=== PATIENT | male | born 1960 ===

== ENCOUNTER 2018-02-07 07:20 | Inpatient (IN) | payer MEDICARE ==
--- NOTE | 2018-02-07 08:16 | ED PDOC ---
Lower Extremity Pain/Injury Time Seen by Provider: 02/07/18 07:29 Chief Complaint (Nursing): Lower Extremity Problem/Injury History Per: Patient History/Exam Limitations: no limitations Onset/Duration Of Symptoms: Days, Persistent Current Symptoms Are (Timing): Still Present Severity: Moderate Pain Scale Rating Of: 7 Additional Complaint(s): 57 YO male with PMHx of IDDM, HTN, HLD, CAD (CABG), on HD (T/W/Sa), L BKA, presents to [facility] ED with RLE and LLE pain. Pt states that he fell in the stairs on November 24, 2017 after which he was taken to [facility], and told R leg fracture and was put in a cast. A month ago, pts cast was removed, and he noticed that the leg looked different then usual, and he also had a small non- healing ulcer in the lateral side of the leg. Pt states that he continues to have pain in the RLE, has not improved since cast removal, moderate pain. Pain improved with Tylenol, last time use was last night. Denies fever, chills, night sweats, n/v/d/c. PMD: Erika Trejo PMHx: IDDM, HTN, HLD, CAD (CABG), CKD on HD (T/W/Sa), L BKA SurgHx: L BKA, CABG FH: DM SH: denies ETOH, smoking and illicit drug use Meds: on multiple meds, does not remember names Allergies: NKDA - Ankle/Foot Description Of Injury: Fell Currently Unable To: Straighten Alleviating Factor(s): OTC Pain Medication Past Medical History Vital Signs: Last Vital Signs Temp 98.5 F 02/07/18 07:26 Pulse 77 02/07/18 07:26 Resp 20 02/07/18 07:26 BP 133/77 02/07/18 07:26 Pulse Ox 99 02/07/18 07:26 - Medical History PMH: CAD, Diabetes, HTN, Hyperlipidemia, Chronic Kidney Disease - Surgical History Surgical History: CABG Other surgeries: L BKA - Family History Family History: States: Diabetes - Social History Current smoker - smoking cessation education provided: No Ex-Smoker (has not smoked in the last 12 months): No Alcohol: None Drugs: Denies - Home Medications Home Medications: Ambulatory Orders Medication Instructions Recorded Atorvastatin [Lipitor] 40 mg PO HS 02/07/18 Carvedilol [Coreg] 3.125 mg PO Q12 02/07/18 Folic Acid/Vit B Complex and C 1 tab PO DAILY 02/07/18 [Marianela-Rod Tablet] Insulin Aspart, Recombinant unit SC AC 02/07/18 [Novolog] Insulin Glargine, Recombina 5 unit SC QAM 02/07/18 [Lantus] Insulin Glargine, Recombina 8 unit SC QPM 02/07/18 [Lantus] Levothyroxine [Synthroid] 100 mg PO DAILY 02/07/18 Losartan [Cozaar] 25 mg PO DAILY 02/07/18 Multivitamin [Multi-Vitamin Daily] 1 tab PO DAILY 02/07/18 Sevelamer Carbonate [Renvela] 1,600 mg PO ACTID 02/07/18 - Allergies Allergies/Adverse Reactions: Allergies Allergy/AdvReac Type Severity Reaction Status Date / Time No Known Allergies Allergy Verified 02/07/18 07:42 Review of Systems Constitutional: Negative for: Fever, Chills Cardiovascular: Negative for: Chest Pain, Palpitations Respiratory: Negative for: Cough, Shortness of Breath Gastrointestinal: Negative for: Nausea, Vomiting, Diarrhea, Constipation Genitourinary Male: Negative for: Dysuria, Frequency Musculoskeletal: Positive for: Foot Pain (R) Neurological: Negative for: Weakness, Numbness Physical Exam - Physical Exam Appears: Positive for: No Acute Distress Head Exam: Positive for: NORMAL INSPECTION Skin: Positive for: Normal Color Eye Exam: Positive for: Normal appearance, EOMI Neck: Positive for: Normal, Painless ROM Cardiovascular/Chest: Positive for: Regular Rate, Rhythm Respiratory: Positive for: Normal Breath Sounds. Negative for: Crackles, Rales , Wheezing Gastrointestinal/Abdominal: Positive for: Normal Exam, Bowel Sounds, Soft. Negative for: Tenderness Back: Positive for: Normal Inspection. Negative for: L CVA Tenderness, R CVA Tenderness Extremity: Positive for: Deformity (in the RLE, quarter sized ulcer noted in the lateral mallelous; not currently draining. Mild edema, no erythema or temp changes ), Other (L BKA, no gross deformity of the knee) Neurologic/Psych: Positive for: Alert, Oriented - Laboratory Results Result Diagrams: 02/07/18 08:51 02/07/18 08:51 - ECG O2 Sat by Pulse Oximetry: 99 - Progress ED Course And Treament: 57 Male with RLE pain, ulcer and deformity, chronic renal failure on HD, IDDM, CAD. -cbc, cmp -wound cx, blood cx -tib/fib and josette XR of RLE -knee XR of LLE -podiatry recs Blood work reviewed; labs sig for Creakiness 8.5 and Hyperkalemia K 5.1. -stat EKG for hyperkalemia 10:25: XR sig for multiple lower extremity fxs--complete disruption of the R ankle with lateral displacement, with old trimalleolar fx. Pt seen and examined by Podiatry in ED EKG with no acute ST or T wave changes. rate of 75. All workup, plan discussed with patient. Pt agrees with plan. Pt admitted to the hospital Dr. Novak consulted for Chronic renal failure on HD Podiatry consulted Pt endorsed to Dr. Wilde. Admitting MD. Disposition - Clinical Impression Clinical Impression: Chronic kidney disease (CKD), Tibia/fibula fracture - Patient ED Disposition Is Patient to be Admitted: Yes - Disposition Disposition Time: 11:30 Condition: STABLE
[2018-02-07 09:06] LABS: BASO % 0.9 % (0.0-2.0); EOS # 0.2 K/uL (0.0-0.7); EOS % 4.6 % (0.0-4.0); HEMOGLOBIN 11.7 g/dL (12.0-18.0); LYMPH # 0.8 K/uL (1.0-4.3); LYMPH % 16.5 % (20.0-40.0); MEAN CELL VOLUME 96.7 fl (80.0-94.0); MEAN CORPUSCULAR HEMOGLOBIN 32.5 pg (27.0-31.0); MEAN CORPUSCULAR HGB CONC 33.6 g/dL (33.0-37.0); MEAN PLATELET VOLUME 7.1 fl (7.2-11.7); MONO # 0.4 K/uL (0.0-0.8); MONO % 8.9 % (0.0-10.0); NEUT # 3.2 K/uL (1.8-7.0); NEUT % 69.1 % (50.0-75.0); RBC 3.59 Mil/uL (4.40-5.90); RED CELL DISTRIBUTION WIDTH 15.3 % (11.5-14.5); WHITE BLOOD COUNT 4.7 K/uL (4.8-10.8)
[2018-02-07 09:14] LABS: CALCIUM 8.3 mg/dL (8.4-10.2)
--- NOTE | 2018-02-07 09:25 | RAD ---
PROCEDURE: Right Wrist Radiographs. HISTORY: RLE pain COMPARISON: 04/16/2008 FINDINGS: BONES: There is complete disruption of the right ankle joint. Old fractures involving the lateral and medial malleolus with lateral dislocation of the distal tibia. JOINTS: As above. SOFT TISSUES: Generalized soft tissue swelling. OTHER FINDINGS: Extensive vascular calcifications. Extensive osteopenia. IMPRESSION: Complete disruption of the right ankle joint with dislocation of the distal tibia to the lateral aspect. Old trimalleolar fractures. Please note that in this setting, evaluation of subtle acute fractures is extremely suboptimal. Other findings as above.
--- NOTE | 2018-02-07 09:39 | RAD ---
Right tibia and fibula History: Pain. Technique: Multiple views of the right tibia and fibula. Findings: No evidence of acute fracture. Extensive degenerative changes common destruction and dislocation involving the right ankle joint. Generalized osteopenia. Vascular calcifications. Generalized soft tissue swelling. Impression: No acute fracture. Chronic changes involving the right ankle.
--- NOTE | 2018-02-07 09:50 | RAD ---
PROCEDURE: Left Knee Radiographs. HISTORY: Pain. COMPARISON: 04/16/2018 FINDINGS: BONES: No acute fracture. Patient is status post below-knee amputation. JOINTS: Minimal arthritic changes in the left knee. JOINT EFFUSION: Moderate suprapatellar joint effusion. OTHER FINDINGS: Extensive osteopenia. Vascular calcifications. IMPRESSION: Status post below-knee amputation. No definite fracture. Other findings as above.
--- NOTE | 2018-02-07 11:54 | CARD ---
APPROVED REPORT EKG Measurement Heart [id number] <Conclusion> Normal sinus rhythm Inferior infarct, age undetermined Abnormal ECG
--- NOTE | 2018-02-07 12:39 | CP.PCM.HP ---
History of Present Illness - History of Present Illness History of Present Illness: CC: Pain R ankle and foot. 57 y/o M, with Hx of CABG, ESRD on HD, IDDM, HTN, came to [facility] on , to be evaluated for pain in R ankle, R foot, associated to Fx from a fall and trauma 2 month ago that he fell down the stairs. Pt was Tx in [facility], he had a cast placed and after been removed a month ago, he noticed that his R leg does not look the same. He still with increased pain, continue, described as achy, moderate-severe intensity 8:10, Pt took Tylenol last night with some relief. Worsening symptoms: Difficulty walking, non healed ulcer in R foot, old trimalleolar Fx from fall. Aggravated factor: Walking, movements, exercise. Pt denied: Fever, chill, n/v/d, abdominal pain, CP, palpitations, SOB, sick contact, recent travel out of [facility]. R ankle X Ray shows: Complete disruption on the R ankle joint with dislocation of the distal tibia to the lateral aspect. R Tibia or fistula X Ray: No acute Fx. EKG: Normal sinus rhythm, inferior infarct age undetermined. Present on Admission - Present on Admission Any Indicators Present on Admission: No Review of Systems - Constitutional Constitutional: Other (negative) - EENT Eyes: Other (negative) Ears: Other (negative) Nose/Mouth/Throat: Other (negative) - Cardiovascular Cardiovascular: Other (negative) - Respiratory Respiratory: Other (negative) - Gastrointestinal Gastrointestinal: Other (negative) - Genitourinary Genitourinary: Other (negative) - Musculoskeletal Musculoskeletal: Other (R ankle/lower extremity pain) - Integumentary Integumentary: Other (Ulcer lateral malleolar) - Neurological Neurological: Other (negative) - Psychiatric Psychiatric: Other (negative) - Hematologic/Lymphatic Hematologic: Other (negative) Past Patient History - Past Medical History & Family History Pertinent Family History: Unknown - Past Social History Smoking Status: Never Smoked Alcohol: None Drugs: Denies Home Situation {Lives}: Other - CARDIAC Hx Cardiac Disorders: Yes Hx Hypercholesterolemia: Yes Hx Hypertension: Yes - PULMONARY Hx Respiratory Disorders: No - NEUROLOGICAL Hx Neurological Disorder: No - HEENT Hx HEENT Problems: No - RENAL Hx Chronic Kidney Disease: Yes Hx Dialysis: Yes - ENDOCRINE/METABOLIC Hx Endocrine Disorders: Yes Hx Diabetes Mellitus Type 2: Yes - HEMATOLOGICAL/ONCOLOGICAL Hx Blood Disorders: No - INTEGUMENTARY Hx Dermatological Problems: No - MUSCULOSKELETAL/RHEUMATOLOGICAL Hx Musculoskeletal Disorders: Yes Hx Fractures: Yes - GASTROINTESTINAL Hx Gastrointestinal Disorders: No - GENITOURINARY/GYNECOLOGICAL Hx Genitourinary Disorders: No - PSYCHIATRIC Hx Psychophysiologic Disorder: No - SURGICAL HISTORY Hx Surgeries: Yes (L BKA) Hx Coronary Artery Bypass Graft: Yes - ANESTHESIA Hx Anesthesia: Yes Hx Anesthesia Reactions: No Hx Malignant Hyperthermia: No Meds Allergies/Adverse Reactions: Allergies Allergy/AdvReac Type Severity Reaction Status Date / Time No Known Allergies Allergy Verified 02/07/18 07:42 Physical Exam - Head Exam Head Exam: NORMAL INSPECTION - Eye Exam Eye Exam: PERRL - ENT Exam ENT Exam: Normal Exam - Neck Exam Neck exam: Positive for: Normal Inspection - Respiratory Exam Respiratory Exam: Clear to Auscultation Bilateral - Cardiovascular Exam Cardiovascular Exam: REGULAR RHYTHM - GI/Abdominal Exam GI & Abdominal Exam: Normal Bowel Sounds, Soft - Extremities Exam Additional comments: Left BKA, Lateral malleolal ulceration R foot with granular base, displacement R ankle joint with severe pain on palpation of medial and lateral ankle joint. L upper arm with dialysis fistula, positive for bruit and thrill. - Back Exam Back exam: NORMAL INSPECTION - Neurological Exam Neurological exam: Alert, Oriented x3 - Psychiatric Exam Psychiatric exam: Normal Mood - Skin Skin Exam: Warm Additional comments: See extremity information. Results - Vital Signs Recent Vital Signs: Last Vital Signs Temp 98.0 F 02/07/18 11:50 Pulse 77 02/07/18 11:50 Resp 14 02/07/18 11:50 BP 125/79 02/07/18 11:50 Pulse Ox 99 02/07/18 12:05 reviewed [email or web address] - Labs Result Diagrams: 02/07/18 08:51 02/07/18 08:51 Labs: Laboratory Results - last 24 hr 02/07/18 02/07/18 02/07/18 08:51 08:51 11:29 WBC 4.7 L RBC 3.59 L Hgb 11.7 L Hct 34.7 L MCV 96.7 H MCH 32.5 H MCHC 33.6 RDW 15.3 H Plt Count 253 MPV 7.1 L Neut % (Auto) 69.1 Lymph % (Auto) 16.5 L [place] % (Auto) 8.9 Eos % (Auto) 4.6 H Baso % (Auto) 0.9 Neut # (Auto) 3.2 Lymph # (Auto) 0.8 L [place] # (Auto) 0.4 Eos # (Auto) 0.2 Baso # (Auto) 0.0 Sodium 138 Potassium 5.1 H Chloride 94 L Carbon Dioxide 31 H Anion Gap 18 BUN 54 H Creatinine 8.5 H* Est GFR ( Amer) 8 Est GFR (Non-Af Amer) 7 POC Glucose (mg/dL) 107 Random Glucose 105 Calcium 8.3 L reviewed J.P. - Impressions Impression: reviewed J.P. - Imaging and Cardiology Chest x-ray Status: Report reviewed by me ([email or web address].) Additional comment: Knee X-Ray: Reviewed J.P. Ankle X Ray: Reviewed J.P. Tibia/Fistula X Ray: Reviewed J.P. Assessment & Plan (1) Pain in right ankle and joints of right foot Status: Acute Priority: High (2) Pressure ulcer of right foot Status: Acute Priority: High (3) Closed dislocation of distal tibia Status: Acute Priority: High (4) Trimalleolar fracture of right ankle Status: Acute Comment: Old (5) ESRD on hemodialysis Status: Chronic Priority: High (6) IDDM (insulin dependent diabetes mellitus) Status: Chronic Priority: Medium (7) Hyperlipidemia Status: Chronic Priority: Medium (8) HTN (hypertension) Status: Chronic Priority: Medium (9) Abnormal EKG Status: Acute (10) Hypothyroidism Status: Chronic Priority: Medium - Assessment and Plan (Free Text) Plan: F/U Echo, Blood C-S, Urine C-S, Vanco, Zosyn, Tylenol, and rest of Tx. Renal diet. Podiatry, Renal and Cardiology consult. - Date & Time Date: 02/07/18 Time: 13:00
[2018-02-07] MEDS: Insulin Lispro (humaLOG) 100 Units/ml Inj SC SCH ×2 (17:08→21:27)
--- NOTE | 2018-02-07 17:21 | CP.PCM.CON ---
History of Present Illness - History of Present Illness History of Present Illness: 57 y/o male with PMHx of IDDM, HTN, HLD, CAD (CABG), on HD (T//), L CLIFTON was seen in the ED due to complaints of pain to his right ankle. Patient states he fell down the stairs in October of 2017. Patient reports he was taken to the [facility] and placed in a cast. As per patient, he was discharged with the cast. Patient states he cast was removed 1 month later. Patient states his foot has "not looked the same" since then. Patient denies a fever/nausea/ vomiting/posterior calf pain. Patient states he takes Tylenol for the pain, which mildly alleviates his pain PMD: Erika Trejo PMHx: IDDM, HTN, HLD, CAD (CABG), CKD on HD (T//), L CLIFTON SurgHx: L BKA, CABG FH: DM SH: denies ETOH, smoking and illicit drug use Meds: on multiple meds, does not remember names Allergies: NKDA Review of Systems - Review of Systems All systems: reviewed and no additional remarkable complaints except Review of Systems: As per HPI Past Patient History - Past Social History Alcohol: None Drugs: Denies - CARDIAC Hx Hypertension: Yes - PULMONARY Hx Respiratory Disorders: No - NEUROLOGICAL Hx Neurological Disorder: No - HEENT Hx HEENT Problems: No - RENAL Hx Chronic Kidney Disease: Yes - ENDOCRINE/METABOLIC Hx Endocrine Disorders: Yes - HEMATOLOGICAL/ONCOLOGICAL Hx Blood Disorders: No - INTEGUMENTARY Hx Dermatological Problems: No - MUSCULOSKELETAL/RHEUMATOLOGICAL Hx Musculoskeletal Disorders: Yes - GASTROINTESTINAL Hx Gastrointestinal Disorders: No - GENITOURINARY/GYNECOLOGICAL Hx Genitourinary Disorders: No - PSYCHIATRIC Hx Psychophysiologic Disorder: No - SURGICAL HISTORY Hx Coronary Artery Bypass Graft: Yes - ANESTHESIA Hx Anesthesia: Yes Hx Anesthesia Reactions: No Hx Malignant Hyperthermia: No Meds Allergies/Adverse Reactions: Allergies Allergy/AdvReac Type Severity Reaction Status Date / Time No Known Allergies Allergy Verified 02/07/18 07:42 - Medications Medications: Current Medications Acetaminophen (Tylenol 325mg Tab) 650 mg PO Q6 PRN PRN Reason: Pain, Mild (1-3) Atorvastatin Calcium (Lipitor) 40 mg PO HS [facility] Carvedilol (Coreg) 3.125 mg PO Q12 [facility] Heparin Sodium (Porcine) (Heparin) 5,000 units SC Q12 [facility] PRN Reason: Protocol Vancomycin HCl 1 gm/ Sodium (Chloride) 250 mls @ 166.667 mls/hr IVPB ONCE ONE PRN Reason: Protocol Stop: 02/08/18 16:29 Vancomycin HCl 750 mg/ Sodium (Chloride) 250 mls @ 166.667 mls/hr IVPB QOTHERDAY [facility]AS[facility] PRN Reason: Protocol Piperacillin Sod/Tazobactam (Sod 2.25 gm/ Sodium Chloride) 100 mls @ 100 mls/ hr IVPB Q12 [facility]AS[facility] PRN Reason: Protocol Insulin Detemir (Levemir) 5 units SC QAM [facility] Insulin Detemir (Levemir) 8 units SC QPM [facility] Insulin Human Lispro (Humalog) 0 units SC ACHS [facility] PRN Reason: Protocol Levothyroxine Sodium (Synthroid) 100 mcg PO DAILY [facility] Losartan Potassium (Cozaar) 25 mg PO DAILY [facility] Multivitamins/Minerals (Therapeutic-M Tab) 1 tab PO DAILY [facility] Sevelamer HCl (Renagel) 1,600 mg PO ACTID [facility] Vitamin B Complex/Vit C/Folic Acid (Nephro-Rod) 1 tab PO DAILY [facility] Physical Exam - Constitutional Appears: Well, Non-toxic, No Acute Distress - Head Exam Head Exam: ATRAUMATIC, NORMOCEPHALIC - Extremities Exam Additional comments: Bilateral Lower Extremity Exam Left BKA Right- VASC: DP and PT 2/4; CFT less than 3 seconds x 5; TG warm to cool proximal to distal; no edema NEURO: epicritic and protective sensation intact DERM: lateral malleolar ulceration measuring 1.0 X 0.5 cm X 0.2 cm; 100% granular base, with hyperkeratotic rim, no probe to bone, minimal serous drainage, no tunneling, no malodor, no undermining MSK: displacement noted of the right ankle joint with severe pain on palpation of medial and lateral ankle joint, patient guarding due to pain, limited ankle joint range of motion - Neurological Exam Neurological exam: Alert, Oriented x3 - Psychiatric Exam Psychiatric exam: Normal Affect, Normal Mood Results - Vital Signs Recent Vital Signs: Last Vital Signs Temp 97.9 F 02/07/18 16:41 Pulse 73 02/07/18 16:41 Resp 16 02/07/18 16:41 BP 150/73 02/07/18 16:41 Pulse Ox 100 02/07/18 16:41 - Labs Result Diagrams: 02/07/18 08:51 02/07/18 08:51 Labs: Laboratory Results - last 24 hr 02/07/18 02/07/18 02/07/18 08:51 08:51 11:29 WBC 4.7 L RBC 3.59 L Hgb 11.7 L Hct 34.7 L MCV 96.7 H MCH 32.5 H MCHC 33.6 RDW 15.3 H Plt Count 253 MPV 7.1 L Neut % (Auto) 69.1 Lymph % (Auto) 16.[address] [place] % (Auto) 8.9 Eos % (Auto) 4.6 H Baso % (Auto) 0.9 Neut # (Auto) 3.2 Lymph # (Auto) 0.[address] [place] # (Auto) 0.4 Eos # (Auto) 0.2 Baso # (Auto) 0.0 Sodium 138 Potassium 5.1 H Chloride 94 L Carbon Dioxide 31 H Anion Gap 18 BUN 54 H Creatinine 8.5 H* Est GFR ( Amer) 8 Est GFR (Non-Af Amer) 7 POC Glucose (mg/dL) 107 Random Glucose 105 Calcium 8.3 L 02/07/18 02/07/18 12:54 16:12 WBC RBC Hgb Hct MCV MCH MCHC RDW Plt Count MPV Neut % (Auto) Lymph % (Auto) [place] % (Auto) Eos % (Auto) Baso % (Auto) Neut # (Auto) Lymph # (Auto) [place] # (Auto) Eos # (Auto) Baso # (Auto) Sodium Potassium Chloride Carbon Dioxide Anion Gap BUN Creatinine Est GFR ( Amer) Est GFR (Non-Af Amer) POC Glucose (mg/dL) 118 H 196 H Random Glucose Calcium Assessment & Plan - Assessment and Plan (Free Text) Assessment: 57 y/o male with PMHx of IDDM, HTN, HLD, CAD (CABG), on HD (T/W/), L BKA was seen in the ED due to complaints of pain to his right ankle Plan: Patient seen and evaluated Patient plan discussed with attending Dr. Turner Chart, labs and vitals reviewed- Afebrile, absent leukocytosis Ankle X-ray: complete disruption of the right ankle joint, old fractures involving the lateral and medial malleolus with lateral dislocation of the distal tibia Knee X-ray: extensive osteopenia, no fracture Tibia-Fib X-ray: generalized soft tissue swelling, extensive degenerative changes, dislocation of the ankle joint MRI-order placed of the right foot Wound Culture- Pending Vascular Consult Placed- appreciate recs Patient's wound dressed with DSD Thank you for the podiatry consult Podiatry will continue to follow patient in-house - Date & Time Date: 02/07/18 Time: 17:42
[2018-02-07] MEDS: Insulin Detemir 100 Units/ml Inj SC SCH (21:25)
--- NOTE | 2018-02-07 23:54 | CP.PCM.CON ---
History of Present Illness - History of Present Illness History of Present Illness: REASONS FOR CONSULT : ESRD ON HD TTS ANEMIA OF CKD .. H/H STABLE ALL EMR REVIEWED .. PT WAS SEEN AND EXAMINED .. CASE AD MANAGEMENT D/W RN IN CHARGE PT IS WELL KNOWN TO ME .. ON HD TTS AT [facility]: Pain R ankle and foot. 57 y/o M, with Hx of CABG, ESRD on HD, IDDM, HTN, came to ER [facility] on , to be evaluated for pain in R ankle, R foot, associated to Fx from a fall and trauma 2 month ago that he fell down the stairs. Pt was Tx in [facility], he had a cast placed and after been removed a month ago, he noticed that his R leg does not look the same. He still with increased pain, continue, described as achy, moderate-severe intensity 8:10, Pt took Tylenol last night with some relief. Worsening symptoms: Difficulty walking, non healed ulcer in R foot, old trimalleolar Fx from fall. Aggravated factor: Walking, movements, exercise. Pt denied: Fever, chill, n/v/d, abdominal pain, CP, palpitations, SOB, sick contact, recent travel out of [facility]. R ankle X Ray shows: Complete disruption on the R ankle joint with dislocation of the distal tibia to the lateral aspect. R Tibia or fistula X Ray: No acute Fx. EKG: Normal sinus rhythm, inferior infarct age undetermined. Present on Admission - Present on Admission Any Indicators Present on Admission: No Review of Systems - Constitutional Constitutional: Other (negative) - EENT Eyes: Other (negative) Ears: Other (negative) Nose/Mouth/Throat: Other (negative) - Cardiovascular Cardiovascular: Other (negative) - Respiratory Respiratory: Other (negative) - Gastrointestinal Gastrointestinal: Other (negative) - Genitourinary Genitourinary: Other (negative) - Musculoskeletal Musculoskeletal: Other (R ankle/lower extremity pain) - Integumentary Integumentary: Other (Ulcer lateral malleolar) - Neurological Neurological: Other (negative) - Psychiatric Psychiatric: Other (negative) - Hematologic/Lymphatic Hematologic: Other (negative) Past Patient History - Past Medical History & Family History Pertinent Family History: Unknown - Past Social History Smoking Status: Never Smoked Alcohol: None Drugs: Denies Home Situation {Lives}: Other - CARDIAC Hx Cardiac Disorders: Yes Hx Hypercholesterolemia: Yes Hx Hypertension: Yes - PULMONARY Hx Respiratory Disorders: No - NEUROLOGICAL Hx Neurological Disorder: No - HEENT Hx HEENT Problems: No - RENAL Hx Chronic Kidney Disease: Yes Hx Dialysis: Yes - ENDOCRINE/METABOLIC Hx Endocrine Disorders: Yes Hx Diabetes Mellitus Type 2: Yes - HEMATOLOGICAL/ONCOLOGICAL Hx Blood Disorders: No - INTEGUMENTARY Hx Dermatological Problems: No - MUSCULOSKELETAL/RHEUMATOLOGICAL Hx Musculoskeletal Disorders: Yes Hx Fractures: Yes - GASTROINTESTINAL Hx Gastrointestinal Disorders: No - GENITOURINARY/GYNECOLOGICAL Hx Genitourinary Disorders: No - PSYCHIATRIC Hx Psychophysiologic Disorder: No - SURGICAL HISTORY Hx Surgeries: Yes (L BKA) Hx Coronary Artery Bypass Graft: Yes - ANESTHESIA Hx Anesthesia: Yes Hx Anesthesia Reactions: No Hx Malignant Hyperthermia: No Past Patient History - Past Medical History & Family History Past Medical History?: Yes - Past Social History Smoking Status: Never Smoked Alcohol: None Drugs: Denies Home Situation {Lives}: Other - CARDIAC Hx Cardiac Disorders: Yes Hx Hypercholesterolemia: Yes Hx Hypertension: Yes - PULMONARY Hx Respiratory Disorders: No - NEUROLOGICAL Hx Neurological Disorder: No - HEENT Hx HEENT Problems: No - RENAL Hx Chronic Kidney Disease: Yes Hx Dialysis: Yes - ENDOCRINE/METABOLIC Hx Endocrine Disorders: Yes Hx Diabetes Mellitus Type 2: Yes - HEMATOLOGICAL/ONCOLOGICAL Hx Blood Disorders: No - INTEGUMENTARY Hx Dermatological Problems: No - MUSCULOSKELETAL/RHEUMATOLOGICAL Hx Musculoskeletal Disorders: Yes Hx Fractures: Yes - GASTROINTESTINAL Hx Gastrointestinal Disorders: No - GENITOURINARY/GYNECOLOGICAL Hx Genitourinary Disorders: No - PSYCHIATRIC Hx Psychophysiologic Disorder: No - SURGICAL HISTORY Hx Surgeries: Yes (L BKA) Hx Coronary Artery Bypass Graft: Yes - ANESTHESIA Hx Anesthesia: Yes Hx Anesthesia Reactions: No Hx Malignant Hyperthermia: No Meds Allergies/Adverse Reactions: Allergies Allergy/AdvReac Type Severity Reaction Status Date / Time No Known Allergies Allergy Verified 02/07/18 07:42 - Medications Medications: Current Medications Acetaminophen (Tylenol 325mg Tab) 650 mg PO Q6 PRN PRN Reason: Pain, Mild (1-3) Atorvastatin Calcium (Lipitor) 40 mg PO HS [facility] Last Admin: 02/07/18 21:23 Dose: 40 mg Carvedilol (Coreg) 3.125 mg PO Q12 [facility] Last Admin: 02/07/18 21:22 Dose: 3.125 mg Heparin Sodium (Porcine) (Heparin) 5,000 units SC Q12 [facility] PRN Reason: Protocol Last Admin: 02/07/18 21:26 Dose: 5,000 units Vancomycin HCl 750 mg/ Sodium (Chloride) 250 mls @ 166.667 mls/hr IVPB QOTHERDAY [facility] PRN Reason: Protocol Piperacillin Sod/Tazobactam (Sod 2.25 gm/ Sodium Chloride) 100 mls @ 100 mls/ hr IVPB Q12 [facility] PRN Reason: Protocol Last Admin: 02/07/18 21:23 Dose: 100 mls/hr Insulin Detemir (Levemir) 5 units SC QAM [facility] Insulin Detemir (Levemir) 8 units SC QPM [facility] Last Admin: 02/07/18 21:25 Dose: 8 units Insulin Human Lispro (Humalog) 0 units SC ACHS [facility] PRN Reason: Protocol Last Admin: 02/07/18 21:27 Dose: Not Given Levothyroxine Sodium (Synthroid) 100 mcg PO DAILY [facility] Losartan Potassium (Cozaar) 25 mg PO DAILY [facility] Multivitamins/Minerals (Therapeutic-M Tab) 1 tab PO DAILY [facility] Sevelamer HCl (Renagel) 1,600 mg PO ACTID [facility] Last Admin: 02/07/18 17:10 Dose: 1,600 mg Vitamin B Complex/Vit C/Folic Acid (Nephro-Rod) 1 tab PO DAILY [facility] Results - Vital Signs Recent Vital Signs: Last Vital Signs Temp 97.9 F 02/07/18 20:16 Pulse 83 02/07/18 21:22 Resp 16 02/07/18 20:16 BP 127/67 02/07/18 21:22 Pulse Ox 97 02/07/18 20:16 - Labs Result Diagrams: 02/07/18 08:51 02/07/18 08:51 Labs: Laboratory Results - last 24 hr 02/07/18 02/07/18 02/07/18 08:51 08:51 11:29 WBC 4.7 L RBC 3.59 L Hgb 11.7 L Hct 34.7 L MCV 96.7 H MCH 32.5 H MCHC 33.6 RDW 15.3 H Plt Count 253 MPV 7.1 L Neut % (Auto) 69.1 Lymph % (Auto) 16.5 L Alfalfa % (Auto) 8.9 Eos % (Auto) 4.6 H Baso % (Auto) 0.9 Neut # (Auto) 3.2 Lymph # (Auto) 0.8 L Alfalfa # (Auto) 0.4 Eos # (Auto) 0.2 Baso # (Auto) 0.0 Sodium 138 Potassium 5.1 H Chloride 94 L Carbon Dioxide 31 H Anion Gap 18 BUN 54 H Creatinine 8.5 H* Est GFR ( Amer) 8 Est GFR (Non-Af Amer) 7 POC Glucose (mg/dL) 107 Random Glucose 105 Hemoglobin A1c Calcium 8.3 L 02/07/18 02/07/18 02/07/18 12:54 15:49 16:12 WBC RBC Hgb Hct MCV MCH MCHC RDW Plt Count MPV Neut % (Auto) Lymph % (Auto) Alfalfa % (Auto) Eos % (Auto) Baso % (Auto) Neut # (Auto) Lymph # (Auto) Alfalfa # (Auto) Eos # (Auto) Baso # (Auto) Sodium Potassium Chloride Carbon Dioxide Anion Gap BUN Creatinine Est GFR ( Amer) Est GFR (Non-Af Amer) POC Glucose (mg/dL) 118 H 196 H Random Glucose Hemoglobin A1c 5.8 Calcium 02/07/18 21:26 WBC RBC Hgb Hct MCV MCH MCHC RDW Plt Count MPV Neut % (Auto) Lymph % (Auto) Alfalfa % (Auto) Eos % (Auto) Baso % (Auto) Neut # (Auto) Lymph # (Auto) Alfalfa # (Auto) Eos # (Auto) Baso # (Auto) Sodium Potassium Chloride Carbon Dioxide Anion Gap BUN Creatinine Est GFR ( Amer) Est GFR (Non-Af Amer) POC Glucose (mg/dL) 105 Random Glucose Hemoglobin A1c Calcium Assessment & Plan - Assessment and Plan (Free Text) Assessment: IMP : ESRD ON HD TTS .. WILL ARRANGE FOR HD ON SCHEDULE ANEMIA OF CKD .. H/H STABLE .. NO NEED FOR EPO SEVERE MMP PVD .. S/P L AKN MMP P : HD TTS C/O CURRENT CARE C/O PRESENT MEDS - Date & Time Date: 02/07/18 Time: 16:00
[2018-02-08 06:00] LABS: CALCIUM 7.9 mg/dL (8.4-10.2)
[2018-02-08] MEDS ORDERED: Levothyroxine 100 MCG TAB PO SCH (09:00)
[2018-02-08] MEDS: Multivitamin Vitamin B Complex (Nephro-Vite) Tab PO SCH (11:22)
[2018-02-08] MEDS: Multivitamin With Minerals Tab PO SCH (11:23)
--- NOTE | 2018-02-08 11:24 | CP.PCM.PN ---
Subjective - Date & Time of Evaluation Date of Evaluation: 02/08/18 Time of Evaluation: 11:21 - Subjective Subjective: Podiatry progress note for Dr. Turner, 57 y/o male was seen at bedside and evaluated at this morning for his right ankle. Patient is no acute distress and AAOx3. Patient denies any overnight acute events. Patient denies f/n/v/sob. Objective - Vital Signs/Intake and Output Vital Signs (last 24 hours): Temp Pulse Resp BP Pulse Ox 98 F 68 18 121/62 98 02/08/18 08:19 02/08/18 08:19 02/08/18 08:19 02/08/18 08:19 02/08/18 08:19 - Medications Medications: Current Medications Acetaminophen (Tylenol 325mg Tab) 650 mg PO Q6 PRN PRN Reason: Pain, Mild (1-3) Atorvastatin Calcium (Lipitor) 40 mg PO HS [facility]PLAC[facility] BY [facility] Last Admin: 02/07/18 21:23 Dose: 40 mg Carvedilol (Coreg) 3.125 mg PO Q12 [facility] Last Admin: 02/07/18 21:22 Dose: 3.125 mg Heparin Sodium (Porcine) (Heparin) 5,000 units SC Q12 [facility] PRN Reason: Protocol Last Admin: 02/07/18 21:26 Dose: 5,000 units Vancomycin HCl 750 mg/ Sodium (Chloride) 250 mls @ 166.667 mls/hr IVPB QOTHERDAY REPLACED BY [facility] PRN Reason: Protocol Piperacillin Sod/Tazobactam (Sod 2.25 gm/ Sodium Chloride) 100 mls @ 100 mls/ hr IVPB Q12 [facility]PL[facility] BY [facility] PRN Reason: Protocol Last Admin: 02/07/18 21:23 Dose: 100 mls/hr Insulin Detemir (Levemir) 5 units SC QAM REPLACED BY [facility] Insulin Detemir (Levemir) 8 units SC QPM REPLACED [facility] Last Admin: 02/07/18 21:25 Dose: 8 units Insulin Human Lispro (Humalog) 0 units SC ACHS REPLACED BY [facility] PRN Reason: Protocol Last Admin: 02/07/18 21:27 Dose: Not Given Levothyroxine Sodium (Synthroid) 100 mcg PO DAILY [facility]PL[facility] Losartan Potassium (Cozaar) 25 mg PO DAILY [facility]PLAC[facility] BY [facility] Multivitamins/Minerals (Therapeutic-M Tab) 1 tab PO DAILY [facility]PLACED BY [facility] Sevelamer HCl (Renagel) 1,600 mg PO ACTID REPLACED BY [facility] Last Admin: 02/07/18 17:10 Dose: 1,600 mg Vitamin B Complex/Vit C/Folic Acid (Nephro-Rod) 1 tab PO DAILY [facility] - Labs Labs: 02/07/18 08:51 02/08/18 04:20 - Constitutional Appears: Well, Non-toxic, No Acute Distress - Head Exam Head Exam: ATRAUMATIC, NORMOCEPHALIC - Extremities Exam Additional comments: Left BKA Right lower extremity exam: VASC: DP and PT 2/4; CFT less than 3 seconds x 5; TG warm to cool proximal to distal; no edema NEURO: epicritic and protective sensation intact DERM: lateral malleolar ulceration measuring 1.0 X 0.5 cm X 0.2 cm; 100% granular base, with hyperkeratotic rim, no probe to bone, minimal serous drainage, no tunneling, no malodor, no undermining MSK: displacement noted of the right ankle joint with severe pain on palpation of medial and lateral ankle joint, patient guarding due to pain, limited ankle joint range of motion - Neurological Exam Neurological Exam: Alert, Awake, Oriented x3 - Psychiatric Exam Psychiatric exam: Normal Affect, Normal Mood - Skin Skin Exam: Normal Color Assessment and Plan - Assessment and Plan (Free Text) Assessment: 57 y/o male with L BKA and complete disruption of the right ankle joint with lateral dislocation of distal tibia Plan: Patient seen and evaluated Patient plan discussed with attending Dr. Turner Chart, labs and vitals reviewed- Afebrile, absent leukocytosis HgA1c: 5.8 mg/dL Ankle X-ray: complete disruption of the right ankle joint, old fractures involving the lateral and medial malleolus with lateral dislocation of the distal tibia Knee X-ray: extensive osteopenia, no fracture Tibia-Fib X-ray: generalized soft tissue swelling, extensive degenerative changes, dislocation of the ankle joint MRI- Pending Wound Culture- Preliminary- no growth after 24 hours Patient wound is stable and dressed with DSD Podiatry will continue to follow patient in-house
--- NOTE | 2018-02-08 13:43 | CP.PCM.CON ---
History of Present Illness - History of Present Illness History of Present Illness: this 57-year- old man, a diabetic for last 16 years underwent coronary bypass graft surgery 7 years back and indicated subsequently suffered a myocardial infarction. He has required below-knee amputation of his left lower extremity and has been on hemodialysis for more than 5 years. He is an ex-smoker. He denies any palpitations or recurrent bouts of chest pain but, his physical activities are severely curtailed because of the left below-knee amputation an injury to his right ankle during a fall in October. The right ankle injury has not properly healed and the patient has arrived in the emergency room with a severely dislocated disorganized right ankle. There is also a superficial ulcer on the right ankle which has been dressed. Physical examination shows a man who looks much older than his stated age undergoing hemodialysis. He breathes comfortably while propped up in bed fully alert awake and coherent. Afebrile with a pulse rate off 64 bpm regular and a blood pressure of 124/70 mmHg in his right upper arm. His jugular venous pressure was not elevated. There was a left below-knee amputation. The right ankle was severely disorganized. Pedal pulses were not palpable the aforementioned ulcer on the ankle was noted. A scar of sternotomy was evident. The apex was in the sixth space slightly heaving in character. The first heart sound was muffled the second heart sound was normal. There was no murmur or gallop. There were no rales. His abdomen was soft and liver and spleen are not palpable. There were no carotid bruits. His electrocardiogram showed sinus rhythm with evidence of an old inferior wall myocardial infarction. His echocardiogram done this morning shows a mildly enlarged left ventricle with severe wall motion abnormalities and left ventricular systolic function which is significantly depressed. His lab data shows a hemoglobin of 11.7 g with a hematocrit of 34.7%. His platelet count was 253,000 BUN/creatinine were 69 and 9.6 mg percent this morning and serum potassium was 5.5 recurrence per liter. Hemoglobin A1c was 5.8%. Impression:malunited fracture of right ankle in a patient with diffuse diabetic vascular disease with coronary artery disease and an old inferior wall myocardial infarction and status post coronary bypass graft surgery. Status post below left knee amputation. Chronic kidney disease with chronic hemodialysis. It is very likely that his right foot is also severely ischemic and should have a vascular evaluation before considering any surgical intervention for the malunited right ankle fracture. the patient is hemodynamically stable but with severely depressed left ventricular systolic function the patient will be a poor surgical risk. I will discuss this with the podiatrists and the anesthesiologist. Past Patient History - Past Medical History & Family History Past Medical History?: Yes - Past Social History Smoking Status: Never Smoked Alcohol: None Drugs: Denies Home Situation {Lives}: Other - CARDIAC Hx Cardiac Disorders: Yes Hx Hypercholesterolemia: Yes Hx Hypertension: Yes - PULMONARY Hx Respiratory Disorders: No - NEUROLOGICAL Hx Neurological Disorder: No - HEENT Hx HEENT Problems: No - RENAL Hx Chronic Kidney Disease: Yes Hx Dialysis: Yes - ENDOCRINE/METABOLIC Hx Endocrine Disorders: Yes Hx Diabetes Mellitus Type 2: Yes - HEMATOLOGICAL/ONCOLOGICAL Hx Blood Disorders: No - INTEGUMENTARY Hx Dermatological Problems: No - MUSCULOSKELETAL/RHEUMATOLOGICAL Hx Musculoskeletal Disorders: Yes Hx Fractures: Yes - GASTROINTESTINAL Hx Gastrointestinal Disorders: No - GENITOURINARY/GYNECOLOGICAL Hx Genitourinary Disorders: No - PSYCHIATRIC Hx Psychophysiologic Disorder: No - SURGICAL HISTORY Hx Surgeries: Yes (L BKA) Hx Coronary Artery Bypass Graft: Yes - ANESTHESIA Hx Anesthesia: Yes Hx Anesthesia Reactions: No Hx Malignant Hyperthermia: No Meds Allergies/Adverse Reactions: Allergies Allergy/AdvReac Type Severity Reaction Status Date / Time No Known Allergies Allergy Verified 02/07/18 07:42 - Medications Medications: Current Medications Acetaminophen (Tylenol 325mg Tab) 650 mg PO Q6 PRN PRN Reason: Pain, Mild (1-3) Atorvastatin Calcium (Lipitor) 40 mg PO HS [facility] Last Admin: 02/07/18 21:23 Dose: 40 mg Carvedilol (Coreg) 3.125 mg PO Q12 [facility] Last Admin: 02/08/18 11:20 Dose: 3.125 mg Heparin Sodium (Porcine) (Heparin) 5,000 units SC Q12 [facility] PRN Reason: Protocol Last Admin: 02/08/18 11:21 Dose: 5,000 units Vancomycin HCl 750 mg/ Sodium (Chloride) 250 mls @ 166.667 mls/hr IVPB QOTHERDAY [facility] PRN Reason: Protocol Piperacillin Sod/Tazobactam (Sod 2.25 gm/ Sodium Chloride) 100 mls @ 100 mls/ hr IVPB Q12 [facility] PRN Reason: Protocol Last Admin: 02/08/18 11:24 Dose: 100 mls/hr Insulin Detemir (Levemir) 5 units SC QAM [facility] Insulin Detemir (Levemir) 8 units SC QPM [facility] Last Admin: 02/07/18 21:25 Dose: 8 units Insulin Human Lispro (Humalog) 0 units SC ACHS [facility] PRN Reason: Protocol Last Admin: 02/07/18 21:27 Dose: Not Given Levothyroxine Sodium (Synthroid) 100 mcg PO DAILY [facility] Last Admin: 02/08/18 11:23 Dose: 100 mcg Losartan Potassium (Cozaar) 25 mg PO DAILY [facility] Multivitamins/Minerals (Therapeutic-M Tab) 1 tab PO DAILY [facility] Last Admin: 02/08/18 11:23 Dose: 1 tab Sevelamer HCl (Renagel) 1,600 mg PO ACTID [facility] Last Admin: 02/08/18 11:23 Dose: 1,600 mg Vitamin B Complex/Vit C/Folic Acid (Nephro-Rod) 1 tab PO DAILY [facility] Last Admin: 02/08/18 11:22 Dose: 1 tab Results - Vital Signs Recent Vital Signs: Last Vital Signs Temp 97.7 F 02/08/18 12:00 Pulse 69 02/08/18 12:00 Resp 18 02/08/18 12:00 BP 139/68 02/08/18 12:00 Pulse Ox 100 02/08/18 12:00 - Labs Result Diagrams: 02/07/18 08:51 02/08/18 04:20 Labs: Laboratory Results - last 24 hr 02/07/18 02/07/18 02/07/18 15:49 16:12 21:26 Sodium Potassium Chloride Carbon Dioxide Anion Gap BUN Creatinine Est GFR ( Amer) Est GFR (Non-Af Amer) POC Glucose (mg/dL) 196 H 105 Random Glucose Hemoglobin A1c 5.8 Calcium 02/08/18 02/08/18 02/08/18 04:20 04:20 05:07 Sodium 137 Potassium 5.5 H Chloride 95 L Carbon Dioxide 29 Anion Gap 19 BUN 69 H Creatinine 9.6 H* Est GFR ( Amer) 7 Est GFR (Non-Af Amer) 6 POC Glucose (mg/dL) 72 Random Glucose 72 L Hemoglobin A1c 5.8 Calcium 7.9 L 02/08/18 02/08/18 06:32 11:16 Sodium Potassium Chloride Carbon Dioxide Anion Gap BUN Creatinine Est GFR ( Amer) Est GFR (Non-Af Amer) POC Glucose (mg/dL) 129 H 72 Random Glucose Hemoglobin A1c Calcium
[2018-02-08] MEDS: Insulin Lispro (humaLOG) 100 Units/ml Inj SC SCH ×4 (13:48→21:50)
[2018-02-08] MEDS: Insulin Detemir 100 Units/ml Inj SC SCH ×2 (13:49→17:15)
--- NOTE | 2018-02-08 15:00 | RAD ---
Date of service: 02/08/2018 PROCEDURE: Right Foot Radiographs. HISTORY: old right ankle fracture COMPARISON: 04/16/2008 right foot FINDINGS: BONES: Profound osteopenia. Possible old healed 5th metatarsal. JOINTS: Right ankle dislocation incompletely visualized. SOFT TISSUES: Normal. OTHER FINDINGS: None. IMPRESSION: Posttraumatic findings right ankle. No acute findings right foot.
--- NOTE | 2018-02-08 15:27 | CP.PCM.PN ---
Subjective - Date & Time of Evaluation Date of Evaluation: 02/08/18 Time of Evaluation: 13:10 - Subjective Subjective: F/U Pressure ulcer R foot. pain R foot Objective - Vital Signs/Intake and Output Vital Signs (last 24 hours): Temp Pulse Resp BP Pulse Ox 97.7 F 69 18 139/68 100 02/08/18 12:00 02/08/18 12:00 02/08/18 12:00 02/08/18 12:00 02/08/18 12:00 - Medications Medications: Current Medications Acetaminophen (Tylenol 325mg Tab) 650 mg PO Q6 PRN PRN Reason: Pain, Mild (1-3) Atorvastatin Calcium (Lipitor) 40 mg PO HS [facility] Last Admin: 02/07/18 21:23 Dose: 40 mg Carvedilol (Coreg) 3.125 mg PO Q12 [facility] Last Admin: 02/08/18 11:20 Dose: 3.125 mg Heparin Sodium (Porcine) (Heparin) 5,000 units SC Q12 [facility] PRN Reason: Protocol Last Admin: 02/08/18 11:21 Dose: 5,000 units Vancomycin HCl 750 mg/ Sodium (Chloride) 250 mls @ 166.667 mls/hr IVPB QOTHERDAY [facility] PRN Reason: Protocol Piperacillin Sod/Tazobactam (Sod 2.25 gm/ Sodium Chloride) 100 mls @ 100 mls/ hr IVPB Q12 [facility] PRN Reason: Protocol Last Admin: 02/08/18 11:24 Dose: 100 mls/hr Insulin Detemir (Levemir) 5 units SC QAM [facility] Last Admin: 02/08/18 13:49 Dose: Not Given Insulin Detemir (Levemir) 8 units SC QPM [facility] Last Admin: 02/07/18 21:25 Dose: 8 units Insulin Human Lispro (Humalog) 0 units SC ACHS [facility] PRN Reason: Protocol Last Admin: 02/08/18 13:49 Dose: Not Given Levothyroxine Sodium (Synthroid) 100 mcg PO DAILY [facility] Last Admin: 02/08/18 11:23 Dose: 100 mcg Losartan Potassium (Cozaar) 25 mg PO DAILY [facility] Multivitamins/Minerals (Therapeutic-M Tab) 1 tab PO DAILY [facility] Last Admin: 02/08/18 11:23 Dose: 1 tab Sevelamer HCl (Renagel) 1,600 mg PO ACTID [facility] Last Admin: 02/08/18 11:23 Dose: 1,600 mg Vitamin B Complex/Vit C/Folic Acid (Nephro-Rod) 1 tab PO DAILY [facility] Last Admin: 02/08/18 11:22 Dose: 1 tab - Labs Labs: 02/07/18 08:51 02/08/18 04:20 - Constitutional Appears: No Acute Distress - Head Exam Head Exam: NORMAL INSPECTION - Eye Exam Eye Exam: PERRL - ENT Exam ENT Exam: Normal Exam - Neck Exam Neck Exam: Normal Inspection - Respiratory Exam Respiratory Exam: Clear to Ausculation Bilateral - Cardiovascular Exam Cardiovascular Exam: REGULAR RHYTHM - GI/Abdominal Exam GI & Abdominal Exam: Soft, Normal Bowel Sounds - Extremities Exam Additional comments: L BKA. Lateral malleolal ulceration R foot with granular base, displacement R ankle joint with severe pain on palpation of medial and lateral ankle joint - Back Exam Back Exam: NORMAL INSPECTION - Neurological Exam Neurological Exam: Alert, Oriented x3 - Psychiatric Exam Psychiatric exam: Normal Mood - Skin Skin Exam: Warm Additional comments: See extremities information. Assessment and Plan (1) Pain in right ankle and joints of right foot Status: Acute (2) Pressure ulcer of right foot Status: Acute (3) Closed dislocation of distal tibia Status: Acute (4) Trimalleolar fracture of right ankle Status: Acute (5) ESRD on hemodialysis Status: Chronic (6) IDDM (insulin dependent diabetes mellitus) Status: Chronic (7) Hyperlipidemia Status: Chronic (8) HTN (hypertension) Status: Chronic (9) Abnormal EKG Status: Acute (10) Hypothyroidism Status: Chronic - Assessment and Plan (Free Text) Plan: continue Zosyn, Giselao, f/u MRI R foot
--- NOTE | 2018-02-08 18:18 | CP.PCM.CON ---
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 Patient has multiple risk factors for severe PVD including diabetes mellitus and end-stage renal disease and CAD all of which are equivalent for having underlying peripheral vascular disease at baseline has very limited activity secondary to severe deconditioning and prior history of below the knee amputation patient on chronic hemodialysis. Patient's labs on initial presentation showed a hemoglobin of 11.7 potassium of 5.5 he had undergone a session of hemodialysis earlier today with removal of 2 L of fluid last hemoglobin A1c was 5.8. I agree with Dr. Johnston's evaluation that his risk for significant PVD is very high and would benefit from undergoing at least a CT angiogram with runoff which would define his vascular anatomy for further risk stratification. Review of Systems - Review of Systems Systems not reviewed;Unavailable: Acuity of Condition - Constitutional Constitutional: As Per HPI - EENT Eyes: As Per HPI Ears: As Per HPI Nose/Mouth/Throat: As Per HPI - Cardiovascular Cardiovascular: As Per HPI - Respiratory Respiratory: As Per HPI - Gastrointestinal Gastrointestinal: As Per HPI - Genitourinary Genitourinary: As Per HPI - Reproductive: Male Reproductive:Male: As Per HPI - Musculoskeletal Musculoskeletal: As Per HPI - Integumentary Integumentary: As Per HPI - Neurological Neurological: As Per HPI - Psychiatric Psychiatric: As Per HPI - Endocrine Endocrine: As Per HPI - Hematologic/Lymphatic Hematologic: As Per HPI Past Patient History - Past Medical History & Family History Past Medical History?: Yes - Past Social History Smoking Status: Never Smoked Alcohol: None Drugs: Denies Home Situation {Lives}: Other - CARDIAC Hx Cardiac Disorders: Yes Hx Hypercholesterolemia: Yes Hx Hypertension: Yes - PULMONARY Hx Respiratory Disorders: No - NEUROLOGICAL Hx Neurological Disorder: No - HEENT Hx HEENT Problems: No - RENAL Hx Chronic Kidney Disease: Yes Hx Dialysis: Yes - ENDOCRINE/METABOLIC Hx Endocrine Disorders: Yes Hx Diabetes Mellitus Type 2: Yes - HEMATOLOGICAL/ONCOLOGICAL Hx Blood Disorders: No - INTEGUMENTARY Hx Dermatological Problems: No - MUSCULOSKELETAL/RHEUMATOLOGICAL Hx Musculoskeletal Disorders: Yes Hx Fractures: Yes - GASTROINTESTINAL Hx Gastrointestinal Disorders: No - GENITOURINARY/GYNECOLOGICAL Hx Genitourinary Disorders: No - PSYCHIATRIC Hx Psychophysiologic Disorder: No - SURGICAL HISTORY Hx Surgeries: Yes (L BKA) Hx Coronary Artery Bypass Graft: Yes - ANESTHESIA Hx Anesthesia: Yes Hx Anesthesia Reactions: No Hx Malignant Hyperthermia: No Meds Allergies/Adverse Reactions: Allergies Allergy/AdvReac Type Severity Reaction Status Date / Time No Known Allergies Allergy Verified 02/07/18 07:42 - Medications Medications: Current Medications Acetaminophen (Tylenol 325mg Tab) 650 mg PO Q6 PRN PRN Reason: Pain, Mild (1-3) Atorvastatin Calcium (Lipitor) 40 mg PO HS [facility] Last Admin: 02/07/18 21:23 Dose: 40 mg Carvedilol (Coreg) 3.125 mg PO Q12 [facility] Last Admin: 02/08/18 11:20 Dose: 3.125 mg Heparin Sodium (Porcine) (Heparin) 5,000 units SC Q12 [facility] PRN Reason: Protocol Last Admin: 02/08/18 11:21 Dose: 5,000 units Vancomycin HCl 750 mg/ Sodium (Chloride) 250 mls @ 166.667 mls/hr IVPB QOTHERDAY [facility] PRN Reason: Protocol Piperacillin Sod/Tazobactam (Sod 2.25 gm/ Sodium Chloride) 100 mls @ 100 mls/ hr IVPB Q12 [facility] PRN Reason: Protocol Last Admin: 02/08/18 11:24 Dose: 100 mls/hr Insulin Detemir (Levemir) 5 units SC QAM [facility] Last Admin: 02/08/18 13:49 Dose: Not Given Insulin Detemir (Levemir) 8 units SC QPM [facility] Last Admin: 02/08/18 17:15 Dose: Not Given Insulin Human Lispro (Humalog) 0 units SC ACHS [facility] PRN Reason: Protocol Last Admin: 02/08/18 17:15 Dose: Not Given Levothyroxine Sodium (Synthroid) 100 mcg PO DAILY [facility] Last Admin: 02/08/18 11:23 Dose: 100 mcg Losartan Potassium (Cozaar) 25 mg PO DAILY [facility] Last Admin: 02/08/18 17:14 Dose: Not Given Multivitamins/Minerals (Therapeutic-M Tab) 1 tab PO DAILY [facility] Last Admin: 02/08/18 11:23 Dose: 1 tab Sevelamer HCl (Renagel) 1,600 mg PO ACTID [facility] Last Admin: 02/08/18 17:22 Dose: 1,600 mg Vitamin B Complex/Vit C/Folic Acid (Nephro-Rod) 1 tab PO DAILY [facility] Last Admin: 02/08/18 11:22 Dose: 1 tab Physical Exam - Constitutional Appears: Well, Confused - Head Exam Head Exam: ATRAUMATIC, NORMAL INSPECTION, NORMOCEPHALIC - Eye Exam Eye Exam: EOMI, Normal appearance, PERRL Pupil Exam: NORMAL ACCOMODATION, PERRL - ENT Exam ENT Exam: Mucous Membranes Moist, Normal Exam - Neck Exam Neck exam: Positive for: Normal Inspection - Respiratory Exam Respiratory Exam: Clear to Auscultation Bilateral, NORMAL BREATHING PATTERN - Cardiovascular Exam Cardiovascular Exam: REGULAR RHYTHM, RRR, Systolic Murmur - GI/Abdominal Exam GI & Abdominal Exam: Normal Bowel Sounds, Soft. absent: Tenderness - Extremities Exam Additional comments: ulcer with fx - Back Exam Back exam: NORMAL INSPECTION - Neurological Exam Neurological exam: Alert, CN II-XII Intact, Normal Gait, Oriented x3, Reflexes Normal - Psychiatric Exam Psychiatric exam: Normal Affect, Normal Mood - Skin Skin Exam: Dry, Intact, Normal Color, Warm Results - Vital Signs Recent Vital Signs: Last Vital Signs Temp 98 F 02/08/18 16:35 Pulse 76 02/08/18 16:35 Resp 16 02/08/18 16:35 BP 115/62 02/08/18 16:35 Pulse Ox 99 02/08/18 16:35 - Labs Result Diagrams: 02/07/18 08:51 02/08/18 04:20 Labs: Laboratory Results - last 24 hr 02/07/18 02/07/18 02/08/18 15:49 21:26 04:20 Sodium 137 Potassium 5.5 H Chloride 95 L Carbon Dioxide 29 Anion Gap 19 BUN 69 H Creatinine 9.6 H* Est GFR ( Amer) 7 Est GFR (Non-Af Amer) 6 POC Glucose (mg/dL) 105 Random Glucose 72 L Hemoglobin A1c 5.8 Calcium 7.9 L 02/08/18 02/08/18 02/08/18 04:20 05:07 06:32 Sodium Potassium Chloride Carbon Dioxide Anion Gap BUN Creatinine Est GFR ( Amer) Est GFR (Non-Af Amer) POC Glucose (mg/dL) 72 129 H Random Glucose Hemoglobin A1c 5.8 Calcium 02/08/18 02/08/18 11:16 16:08 Sodium Potassium Chloride Carbon Dioxide Anion Gap BUN Creatinine Est GFR ( Amer) Est GFR (Non-Af Amer) POC Glucose (mg/dL) 72 120 H Random Glucose Hemoglobin A1c Calcium Assessment & Plan (1) PVD (peripheral vascular disease) Assessment and Plan: CT angio with runoff in am to be arranged with HD woud keep pt on dapt statins acei Status: Acute (2) Pressure ulcer of right foot Status: Acute Priority: High (3) CAD (coronary artery disease) of artery bypass graft Status: Acute (4) Chronic kidney disease (CKD) Status: Acute (5) Trimalleolar fracture of right ankle Status: Acute (6) ESRD on hemodialysis Status: Chronic Priority: High (7) HTN (hypertension) Status: Chronic Priority: Medium (8) Hyperlipidemia Status: Chronic Priority: Medium
[2018-02-08 21:19] LABS: HEPATITIS B SURFACE AG Negative (NEGATIVE)
[2018-02-08 21:24] LABS: HEPATITIS B CORE AB NEGATIVE (NEGATIVE)
[2018-02-08 21:37] LABS: HEPATITIS C ANTIBODY NEGATIVE (NEGATIVE)
[2018-02-09] MEDS: Insulin Lispro (humaLOG) 100 Units/ml Inj SC SCH ×4 (06:30→21:45)
[2018-02-09] MEDS: Levothyroxine 100 MCG TAB PO SCH (06:30)
--- NOTE | 2018-02-09 07:48 | CP.PCM.PN ---
Subjective - Date & Time of Evaluation Date of Evaluation: 02/09/18 Time of Evaluation: 07:46 - Subjective Subjective: Podiatry progress note for Dr. Turner, 57 y/o male was seen and evaluated at bedside this morning for right ankle fracture/dislocation. Patient is no acute distress and AAOx3. Patient denies any overnight acute events. Patient denies f/n/v/sob. Objective - Vital Signs/Intake and Output Vital Signs (last 24 hours): Temp Pulse Resp BP Pulse Ox 98.3 F 71 18 111/65 99 02/09/18 04:51 02/09/18 04:51 02/09/18 04:51 02/09/18 04:51 02/09/18 04:51 - Medications Medications: Current Medications Acetaminophen (Tylenol 325mg Tab) 650 mg PO Q6 PRN PRN Reason: Pain, Mild (1-3) Atorvastatin Calcium (Lipitor) 40 mg PO HS [facility] Last Admin: 02/08/18 21:32 Dose: 40 mg Carvedilol (Coreg) 3.125 mg PO Q12 [facility] Last Admin: 02/08/18 21:32 Dose: 3.125 mg Heparin Sodium (Porcine) (Heparin) 5,000 units SC Q12 [facility] PRN Reason: Protocol Last Admin: 02/08/18 21:32 Dose: 5,000 units Vancomycin HCl 750 mg/ Sodium (Chloride) 250 mls @ 166.667 mls/hr IVPB QOTHERDAY [facility] PRN Reason: Protocol Piperacillin Sod/Tazobactam (Sod 2.25 gm/ Sodium Chloride) 100 mls @ 100 mls/ hr IVPB Q12 [facility] PRN Reason: Protocol Last Admin: 02/08/18 21:32 Dose: 100 mls/hr Insulin Detemir (Levemir) 5 units SC QAM [facility] Last Admin: 02/08/18 13:49 Dose: Not Given Insulin Detemir (Levemir) 8 units SC QPM [facility] Last Admin: 02/08/18 17:15 Dose: Not Given Insulin Human Lispro (Humalog) 0 units SC ACHS [facility] PRN Reason: Protocol Last Admin: 02/09/18 06:30 Dose: Not Given Levothyroxine Sodium (Synthroid) 100 mcg PO DAILY@0630 [facility] Last Admin: 02/09/18 06:30 Dose: Not Given Losartan Potassium (Cozaar) 25 mg PO DAILY [facility] Last Admin: 02/08/18 17:14 Dose: Not Given Multivitamins/Minerals (Therapeutic-M Tab) 1 tab PO DAILY [facility] Last Admin: 02/08/18 11:23 Dose: 1 tab Sevelamer HCl (Renagel) 1,600 mg PO ACTID [facility] Last Admin: 02/08/18 17:22 Dose: 1,600 mg Vitamin B Complex/Vit C/Folic Acid (Nephro-Rod) 1 tab PO DAILY [facility] Last Admin: 02/08/18 11:22 Dose: 1 tab - Labs Labs: 02/07/18 08:51 02/08/18 04:20 - Constitutional Appears: Well, Non-toxic - Head Exam Head Exam: ATRAUMATIC, NORMOCEPHALIC - Extremities Exam Additional comments: Left BKA Right lower extremity exam: VASC: DP and PT 2/4; CFT less than 3 seconds x 5; TG warm to cool proximal to distal; no edema NEURO: epicritic and protective sensation intact DERM: lateral malleolar ulceration measuring 1.0 X 0.5 cm X 0.2 cm; 100% granular base, with hyperkeratotic rim, no probe to bone, minimal sero- sanguinous drainage, no tunneling, no malodor, no undermining, no tracking noted , no clinical signs of infection MSK: displacement noted of the right ankle joint with severe pain on palpation of the lateral ankle joint, patient guarding due to pain, limited ankle joint range of motion - Neurological Exam Neurological Exam: Alert, Awake, Oriented x3 - Psychiatric Exam Psychiatric exam: Normal Affect - Skin Skin Exam: Normal Color Assessment and Plan - Assessment and Plan (Free Text) Assessment: 57 y/o male with L BKA and complete disruption of the right ankle joint with lateral dislocation of distal tibia Plan: Patient seen and evaluated Patient plan discussed with attending Dr. Turner Chart, labs and vitals reviewed- Afebrile, absent leukocytosis HgA1c 7/9: 5.8 mg/dL Ankle X-ray: complete disruption of the right ankle joint, old fractures involving the lateral and medial malleolus with lateral dislocation of the distal tibia Knee X-ray: extensive osteopenia, no fracture Tibia-Fib X-ray: generalized soft tissue swelling, extensive degenerative changes, dislocation of the ankle joint MRI- Pending Wound Culture- Preliminary- no growth after 24 hours Patient wound is stable and dressed with DSD Podiatry will continue to follow patient in-house
[2018-02-09] MEDS: Multivitamin With Minerals Tab PO SCH (09:00)
[2018-02-09] MEDS: Insulin Detemir 100 Units/ml Inj SC SCH ×2 (09:00→17:02)
[2018-02-09] MEDS ORDERED: Iodixanol 320 MG/ML 100 ML BOTTLE IV ONE (10:21)
[2018-02-09] MEDS ORDERED: Sodium Chloride 0.9% 50 ML IV ONE (10:21)
--- NOTE | 2018-02-09 10:35 | CP.PCM.PN ---
Subjective - Date & Time of Evaluation Date of Evaluation: 02/09/18 Time of Evaluation: 10:00 - Subjective Subjective: No new symptoms, comfortable at bed rest Telemetry shows steady sinus rhythm at physiologic rates BP 124/ 70 mm Hg No gallop, no rales Scheduled for CT angio of lower extremities to asses vasc integrity before any surg intervention Objective - Vital Signs/Intake and Output Vital Signs (last 24 hours): Temp Pulse Resp BP Pulse Ox 98.2 F 70 18 116/56 L 99 02/09/18 07:53 02/09/18 07:53 02/09/18 07:53 02/09/18 07:53 02/09/18 07:53 - Medications Medications: Current Medications Acetaminophen (Tylenol 325mg Tab) 650 mg PO Q6 PRN PRN Reason: Pain, Mild (1-3) Atorvastatin Calcium (Lipitor) 40 mg PO HS [facility] Last Admin: 02/08/18 21:32 Dose: 40 mg Carvedilol (Coreg) 3.125 mg PO Q12 [facility] Last Admin: 02/08/18 21:32 Dose: 3.125 mg Heparin Sodium (Porcine) (Heparin) 5,000 units SC Q12 [facility] PRN Reason: Protocol Last Admin: 02/08/18 21:32 Dose: 5,000 units Vancomycin HCl 750 mg/ Sodium (Chloride) 250 mls @ 166.667 mls/hr IVPB QOTHERDAY [facility] PRN Reason: Protocol Piperacillin Sod/Tazobactam (Sod 2.25 gm/ Sodium Chloride) 100 mls @ 100 mls/ hr IVPB Q12 [facility] PRN Reason: Protocol Last Admin: 02/08/18 21:32 Dose: 100 mls/hr Insulin Detemir (Levemir) 5 units SC QAM [facility] Last Admin: 02/08/18 13:49 Dose: Not Given Insulin Detemir (Levemir) 8 units SC QPM [facility] Last Admin: 02/08/18 17:15 Dose: Not Given Insulin Human Lispro (Humalog) 0 units SC ACHS [facility] PRN Reason: Protocol Last Admin: 02/09/18 06:30 Dose: Not Given Levothyroxine Sodium (Synthroid) 100 mcg PO DAILY@0630 [facility] Last Admin: 02/09/18 06:30 Dose: Not Given Losartan Potassium (Cozaar) 25 mg PO DAILY [facility] Last Admin: 02/08/18 17:14 Dose: Not Given Multivitamins/Minerals (Therapeutic-M Tab) 1 tab PO DAILY [facility] Last Admin: 02/08/18 11:23 Dose: 1 tab Sevelamer HCl (Renagel) 1,600 mg PO ACTID [facility] Last Admin: 02/08/18 17:22 Dose: 1,600 mg Vitamin B Complex/Vit C/Folic Acid (Nephro-Rod) 1 tab PO DAILY [facility] Last Admin: 02/08/18 11:22 Dose: 1 tab - Labs Labs: 02/07/18 08:51 02/08/18 04:20
--- NOTE | 2018-02-09 11:58 | CARD ---
APPROVED REPORT Date of service: 02/08/2018 EXAM: Two-dimensional and M-mode echocardiogram with Doppler and color Doppler. Other Information Quality : GoodRhythm : NSR INDICATION Abnormal EKG/Arrhythmia Hypertension/HCVD Surgery/Intervention CABD DIMENSIONS IVSd0.75 (0.7-1.1cm)LVDd5.13 (3.9-5.9cm) LVOT Diameter2.11 (1.8-2.4cm)PWd0.88 (0.7-1.1cm) IVSs0.77 (0.8-1.2cm)LVDs5.03 (2.5-4.0cm) FS (%) 1.9 %PWs0.83 (0.8-1.2cm) M-Mode DIMENSIONS Left Atrium (MM)5.50 (2.5-4.0cm)IVSd0.44 (0.7-1.1cm) Aortic Root2.53 (2.2-3.7cm)LVDd5.68 (4.0-5.6cm) Aortic Cusp Exc.1.76 (1.5-2.0cm)PWd0.79 (0.7-1.1cm) IVSs0.62 cmFS (%) 22 % LVDs4.41 (2.0-3.8cm)PWs1.03 cm Aortic Valve AoV Peak Uzvztmnw785.4cm/sAoV VTI27.4cmAO Peak GR.5mmHg LVOT Peak Qfbziwgk64.9cm/sLVOT VTI17.03cmAO Mean GR.3mmHg PLACIDO (VMAX)1.56wy9KRO (VTI)1.33cm2 Mitral Valve MV E Mdbfbmvs333.6cm/sMV DECEL DIAB873dnFH A Uvowbxed72.7cm/s MV CIN04fiE/A ratio1.8MVA (PHT)2.88cm2 TDI Lateral E' Peak V8.72cm/sMedial E' Peak V5.05cm/sE/Lateral E'14.9 E/Medial E'25.7 Pulmonary Valve PV Peak Qkrkkiqk91.8cm/s Tricuspid Valve TR Peak Xctcmnsw026zo/sRAP UTAUKFXV09jaIlBL Peak Gr.27mmHg ILGQ67dhOc LEFT VENTRICLE The left ventricle is normal size. There is borderline to mild concentric left ventricular hypertrophy. Left ventricle systolic function is moderately impaired. The Ejection Fraction is 25-30%. There is global hypokinesis of the left ventricle. Transmitral Doppler flow pattern is Grade II-pseudonormal filling dynamics. Left Ventricular End Diastolic Pressure is moderately elevated. RIGHT VENTRICLE The right ventricle is normal size. The right ventricle is borderline hypertrophied. The right ventricular systolic function is normal. ATRIA The left atrium is mildly dilated. The right atrium is borderline dilated. AORTIC VALVE The aortic valve is thickened but opens well. There is trace aortic regurgitation. There is no aortic valvular stenosis. MITRAL VALVE The mitral valve is calcified but opens well. There is no mitral valve stenosis. Mitral regurgitation is mild. TRICUSPID VALVE The tricuspid valve leaflets are thickened , but open well. There is mild tricuspid regurgitation. PULMONIC VALVE The pulmonic valve is not well visualized. There is trace to mild pulmonic valvular regurgitation. GREAT VESSELS The aortic root is normal in size. The IVC is normal in size and collapses >50% with inspiration. PERICARDIAL EFFUSION The pericardium appears normal. <Conclusion> Left ventricle systolic function is moderately impaired. The Ejection Fraction is 25-30%. Transmitral Doppler flow pattern is Grade II-pseudonormal filling dynamics. Left Ventricular End Diastolic Pressure is moderately elevated. Mitral regurgitation is mild. There is mild tricuspid regurgitation.
[2018-02-09] MEDS: Multivitamin Vitamin B Complex (Nephro-Vite) Tab PO SCH (15:48)
--- NOTE | 2018-02-09 18:01 | CP.PCM.PN ---
Subjective - Date & Time of Evaluation Date of Evaluation: 02/09/18 Time of Evaluation: 12:20 - Subjective Subjective: F/U Pressure Ulcer R Foot. Pain in L knee, L BKA, pain R foot. Objective - Vital Signs/Intake and Output Vital Signs (last 24 hours): Temp Pulse Resp BP Pulse Ox 97.9 F 78 16 101/58 L 100 02/09/18 16:19 02/09/18 16:19 02/09/18 16:19 02/09/18 16:19 02/09/18 16:19 - Medications Medications: Current Medications Acetaminophen (Tylenol 325mg Tab) 650 mg PO Q6 PRN PRN Reason: Pain, Mild (1-3) Atorvastatin Calcium (Lipitor) 40 mg PO HS [facility] Last Admin: 02/08/18 21:32 Dose: 40 mg Carvedilol (Coreg) 3.125 mg PO Q12 [facility] Last Admin: 02/09/18 09:00 Dose: Not Given Heparin Sodium (Porcine) (Heparin) 5,000 units SC Q12 [facility] PRN Reason: Protocol Last Admin: 02/09/18 09:00 Dose: Not Given Vancomycin HCl 750 mg/ Sodium (Chloride) 250 mls @ 166.667 mls/hr IVPB QOTHERDAY [facility] PRN Reason: Protocol Last Admin: 02/09/18 16:53 Dose: 166.667 mls/hr Piperacillin Sod/Tazobactam (Sod 2.25 gm/ Sodium Chloride) 100 mls @ 100 mls/ hr IVPB Q12 [facility] PRN Reason: Protocol Last Admin: 02/09/18 09:00 Dose: Not Given Insulin Detemir (Levemir) 5 units SC QAM [facility] Last Admin: 02/09/18 09:00 Dose: Not Given Insulin Detemir (Levemir) 8 units SC QPM [facility] Last Admin: 02/09/18 17:02 Dose: 8 units Insulin Human Lispro (Humalog) 0 units SC ACHS [facility] PRN Reason: Protocol Last Admin: 02/09/18 16:56 Dose: 2 unit Levothyroxine Sodium (Synthroid) 100 mcg PO DAILY@0630 [facility] Last Admin: 02/09/18 06:30 Dose: Not Given Losartan Potassium (Cozaar) 25 mg PO DAILY [facility] Last Admin: 02/09/18 09:00 Dose: Not Given Multivitamins/Minerals (Therapeutic-M Tab) 1 tab PO DAILY [facility] Last Admin: 02/09/18 09:00 Dose: Not Given Sevelamer HCl (Renagel) 1,600 mg PO ACTID [facility] Last Admin: 02/09/18 16:55 Dose: 1,600 mg Vitamin B Complex/Vit C/Folic Acid (Nephro-Rod) 1 tab PO DAILY [facility] Last Admin: 02/09/18 15:48 Dose: Not Given - Labs Labs: 02/07/18 08:51 02/08/18 04:20 - Constitutional Appears: No Acute Distress - Head Exam Head Exam: NORMAL INSPECTION - Eye Exam Eye Exam: PERRL - ENT Exam ENT Exam: Normal Exam - Neck Exam Neck Exam: Normal Inspection - Respiratory Exam Respiratory Exam: Clear to Ausculation Bilateral - Cardiovascular Exam Cardiovascular Exam: REGULAR RHYTHM - GI/Abdominal Exam GI & Abdominal Exam: Soft, Normal Bowel Sounds - Extremities Exam Additional comments: Left BKA, lateral malleolal ulceration R foot with granilar base, displacement joint with severe pain on palpation of medial and lateral ankle joint - Back Exam Back Exam: NORMAL INSPECTION - Neurological Exam Neurological Exam: Alert, Oriented x3 - Psychiatric Exam Psychiatric exam: Normal Mood - Skin Skin Exam: Warm Assessment and Plan (1) Pain in right ankle and joints of right foot Status: Acute (2) Pressure ulcer of right foot Status: Acute (3) Closed dislocation of distal tibia Status: Acute (4) Trimalleolar fracture of right ankle Status: Acute (5) ESRD on hemodialysis Status: Chronic (6) IDDM (insulin dependent diabetes mellitus) Status: Chronic (7) Hyperlipidemia Status: Chronic (8) HTN (hypertension) Status: Chronic (9) Abnormal EKG Status: Acute (10) Hypothyroidism Status: Chronic - Assessment and Plan (Free Text) Plan: Continue Tylenol, MRI R foot.
--- NOTE | 2018-02-09 23:51 | CP.PCM.PN ---
Subjective - Date & Time of Evaluation Date of Evaluation: 02/09/18 Time of Evaluation: 15:00 - Subjective Subjective: ssSEEN [id number] Objective - Vital Signs/Intake and Output Vital Signs (last 24 hours): Temp Pulse Resp BP Pulse Ox 98.1 F 84 16 124/81 100 02/09/18 20:09 02/09/18 21:41 02/09/18 20:09 02/09/18 21:41 02/09/18 20:09 - Medications Medications: Current Medications Acetaminophen (Tylenol 325mg Tab) 650 mg PO Q6 PRN PRN Reason: Pain, Mild (1-3) Atorvastatin Calcium (Lipitor) 40 mg PO HS [facility] Last Admin: 02/09/18 21:41 Dose: 40 mg Carvedilol (Coreg) 3.125 mg PO Q12 [facility] Last Admin: 02/09/18 21:41 Dose: 3.125 mg Heparin Sodium (Porcine) (Heparin) 5,000 units SC Q12 [facility] PRN Reason: Protocol Last Admin: 02/09/18 21:40 Dose: 5,000 units Vancomycin HCl 750 mg/ Sodium (Chloride) 250 mls @ 166.667 mls/hr IVPB QOTHERDAY [facility] PRN Reason: Protocol Last Admin: 02/09/18 16:53 Dose: 166.667 mls/hr Piperacillin Sod/Tazobactam (Sod 2.25 gm/ Sodium Chloride) 100 mls @ 100 mls/ hr IVPB Q12 [facility] PRN Reason: Protocol Last Admin: 02/09/18 21:39 Dose: 100 mls/hr Insulin Detemir (Levemir) 5 units SC QAM [facility] Last Admin: 02/09/18 09:00 Dose: Not Given Insulin Detemir (Levemir) 8 units SC QPM [facility] Last Admin: 02/09/18 17:02 Dose: 8 units Insulin Human Lispro (Humalog) 0 units SC ACHS [facility] PRN Reason: Protocol Last Admin: 02/09/18 21:45 Dose: Not Given Levothyroxine Sodium (Synthroid) 100 mcg PO DAILY@0630 [facility] Last Admin: 02/09/18 06:30 Dose: Not Given Losartan Potassium (Cozaar) 25 mg PO DAILY [facility] Last Admin: 02/09/18 09:00 Dose: Not Given Multivitamins/Minerals (Therapeutic-M Tab) 1 tab PO DAILY [facility] Last Admin: 02/09/18 09:00 Dose: Not Given Sevelamer HCl (Renagel) 1,600 mg PO ACTID [facility] Last Admin: 02/09/18 16:55 Dose: 1,600 mg Vitamin B Complex/Vit C/Folic Acid (Nephro-Rod) 1 tab PO DAILY [facility] Last Admin: 02/09/18 15:48 Dose: Not Given - Labs Labs: 02/07/18 08:51 02/08/18 04:20
[2018-02-10 05:41] LABS: HEMOGLOBIN 10.8 g/dL (12.0-18.0); MEAN CELL VOLUME 97.2 fl (80.0-94.0); MEAN CORPUSCULAR HEMOGLOBIN 32.8 pg (27.0-31.0); MEAN CORPUSCULAR HGB CONC 33.7 g/dL (33.0-37.0); RBC 3.3 Mil/uL (4.40-5.90); RED CELL DISTRIBUTION WIDTH 15.1 % (11.5-14.5); WHITE BLOOD COUNT 3.5 K/uL (4.8-10.8)
[2018-02-10 06:25] LABS: ALBUMIN 3.7 g/dL (3.5-5.0)
[2018-02-10] MEDS: Levothyroxine 100 MCG TAB PO SCH (06:27)
[2018-02-10] MEDS: Insulin Lispro (humaLOG) 100 Units/ml Inj SC SCH ×4 (06:35→21:45)
--- NOTE | 2018-02-10 08:08 | CP.PCM.PN ---
Subjective - Date & Time of Evaluation Date of Evaluation: 02/10/18 Time of Evaluation: 08:06 - Subjective Subjective: Podiatry progress note for Dr. Turner, 57 y/o male was seen and evaluated at bedside this morning for right ankle fracture/dislocation and right lateral malleolar wound. Patient is seen resting comfortably in bed, and states the pain to the right ankle has improved. Patient is no acute distress and AAOx3. Patient denies any overnight acute events. Patient states he had the CT Angio today. Patient denies any additional pedal complains. Patient denies f/n/v/sob. Objective - Vital Signs/Intake and Output Vital Signs (last 24 hours): Temp Pulse Resp BP Pulse Ox 98.3 F 63 18 114/62 99 02/10/18 05:00 02/10/18 05:00 02/10/18 05:00 02/10/18 05:00 02/10/18 05:00 - Medications Medications: Current Medications Acetaminophen (Tylenol 325mg Tab) 650 mg PO Q6 PRN PRN Reason: Pain, Mild (1-3) Atorvastatin Calcium (Lipitor) 40 mg PO HS [facility] Last Admin: 02/09/18 21:41 Dose: 40 mg Carvedilol (Coreg) 3.125 mg PO Q12 [facility] Last Admin: 02/09/18 21:41 Dose: 3.125 mg Heparin Sodium (Porcine) (Heparin) 5,000 units SC Q12 [facility] PRN Reason: Protocol Last Admin: 02/09/18 21:40 Dose: 5,000 units Vancomycin HCl 750 mg/ Sodium (Chloride) 250 mls @ 166.667 mls/hr IVPB QOTHERDAY [facility] PRN Reason: Protocol Last Admin: 02/09/18 16:53 Dose: 166.667 mls/hr Piperacillin Sod/Tazobactam (Sod 2.25 gm/ Sodium Chloride) 100 mls @ 100 mls/ hr IVPB Q12 [facility] PRN Reason: Protocol Last Admin: 02/09/18 21:39 Dose: 100 mls/hr Insulin Detemir (Levemir) 5 units SC QAM [facility] Last Admin: 02/09/18 09:00 Dose: Not Given Insulin Detemir (Levemir) 8 units SC QPM [facility] Last Admin: 02/09/18 17:02 Dose: 8 units Insulin Human Lispro (Humalog) 0 units SC [facility] PRN Reason: Protocol Last Admin: 02/10/18 06:35 Dose: Not Given Levothyroxine Sodium (Synthroid) 100 mcg PO DAILY@0630 [facility] Last Admin: 02/10/18 06:27 Dose: 100 mcg Losartan Potassium (Cozaar) 25 mg PO DAILY [facility] Last Admin: 02/09/18 09:00 Dose: Not Given Multivitamins/Minerals (Therapeutic-M Tab) 1 tab PO DAILY [facility] Last Admin: 02/09/18 09:00 Dose: Not Given Sevelamer HCl (Renagel) 1,600 mg PO ACTID [facility] Last Admin: 02/09/18 16:55 Dose: 1,600 mg Vitamin B Complex/Vit C/Folic Acid (Nephro-Rod) 1 tab PO DAILY [facility] Last Admin: 02/09/18 15:48 Dose: Not Given - Labs Labs: 02/10/18 04:50 02/10/18 04:50 - Constitutional Appears: Well, Non-toxic, No Acute Distress - Head Exam Head Exam: ATRAUMATIC, NORMOCEPHALIC - Extremities Exam Additional comments: Left BKA Right lower extremity exam: VASC: DP and PT 2/4; CFT less than 3 seconds x 5; TG warm to cool proximal to distal; no edema NEURO: Protective sensation grossly intact DERM: lateral malleolar ulceration measuring 1.0 X 0.5 cm X 0.2 cm with 100% granular base, healing skin edges noted beatriz-wound, no probe to bone, no drainage, no tunneling, no malodor, no undermining, no tracking noted, no clinical signs of infection. MSK: displacement noted of the right ankle joint with moderate pain on palpation of the lateral ankle joint, limited ankle joint range of motion - Neurological Exam Neurological Exam: Alert, Awake, Oriented x3 - Psychiatric Exam Psychiatric exam: Normal Affect, Normal Mood - Skin Skin Exam: Normal Color Assessment and Plan - Assessment and Plan (Free Text) Assessment: 57 y/o male was seen and evaluated at bedside this morning for right ankle fracture/dislocation and right lateral malleolar wound Plan: Patient seen and evaluated Patient plan discussed with attending Dr. Turner Chart, labs and vitals reviewed- Afebrile, absent leukocytosis HgA1c 02/07: 5.8 mg/dL Wound Culture 02/07/18- Preliminary- no growth after 48 hours Ankle X-ray 02/07/18: complete disruption of the right ankle joint, old fractures involving the lateral and medial malleolus with lateral dislocation of the distal tibia Knee X-ray 02/07/18: extensive osteopenia, no fracture Tibia-Fib X-ray 02/07/18: generalized soft tissue swelling, extensive degenerative changes, dislocation of the ankle joint MRI- Pending; it was confirmed with radiology that patient's MRI will be performed today Hyperkeratotic rim beatriz-wound debrided with a sterile #15 blade and cleansed using betadine. Patient tolerated without any complications. Patient wound is stable and dressed with Telfa and DSD Podiatry will continue to follow patient in-house
[2018-02-10] MEDS: Insulin Detemir 100 Units/ml Inj SC SCH ×2 (09:18→17:39)
[2018-02-10] MEDS: Multivitamin Vitamin B Complex (Nephro-Vite) Tab PO SCH (09:30)
[2018-02-10] MEDS: Multivitamin With Minerals Tab PO SCH (09:31)
--- NOTE | 2018-02-10 11:20 | CT ---
Date of service: 02/09/2018 PROCEDURE: CT Angiography Abdomen, Pelvis and Lower Extremity with Contrast HISTORY: Peripheral vascular disease, claudication COMPARISON: None TECHNIQUE: Technique: CT angiography of the abdomen, pelvis and bilateral lower extremities performed in the arterial phase of enhancement. Coronal and sagittal reformats, and well as rotating MIP images of the vessels generated at the workstation. Intravenous contrast dose: 100 cubic centimeters Visipaque 320 Radiation dose: Total exam DLP = 668.04 MGy-cm. This CT exam was performed using one or more of the following dose reduction techniques: Automated exposure control, adjustment of the mA and/or kV according to patient size, and/or use of iterative reconstruction technique. FINDINGS: CT ANGIOGRAPHY: ABDOMINAL AORTA:: The abdominal was unremarkable. MAJOR AORTIC BRANCHES: Celiac [place]: Unremarkable. Superior mesenteric artery: Unremarkable. Inferior mesenteric artery: Unremarkable. Renal arteries: Unremarkable. PELVIC ARTERIES: Right Common Iliac: Unremarkable. Right External Iliac: Unremarkable. Right Internal Iliac: Unremarkable. Left Common Iliac: Unremarkable. Left External Iliac: Unremarkable. Left Internal Iliac: Unremarkable. RIGHT LOWER EXTREMITY ARTERIES: Right Common Femoral: Unremarkable. Right Superficial Femoral: Mild SFA disease without significant stenosis. Right Profunda Femoris: Unremarkable. Right Popliteal:Unremarkable. Right Anterior Tibial: Calcified but patent without significant stenosis. Right Tibioperoneal Trunk: Moderate calcific plaque with areas of mild stenosis in the mid segment Right Posterior Tibial: Calcified with areas of moderate stenosis throughout but is patent. Right Peroneal: Occluded proximal segment and reconstitutes. Areas of moderate stenosis within the mid and distal peroneal artery. Right dorsalis pedis : Unremarkable. LEFT LOWER EXTREMITY ARTERIES: Left Common Femoral: Unremarkable. Left Superficial Femoral: Unremarkable. Left Profunda Femoris: Unremarkable. Left Popliteal: Severe stenosis Below-knee amputation NON-ANGIOGRAPHIC ASPECT OF THE EXAM: LOWER THORAX: The pen atelectatic changes right lung. LIVER: Unremarkable. No gross lesion or ductal dilatation. GALLBLADDER AND BILE DUCTS: Unremarkable. PANCREAS: Unremarkable. No gross lesion or ductal dilatation. SPLEEN: Unremarkable. ADRENALS: Unremarkable. No mass. KIDNEYS AND URETERS: Atrophic kidneys with multiple cystic lesions. Unable the characterized cystic lesions on a single phase study. STOMACH AND BOWEL: Limited evaluation of PO contrast. No obvious mass. APPENDIX: PERITONEUM: Unremarkable. No free fluid. No free air. LYMPH NODES: Unremarkable. No enlarged lymph nodes. BLADDER: Unremarkable. REPRODUCTIVE: BONES: No acute fracture. OTHER FINDINGS: None. IMPRESSION: CT ANGIOGRAM ABDOMEN/PELVIS: 1. Essentially unremarkable CT angiogram of the abdomen/pelvis. CT ANGIOGRAM RIGHT LOWER EXTREMITY: 1. The common femoral artery, profunda femoral artery, superficial femoral artery and popliteal artery normal. 2. [place] shows a patent anterior tibial artery. The peroneal artery is occluded proximal segment and reconstitutes and has areas of moderate stenosis in the mid and distal segments. The posterior tibial artery has areas of moderate stenosis but is patent. CT ANGIOGRAM LEFT LOWER EXTREMITY: 1. The common femoral artery, profunda femoral artery, and superficial femoral artery are normal. 2. Below-knee amputation
--- NOTE | 2018-02-10 16:26 | CP.PCM.PN ---
Subjective - Date & Time of Evaluation Date of Evaluation: 02/10/18 Time of Evaluation: 16:00 - Subjective Subjective: SEEN ON RENAL F/U FEELS BETTER FOR HD IN AM Objective - Vital Signs/Intake and Output Vital Signs (last 24 hours): Temp Pulse Resp BP Pulse Ox 97.4 F L 68 20 112/68 98 02/10/18 12:19 02/10/18 12:19 02/10/18 12:19 02/10/18 12:19 02/10/18 12:19 - Medications Medications: Current Medications Acetaminophen (Tylenol 325mg Tab) 650 mg PO Q6 PRN PRN Reason: Pain, Mild (1-3) Atorvastatin Calcium (Lipitor) 40 mg PO HS [facility] Last Admin: 02/09/18 21:41 Dose: 40 mg Carvedilol (Coreg) 3.125 mg PO Q12 [facility] Last Admin: 02/10/18 09:28 Dose: 3.125 mg Heparin Sodium (Porcine) (Heparin) 5,000 units SC Q12 [facility] PRN Reason: Protocol Last Admin: 02/10/18 09:29 Dose: 5,000 units Vancomycin HCl 750 mg/ Sodium (Chloride) 250 mls @ 166.667 mls/hr IVPB QOTHERDAY [facility] PRN Reason: Protocol Last Admin: 02/09/18 16:53 Dose: 166.667 mls/hr Piperacillin Sod/Tazobactam (Sod 2.25 gm/ Sodium Chloride) 100 mls @ 100 mls/ hr IVPB Q12 [facility] PRN Reason: Protocol Last Admin: 02/10/18 09:33 Dose: 100 mls/hr Insulin Detemir (Levemir) 5 units SC QAM [facility] Last Admin: 02/10/18 09:18 Dose: Not Given Insulin Detemir (Levemir) 8 units SC QPM [facility] Last Admin: 02/09/18 17:02 Dose: 8 units Insulin Human Lispro (Humalog) 0 units SC ACHS [facility] PRN Reason: Protocol Last Admin: 02/10/18 12:12 Dose: 1 unit Levothyroxine Sodium (Synthroid) 100 mcg PO DAILY@0630 [facility] Last Admin: 02/10/18 06:27 Dose: 100 mcg Losartan Potassium (Cozaar) 25 mg PO DAILY [facility] Last Admin: 02/10/18 09:18 Dose: Not Given Multivitamins/Minerals (Therapeutic-M Tab) 1 tab PO DAILY [facility] Last Admin: 02/10/18 09:31 Dose: 1 tab Sevelamer HCl (Renagel) 1,600 mg PO ACTID [facility] Last Admin: 02/10/18 12:13 Dose: 1,600 mg Vitamin B Complex/Vit C/Folic Acid (Nephro-Rod) 1 tab PO DAILY [facility] Last Admin: 02/10/18 09:30 Dose: 1 tab - Labs Labs: 02/10/18 04:50 02/10/18 04:50 Assessment and Plan - Assessment and Plan (Free Text) Assessment: ESRD ON HD TIW ANEMIA OF CKD .. ON EPO .. H/H STABLE PVD .. S/P ANGIOPLASTY MMP p : C/O CURRENT CARE C/O PRESENT MANAGEMENT
--- NOTE | 2018-02-10 16:45 | US ---
Date of service: 02/10/2018 PROCEDURE: Duplex ultrasound of the right lower extremity arteries. HISTORY: pad peripheral artery disease COMPARISON: February 09, 2018. Peripheral arteriogram. Summary of findings on the comparison examination: Occluded proximal segment and reconstitution right peroneal artery. TECHNIQUE: Grayscale and duplex Doppler evaluation of the right common femoral, superficial femoral, popliteal, posterior tibial and dorsalis pedis arteries was performed.. FINDINGS: COMMON FEMORAL ARTERY: Patent Maximal flow velocity of 115 cm/s. SUPERFICIAL FEMORAL ARTERY:Patent. Maximal flow velocity of 95.2 cm/s. POPLITEAL ARTERY:Patent. Maximal flow velocity of 99.4 cm/s. POSTERIOR TIBIAL ARTERY: Patent. Maximal flow velocity of 30.5 cm/s. DORSALIS PEDIS ARTERY: Patent. Maximal flow velocity of 23.9 cm/s. OTHER FINDINGS: Elevated peak systolic velocities in the right anterior tibial artery 185.7 centimeter/second. Flow documented in the distal and reconstituted peroneal artery with peak systolic velocity 41.8 centimeter/second. IMPRESSION: No areas of critical stenoses with flow documented to the level of the dorsalis pedis artery.
--- NOTE | 2018-02-10 18:37 | CP.PCM.PN ---
Subjective - Date & Time of Evaluation Date of Evaluation: 02/10/18 Time of Evaluation: 18:33 - Subjective Subjective: no cp or sob. Informed by pt in hospital. I have seen pt once in August 2017 and he has not returned for f/u to my office. Non-compliant with ongoing medical care. Previous care byDr. Arechiga. He is s/p CABG with EF 10% by echo in August. A Stress MPI by in 2013 revealed extensive scar and no signficant reversible ischemia. S/p PVD evaluation and intervention. Pt is at extremely high surgical risk given his severely reduced LV function. The pt also has an AICD due to his ischemic cardiomyopathy. I would treat pt conservatively due to his high surgical risk. Objective - Vital Signs/Intake and Output Vital Signs (last 24 hours): Temp Pulse Resp BP Pulse Ox 97.6 F 70 16 147/84 100 02/10/18 16:26 02/10/18 16:26 02/10/18 16:26 02/10/18 16:26 02/10/18 16:26 - Medications Medications: Current Medications Acetaminophen (Tylenol 325mg Tab) 650 mg PO Q6 PRN PRN Reason: Pain, Mild (1-3) Atorvastatin Calcium (Lipitor) 40 mg PO HS [facility] Last Admin: 02/09/18 21:41 Dose: 40 mg Carvedilol (Coreg) 3.125 mg PO Q12 [facility] Last Admin: 02/10/18 09:28 Dose: 3.125 mg Heparin Sodium (Porcine) (Heparin) 5,000 units SC Q12 [facility] PRN Reason: Protocol Last Admin: 02/10/18 09:29 Dose: 5,000 units Vancomycin HCl 750 mg/ Sodium (Chloride) 250 mls @ 166.667 mls/hr IVPB QOTHERDAY [facility] PRN Reason: Protocol Last Admin: 02/09/18 16:53 Dose: 166.667 mls/hr Piperacillin Sod/Tazobactam (Sod 2.25 gm/ Sodium Chloride) 100 mls @ 100 mls/ hr IVPB Q12 [facility] PRN Reason: Protocol Last Admin: 02/10/18 09:33 Dose: 100 mls/hr Insulin Detemir (Levemir) 5 units SC QAM [facility] Last Admin: 02/10/18 09:18 Dose: Not Given Insulin Detemir (Levemir) 8 units SC QPM [facility] Last Admin: 02/10/18 17:39 Dose: Not Given Insulin Human Lispro (Humalog) 0 units SC ACHS [facility] PRN Reason: Protocol Last Admin: 02/10/18 17:11 Dose: Not Given Levothyroxine Sodium (Synthroid) 100 mcg PO DAILY@0630 [facility] Last Admin: 02/10/18 06:27 Dose: 100 mcg Losartan Potassium (Cozaar) 25 mg PO DAILY [facility] Last Admin: 02/10/18 09:18 Dose: Not Given Multivitamins/Minerals (Therapeutic-M Tab) 1 tab PO DAILY [facility] Last Admin: 02/10/18 09:31 Dose: 1 tab Sevelamer HCl (Renagel) 1,600 mg PO ACTID [facility] Last Admin: 02/10/18 17:11 Dose: 1,600 mg Vitamin B Complex/Vit C/Folic Acid (Nephro-Rod) 1 tab PO DAILY [facility] Last Admin: 02/10/18 09:30 Dose: 1 tab - Labs Labs: 02/10/18 04:50 02/10/18 04:50 - Head Exam Head Exam: NORMAL INSPECTION - Respiratory Exam Respiratory Exam: Clear to Ausculation Bilateral - Cardiovascular Exam Cardiovascular Exam: REGULAR RHYTHM - GI/Abdominal Exam GI & Abdominal Exam: Normal Bowel Sounds - Extremities Exam Additional comments: s/p amputation left Assessment and Plan - Assessment and Plan (Free Text) Assessment: Noncompliance with cardiology f/u Extremely high surgical risk LVEF 10% by echo Aug 2017 s/p cabg , extensive scar no revascularization candidate due to lack of myocardial viability by MPI in 2013 Hemodynamically stable Comfortable at rest
[2018-02-11] MEDS: Levothyroxine 100 MCG TAB PO SCH ×2 (06:19→09:12)
[2018-02-11] MEDS: Insulin Lispro (humaLOG) 100 Units/ml Inj SC SCH ×3 (06:41→17:30)
[2018-02-11 08:01] VITALS: O2SAT 100
--- NOTE | 2018-02-11 09:04 | CP.PCM.PN ---
Subjective - Date & Time of Evaluation Date of Evaluation: 02/10/18 Time of Evaluation: 10:40 - Subjective Subjective: NOTE FOR 02/10/18. F/U Pressure ulcer L foot. C/O pain in L knee, R foot. Objective - Vital Signs/Intake and Output Vital Signs (last 24 hours): Temp Pulse Resp BP Pulse Ox 97.7 F 75 18 129/63 100 02/11/18 08:00 02/11/18 08:00 02/11/18 08:00 02/11/18 08:00 02/11/18 08:00 - Medications Medications: Current Medications Acetaminophen (Tylenol 325mg Tab) 650 mg PO Q6 PRN PRN Reason: Pain, Mild (1-3) Atorvastatin Calcium (Lipitor) 40 mg PO HS [facility] Last Admin: 02/10/18 21:39 Dose: 40 mg Carvedilol (Coreg) 3.125 mg PO Q12 [facility] Last Admin: 02/10/18 21:39 Dose: 3.125 mg Heparin Sodium (Porcine) (Heparin) 5,000 units SC Q12 [facility] PRN Reason: Protocol Last Admin: 02/10/18 21:39 Dose: 5,000 units Vancomycin HCl 750 mg/ Sodium (Chloride) 250 mls @ 166.667 mls/hr IVPB QOTHERDAY [facility] PRN Reason: Protocol Last Admin: 02/09/18 16:53 Dose: 166.667 mls/hr Insulin Detemir (Levemir) 5 units SC QAM [facility] Last Admin: 02/10/18 09:18 Dose: Not Given Insulin Detemir (Levemir) 8 units SC QPM [facility] Last Admin: 02/10/18 17:39 Dose: Not Given Insulin Human Lispro (Humalog) 0 units SC ACHS [facility] PRN Reason: Protocol Last Admin: 02/11/18 06:41 Dose: Not Given Levothyroxine Sodium (Synthroid) 100 mcg PO DAILY@0630 [facility] Last Admin: 02/10/18 06:27 Dose: 100 mcg Losartan Potassium (Cozaar) 25 mg PO DAILY [facility] Last Admin: 02/10/18 09:18 Dose: Not Given Multivitamins/Minerals (Therapeutic-M Tab) 1 tab PO DAILY [facility] Last Admin: 02/10/18 09:31 Dose: 1 tab Sevelamer HCl (Renagel) 1,600 mg PO ACTID [facility] Last Admin: 02/10/18 17:11 Dose: 1,600 mg Vitamin B Complex/Vit C/Folic Acid (Nephro-Rod) 1 tab PO DAILY [facility] Last Admin: 02/10/18 09:30 Dose: 1 tab - Labs Labs: 02/10/18 04:50 02/10/18 04:50 - Constitutional Appears: No Acute Distress - Head Exam Head Exam: NORMAL INSPECTION - Eye Exam Eye Exam: PERRL - ENT Exam ENT Exam: Normal Exam - Neck Exam Neck Exam: Normal Inspection - Respiratory Exam Respiratory Exam: Clear to Ausculation Bilateral - Cardiovascular Exam Cardiovascular Exam: REGULAR RHYTHM - GI/Abdominal Exam GI & Abdominal Exam: Soft, Normal Bowel Sounds - Extremities Exam Additional comments: L BKA, Lateral malleolal ulceration R foot with granular base, displacement R ankle joint with severe pain on palpation. - Back Exam Back Exam: NORMAL INSPECTION - Neurological Exam Neurological Exam: Alert, Oriented x3 - Psychiatric Exam Psychiatric exam: Normal Mood - Skin Skin Exam: Warm Additional comments: See extremities Assessment and Plan (1) Pain in right ankle and joints of right foot Status: Acute (2) Pressure ulcer of right foot Status: Acute (3) Closed dislocation of distal tibia Status: Acute (4) Trimalleolar fracture of right ankle Status: Acute (5) ESRD on hemodialysis Status: Chronic (6) IDDM (insulin dependent diabetes mellitus) Status: Chronic (7) Hyperlipidemia Status: Chronic (8) HTN (hypertension) Status: Chronic (9) Abnormal EKG Status: Acute (10) Hypothyroidism Status: Chronic - Assessment and Plan (Free Text) Plan: Continue Vanco, Pt had MRI R foot, awaiting for report.
[2018-02-11] MEDS: Multivitamin Vitamin B Complex (Nephro-Vite) Tab PO SCH (09:09)
[2018-02-11] MEDS: Multivitamin With Minerals Tab PO SCH (09:13)
[2018-02-11] MEDS: Insulin Detemir 100 Units/ml Inj SC SCH ×2 (09:16→18:00)
[2018-02-11 12:29] VITALS: RESP 20
--- NOTE | 2018-02-11 12:53 | MRI ---
Date of service: 02/10/2018 PROCEDURE: MRI of the right ankle without contrast HISTORY: s/p Right Ankle Injury/fracture COMPARISON: Comparison is made with the previous x-ray of the right ankle dated 04/10/2018.. TECHNIQUE: Axial coronal and sagittal MRI images of the right ankle were obtained without contrast administration. FINDINGS: Again noted is severe deformity of the right ankle joint. There is lateral subluxation of the tibial plafond in relation to the talar dome. There is also lateral displacement of the lateral malleolus. There are multiple bony fragments and fractures in the medial medial, posterior and lateral malleolus. There are patchy foci of bone marrow edema noted at the distal right tibia and fibula and in the right talus bone. There is osteochondral defect noted at the lateral aspect of the talar dome measures 1 x 0.7 centimeter. There is also large osteochondral defect at the medial aspect of the tibial plafond measures 2.4 x 3.2 centimeter. There is a large chondral loss involving the tibial and talar articular surface. There is also mild chondral thinning and subchondral edema involving the talonavicular and calcaneocuboid articulation. There is diffuse thickening of the central band of the plantar fascial. There is a thickening of the flexor hallucis longus tendon with increased intrinsic signal suggestive of subacute injury and tendinopathy. Mild thickening of the distal tibialis posterior tendon is also noted. There is also mild thickening and increased signal of the peroneus longus tendon with possible splayed tear injury. The Achillis tendon is intact. There is moderate joint effusion IMPRESSION: Marked deformity and subluxation of the right ankle. Trimalleolar fractures associated with [id number] patchy bone marrow edema suggestive of subacute injury. Multiple osteochondral defects in the talar dome and tibial plafond also consistent with subacute injury. The possibility of superimposed foci of avascular necrosis is not totally excluded Multiple ligamentous injuries involving the anterior talofibular, posterior talofibular anterior tibiofibular, and posterior tibiofibular. Possible split tear of the peroneus longus tendon. Tendinosis of the flexor hallucis longus and tibialis posterior tendons. Moderate joint effusion. Subacute or chronic plantar fasciitis. Preliminary report was submitted by [facility].
--- NOTE | 2018-02-11 14:25 | CP.PCM.PN ---
Objective - Vital Signs/Intake and Output Vital Signs (last 24 hours): Temp Pulse Resp BP Pulse Ox 98.0 F 66 20 141/70 100 02/11/18 12:29 02/11/18 12:29 02/11/18 12:29 02/11/18 12:29 02/11/18 12:29 - Medications Medications: Current Medications Acetaminophen (Tylenol 325mg Tab) 650 mg PO Q6 PRN PRN Reason: Pain, Mild (1-3) Atorvastatin Calcium (Lipitor) 40 mg PO HS [facility] Last Admin: 02/10/18 21:39 Dose: 40 mg Carvedilol (Coreg) 3.125 mg PO Q12 [facility] Last Admin: 02/11/18 09:05 Dose: 3.125 mg Heparin Sodium (Porcine) (Heparin) 5,000 units SC Q12 [facility] PRN Reason: Protocol Last Admin: 02/11/18 09:06 Dose: 5,000 units Vancomycin HCl 750 mg/ Sodium (Chloride) 250 mls @ 166.667 mls/hr IVPB QOTHERDAY [facility] PRN Reason: Protocol Last Admin: 02/11/18 09:14 Dose: 166.667 mls/hr Insulin Detemir (Levemir) 5 units SC QAM [facility] Last Admin: 02/11/18 09:16 Dose: 5 units Insulin Detemir (Levemir) 8 units SC QPM [facility] Last Admin: 02/10/18 17:39 Dose: Not Given Insulin Human Lispro (Humalog) 0 units SC ACHS [facility] PRN Reason: Protocol Last Admin: 02/11/18 12:49 Dose: Not Given Levothyroxine Sodium (Synthroid) 100 mcg PO DAILY@0630 [facility] Last Admin: 02/11/18 09:12 Dose: 100 mcg Losartan Potassium (Cozaar) 25 mg PO DAILY [facility] Last Admin: 02/11/18 09:06 Dose: 25 mg Multivitamins/Minerals (Therapeutic-M Tab) 1 tab PO DAILY [facility] Last Admin: 02/11/18 09:13 Dose: 1 tab Sevelamer HCl (Renagel) 1,600 mg PO ACTID [facility] Last Admin: 02/11/18 12:50 Dose: 1,600 mg Vitamin B Complex/Vit C/Folic Acid (Nephro-Rod) 1 tab PO DAILY [facility] Last Admin: 02/11/18 09:09 Dose: 1 tab - Labs Labs: 02/10/18 04:50 02/10/18 04:50 Assessment and Plan (1) Pain in right ankle and joints of right foot Status: Acute (2) Pressure ulcer of right foot Status: Acute (3) Closed dislocation of distal tibia Status: Acute (4) Trimalleolar fracture of right ankle Status: Acute (5) ESRD on hemodialysis Status: Chronic (6) IDDM (insulin dependent diabetes mellitus) Status: Chronic (7) Hyperlipidemia Status: Chronic (8) HTN (hypertension) Status: Chronic (9) Abnormal EKG Status: Acute (10) Hypothyroidism Status: Chronic
--- NOTE | 2018-02-11 14:37 | CP.PCM.PCO ---
Assessment/Plan - Assessment and Plan (Free Text) Assessment: Patient seen and examined. VSS. Patient denies shortness of breath, nausea vomiting or chest pain. Patient pivots to wheelchair and uses that for his adls. Plan discussed with Dr Abbott and Podiatry resident, Pt high risk for surgery at this time, pt will follow up with Dr Turner wednesday at the podiatry clinic and further workup will be discussed then. Cleared for DC once done with HD.
--- NOTE | 2018-02-11 14:44 | CP.PCM.PN ---
Subjective - Date & Time of Evaluation Date of Evaluation: 02/11/18 Time of Evaluation: 14:36 - Subjective Subjective: Podiatry progress note for Dr. Turner, 57 y/o male was seen and evaluated at bedside this morning for right ankle fracture/dislocation and right lateral malleolar wound. Patient is seen resting comfortably in bed, and states the pain to the right ankle has improved. Patient is no acute distress and AAOx3. Patient denies any overnight acute events. Patient reports he had his MRI yesterday. Patient denies any additional pedal complains. Patient denies f/n/v/sob. Objective - Vital Signs/Intake and Output Vital Signs (last 24 hours): Temp Pulse Resp BP Pulse Ox 98.0 F 66 20 141/70 100 02/11/18 12:29 02/11/18 12:29 02/11/18 12:29 02/11/18 12:29 02/11/18 12:29 - Medications Medications: Current Medications Acetaminophen (Tylenol 325mg Tab) 650 mg PO Q6 PRN PRN Reason: Pain, Mild (1-3) Atorvastatin Calcium (Lipitor) 40 mg PO HS [facility] Last Admin: 02/10/18 21:39 Dose: 40 mg Carvedilol (Coreg) 3.125 mg PO Q12 [facility] Last Admin: 02/11/18 09:05 Dose: 3.125 mg Heparin Sodium (Porcine) (Heparin) 5,000 units SC Q12 [facility] PRN Reason: Protocol Last Admin: 02/11/18 09:06 Dose: 5,000 units Vancomycin HCl 750 mg/ Sodium (Chloride) 250 mls @ 166.667 mls/hr IVPB QOTHERDAY [facility] PRN Reason: Protocol Last Admin: 02/11/18 09:14 Dose: 166.667 mls/hr Insulin Detemir (Levemir) 5 units SC QAM [facility] Last Admin: 02/11/18 09:16 Dose: 5 units Insulin Detemir (Levemir) 8 units SC QPM [facility] Last Admin: 02/10/18 17:39 Dose: Not Given Insulin Human Lispro (Humalog) 0 units SC ACHS [facility] PRN Reason: Protocol Last Admin: 02/11/18 12:49 Dose: Not Given Levothyroxine Sodium (Synthroid) 100 mcg PO DAILY@0630 [facility] Last Admin: 02/11/18 09:12 Dose: 100 mcg Losartan Potassium (Cozaar) 25 mg PO DAILY [facility] Last Admin: 02/11/18 09:06 Dose: 25 mg Multivitamins/Minerals (Therapeutic-M Tab) 1 tab PO DAILY [facility] Last Admin: 02/11/18 09:13 Dose: 1 tab Sevelamer HCl (Renagel) 1,600 mg PO ACTID [facility] Last Admin: 02/11/18 12:50 Dose: 1,600 mg Vitamin B Complex/Vit C/Folic Acid (Nephro-Rod) 1 tab PO DAILY [facility] Last Admin: 02/11/18 09:09 Dose: 1 tab - Labs Labs: 02/10/18 04:50 02/10/18 04:50 - Constitutional Appears: Well, Non-toxic, No Acute Distress - Head Exam Head Exam: ATRAUMATIC, NORMOCEPHALIC - Extremities Exam Additional comments: Left BKA Right lower extremity exam: VASC: DP and PT 2/4; CFT less than 3 seconds x 5; TG warm to cool proximal to distal; no edema NEURO: Protective sensation grossly intact DERM: lateral malleolar ulceration measuring 1.0 X 0.5 cm X 0.2 cm with 100% granular base, healing skin edges noted beatriz-wound, no probe to bone, no drainage, no tunneling, no malodor, no undermining, no tracking noted, no clinical signs of infection. MSK: displacement noted of the right ankle joint with moderate pain on palpation of the lateral ankle joint, limited ankle joint range of motion - Neurological Exam Neurological Exam: Alert, Awake, Oriented x3 - Psychiatric Exam Psychiatric exam: Normal Affect, Normal Mood Assessment and Plan - Assessment and Plan (Free Text) Assessment: 57 y/o male was seen and evaluated at bedside this morning for right ankle fracture/dislocation and right lateral malleolar wound Plan: Patient seen and evaluated Patient plan discussed with attending Dr. Turner Chart, labs and vitals reviewed- Afebrile, absent leukocytosis HgA1c 02/07: 5.8 mg/dL Wound Culture 02/07/18: Preliminary- no growth after 48 hours Ankle X-ray 02/07/18: complete disruption of the right ankle joint, old fractures involving the lateral and medial malleolus with lateral dislocation of the distal tibia Knee X-ray 02/07/18: extensive osteopenia, no fracture Tibia-Fib X-ray 02/07/18: generalized soft tissue swelling, extensive degenerative changes, dislocation of the ankle joint MRI 02/10/18: no acute fracture, trimalleolar fracture, OCD of talas, ligamentous injuries, PL tendon tear Patient wound is stable at this time, with no signs of infection Patient will be discharged by medicine at this time Patient will follow-up in Dr. Turner's Wednesday clinic to determine if patient is a surgical candidate Patient's wound was dressed with gauze, ABD and DSD Patient tolerated without any complications. Podiatry will continue to follow patient in clinic
--- NOTE | 2018-02-11 15:52 | RAD ---
Date of service: 02/11/2018 PROCEDURE: Left Femur Radiographs. HISTORY: stump pain sp fall COMPARISON: CT angiography of the abdomen, pelvis and bilateral lower extremities performed 02/09/2018. TECHNIQUE: AP view of the left femur. FINDINGS: FEMUR: Intraarticular fracture of the distal femur extending to the tibial femoral joint space. Left hip narrowing. SOFT TISSUES: Normal. OTHER FINDINGS: Arterial vascular calcifications. IMPRESSION: Intra-articular fracture of the distal femur extending to the tibial femoral joint space.
[2018-02-11 15:57] VITALS: BP 147/61; PULSE 69; TEMP 97.5
== END 2018-02-11 18:17 | disposition left against medical advice (07) | DRG 559 ==
LOC: H.ER 07:20 → H.ERHOLD 10:05 → H.TEL 12:03 → OBSVTOIN 02-08 10:31
PROVIDERS: ADMIT Internal Medicine Pulmonary Disease; ATTEND Internal Medicine Pulmonary Disease
PROC: 5A1D70Z Performance of Urinary Filtration, Intermittent, Less than 6 Hours Per Day (ICD-10-PCS; 2018-02-08)
PROC: B42HZZZ Computerized Tomography (CT Scan) of Bilateral Lower Extremity Arteries (ICD-10-PCS; principal; 2018-02-09)
PROC: 5A1D70Z Performance of Urinary Filtration, Intermittent, Less than 6 Hours Per Day (ICD-10-PCS; 2018-02-09)
DX: S82.851G Displaced trimalleolar fracture of right lower leg, subsequent encounter for closed fracture with delayed healing (principal); N18.6 End stage renal disease; I13.11 Hypertensive heart and chronic kidney disease without heart failure, with stage 5 chronic kidney disease, or end stage renal disease; I25.810 Atherosclerosis of coronary artery bypass graft(s) without angina pectoris; L97.319 Non-pressure chronic ulcer of right ankle with unspecified severity; I25.5 Ischemic cardiomyopathy; L89.619 Pressure ulcer of right heel, unspecified stage; E11.22 Type 2 diabetes mellitus with diabetic chronic kidney disease; E11.51 Type 2 diabetes mellitus with diabetic peripheral angiopathy without gangrene; D63.1 Anemia in chronic kidney disease; Z99.2 Dependence on renal dialysis; E03.9 Hypothyroidism, unspecified; E78.00 Pure hypercholesterolemia, unspecified; E78.5 Hyperlipidemia, unspecified; W10.9XXD Fall (on) (from) unspecified stairs and steps, subsequent encounter; Z91.19 Patient's noncompliance with other medical treatment and regimen; Z95.810 Presence of automatic (implantable) cardiac defibrillator; Z91.81 History of falling; Z89.512 Acquired absence of left leg below knee; I25.2 Old myocardial infarction; Z79.4 Long term (current) use of insulin; Z87.891 Personal history of nicotine dependence

== ENCOUNTER 2018-04-06 22:54 | Inpatient (IN) | payer MEDICAID, MEDICARE ==
--- NOTE | 2018-04-06 23:24 | ED PDOC ---
HPI: Wound Care - HPI Time Seen by Provider: 04/06/18 23:08 Chief Complaint (Nursing): Wound Check Chief Complaint (Provider): Fever, swelling and purulent drainage from right ankle History Per: Patient Exam Limitations: no limitations Onset/Duration Of Symptoms: Days (x1) Current Symptoms Are (Timing): Still Present Location Of Injury: Right: Ankle Additional Complaint(s): Samuel Delgado is a 57 year old male, with a past medical history of diabetes and end stage renal disease on dialysis s/p left DKA, who presents to the emergency department for evaluation of fever, swelling and purulent drainage from right ankle onset for x1 day. Patient has a chronic wound which was cared for at home. He denies any other medical complaints. PMD: Erika Trejo Past Medical History Reviewed: Historical Data, Nursing Documentation, Vital Signs Vital Signs: Last Vital Signs Temp 99.2 F 04/06/18 22:59 Pulse 94 H 04/06/18 22:59 Resp 16 04/06/18 22:59 BP 75/48 L 04/06/18 22:59 Pulse Ox 98 04/06/18 22:59 - Medical History PMH: CAD, Diabetes, Fractures, HTN, Hypercholesterolemia, Hyperlipidemia, End Stage Renal Disease (On dialysis), Chronic Kidney Disease - Surgical History Surgical History: CABG - Family History Family History: States: Diabetes - Home Medications Home Medications: Ambulatory Orders Medication Instructions Recorded Atorvastatin [Lipitor] 40 mg PO HS 02/07/18 Carvedilol [Coreg] 3.125 mg PO Q12 02/07/18 Folic Acid/Vit B Complex and C 1 tab PO DAILY 02/07/18 [Marianela-Rod Tablet] Insulin Aspart, Recombinant unit SC AC 02/07/18 [Novolog] Insulin Glargine, Recombina 5 unit SC QAM 02/07/18 [Lantus] Insulin Glargine, Recombina 8 unit SC QPM 02/07/18 [Lantus] Levothyroxine [Synthroid] 100 mg PO DAILY 02/07/18 Losartan [Cozaar] 25 mg PO DAILY 02/07/18 Multivitamin [Multi-Vitamin Daily] 1 tab PO DAILY 02/07/18 Sevelamer Carbonate [Renvela] 1,600 mg PO ACTID 02/07/18 - Allergies Allergies/Adverse Reactions: Allergies Allergy/AdvReac Type Severity Reaction Status Date / Time No Known Allergies Allergy Verified 04/06/18 22:59 Review of Systems ROS Statement: Except As Marked, All Systems Reviewed And Found Negative Constitutional: Positive for: Fever Musculoskeletal: Positive for: Leg Pain (swelling and purulent drainage from right ankle) Physical Exam - Reviewed Nursing Documentation Reviewed: Yes Vital Signs Reviewed: Yes - Physical Exam Appears: Positive for: No Acute Distress Head Exam: Positive for: ATRAUMATIC, NORMAL INSPECTION, NORMOCEPHALIC Skin: Positive for: Normal Color, Warm, Dry Eye Exam: Positive for: Normal appearance, EOMI, PERRL Neck: Positive for: Painless ROM Cardiovascular/Chest: Positive for: Regular Rate, Rhythm. Negative for: Murmur Respiratory: Positive for: Normal Breath Sounds. Negative for: Respiratory Distress Gastrointestinal/Abdominal: Positive for: Normal Exam, Soft. Negative for: Tenderness Back: Positive for: Normal Inspection Extremity: Positive for: Tenderness, Swelling (Left DKA, right lateral malleolus swollen with purulent and sanguineous drainage. Warm and tender). Negative for: Deformity Neurologic/Psych: Positive for: Alert, Oriented - ECG O2 Sat by Pulse Oximetry: 98 (RA) Pulse Ox Interpretation: Normal Medical Decision Making Medical Decision Making: Time: 23:08 Initial Plan: --VBG --CMP --Urine dipstick --CBC w/ differential --Vancomycin 1 gm Sodium Chloride 0.9% 250 ml IVPB --Zosyn 2.25 gm Sodium Chloride 0.9% 100 ml IVPB --Blood culture --Ankle right 3 views routine [RAD] --Foot right 3 views routine [RAD] --Reevaluation ----- Scribe Attestation: Documented by Joe Linares, acting as a scribe for Zbigniew Fair MD. Provider Scribe Attestation: All medical record entries made by the Scribe were at my direction and personally dictated by me. I have reviewed the chart and agree that the record accurately reflects my personal performance of the history, physical exam, medical decision making, and the department course for this patient. I have also personally directed, reviewed, and agree with the discharge instructions and disposition. Disposition - Clinical Impression Clinical Impression: Cellulitis - Patient ED Disposition Is Patient to be Admitted: Transfer of Care - Disposition Referrals: Erika Trejo [Primary Care Provider] - Disposition: Transfer of Care Disposition Time: 00:00 Condition: FAIR Forms: Probity (Namibian) Patient Signed Over To: Alexander Yost
[2018-04-07 00:15] LABS: BASO % 0.1 % (0.0-2.0); EOS % 0.1 % (0.0-4.0); HEMOGLOBIN 13.3 g/dL (12.0-18.0); LYMPH # 0.3 K/uL (1.0-4.3); LYMPH % 2.7 % (20.0-40.0); MEAN CELL VOLUME 98.1 fl (80.0-94.0); MEAN CORPUSCULAR HEMOGLOBIN 32.5 pg (27.0-31.0); MEAN CORPUSCULAR HGB CONC 33.2 g/dL (33.0-37.0); MEAN PLATELET VOLUME 9.6 fl (7.2-11.7); MONO # 0.7 K/uL (0.0-0.8); MONO % 7.9 % (0.0-10.0); NEUT # 8.3 K/uL (1.8-7.0); NEUT % 89.2 % (50.0-75.0); PLATELET COUNT 224 K/uL (130-400); RBC 4.08 Mil/uL (4.40-5.90); RED CELL DISTRIBUTION WIDTH 16.6 % (11.5-14.5); WHITE BLOOD COUNT 9.3 K/uL (4.8-10.8)
[2018-04-07] MEDS ORDERED: Piperacillin/Tazobact 3.375 gm Inj IVPB ONE (00:22)
[2018-04-07] MEDS ORDERED: Vancomycin 1 g Inj ONE (00:22)
[2018-04-07 00:27] LABS: ALBUMIN 3.9 g/dL (3.5-5.0)
[2018-04-07] MEDS ORDERED: Povidone Iodine Topical 10% Sol ONE (00:36)
--- NOTE | 2018-04-07 01:00 | CP.PCM.CON ---
History of Present Illness - History of Present Illness History of Present Illness: Podiatry Consult Note for Dr. Turner: 57 yo male, with PMHx of DM, HTN, HLD, CAD (CABG), ESRD, L BKA, seen and evaluated for worsening right ankle wound. Patient states that he has been experiencing nausea, vomiting, and fever for the past week; he has been taking Tylenol every four hours consistently over the past week for fever. Today his drained half a coffee cup of pus from his ankle wound and brought him to the ED. Patient states he is in 7/10 pain to his right ankle. Patient is accompanied by his son bedside. Patient admits to N/V/F. PMHx: DM, HTN, HLD, CAD (CABG), ESRD SHx: L BKA, CABG Social: Denies tobacco use and illicit drug use ALL: NKDA Review of Systems - Review of Systems Review of Systems: As per HPI Past Patient History - Past Medical History & Family History Past Medical History?: Yes - Past Social History Smoking Status: Never Smoked - CARDIAC Hx Hypercholesterolemia: Yes Hx Hypertension: Yes - PULMONARY Hx Respiratory Disorders: No - NEUROLOGICAL Hx Neurological Disorder: No - HEENT Hx HEENT Problems: No - RENAL Hx Chronic Kidney Disease: Yes - ENDOCRINE/METABOLIC Hx Endocrine Disorders: Yes Hx Diabetes Mellitus Type 2: Yes - HEMATOLOGICAL/ONCOLOGICAL Hx Blood Disorders: No - INTEGUMENTARY Hx Dermatological Problems: No - MUSCULOSKELETAL/RHEUMATOLOGICAL Hx Fractures: Yes - GASTROINTESTINAL Hx Gastrointestinal Disorders: No - GENITOURINARY/GYNECOLOGICAL Hx Genitourinary Disorders: No - PSYCHIATRIC Hx Psychophysiologic Disorder: No Hx Substance Use: No - SURGICAL HISTORY Hx Coronary Artery Bypass Graft: Yes - ANESTHESIA Hx Anesthesia: Yes Hx Anesthesia Reactions: No Hx Malignant Hyperthermia: No Meds Allergies/Adverse Reactions: Allergies Allergy/AdvReac Type Severity Reaction Status Date / Time No Known Allergies Allergy Verified 04/06/18 22:59 Physical Exam - Constitutional Appears: Non-toxic, No Acute Distress - Head Exam Head Exam: ATRAUMATIC, NORMOCEPHALIC - Extremities Exam Additional comments: RLE focused: Vasc: DP and PT pulses nonpalpable, cellulitis and erythema present about the ankle and extending proximally at anterior border of the lower leg; edema present about the lateral ankle Derm: open draining wound at the level of the lateral malleolus; foul odor with serosanguinous drainage appreciated when expressed, about 5cc of drainage expressed; clinical signs of infection present, no probe to bone, no undermining Ortho: left prevoius BKA; pain at the level of the right lateral ankle wound. Gross deformity to right lower extremity with medial dislocation of the foot in relation to the leg. Neuro: diminished protective and gross sensation - Neurological Exam Neurological exam: Alert, Oriented x3 - Psychiatric Exam Psychiatric exam: Normal Affect, Normal Mood Results - Vital Signs Recent Vital Signs: Last Vital Signs Temp 99.2 F 04/06/18 22:59 Pulse 94 H 04/06/18 22:59 Resp 16 04/06/18 22:59 BP 75/48 L 04/06/18 22:59 Pulse Ox 98 04/07/18 00:01 - Labs Result Diagrams: 04/06/18 23:50 04/06/18 23:50 Labs: Laboratory Results - last 24 hr 04/06/18 04/06/18 23:50 23:50 WBC 9.3 D RBC 4.08 L Hgb 13.3 D Hct 40.0 MCV 98.1 H MCH 32.5 H MCHC 33.2 RDW 16.6 H Plt Count 224 MPV 9.6 Neut % (Auto) 89.2 H Lymph % (Auto) 2.7 L Patrick % (Auto) 7.9 Eos % (Auto) 0.1 Baso % (Auto) 0.1 Neut # (Auto) 8.3 H Lymph # (Auto) 0.3 L Patrick # (Auto) 0.7 Eos # (Auto) 0.0 Baso # (Auto) 0.0 Sodium 132 Potassium 4.5 Chloride 88 L Carbon Dioxide 32 H Anion Gap 17 BUN 58 H Creatinine 8.2 H* D Est GFR ( Amer) 8 Est GFR (Non-Af Amer) 7 Random Glucose 191 H Calcium 8.0 L Total Bilirubin 1.4 H AST 43 ALT 15 L Alkaline Phosphatase 169 H D Total Protein 7.8 Albumin 3.9 Globulin 3.9 Albumin/Globulin Ratio 1.0 Assessment & Plan - Assessment and Plan (Free Text) Assessment: 57 yo male, with PMHx of DM, HTN, HLD, CAD (CABG), ESRD, L BKA, seen and evaluated for worsening right ankle wound; bedside I&D performed Plan: Patient seen and evaluated with all questions and concerns addressed Discussed in detail with attending Dr. Turner Chart, labs, and vitals reviewed; afebrile and absent leukocytosis Expressed 5cc of sanginous and purulent fluid from wound at bedside Wound culture taken Wound copiously flushed with betadine and saline solution Foot and ankle x-ray reviewed; chronic fracture of distal tibia and fibula with medial subluxation or dislocation of talus; charcot joint possibility, moderate degeneration of STJ; chronic fracture of distal 5th met with probable chronic healed fracture at base of bone; OM of distal 5th met not excluded; recommend followup MRI or CT Podiatry will continue to follow while in house Thank you for the consult and allowing us to partake in the care of this patient. - Date & Time Date: 04/06/18 Time: 23:55
[2018-04-07] MEDS ORDERED: Sodium Chloride 0.9% 1,000 ML IV SCH ×3 (02:00→04:45)
[2018-04-07 02:41] LABS: BANDS 2 % (0-2); LYMPHOCYTE 8 % (20-50); MONOCYTE 9 % (0-10); NEUTROPHIL 81 % (42-75); PLATELET ESTIMATE NORMAL (NORMAL); TOTAL CELLS COUNTED 100
[2018-04-07 02:43] LABS: ANISOCYTOSIS SLIGHT; HYPOCHROMIC SLIGHT
[2018-04-07] MEDS ORDERED: Lidocaine 1% w Epi 1:100,000 Inj ONE (03:26)
--- NOTE | 2018-04-07 04:10 | ED PDOC ---
- Laboratory Results Result Diagrams: 04/06/18 23:50 04/06/18 23:50 - ECG O2 Sat by Pulse Oximetry: 99 Medical Decision Making Medical Decision Makin Patient was signed over to me by Dr. Fair pending podiatry consult and labwork 0200 Labwork wnl except Cr which is chronically elevated. Patient's wound was drained and collected by podiatry resident Patient resting comfortably, speaking full sentences, GCS [address] Wilde who accepts admission 0300 Patient hypotensive, but fluid responsive, negative white count and lactate qSOFA score 1 Attempted central line access but unsuccessful in cannulation, 18G peripheral placed in R IJ by MD Will bolus patient with 1L IVF, given patient is ESRD, will closely monitor lungs, patient has mild crackles at bases, 100% sat on RA 430 Patient improving BP 83/42, HR 80, Sat's 99% on RA Patient resting comfortably Will give one more liter 500cc's/hr 530 Patient continues to improve, well appearing SBP 80s, discussed with hospitalist possible ICU admit, patient already is going to ICU overflow, decision made to keep Tele admission in ICU overflow for now BP improving with fluid administration Sat 99% on RA CXR shows no evidence of fluid overload Disposition - Clinical Impression Clinical Impression: Cellulitis - POA Present On Arrival: None - Disposition Disposition: Admitted as In-Patient Disposition Time: 04:00 Condition: GUARDED
--- NOTE | 2018-04-07 07:36 | CARD ---
APPROVED REPORT Date of service: 04/07/2018 EKG Measurement Heart [id number] <Conclusion> Normal sinus rhythm Low voltage QRS Possible Inferior infarct, age undetermined Abnormal ECG
[2018-04-07] MEDS: Sodium Chloride 0.9% 1,000 ML IV SCH ×2 (08:10→19:59)
--- NOTE | 2018-04-07 08:32 | RAD ---
Date of service: 04/07/2018 HISTORY: weakness COMPARISON: Frontal chest radiograph 06/17/2008. FINDINGS: LUNGS: Limited linear atelectasis is appreciate the inferior right lung zone with left hemidiaphragm elevated. PLEURA: Minimal right pleural effusion identified. None at the left. No pneumothorax bilaterally. CARDIOVASCULAR: Cardiomegaly is identified. Interval median sternotomy is noted with prosthetic cardiac valve and implanted defibrillator at the left chest wall identified in the generator placed at the lateral left inferior chest wall. OSSEOUS STRUCTURES: No significant abnormalities. VISUALIZED UPPER ABDOMEN: Normal. OTHER FINDINGS: None. IMPRESSION: Interval cardiomegaly. Node definite pulmonary vascular congestion. Linear atelectasis seen at the right base with trace right pleural effusion present. Interval new sternotomy and prosthetic cardiac valve identified as well as implanted defibrillator.
--- NOTE | 2018-04-07 09:48 | RAD ---
Date of service: 04/06/2018 PROCEDURE: Right Ankle Radiographs. HISTORY: cellulitis COMPARISON: None. FINDINGS: BONES: There is a comminuted fracture of the distal tibia and fibula at the epiphysis and metaphysis levels. Prominent circumferential soft tissue edema is appreciated and there is trace gas seen in the anterior pretibial soft tissues at the level the ankle as well. Is difficult to excluded talar fracture near the neck and there is limited subtalar degenerative joint disease. The lack of destruction of more than just the tibiotalar joints raises question against the diagnosis of Charcot joint. The distal tibial and possibly fibular fractures may be a function of late subacute or even chronic time frame. The talus appears subluxed medially based on the AP view. In addition, there are regular changes identified related to the distal 5th metatarsal bone with limited periosteal reaction identified medially at the distal diaphysis and cortical destruction at the lateral edge at the same level, suspicious for potential subacute fracture or even osteomyelitis here. Local soft tissue edema is mild. Further clinical correlation is recommended. Diffuse osteopenia suggests osteoporosis. Extensive arterial calcifications are seen throughout the distal leg and ankle as well as the hindfoot and midfoot. JOINTS: As above. In addition, degenerative joint space narrowing and cortical sclerosis appreciate throughout the joints of the right foot diffusely compatible degenerative joint disease. SOFT TISSUES: As above. OTHER FINDINGS: None. IMPRESSION: Subacute or even chronic fracture of the distal tibia and fibula are identified with medial subluxation or even dislocation of the talus medially noted. Charcot joint is a borderline possibility however the subtalar joint is not destroyed but is simply moderately degenerated. Subacute or chronic fracture distal 5th metatarsal bone with probable chronic healed fracture at the base of the 5th metatarsal bone. Osteomyelitis the distal 5th metatarsal bone is not excluded. Follow-up MRI and/or CT is recommended for added characterization.
--- NOTE | 2018-04-07 09:56 | CP.PCM.CON ---
History of Present Illness - History of Present Illness History of Present Illness: this patient whole is 57 years of age male known with end stage renal disease on maintenance hemodialysis Wednesday. He has been receiving dialysis at [facility]. He has been on dialysis for 6 years. This patient stated that he has been having fever and he has been taken Tylenol intermittent vomiting also reported to have diarrhea and he was dehydrated when he reported to the emergency room. Also complaining golf [place] on the right lower leg and is being draining Pus as reported. Past medical history coronary artery disease with the status post CABG number of years ago. 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 absent: Chills - Cardiovascular Cardiovascular: Leg Ulcers. absent: Chest Pain, Edema - Respiratory Respiratory: absent: Cough, Dyspnea - Gastrointestinal Gastrointestinal: Diarrhea, Nausea. absent: Coffee Ground Emesis - Genitourinary Genitourinary: Nocturia - Musculoskeletal Musculoskeletal: Muscle Weakness. absent: Abnormal Gait - Neurological Neurological: As Per HPI. absent: Confusion, Focal Weakness - Endocrine Endocrine: Fatigue - Hematologic/Lymphatic Hematologic: absent: Easy Bleeding Past Patient History - Past Medical History & Family History Past Medical History?: Yes - Past Social History Smoking Status: Never Smoked - CARDIAC Hx Hypercholesterolemia: Yes Hx Hypertension: Yes - PULMONARY Hx Respiratory Disorders: No - NEUROLOGICAL Hx Neurological Disorder: No - HEENT Hx HEENT Problems: No - RENAL Hx Chronic Kidney Disease: Yes - ENDOCRINE/METABOLIC Hx Endocrine Disorders: Yes Hx Diabetes Mellitus Type 2: Yes - HEMATOLOGICAL/ONCOLOGICAL Hx Blood Disorders: No - INTEGUMENTARY Hx Dermatological Problems: No - MUSCULOSKELETAL/RHEUMATOLOGICAL Hx Fractures: Yes - GASTROINTESTINAL Hx Gastrointestinal Disorders: No - GENITOURINARY/GYNECOLOGICAL Hx Genitourinary Disorders: No - PSYCHIATRIC Hx Psychophysiologic Disorder: No Hx Substance Use: No - SURGICAL HISTORY Hx Coronary Artery Bypass Graft: Yes - ANESTHESIA Hx Anesthesia: Yes Hx Anesthesia Reactions: No Hx Malignant Hyperthermia: No Meds Allergies/Adverse Reactions: Allergies Allergy/AdvReac Type Severity Reaction Status Date / Time No Known Allergies Allergy Verified 04/06/18 22:59 - Medications Medications: Current Medications Sodium Chloride (Sodium Chloride 0.9%) 1,000 mls @ 500 mls/hr IV .Q2H [facility] Stop: 04/08/18 01:58 Last Admin: 04/07/18 03:21 Dose: 500 mls/hr Sodium Chloride (Sodium Chloride 0.9%) 1,000 mls @ 500 mls/hr IV .Q2H [facility] Stop: 04/08/18 04:32 Last Admin: 04/07/18 04:37 Dose: 500 mls/hr Sodium Chloride (Sodium Chloride 0.9%) 1,000 mls @ 100 mls/hr IV .Q10H [facility] Stop: 04/08/18 07:29 Last Admin: 04/07/18 08:10 Dose: 100 mls/hr Levothyroxine Sodium (Synthroid) 100 mcg PO DAILY@0630 [facility] Ondansetron HCl (Zofran Inj) 4 mg IVP Q4 PRN PRN Reason: Nausea/Vomiting Physical Exam - Constitutional Appears: No Acute Distress - Eye Exam Eye Exam: Conjunctival injection - ENT Exam ENT Exam: Mucous Membranes Dry - Neck Exam Neck exam: Negative for: Lymphadenopathy - Respiratory Exam Respiratory Exam: NORMAL BREATHING PATTERN. absent: Chest Wall Tenderness - Cardiovascular Exam Cardiovascular Exam: absent: Gallop, JVD, Rubs - GI/Abdominal Exam GI & Abdominal Exam: Normal Bowel Sounds. absent: Guarding - Extremities Exam Extremities exam: Negative for: calf tenderness, pedal edema - Back Exam Back exam: absent: CVA tenderness (L), CVA tenderness (R) - Neurological Exam Neurological exam: Alert - Psychiatric Exam Psychiatric exam: Normal Affect Results - Vital Signs Recent Vital Signs: Last Vital Signs Temp 98.4 F 04/07/18 06:23 Pulse 79 04/07/18 06:24 Resp 16 04/07/18 06:51 BP 80/44 L 04/07/18 06:24 Pulse Ox 97 04/07/18 06:23 - Labs Result Diagrams: 04/06/18 23:50 04/06/18 23:50 Labs: Laboratory Results - last 24 hr 04/06/18 04/06/18 04/07/18 23:50 23:50 02:20 WBC 9.3 D RBC 4.08 L Hgb 13.3 D Hct 40.0 MCV 98.1 H MCH 32.5 H MCHC 33.2 RDW 16.6 H Plt Count 224 MPV 9.6 Neut % (Auto) 89.2 H Lymph % (Auto) 2.7 L [place] % (Auto) 7.9 Eos % (Auto) 0.1 Baso % (Auto) 0.1 Neut # (Auto) 8.3 H Lymph # (Auto) 0.3 L [place] # (Auto) 0.7 Eos # (Auto) 0.0 Baso # (Auto) 0.0 Neutrophils % (Manual) 81 H Band Neutrophils % 2 Lymphocytes % (Manual) 8 L Monocytes % (Manual) 9 Platelet Estimate Normal Hypochromasia (manual) Slight Anisocytosis (manual) Slight Sodium 132 Potassium 4.5 Chloride 88 L Carbon Dioxide 32 H Anion Gap 17 BUN 58 H Creatinine 8.2 H* D Est GFR ( Amer) 8 Est GFR (Non-Af Amer) 7 Random Glucose 191 H Lactic Acid 1.8 Calcium 8.0 L Total Bilirubin 1.4 H AST 43 ALT 15 L Alkaline Phosphatase 169 H D Total Protein 7.8 Albumin 3.9 Globulin 3.9 Albumin/Globulin Ratio 1.0 Assessment & Plan (1) ESRD (end stage renal disease) on dialysis Assessment and Plan: patient with end stage renal disease on dialysis TTS admitted with fever cellulitis of the right lower leg. With fever cellulitis patient also having diarrhea rule out pseudomembranous colitis To do stool for Clostridium difficile And to proceed with hemodialysis as scheduled for today consent was taken and order was given and discussed with the dialysis nurse And also discussed with the nurse in the intensive care unit patient also diabetic management of diabetes mellitus as per primary team Antibiotics as per renal doses follow-up serum phosphorus and PTH Status: Acute (2) Cellulitis Status: Acute (3) CAD (coronary artery disease) of artery bypass graft Status: Acute (4) Pressure ulcer of right foot Status: Acute Priority: High
--- NOTE | 2018-04-07 10:33 | CP.PCM.PN ---
Subjective - Date & Time of Evaluation Date of Evaluation: 04/07/18 Time of Evaluation: 10:30 - Subjective Subjective: Podiatry progress note for Dr. Turner: 57 yo patient seen at bedside for right ankle infected wound. Patient states he is in less pain now than he was last night. Patient states that he is still feeling fever nausea and has been vomiting. Denies SOB or CP. Has no other pedal complaints at this time. Objective - Vital Signs/Intake and Output Vital Signs (last 24 hours): Temp Pulse Resp BP Pulse Ox 98.8 F 81 22 93/48 L 100 04/07/18 08:00 04/07/18 08:00 04/07/18 08:00 04/07/18 08:00 04/07/18 08:00 Intake and Output: 04/07/18 04/07/18 06:59 18:59 Intake Total 0 Balance 0 - Medications Medications: Current Medications Sodium Chloride (Sodium Chloride 0.9%) 1,000 mls @ 500 mls/hr IV .Q2H [facility] Stop: 04/08/18 01:58 Last Admin: 04/07/18 03:21 Dose: 500 mls/hr Sodium Chloride (Sodium Chloride 0.9%) 1,000 mls @ 500 mls/hr IV .Q2H [facility] Stop: 04/08/18 04:32 Last Admin: 04/07/18 04:37 Dose: 500 mls/hr Sodium Chloride (Sodium Chloride 0.9%) 1,000 mls @ 100 mls/hr IV .Q10H [facility] Stop: 04/08/18 07:29 Last Admin: 04/07/18 08:10 Dose: 100 mls/hr Levothyroxine Sodium (Synthroid) 100 mcg PO DAILY@0630 [facility] Ondansetron HCl (Zofran Inj) 4 mg IVP Q4 PRN PRN Reason: Nausea/Vomiting - Labs Labs: 04/06/18 23:50 04/06/18 23:50 - Constitutional Appears: Well, Non-toxic, No Acute Distress - Head Exam Head Exam: ATRAUMATIC, NORMOCEPHALIC - Extremities Exam Additional comments: RLE focused: Vasc: DP and PT pulses nonpalpable; cellulitis and erythema present about the ankle and extending proximally at anterior border of the lower leg; edema present about the lateral ankle Derm: open draining wound at the level of the lateral malleolus; foul odor with serosanguinous drainage appreciated when squeezed out at the previous I and D site, about 5cc of drainage expressed; clinical signs of infection present, no probe to bone Ortho: left prevoius BKA; pain at the level of the right lateral ankle wound Neuro: diminished protective and gross sensation - Neurological Exam Neurological Exam: Alert, Awake, Oriented x3 - Psychiatric Exam Psychiatric exam: Normal Affect, Normal Mood Assessment and Plan - Assessment and Plan (Free Text) Assessment: 57 yo seen and evaluated at bedside s/p I and D in the ED for right lateral malleolar infected wound Plan: Patient seen and evaluated Discussed in detail with attending Dr. Turner Expressed 5cc of serosanguinous fluid from wound at bedside Labs reviewed: afebrile and absent leukocytosis Foot and ankle x-ray - chronic fracture of distal tibia and fibula with medial subluxation or dislocation of talus; charcot joint possibility, moderate degeneration of STJ; chronic fracture of distal 5th met with probable chronic healed fracture at base of bone; OM of distal 5th met not excluded; recommend followup MRI or CT Wound culture collected and received from lateral right ankle ID consult and recs appreciated
--- NOTE | 2018-04-07 15:53 | CP.PCM.HP ---
History of Present Illness - History of Present Illness History of Present Illness: CC: R foot/ankle pain. 57 y/o M, Hx of CABG, HTN, ESRD on HD TTS for 6 yrs, came to ED [facility] for evaluation of R foot/ankle chronic pain, described as constant, moderate to severe intensity 8:10 , gradually increasing from the last week ,associated to pus and blood draining from wound, as per , she drained half a coffee cup of pus from his ankle wound, Pt taking Tylenol with no relief. Worsening symptoms: Low grade tactile fever while at home, in ED TMAx 99.9. Chronic non healing ulcer R foot, also with persistent low BP 75/40 c/o of nausea/vomiting, weakness. Bun: 50, Creatinine: 8.2 Aggravated factor: Walking/movements R ankle and Foot X Ray showed: Subacute or chronic Fx of the distal tibia and fibula. Subacute or chronic Fx distal 5th MT bone with chronic healed Fx of the base of the 5th MT bone. Osteomyelitis of the 5th MT bone not excluded. CXR: Cardiomegaly, atelectsis R lung with left hemidiaphragma elevated, minimal pleural effusion, pulmonary vascular congestion. EKG: Normal sinus rhythm, possible inferior infarct age undetermined. After evaluation, Pt was admitted to ICU unit. Present on Admission - Present on Admission Any Indicators Present on Admission: No Review of Systems - Constitutional Constitutional: Fever (low grade), Weakness - EENT Eyes: Other (negative) Ears: Other (negative) Nose/Mouth/Throat: Other (negative) - Cardiovascular Cardiovascular: Leg Ulcers - Respiratory Respiratory: Other (negative) - Gastrointestinal Gastrointestinal: Nausea, Vomiting - Genitourinary Genitourinary: Other (negative) - Integumentary Integumentary: Other (R foot/ankle pain) - Neurological Neurological: Other (negative) - Psychiatric Psychiatric: Other (negative) - Endocrine Endocrine: Other (negative) - Hematologic/Lymphatic Hematologic: Other (negative) Past Patient History - Past Medical History & Family History Past Medical History?: Yes Pertinent Family History: Unknown - Past Social History Smoking Status: Never Smoked Alcohol: None Drugs: Denies Home Situation {Lives}: Other - CARDIAC Hx Cardiac Disorders: Yes Hx Hypercholesterolemia: Yes Hx Hypertension: Yes - PULMONARY Hx Respiratory Disorders: No - NEUROLOGICAL Hx Neurological Disorder: No - HEENT Hx HEENT Problems: No - RENAL Hx Chronic Kidney Disease: Yes Hx Dialysis: Yes - ENDOCRINE/METABOLIC Hx Endocrine Disorders: Yes Hx Diabetes Mellitus Type 2: Yes - HEMATOLOGICAL/ONCOLOGICAL Hx Blood Disorders: No - INTEGUMENTARY Hx Dermatological Problems: No - MUSCULOSKELETAL/RHEUMATOLOGICAL Hx Musculoskeletal Disorders: Yes Hx Fractures: Yes - GASTROINTESTINAL Hx Gastrointestinal Disorders: No - GENITOURINARY/GYNECOLOGICAL Hx Genitourinary Disorders: No - PSYCHIATRIC Hx Psychophysiologic Disorder: No Hx Substance Use: No - SURGICAL HISTORY Hx Surgeries: Yes (L BKA) Hx Coronary Artery Bypass Graft: Yes - ANESTHESIA Hx Anesthesia: Yes Hx Anesthesia Reactions: No Hx Malignant Hyperthermia: No Meds Allergies/Adverse Reactions: Allergies Allergy/AdvReac Type Severity Reaction Status Date / Time No Known Allergies Allergy Verified 04/06/18 22:59 Physical Exam - Constitutional Appears: No Acute Distress, Chronically Ill - Head Exam Head Exam: NORMAL INSPECTION - Eye Exam Eye Exam: PERRL - ENT Exam ENT Exam: Normal Exam - Neck Exam Neck exam: Positive for: Normal Inspection - Respiratory Exam Respiratory Exam: Clear to Auscultation Bilateral - Cardiovascular Exam Cardiovascular Exam: REGULAR RHYTHM - GI/Abdominal Exam GI & Abdominal Exam: Normal Bowel Sounds, Soft - Extremities Exam Extremities exam: Positive for: tenderness (R ankle/foot) Additional comments: Lateral malleolus ulceration, dressing in place. L BKA. - Back Exam Back exam: NORMAL INSPECTION - Neurological Exam Neurological exam: Alert, Oriented x3 - Psychiatric Exam Psychiatric exam: Normal Mood - Skin Skin Exam: Warm Results - Vital Signs Recent Vital Signs: Last Vital Signs Temp 100.4 F H 04/07/18 15:38 Pulse 81 04/07/18 08:00 Resp 22 04/07/18 08:00 BP 93/48 L 04/07/18 08:00 Pulse Ox 100 04/07/18 08:00 reviewed Amy - Labs Result Diagrams: 04/06/18 23:50 04/06/18 23:50 Labs: Laboratory Results - last 24 hr 04/06/18 04/06/18 04/07/18 23:50 23:50 02:20 WBC 9.3 D RBC 4.08 L Hgb 13.3 D Hct 40.0 MCV 98.1 H MCH 32.5 H MCHC 33.2 RDW 16.6 H Plt Count 224 MPV 9.6 Neut % (Auto) 89.2 H Lymph % (Auto) 2.7 L [place] % (Auto) 7.9 Eos % (Auto) 0.1 Baso % (Auto) 0.1 Neut # (Auto) 8.3 H Lymph # (Auto) 0.3 L [place] # (Auto) 0.7 Eos # (Auto) 0.0 Baso # (Auto) 0.0 Neutrophils % (Manual) 81 H Band Neutrophils % 2 Lymphocytes % (Manual) 8 L Monocytes % (Manual) 9 Platelet Estimate Normal Hypochromasia (manual) Slight Anisocytosis (manual) Slight Sodium 132 Potassium 4.5 Chloride 88 L Carbon Dioxide 32 H Anion Gap 17 BUN 58 H Creatinine 8.2 H* D Est GFR ( Amer) 8 Est GFR (Non-Af Amer) 7 POC Glucose (mg/dL) Random Glucose 191 H Lactic Acid 1.8 Calcium 8.0 L Total Bilirubin 1.4 H AST 43 ALT 15 L Alkaline Phosphatase 169 H D Total Protein 7.8 Albumin 3.9 Globulin 3.9 Albumin/Globulin Ratio 1.0 04/07/18 14:21 WBC RBC Hgb Hct MCV MCH MCHC RDW Plt Count MPV Neut % (Auto) Lymph % (Auto) [place] % (Auto) Eos % (Auto) Baso % (Auto) Neut # (Auto) Lymph # (Auto) [place] # (Auto) Eos # (Auto) Baso # (Auto) Neutrophils % (Manual) Band Neutrophils % Lymphocytes % (Manual) Monocytes % (Manual) Platelet Estimate Hypochromasia (manual) Anisocytosis (manual) Sodium Potassium Chloride Carbon Dioxide Anion Gap BUN Creatinine Est GFR ( Amer) Est GFR (Non-Af Amer) POC Glucose (mg/dL) 118 H Random Glucose Lactic Acid Calcium Total Bilirubin AST ALT Alkaline Phosphatase Total Protein Albumin Globulin Albumin/Globulin Ratio reviewed J.P. - EKG Data EKG comments: reviewed J.P. - Imaging and Cardiology Chest x-ray Status: Report reviewed by me (J.P.) Additional comment: Foot X-Ray Reviewed J.P. R ankle X-Ray Reviewed J.P. Assessment & Plan (1) Pressure ulcer of right foot Status: Acute Priority: High (2) Status post incision and drainage Status: Acute Comment: R lateral malleolar infected wound. (3) Pain in right ankle and joints of right foot Status: Acute Priority: High (4) ESRD (end stage renal disease) on dialysis Status: Chronic Priority: High (5) Hypotension Status: Acute Priority: High (6) IDDM (insulin dependent diabetes mellitus) Status: Chronic Priority: Medium (7) Hypothyroidism Status: Chronic Priority: Medium - Assessment and Plan (Free Text) Plan: F/U Blood C-S, R foot wound C-S, MRSA screen, Continue Zosyn, Vanco, Tylenol, IV fluid and rest of Tx, Podiatry and Renal consult appreciated. Cardiology consult. Intensive care unit time: 50 minutes. - Date & Time Date: 04/07/18 Time: 12:00
--- NOTE | 2018-04-07 16:08 | CP.PCM.CON ---
History of Present Illness - History of Present Illness History of Present Illness: 57 yo male seen and evaluated for worsening right ankle wound. Patient states that he has been experiencing nausea, vomiting, and fever for the past week; Today his drained half a coffee cup of pus from his ankle wound and brought him to the ED. Admitted to ICU with sepsis, impending gangrene ID consulted for antibiotic management PMHx: DM, HTN, HLD, CAD (CABG), ESRD SHx: L BKA, CABG Social: Denies tobacco use and illicit drug use ALL: NKDA Review of Systems - Review of Systems All systems: reviewed and no additional remarkable complaints except - Constitutional Constitutional: As Per HPI - EENT Eyes: absent: As Per HPI, Blind Spots, Blurred Vision, Change in Vision, Decreased Night Vision, Diplopia, Discharge, Dry Eye, Exophthalmos, Floaters, Irritation, Itchy Eyes, Loss of Peripheral Vision, Pain, Photophobia, Requires Corrective Lenses, Sees Flashes, Spots in Vision, Tunnel Vision, Other Visual Disturbances, Loss of Vision, Other Ears: absent: As Per HPI, Decreased Hearing, Ear Discharge, Ear Pain, Tinnitus, Abnormal Hearing, Disequilibrium, Dizziness, Other Nose/Mouth/Throat: absent: As Per HPI, Epistaxis, Nasal Congestion, Nasal Discharge, Nasal Obstruction, Nasal Trauma, Nose Pain, Post Nasal Drip, Sinus Pain, Sinus Pressure, Bleeding Gums, Change in Voice, Dental Pain, Dry Mouth, Dysphagia, Halitosis, Hoarsness, Lip Swelling, Mouth Lesions, Mouth Pain, Odynophagia, Sore Throat, Throat Swelling, Tongue Swelling, Facial Pain, Neck Pain, Neck Mass, Other - Cardiovascular Cardiovascular: As Per HPI - Respiratory Respiratory: absent: As Per HPI, Cough, Dyspnea, Hemoptysis, Dyspnea on Exertion , Wheezing, Snoring, Stridor, Pain on Inspiration, Chest Congestion, Excessive Mucous Production, Change in Mucous Color, Pain with Coughing, Other - Gastrointestinal Gastrointestinal: As Per HPI - Genitourinary Genitourinary: absent: As Per HPI, Change in Urinary Stream, Difficulty Urinating, Dysuria, Flank Pain, Hematuria, Pyuria, Nocturia, Urinary Incontinence, Urinary Frequency, Urinary Hesitance, Urinary Urgency, Voiding Freq/Small Amts, Freq UTI, Hx Renal/Bladder Calculi, Hx /Renal Surgery, Bladder Distension, Other - Musculoskeletal Musculoskeletal: As Per HPI - Integumentary Integumentary: As Per HPI, Skin Pain, Wounds - Neurological Neurological: absent: As Per HPI, Abnormal Gait, Abnormal Hearing, Abnormal Movements, Abnormal Speech, Behavioral Changes, Burning Sensations, Confusion, Convulsions, Disequilibrium, Dizziness, Numbness, Focal Weakness, Frequent Falls , Headaches, Lack of Coordination, Loss of Vision, Memory Loss, Paresthesias, Radicular Pain, Restless Legs, Sensory Deficit, Syncope, Tingling, Tremor, Vertigo, Weakness, Other Visual Disturbances, Other - Psychiatric Psychiatric: absent: As Per HPI, Abnormal Sleep Pattern, Anhedonia, Anxiety, Auditory Hallucinations, Behavioral Changes, Change in Appetite, Change in Libido, Confusion, Depression, Difficulty Concentrating, Hallucinations, Homicidal Ideation, Hopelessness, Irritability, Memory Loss, Mood Swings, Panic Attacks, Paranoia, Suicidal Ideation, Visual Hallucinations, Tactile Hallucinations, Other - Endocrine Endocrine: absent: As Per HPI, Change in Body Appearance, Change in Libido, Cold Intolorance, Deepening of Voice, Excessive Sweating, Fatigue, Flushing, Heat Intolorance, Increase in Ring/Shoe/Hat Size, Palpitations, Polydipsia, Polyphagia, Polyuria, Other - Hematologic/Lymphatic Hematologic: absent: As Per HPI, Easy Bleeding, Easy Bruising, Lymphadenopathy, Other Past Patient History - Past Medical History & Family History Past Medical History?: Yes - Past Social History Smoking Status: Never Smoked - CARDIAC Hx Hypercholesterolemia: Yes Hx Hypertension: Yes - PULMONARY Hx Respiratory Disorders: No - NEUROLOGICAL Hx Neurological Disorder: No - HEENT Hx HEENT Problems: No - RENAL Hx Chronic Kidney Disease: Yes - ENDOCRINE/METABOLIC Hx Endocrine Disorders: Yes Hx Diabetes Mellitus Type 2: Yes - HEMATOLOGICAL/ONCOLOGICAL Hx Blood Disorders: No - INTEGUMENTARY Hx Dermatological Problems: No - MUSCULOSKELETAL/RHEUMATOLOGICAL Hx Fractures: Yes - GASTROINTESTINAL Hx Gastrointestinal Disorders: No - GENITOURINARY/GYNECOLOGICAL Hx Genitourinary Disorders: No - PSYCHIATRIC Hx Psychophysiologic Disorder: No Hx Substance Use: No - SURGICAL HISTORY Hx Coronary Artery Bypass Graft: Yes - ANESTHESIA Hx Anesthesia: Yes Hx Anesthesia Reactions: No Hx Malignant Hyperthermia: No Meds Allergies/Adverse Reactions: Allergies Allergy/AdvReac Type Severity Reaction Status Date / Time No Known Allergies Allergy Verified 04/06/18 22:59 - Medications Medications: Current Medications Acetaminophen (Tylenol 325mg Tab) 650 mg PO Q4 PRN PRN Reason: Fever >100.4 F Last Admin: 04/07/18 15:38 Dose: 650 mg Sodium Chloride (Sodium Chloride 0.9%) 1,000 mls @ 500 mls/hr IV .Q2H [facility] Stop: 04/08/18 01:58 Last Admin: 04/07/18 03:21 Dose: 500 mls/hr Sodium Chloride (Sodium Chloride 0.9%) 1,000 mls @ 500 mls/hr IV .Q2H [facility] Stop: 04/08/18 04:32 Last Admin: 04/07/18 04:37 Dose: 500 mls/hr Sodium Chloride (Sodium Chloride 0.9%) 1,000 mls @ 100 mls/hr IV .Q10H [facility] Stop: 04/08/18 07:29 Last Admin: 04/07/18 08:10 Dose: 100 mls/hr Piperacillin Sod/Tazobactam (Sod 2.25 gm/ Sodium Chloride) 100 mls @ 100 mls/ hr IVPB Q8 [facility] PRN Reason: Protocol Vancomycin HCl 1 gm/ Sodium (Chloride) 250 mls @ 166.667 mls/hr IVPB ONCE ONE PRN Reason: Protocol Stop: 04/07/18 17:29 Vancomycin HCl 1,000 mg/ (Sodium Chloride) 250 mls @ 250 mls/hr IVPB TTS [facility] PRN Reason: Protocol Levothyroxine Sodium (Synthroid) 100 mcg PO DAILY@0630 [facility] Ondansetron HCl (Zofran Inj) 4 mg IVP Q4 PRN PRN Reason: Nausea/Vomiting Physical Exam - Constitutional Appears: Toxic - Head Exam Head Exam: ATRAUMATIC, NORMAL INSPECTION, NORMOCEPHALIC - Eye Exam Eye Exam: EOMI, PERRL. absent: Scleral icterus - ENT Exam ENT Exam: Mucous Membranes Dry, Normal External Ear Exam, Normal Oropharynx - Neck Exam Neck exam: Negative for: Lymphadenopathy, Thyromegaly - Respiratory Exam Respiratory Exam: Decreased Breath Sounds, Clear to Auscultation Bilateral - Cardiovascular Exam Cardiovascular Exam: REGULAR RHYTHM, +S1, +S2 - GI/Abdominal Exam GI & Abdominal Exam: Diminished Bowel Sounds, Soft. absent: Tenderness - Rectal Exam Rectal Exam: Deferred - Exam Exam: NORMAL INSPECTION - Extremities Exam Extremities exam: Positive for: tenderness, pedal pulses present. Negative for : calf tenderness Additional comments: Left BKA site clean RLE focused: Vasc: DP and PT pulses nonpalpable, cellulitis and erythema present about the ankle and extending proximally at anterior border of the lower leg; edema present about the lateral ankle Derm: open draining wound at the level of the lateral malleolus; foul odor with serosanguinous drainage appreciated when expressed, about 5cc of drainage expressed; clinical signs of infection present, no probe to bone, no undermining Ortho: left prevoius BKA; pain at the level of the right lateral ankle wound. Gross deformity to right lower extremity with medial dislocation of the foot in relation to the leg. Neuro: diminished protective and gross sensation Left BKA site dry - Back Exam Back exam: absent: CVA tenderness (L), CVA tenderness (R), paraspinal tenderness - Neurological Exam Neurological exam: Alert, CN II-XII Intact, Oriented x3, Reflexes Normal - Psychiatric Exam Psychiatric exam: Depressed - Skin Skin Exam: Dry, Intact Results - Vital Signs Recent Vital Signs: Last Vital Signs Temp 100.4 F H 04/07/18 15:38 Pulse 81 04/07/18 08:00 Resp 22 04/07/18 08:00 BP 93/48 L 04/07/18 08:00 Pulse Ox 100 04/07/18 08:00 - Labs Result Diagrams: 04/06/18 23:50 04/06/18 23:50 Labs: Laboratory Results - last 24 hr 04/06/18 04/06/18 04/07/18 23:50 23:50 02:20 WBC 9.3 D RBC 4.08 L Hgb 13.3 D Hct 40.0 MCV 98.1 H MCH 32.5 H MCHC 33.2 RDW 16.6 H Plt Count 224 MPV 9.6 Neut % (Auto) 89.2 H Lymph % (Auto) 2.7 L [place] % (Auto) 7.9 Eos % (Auto) 0.1 Baso % (Auto) 0.1 Neut # (Auto) 8.3 H Lymph # (Auto) 0.3 L [place] # (Auto) 0.7 Eos # (Auto) 0.0 Baso # (Auto) 0.0 Neutrophils % (Manual) 81 H Band Neutrophils % 2 Lymphocytes % (Manual) 8 L Monocytes % (Manual) 9 Platelet Estimate Normal Hypochromasia (manual) Slight Anisocytosis (manual) Slight Sodium 132 Potassium 4.5 Chloride 88 L Carbon Dioxide 32 H Anion Gap 17 BUN 58 H Creatinine 8.2 H* D Est GFR ( Amer) 8 Est GFR (Non-Af Amer) 7 POC Glucose (mg/dL) Random Glucose 191 H Lactic Acid 1.8 Calcium 8.0 L Total Bilirubin 1.4 H AST 43 ALT 15 L Alkaline Phosphatase 169 H D Total Protein 7.8 Albumin 3.9 Globulin 3.9 Albumin/Globulin Ratio 1.0 04/07/18 14:21 WBC RBC Hgb Hct MCV MCH MCHC RDW Plt Count MPV Neut % (Auto) Lymph % (Auto) [place] % (Auto) Eos % (Auto) Baso % (Auto) Neut # (Auto) Lymph # (Auto) [place] # (Auto) Eos # (Auto) Baso # (Auto) Neutrophils % (Manual) Band Neutrophils % Lymphocytes % (Manual) Monocytes % (Manual) Platelet Estimate Hypochromasia (manual) Anisocytosis (manual) Sodium Potassium Chloride Carbon Dioxide Anion Gap BUN Creatinine Est GFR ( Amer) Est GFR (Non-Af Amer) POC Glucose (mg/dL) 118 H Random Glucose Lactic Acid Calcium Total Bilirubin AST ALT Alkaline Phosphatase Total Protein Albumin Globulin Albumin/Globulin Ratio Assessment & Plan (1) Cellulitis Status: Acute (2) ESRD (end stage renal disease) on dialysis Status: Acute (3) CAD (coronary artery disease) of artery bypass graft Status: Acute (4) Chronic kidney disease (CKD) Status: Acute - Assessment and Plan (Free Text) Assessment: severe sepsis secondary to SSTI RLE in a 57 yo male with ESRD on HD and Hx CAD may need OR / debridement Limb salvage guarded May need BKA IOV rx started empirically poor prognosis
[2018-04-07] MEDS ORDERED: Dextrose 50% SYRINGE Inj (50 ml) IV PRN (16:12)
[2018-04-07] MEDS ORDERED: Glucagon Recombinant 1 mg Inj IM PRN (16:12)
[2018-04-07] MEDS: Insulin Regular 100 units/ml SC SCH ×2 (16:31→22:32)
[2018-04-08] MEDS ORDERED: Levothyroxine 100 MCG TAB PO SCH (06:30)
[2018-04-08] MEDS: Insulin Regular 100 units/ml SC SCH ×4 (06:55→21:39)
--- NOTE | 2018-04-08 07:49 | CP.PCM.PN ---
Subjective - Date & Time of Evaluation Date of Evaluation: 04/08/18 Time of Evaluation: 07:46 - Subjective Subjective: Podiatry progress note for Dr. Turner: 57 yo patient seen at bedside for right ankle infected wound. Patient states he is in no pain today. Patient states that he is still feeling fever nausea and has been vomiting. Denies SOB or CP. Has no other pedal complaints at this time. Objective - Vital Signs/Intake and Output Vital Signs (last 24 hours): Temp Pulse Resp BP Pulse Ox 100.8 F H 98 H 19 102/26 L 97 04/08/18 06:20 04/08/18 05:00 04/08/18 05:00 04/08/18 00:25 04/08/18 05:00 - Medications Medications: Current Medications Acetaminophen (Tylenol 325mg Tab) 650 mg PO Q4 PRN PRN Reason: Fever >100.4 F Last Admin: 04/08/18 05:20 Dose: 650 mg Atorvastatin Calcium (Lipitor) 40 mg PO HS [facility] Last Admin: 04/07/18 22:40 Dose: 40 mg Dextrose (Dextrose 50% Inj) 0 ml IV STAT PRN; Protocol PRN Reason: Hypoglycemia Protocol Dextrose (Glutose 15) 0 gm PO ONCE PRN; Protocol PRN Reason: Hypoglycemia Protocol Glucagon (Glucagen Diagnostic Kit) 0 mg IM STAT PRN; Protocol PRN Reason: Hypoglycemia Protocol Heparin Sodium (Porcine) (Heparin) 5,000 units SC Q12 [facility] PRN Reason: Protocol Piperacillin Sod/Tazobactam (Sod 2.25 gm/ Sodium Chloride) 100 mls @ 100 mls/ hr IVPB Q8 [facility] PRN Reason: Protocol Last Admin: 04/08/18 00:23 Dose: 100 mls/hr Vancomycin HCl 1 gm/ Sodium (Chloride) 250 mls @ 166.667 mls/hr IVPB TTS [facility] PRN Reason: Protocol Insulin Human Regular (Humulin R) 0 units SC ACHS [facility] PRN Reason: Protocol Last Admin: 04/08/18 06:55 Dose: Not Given Levothyroxine Sodium (Synthroid) 100 mcg PO DAILY@0630 [facility] Ondansetron HCl (Zofran Inj) 4 mg IVP Q4 PRN PRN Reason: Nausea/Vomiting Sevelamer Carbonate (Renvela) 1,600 mg PO ACTID [facility] Last Admin: 04/07/18 20:10 Dose: 1,600 mg - Labs Labs: 04/06/18 23:50 04/06/18 23:50 - Constitutional Appears: Well, Non-toxic, No Acute Distress - Extremities Exam Additional comments: RLE focused: Vasc: DP and PT pulses nonpalpable; cellulitis and erythema present about the ankle and extending proximally at anterior border of the lower leg; edema present about the lateral ankle Derm: open draining wound at the level of the lateral malleolus; foul odor with serosanguinous drainage appreciated when squeezed out at the previous I and D site, about 5cc of drainage expressed; clinical signs of infection present, probe to bone as bone exposed through wound Ortho: left prevoius BKA; pain at the level of the right lateral ankle wound Neuro: diminished protective and gross sensation - Neurological Exam Neurological Exam: Alert, Awake, Oriented x3 - Psychiatric Exam Psychiatric exam: Normal Affect, Normal Mood Assessment and Plan - Assessment and Plan (Free Text) Assessment: 57 yo seen and evaluated at bedside s/p I and D in the ED for right lateral malleolar infected wound Plan: Patient seen and evaluated Discussed in detail with attending Dr. Turner Expressed 6cc of serosanguinous fluid from wound at bedside - bone exposed through open wound Labs reviewed: afebrile and absent leukocytosis Foot and ankle x-ray - chronic fracture of distal tibia and fibula with medial subluxation or dislocation of talus; charcot joint possibility, moderate degeneration of STJ; chronic fracture of distal 5th met with probable chronic healed fracture at base of bone; OM of distal 5th met not excluded; recommend followup MRI or CT MRI not ordered as patient has pacemaker - bone scan ordered Wound culture collected and received from lateral right ankle ID consult - severe sepsis, may need OR/debridement, may need BKA, IOV rx started empirically Has been patient in the past with Dr. Abbott on board, will discuss vascular status and plan Podiatry to continue to follow while in house
[2018-04-08] MEDS: Sodium Chloride 0.9% 1,000 ML IV SCH (08:01)
[2018-04-08] MEDS: Levothyroxine 100 MCG TAB PO SCH (08:07)
--- NOTE | 2018-04-08 11:38 | CP.PCM.PN ---
Subjective - Date & Time of Evaluation Date of Evaluation: 04/08/18 Time of Evaluation: 11:35 - Subjective Subjective: patient is awake and conscious sitting up in bed. Patient reported to have diarrhea Vomiting Objective - Vital Signs/Intake and Output Vital Signs (last 24 hours): Temp Pulse Resp BP Pulse Ox 98.6 F 82 18 106/56 L 99 04/08/18 09:00 04/08/18 09:00 04/08/18 09:00 04/08/18 09:00 04/08/18 09:00 - Medications Medications: Current Medications Acetaminophen (Tylenol 325mg Tab) 650 mg PO Q4 PRN PRN Reason: Fever >100.4 F Last Admin: 04/08/18 05:20 Dose: 650 mg Atorvastatin Calcium (Lipitor) 40 mg PO HS [facility] Last Admin: 04/07/18 22:40 Dose: 40 mg Dextrose (Dextrose 50% Inj) 0 ml IV STAT PRN; Protocol PRN Reason: Hypoglycemia Protocol Dextrose (Glutose 15) 0 gm PO ONCE PRN; Protocol PRN Reason: Hypoglycemia Protocol Glucagon (Glucagen Diagnostic Kit) 0 mg IM STAT PRN; Protocol PRN Reason: Hypoglycemia Protocol Heparin Sodium (Porcine) (Heparin) 5,000 units SC Q12 [facility] PRN Reason: Protocol Piperacillin Sod/Tazobactam (Sod 2.25 gm/ Sodium Chloride) 100 mls @ 100 mls/ hr IVPB Q8 [facility] PRN Reason: Protocol Last Admin: 04/08/18 08:13 Dose: 100 mls/hr Vancomycin HCl 1 gm/ Sodium (Chloride) 250 mls @ 166.667 mls/hr IVPB TTS [facility] PRN Reason: Protocol Insulin Human Regular (Humulin R) 0 units SC ACHS [facility] PRN Reason: Protocol Last Admin: 04/08/18 06:55 Dose: Not Given Levothyroxine Sodium (Synthroid) 100 mcg PO DAILY@0630 [facility] Last Admin: 04/08/18 08:07 Dose: 100 mcg Ondansetron HCl (Zofran Inj) 4 mg IVP Q4 PRN PRN Reason: Nausea/Vomiting Last Admin: 04/08/18 07:59 Dose: 4 mg Sevelamer Carbonate (Renvela) 1,600 mg PO ACTID [facility] Last Admin: 04/08/18 08:06 Dose: 1,600 mg - Labs Labs: 04/06/18 23:50 04/06/18 23:50 - Constitutional Appears: No Acute Distress - Eye Exam Eye Exam: Conjunctival injection - ENT Exam ENT Exam: Mucous Membranes Moist - Neck Exam Neck Exam: absent: Lymphadenopathy - Respiratory Exam Respiratory Exam: NORMAL BREATHING PATTERN. absent: Chest Wall Tenderness, Rhonchi - Cardiovascular Exam Cardiovascular Exam: REGULAR RHYTHM. absent: Gallop, JVD, Rubs - GI/Abdominal Exam GI & Abdominal Exam: Soft, Normal Bowel Sounds - Extremities Exam Extremities Exam: absent: Calf Tenderness - Back Exam Back Exam: absent: CVA tenderness (L), CVA tenderness (R) - Neurological Exam Neurological Exam: Alert - Psychiatric Exam Psychiatric exam: Normal Affect - Skin Skin Exam: absent: Cyanosis Assessment and Plan (1) ESRD (end stage renal disease) on dialysis Assessment & Plan: end stage renal disease for hemodialysis TTS. Diabetic kidney disease. Right foot ulcer with cellulitis. Status post left leg below knee amputation Patient admitted because of fever and cellulitis of the right foot The plan Continue hemodialysis TTS as scheduled Antibiotics as per renal doses infectious disease on the case Follow-up serum phosphorus and PTH still pending glycemic control as per primary team Status: Chronic (2) Cellulitis Status: Acute (3) CAD (coronary artery disease) of artery bypass graft Status: Deleted (4) Pressure ulcer of right foot Status: Acute
--- NOTE | 2018-04-08 12:29 | CP.PCM.PN ---
Subjective - Date & Time of Evaluation Date of Evaluation: 04/08/18 Time of Evaluation: 08:00 - Subjective Subjective: awake and alert denies chest pain c/o pain right leg Objective - Vital Signs/Intake and Output Vital Signs (last 24 hours): Temp Pulse Resp BP Pulse Ox 98.6 F 82 18 106/56 L 99 04/08/18 09:00 04/08/18 09:00 04/08/18 09:00 04/08/18 09:00 04/08/18 09:00 - Medications Medications: Current Medications Acetaminophen (Tylenol 325mg Tab) 650 mg PO Q4 PRN PRN Reason: Fever >100.4 F Last Admin: 04/08/18 05:20 Dose: 650 mg Atorvastatin Calcium (Lipitor) 40 mg PO HS [facility] Last Admin: 04/07/18 22:40 Dose: 40 mg Dextrose (Dextrose 50% Inj) 0 ml IV STAT PRN; Protocol PRN Reason: Hypoglycemia Protocol Dextrose (Glutose 15) 0 gm PO ONCE PRN; Protocol PRN Reason: Hypoglycemia Protocol Glucagon (Glucagen Diagnostic Kit) 0 mg IM STAT PRN; Protocol PRN Reason: Hypoglycemia Protocol Heparin Sodium (Porcine) (Heparin) 5,000 units SC Q12 [facility] PRN Reason: Protocol Piperacillin Sod/Tazobactam (Sod 2.25 gm/ Sodium Chloride) 100 mls @ 100 mls/ hr IVPB Q8 [facility] PRN Reason: Protocol Last Admin: 04/08/18 08:13 Dose: 100 mls/hr Vancomycin HCl 1 gm/ Sodium (Chloride) 250 mls @ 166.667 mls/hr IVPB TTS [facility] PRN Reason: Protocol Insulin Human Regular (Humulin R) 0 units SC ACHS [facility] PRN Reason: Protocol Last Admin: 04/08/18 06:55 Dose: Not Given Levothyroxine Sodium (Synthroid) 100 mcg PO DAILY@0630 [facility] Last Admin: 04/08/18 08:07 Dose: 100 mcg Ondansetron HCl (Zofran Inj) 4 mg IVP Q4 PRN PRN Reason: Nausea/Vomiting Last Admin: 04/08/18 07:59 Dose: 4 mg Sevelamer Carbonate (Renvela) 1,600 mg PO ACTID [facility] Last Admin: 04/08/18 08:06 Dose: 1,600 mg - Labs Labs: 04/06/18 23:50 04/06/18 23:50 - Constitutional Appears: Chronically Ill - Head Exam Head Exam: NORMOCEPHALIC - Eye Exam Eye Exam: absent: Scleral icterus - ENT Exam ENT Exam: Mucous Membranes Dry - Neck Exam Neck Exam: absent: Lymphadenopathy - Respiratory Exam Respiratory Exam: Decreased Breath Sounds - Cardiovascular Exam Cardiovascular Exam: REGULAR RHYTHM - GI/Abdominal Exam GI & Abdominal Exam: Distended, Soft - Rectal Exam Rectal Exam: Deferred - Exam Exam: NORMAL INSPECTION - Extremities Exam Extremities Exam: Tenderness. absent: Calf Tenderness Additional comments: RLE focused: Vasc: DP and PT pulses nonpalpable; cellulitis and erythema present about the ankle and extending proximally at anterior border of the lower leg; edema present about the lateral ankle Derm: open draining wound at the level of the lateral malleolus; foul odor with serosanguinous drainage appreciated when squeezed out at the previous I and D site, about 5cc of drainage expressed; clinical signs of infection present, probe to bone as bone exposed through wound Ortho: left prevoius BKA; pain at the level of the right lateral ankle wound Neuro: diminished protective and gross sensation - Back Exam Back Exam: absent: CVA tenderness (L), CVA tenderness (R) - Neurological Exam Neurological Exam: Alert, Awake, Oriented x3 - Psychiatric Exam Psychiatric exam: Depressed - Skin Skin Exam: Dry Assessment and Plan (1) Cellulitis Status: Acute (2) ESRD (end stage renal disease) on dialysis Status: Chronic (3) CAD (coronary artery disease) of artery bypass graft Status: Deleted (4) Chronic kidney disease (CKD) Status: Acute - Assessment and Plan (Free Text) Assessment: will need debridement recc Vascular eval as well as imaging to r/o OM cont IV antibiotics and wound care
[2018-04-08] MEDS ORDERED: Insulin Regular 100 units/ml SC STA (21:53)
[2018-04-09 06:15] LABS: BASO # 0.1 K/uL (0.0-0.2); BASO % 0.9 % (0.0-2.0); EOS # 0.1 K/uL (0.0-0.7); EOS % 1.5 % (0.0-4.0); HEMOGLOBIN 11.5 g/dL (12.0-18.0); LYMPH # 0.9 K/uL (1.0-4.3); LYMPH % 11.7 % (20.0-40.0); MEAN CELL VOLUME 98.2 fl (80.0-94.0); MEAN CORPUSCULAR HEMOGLOBIN 32.8 pg (27.0-31.0); MEAN CORPUSCULAR HGB CONC 33.4 g/dL (33.0-37.0); MEAN PLATELET VOLUME 8.1 fl (7.2-11.7); MONO # 0.9 K/uL (0.0-0.8); MONO % 11.2 % (0.0-10.0); NEUT # 5.7 K/uL (1.8-7.0); NEUT % 74.7 % (50.0-75.0); RBC 3.52 Mil/uL (4.40-5.90); RED CELL DISTRIBUTION WIDTH 16.9 % (11.5-14.5); WHITE BLOOD COUNT 7.6 K/uL (4.8-10.8)
[2018-04-09] MEDS: Levothyroxine 100 MCG TAB PO SCH (06:15)
[2018-04-09 06:54] LABS: ALB/GLOB RATIO 0.9 (1.0-2.1); ALBUMIN 2.9 g/dL (3.5-5.0); CALCIUM 8.7 mg/dL (8.4-10.2)
[2018-04-09] MEDS: Insulin Regular 100 units/ml SC SCH ×4 (08:33→21:53)
--- NOTE | 2018-04-09 16:40 | CP.PCM.PN ---
Subjective - Date & Time of Evaluation Date of Evaluation: 04/09/18 Time of Evaluation: 16:00 - Subjective Subjective: F/U Ulcer R foot, s/p I&D Headache , shaking, feels cold, Pain R leg Objective - Vital Signs/Intake and Output Vital Signs (last 24 hours): Temp Pulse Resp BP Pulse Ox 98.7 F 99 H 22 141/67 98 04/09/18 16:02 04/09/18 16:02 04/09/18 16:02 04/09/18 16:02 04/09/18 16:02 Intake and Output: 04/09/18 04/09/18 06:59 18:59 Intake Total 1100 450 Output Total 750 Balance 1100 -300 - Medications Medications: Current Medications Acetaminophen (Tylenol 325mg Tab) 650 mg PO Q4 PRN PRN Reason: Fever >100.4 F Last Admin: 04/08/18 05:20 Dose: 650 mg Acetaminophen (Tylenol 325mg Tab) 650 mg PO Q4 PRN PRN Reason: Pain, Mild (1-3) Atorvastatin Calcium (Lipitor) 40 mg PO HS [facility] Last Admin: 04/08/18 21:25 Dose: 40 mg Dextrose (Dextrose 50% Inj) 0 ml IV STAT PRN; Protocol PRN Reason: Hypoglycemia Protocol Dextrose (Glutose 15) 0 gm PO ONCE PRN; Protocol PRN Reason: Hypoglycemia Protocol Glucagon (Glucagen Diagnostic Kit) 0 mg IM STAT PRN; Protocol PRN Reason: Hypoglycemia Protocol Heparin Sodium (Porcine) (Heparin) 5,000 units SC Q12 [facility] PRN Reason: Protocol Last Admin: 04/09/18 08:34 Dose: 5,000 units Piperacillin Sod/Tazobactam (Sod 2.25 gm/ Sodium Chloride) 100 mls @ 100 mls/ hr IVPB Q8 [facility] PRN Reason: Protocol Last Admin: 04/09/18 08:28 Dose: 100 mls/hr Vancomycin HCl 1 gm/ Sodium (Chloride) 250 mls @ 166.667 mls/hr IVPB TTS [facility] PRN Reason: Protocol Last Admin: 04/09/18 13:31 Dose: 166.667 mls/hr Insulin Human Regular (Humulin R) 0 units SC ACHS [facility] PRN Reason: Protocol Last Admin: 04/09/18 16:38 Dose: Not Given Levothyroxine Sodium (Synthroid) 100 mcg PO DAILY@0630 [facility] Last Admin: 04/09/18 06:15 Dose: 100 mcg Ondansetron HCl (Zofran Inj) 4 mg IVP Q4 PRN PRN Reason: Nausea/Vomiting Last Admin: 04/08/18 21:27 Dose: 4 mg Sevelamer Carbonate (Renvela) 1,600 mg PO ACTID [facility] Last Admin: 04/09/18 13:32 Dose: 1,600 mg - Labs Labs: 04/09/18 05:30 04/09/18 05:30 - Constitutional Appears: No Acute Distress, Chronically Ill - Head Exam Head Exam: NORMAL INSPECTION - Eye Exam Eye Exam: PERRL - ENT Exam ENT Exam: Normal Exam - Neck Exam Neck Exam: Normal Inspection - Respiratory Exam Respiratory Exam: Clear to Ausculation Bilateral - Cardiovascular Exam Cardiovascular Exam: REGULAR RHYTHM - GI/Abdominal Exam GI & Abdominal Exam: Soft, Normal Bowel Sounds - Extremities Exam Extremities Exam: Tenderness (R ankle and foot) Additional comments: Lateral malleolus ulceration. L BKA - Back Exam Back Exam: NORMAL INSPECTION - Neurological Exam Neurological Exam: Alert, Oriented x3 - Psychiatric Exam Psychiatric exam: Normal Mood - Skin Skin Exam: Warm Assessment and Plan (1) Sepsis Assessment & Plan: Staph Status: Acute (2) Pressure ulcer of right foot Assessment & Plan: Staph Status: Acute (3) Status post incision and drainage Status: Acute (4) Pain in right ankle and joints of right foot Status: Acute (5) ESRD (end stage renal disease) on dialysis Status: Chronic (6) Hypotension Status: Acute (7) IDDM (insulin dependent diabetes mellitus) Status: Chronic (8) Hypothyroidism Status: Chronic - Assessment and Plan (Free Text) Plan: [place], ID , Cardiology, Podiatric f/u, continue HD and rest of treatment, f/ u MRI R foot
--- NOTE | 2018-04-09 18:38 | CP.PCM.PN ---
Subjective - Date & Time of Evaluation Date of Evaluation: 04/09/18 Time of Evaluation: 18:36 - Subjective Subjective: Nephrology Consultation Note Assessment: Stable Rt ankle cellulitis with sepsis Diabetic chronic Kidney Disease (E11.22) Hypertensive Chronic Kidney Disease (I12.0) End stage renal disease (N18.6) dependence on hemodialysis (Z99.2) (TTS) via AVF Anemia (D64.9), Hyperphosphatemia (E83.39), Secondary Hyperparathyroidism (E21.1 ), HTN (I12.0), CAD Plan: Will plan for HD today as ordered. continue with Nephrovite 1 tab/day. PRBC as needed for anemia. not on [place] with dialysis as last Hb 11.5 Continue with phos binders, last phos level: check BP control with meds as ordered. Patient not on RAAS shanice as BP controlled, can add if needed Glycemic control, Dialysis consistent diet Further work up/management as per primary team Dose meds/antibiotics (if needed) for ESRD status. Avoid fleets enema/magnesium based laxatives. ID following Thanks for allowing me to participate in care of your patient. Will follow patient with you. Please call if any Qs Dr Lonnie Murillo Office: [phone] Subjective: Noted events overnight. Patients feels sick. Denies chest pain, palpitation, shortness of breath, leg swelling. All other negative. had loose stool Physical Examination: General Appearance: Comfortable, in no acute respiratory distress, co-operative . Vitals reviewed and noted as below Head; Atraumatic, normocephalic ENT: no ulcers no thrush. Tongue is midline. Oropharynx: no rash or ulcers. EYES: Pupils are equal, round and reactive to light accommodation. Eye muscles and extraocular movement intact. Sclera is anicteric. Neck; supple no lymphadenopathy, no thyromegaly or bruit Lungs: Normal respiratory rate/effort. Breath sounds bilateral equal and clear Heart: Normal rate. s1s2 normal. No rub or gallop. CABg scar + Extremities: no edema. No varicose veins. Rt ankle dressed. s/p left BKA Neurological: Patient is alert, awake and oriented to person, place and time. No focal deficit. Strength bilateral appropriate and equal Skin: Warm and dry. Normal turgor. No rash. Palpitation: Normal elasticity for age Abdomen: Abdomen is soft. Bowel sounds +. There is no abdominal tenderness, no guarding/rigidity or organomegaly Psych: normal insight and normal affect/mood MSK: no joint tenderness or swelling. Digits and nails normal, no deformity : kidney or bladder not palpable Access: AVF Labs/imaging reviewed. Past medical history, past surgical history, family history, social history, allergy reviewed and noted as below Family Hx: no hx of CKD. Non contributory Objective - Vital Signs/Intake and Output Vital Signs (last 24 hours): Temp Pulse Resp BP Pulse Ox 99.9 F H 106 H 20 148/75 100 04/09/18 16:41 04/09/18 16:41 04/09/18 16:41 04/09/18 16:41 04/09/18 16:41 Intake and Output: 04/09/18 04/09/18 06:59 18:59 Intake Total 1100 450 Output Total 750 Balance 1100 -300 - Medications Medications: Current Medications Acetaminophen (Tylenol 325mg Tab) 650 mg PO Q4 PRN PRN Reason: Fever >100.4 F Last Admin: 04/08/18 05:20 Dose: 650 mg Acetaminophen (Tylenol 325mg Tab) 650 mg PO Q4 PRN PRN Reason: Pain, Mild (1-3) Last Admin: 04/09/18 17:17 Dose: 650 mg Atorvastatin Calcium (Lipitor) 40 mg PO HS [facility] Last Admin: 04/08/18 21:25 Dose: 40 mg Dextrose (Dextrose 50% Inj) 0 ml IV STAT PRN; Protocol PRN Reason: Hypoglycemia Protocol Dextrose (Glutose 15) 0 gm PO ONCE PRN; Protocol PRN Reason: Hypoglycemia Protocol Glucagon (Glucagen Diagnostic Kit) 0 mg IM STAT PRN; Protocol PRN Reason: Hypoglycemia Protocol Heparin Sodium (Porcine) (Heparin) 5,000 units SC Q12 [facility] PRN Reason: Protocol Last Admin: 04/09/18 08:34 Dose: 5,000 units Piperacillin Sod/Tazobactam (Sod 2.25 gm/ Sodium Chloride) 100 mls @ 100 mls/ hr IVPB Q8 [facility] PRN Reason: Protocol Last Admin: 04/09/18 17:15 Dose: 100 mls/hr Vancomycin HCl 1 gm/ Sodium (Chloride) 250 mls @ 166.667 mls/hr IVPB TTS [facility] PRN Reason: Protocol Last Admin: 04/09/18 13:31 Dose: 166.667 mls/hr Insulin Human Regular (Humulin R) 0 units SC ACHS [facility] PRN Reason: Protocol Last Admin: 04/09/18 16:38 Dose: Not Given Levothyroxine Sodium (Synthroid) 100 mcg PO DAILY@0630 [facility] Last Admin: 04/09/18 06:15 Dose: 100 mcg Ondansetron HCl (Zofran Inj) 4 mg IVP Q4 PRN PRN Reason: Nausea/Vomiting Last Admin: 04/08/18 21:27 Dose: 4 mg Sevelamer Carbonate (Renvela) 1,600 mg PO ACTID [facility] Last Admin: 04/09/18 17:14 Dose: 1,600 mg Vitamin B Complex/Vit C/Folic Acid (Nephro-Rod) 1 tab PO DAILY [facility] - Labs Labs: 04/09/18 05:30 04/09/18 05:30
[2018-04-10] MEDS: Levothyroxine 100 MCG TAB PO SCH (06:06)
[2018-04-10] MEDS: Insulin Regular 100 units/ml SC SCH ×4 (08:20→21:48)
[2018-04-10] MEDS: Multivitamin Vitamin B Complex (Nephro-Vite) Tab PO SCH (08:43)
--- NOTE | 2018-04-10 12:28 | CP.PCM.PN ---
Subjective - Date & Time of Evaluation Date of Evaluation: 04/10/18 Time of Evaluation: 12:27 - Subjective Subjective: Nephrology Consultation Note Assessment: Stable Rt ankle cellulitis with sepsis (staph) Diabetic chronic Kidney Disease (E11.22) Hypertensive Chronic Kidney Disease (I12.0) End stage renal disease (N18.6) dependence on hemodialysis (Z99.2) (TTS) via AVF Anemia (D64.9), Hyperphosphatemia (E83.39), Secondary Hyperparathyroidism (E21.1 ), HTN (I12.0), CAD Plan: Will plan for HD TTS schedule as ordered. continue with Nephrovite 1 tab/day. PRBC as needed for anemia. not on [place] with dialysis as last Hb 11.5 Continue with phos binders, last phos level: check with next lab BP control with meds as ordered. Patient not on RAAS shanice as BP controlled, can add if needed Glycemic control, Dialysis consistent diet Further work up/management as per primary team Dose meds/antibiotics (if needed) for ESRD status. Avoid fleets enema/magnesium based laxatives. ID following Thanks for allowing me to participate in care of your patient. Will follow patient with you. Please call if any Qs Dr Lonnie Murillo Office: [phone] Subjective: Noted events overnight. Patients feels sick. Denies chest pain, palpitation, shortness of breath, leg swelling. All other negative. had loose stool Physical Examination: General Appearance: Comfortable, in no acute respiratory distress, co-operative . Vitals reviewed and noted as below Head; Atraumatic, normocephalic ENT: no ulcers no thrush. Tongue is midline. Oropharynx: no rash or ulcers. EYES: Pupils are equal, round and reactive to light accommodation. Eye muscles and extraocular movement intact. Sclera is anicteric. Neck; supple no lymphadenopathy, no thyromegaly or bruit Lungs: Normal respiratory rate/effort. Breath sounds bilateral equal and clear Heart: Normal rate. s1s2 normal. No rub or gallop. CABg scar + Extremities: no edema. No varicose veins. Rt ankle dressed. s/p left BKA Neurological: Patient is alert, awake and oriented to person, place and time. No focal deficit. Strength bilateral appropriate and equal Skin: Warm and dry. Normal turgor. No rash. Palpitation: Normal elasticity for age Abdomen: Abdomen is soft. Bowel sounds +. There is no abdominal tenderness, no guarding/rigidity or organomegaly Psych: normal insight and normal affect/mood MSK: no joint tenderness or swelling. Digits and nails normal, no deformity : kidney or bladder not palpable Access: AVF Labs/imaging reviewed. Past medical history, past surgical history, family history, social history, allergy reviewed and noted as below Family Hx: no hx of CKD. Non contributory Objective - Vital Signs/Intake and Output Vital Signs (last 24 hours): Temp Pulse Resp BP Pulse Ox 98 F 73 18 121/69 97 04/10/18 12:14 04/10/18 12:14 04/10/18 12:14 04/10/18 12:14 04/10/18 12:14 - Medications Medications: Current Medications Acetaminophen (Tylenol 325mg Tab) 650 mg PO Q4 PRN PRN Reason: Fever >100.4 F Last Admin: 04/08/18 05:20 Dose: 650 mg Acetaminophen (Tylenol 325mg Tab) 650 mg PO Q4 PRN PRN Reason: Pain, Mild (1-3) Last Admin: 04/09/18 17:17 Dose: 650 mg Atorvastatin Calcium (Lipitor) 40 mg PO HS [facility] Last Admin: 04/09/18 21:19 Dose: 40 mg Dextrose (Dextrose 50% Inj) 0 ml IV STAT PRN; Protocol PRN Reason: Hypoglycemia Protocol Dextrose (Glutose 15) 0 gm PO ONCE PRN; Protocol PRN Reason: Hypoglycemia Protocol Glucagon (Glucagen Diagnostic Kit) 0 mg IM STAT PRN; Protocol PRN Reason: Hypoglycemia Protocol Heparin Sodium (Porcine) (Heparin) 5,000 units SC Q12 [facility] PRN Reason: Protocol Last Admin: 04/10/18 08:43 Dose: 5,000 units Piperacillin Sod/Tazobactam (Sod 2.25 gm/ Sodium Chloride) 100 mls @ 100 mls/ hr IVPB Q8 [facility] PRN Reason: Protocol Last Admin: 04/10/18 08:42 Dose: 100 mls/hr Vancomycin HCl 1 gm/ Sodium (Chloride) 250 mls @ 166.667 mls/hr IVPB TTS [facility] PRN Reason: Protocol Last Admin: 04/09/18 13:31 Dose: 166.667 mls/hr Insulin Human Regular (Humulin R) 0 units SC ACHS [facility] PRN Reason: Protocol Last Admin: 04/10/18 08:20 Dose: Not Given Levothyroxine Sodium (Synthroid) 100 mcg PO DAILY@0630 [facility] Last Admin: 04/10/18 06:06 Dose: 100 mcg Ondansetron HCl (Zofran Inj) 4 mg IVP Q4 PRN PRN Reason: Nausea/Vomiting Last Admin: 04/08/18 21:27 Dose: 4 mg Sevelamer Carbonate (Renvela) 1,600 mg PO ACTID [facility] Last Admin: 04/10/18 08:44 Dose: 1,600 mg Vitamin B Complex/Vit C/Folic Acid (Nephro-Rod) 1 tab PO DAILY [facility] Last Admin: 04/10/18 08:43 Dose: 1 tab - Labs Labs: 04/09/18 05:30 04/09/18 05:30
--- NOTE | 2018-04-10 13:07 | CP.PCM.PN ---
Subjective - Date & Time of Evaluation Date of Evaluation: 04/10/18 Time of Evaluation: 08:00 - Subjective Subjective: sepsis resolving growing staph MSSA from wound and blood Dr Abbott on board Bone scan pending Objective - Vital Signs/Intake and Output Vital Signs (last 24 hours): Temp Pulse Resp BP Pulse Ox 98 F 73 18 121/69 97 04/10/18 12:14 04/10/18 12:14 04/10/18 12:14 04/10/18 12:14 04/10/18 12:14 - Medications Medications: Current Medications Acetaminophen (Tylenol 325mg Tab) 650 mg PO Q4 PRN PRN Reason: Fever >100.4 F Last Admin: 04/08/18 05:20 Dose: 650 mg Acetaminophen (Tylenol 325mg Tab) 650 mg PO Q4 PRN PRN Reason: Pain, Mild (1-3) Last Admin: 04/09/18 17:17 Dose: 650 mg Atorvastatin Calcium (Lipitor) 40 mg PO HS [facility] Last Admin: 04/09/18 21:19 Dose: 40 mg Dextrose (Dextrose 50% Inj) 0 ml IV STAT PRN; Protocol PRN Reason: Hypoglycemia Protocol Dextrose (Glutose 15) 0 gm PO ONCE PRN; Protocol PRN Reason: Hypoglycemia Protocol Glucagon (Glucagen Diagnostic Kit) 0 mg IM STAT PRN; Protocol PRN Reason: Hypoglycemia Protocol Heparin Sodium (Porcine) (Heparin) 5,000 units SC Q12 [facility] PRN Reason: Protocol Last Admin: 04/10/18 08:43 Dose: 5,000 units Piperacillin Sod/Tazobactam (Sod 2.25 gm/ Sodium Chloride) 100 mls @ 100 mls/ hr IVPB Q8 [facility] PRN Reason: Protocol Last Admin: 04/10/18 08:42 Dose: 100 mls/hr Vancomycin HCl 1 gm/ Sodium (Chloride) 250 mls @ 166.667 mls/hr IVPB TTS [facility] PRN Reason: Protocol Last Admin: 04/09/18 13:31 Dose: 166.667 mls/hr Insulin Human Regular (Humulin R) 0 units SC ACHS [facility] PRN Reason: Protocol Last Admin: 04/10/18 08:20 Dose: Not Given Levothyroxine Sodium (Synthroid) 100 mcg PO DAILY@0630 [facility] Last Admin: 04/10/18 06:06 Dose: 100 mcg Ondansetron HCl (Zofran Inj) 4 mg IVP Q4 PRN PRN Reason: Nausea/Vomiting Last Admin: 04/08/18 21:27 Dose: 4 mg Sevelamer Carbonate (Renvela) 1,600 mg PO ACTID [facility] Last Admin: 04/10/18 08:44 Dose: 1,600 mg Vitamin B Complex/Vit C/Folic Acid (Nephro-Rod) 1 tab PO DAILY [facility] Last Admin: 04/10/18 08:43 Dose: 1 tab - Labs Labs: 04/09/18 05:30 04/09/18 05:30 - Constitutional Appears: Non-toxic, Chronically Ill - Head Exam Head Exam: NORMOCEPHALIC - Eye Exam Eye Exam: PERRL - ENT Exam ENT Exam: Mucous Membranes Dry - Neck Exam Neck Exam: absent: Lymphadenopathy - Respiratory Exam Respiratory Exam: Decreased Breath Sounds - Cardiovascular Exam Cardiovascular Exam: REGULAR RHYTHM - GI/Abdominal Exam GI & Abdominal Exam: Distended - Rectal Exam Rectal Exam: Deferred - Exam Exam: NORMAL INSPECTION - Extremities Exam Extremities Exam: absent: Calf Tenderness, Pedal Edema Additional comments: left BKA right leg wound with less drainage - Back Exam Back Exam: absent: CVA tenderness (L), CVA tenderness (R) - Neurological Exam Neurological Exam: Alert, Awake, Oriented x3 - Psychiatric Exam Psychiatric exam: Depressed - Skin Skin Exam: Dry Assessment and Plan (1) Cellulitis Status: Acute (2) ESRD (end stage renal disease) on dialysis Status: Chronic (3) CAD (coronary artery disease) of artery bypass graft Status: Deleted (4) Chronic kidney disease (CKD) Status: Acute - Assessment and Plan (Free Text) Assessment: sepsis resolving may have OM right ankle growing staph MSSA from wound and blood Dr Abbott on board may need debridement Bone scan pending Plan: OK to d/c [facility]
--- NOTE | 2018-04-10 13:17 | CP.PCM.PN ---
Subjective - Date & Time of Evaluation Date of Evaluation: 04/10/18 Time of Evaluation: 13:11 - Subjective Subjective: Podiatry progress note for Dr. Turner: 57 yo patient seen at bedside for right ankle infected wound. Patient states that he is still having fever and nausea. Patient states he is in no pain today. Denies SOB or CP. Has no other pedal complaints at this time. Objective - Vital Signs/Intake and Output Vital Signs (last 24 hours): Temp Pulse Resp BP Pulse Ox 98 F 73 18 121/69 97 04/10/18 12:14 04/10/18 12:14 04/10/18 12:14 04/10/18 12:14 04/10/18 12:14 - Medications Medications: Current Medications Acetaminophen (Tylenol 325mg Tab) 650 mg PO Q4 PRN PRN Reason: Fever >100.4 F Last Admin: 04/08/18 05:20 Dose: 650 mg Acetaminophen (Tylenol 325mg Tab) 650 mg PO Q4 PRN PRN Reason: Pain, Mild (1-3) Last Admin: 04/09/18 17:17 Dose: 650 mg Atorvastatin Calcium (Lipitor) 40 mg PO HS [facility] Last Admin: 04/09/18 21:19 Dose: 40 mg Dextrose (Dextrose 50% Inj) 0 ml IV STAT PRN; Protocol PRN Reason: Hypoglycemia Protocol Dextrose (Glutose 15) 0 gm PO ONCE PRN; Protocol PRN Reason: Hypoglycemia Protocol Glucagon (Glucagen Diagnostic Kit) 0 mg IM STAT PRN; Protocol PRN Reason: Hypoglycemia Protocol Heparin Sodium (Porcine) (Heparin) 5,000 units SC Q12 [facility] PRN Reason: Protocol Last Admin: 04/10/18 08:43 Dose: 5,000 units Piperacillin Sod/Tazobactam (Sod 2.25 gm/ Sodium Chloride) 100 mls @ 100 mls/ hr IVPB Q8 [facility] PRN Reason: Protocol Last Admin: 04/10/18 08:42 Dose: 100 mls/hr Insulin Human Regular (Humulin R) 0 units SC ACHS [facility] PRN Reason: Protocol Last Admin: 04/10/18 13:07 Dose: Not Given Levothyroxine Sodium (Synthroid) 100 mcg PO DAILY@0630 [facility] Last Admin: 04/10/18 06:06 Dose: 100 mcg Ondansetron HCl (Zofran Inj) 4 mg IVP Q4 PRN PRN Reason: Nausea/Vomiting Last Admin: 04/08/18 21:27 Dose: 4 mg Sevelamer Carbonate (Renvela) 1,600 mg PO ACTID [facility] Last Admin: 04/10/18 13:07 Dose: Not Given Vitamin B Complex/Vit C/Folic Acid (Nephro-Rod) 1 tab PO DAILY [facility] Last Admin: 04/10/18 08:43 Dose: 1 tab - Labs Labs: 04/09/18 05:30 04/09/18 05:30 - Constitutional Appears: Well, Non-toxic, No Acute Distress - Extremities Exam Additional comments: RLE focused: Vasc: DP and PT pulses nonpalpable; cellulitis and erythema present about the ankle and extending proximally at anterior border of the lower leg; edema present about the lateral ankle Derm: open draining wound at the level of the lateral malleolus; foul odor with serosanguinous drainage appreciated when squeezed out at the previous I and D site, about 5cc of drainage expressed; clinical signs of infection present, probe to bone as bone exposed through wound Ortho: left prevoius BKA; pain at the level of the right lateral ankle wound Neuro: diminished protective and gross sensation - Neurological Exam Neurological Exam: Alert, Awake, Oriented x3 - Psychiatric Exam Psychiatric exam: Normal Affect, Normal Mood Assessment and Plan - Assessment and Plan (Free Text) Assessment: 57 yo seen and evaluated at bedside s/p I and D in the ED for right lateral malleolar infected wound Plan: Patient seen and evaluated Discussed in detail with attending Dr. Turner Expressed 2cc of serous fluid from wound at bedside - bone exposed through open wound Labs reviewed: afebrile and absent leukocytosis Foot and ankle x-ray - chronic fracture of distal tibia and fibula with medial subluxation or dislocation of talus; charcot joint possibility, moderate degeneration of STJ; chronic fracture of distal 5th met with probable chronic healed fracture at base of bone; OM of distal 5th met not excluded; recommend followup MRI or CT MRI not ordered as patient has pacemaker - bone scan ordered - pending Wound culture collected and received from lateral right ankle - Staph. aureus Blood culture: Staph. aureus ID consult - severe sepsis, may need OR/debridement, may need BKA, IV rx started empirically - continue IV abx as per ID Has been patient in the past with Dr. Abbott on board, will discuss vascular status and plan Podiatry plans OR debridement at this time Podiatry to continue to follow while in house
--- NOTE | 2018-04-10 18:53 | CP.PCM.PN ---
Subjective - Date & Time of Evaluation Date of Evaluation: 04/10/18 Time of Evaluation: 17:40 - Subjective Subjective: F/U Ulcer R ankle. S/P I&D pain R foot, sensation of shaking at times Objective - Vital Signs/Intake and Output Vital Signs (last 24 hours): Temp Pulse Resp BP Pulse Ox 98.3 F 89 18 130/66 98 04/10/18 15:41 04/10/18 15:41 04/10/18 15:41 04/10/18 15:41 04/10/18 15:41 - Medications Medications: Current Medications Acetaminophen (Tylenol 325mg Tab) 650 mg PO Q4 PRN PRN Reason: Fever >100.4 F Last Admin: 04/08/18 05:20 Dose: 650 mg Acetaminophen (Tylenol 325mg Tab) 650 mg PO Q4 PRN PRN Reason: Pain, Mild (1-3) Last Admin: 04/10/18 18:08 Dose: 650 mg Atorvastatin Calcium (Lipitor) 40 mg PO HS [facility] Last Admin: 04/09/18 21:19 Dose: 40 mg Dextrose (Dextrose 50% Inj) 0 ml IV STAT PRN; Protocol PRN Reason: Hypoglycemia Protocol Dextrose (Glutose 15) 0 gm PO ONCE PRN; Protocol PRN Reason: Hypoglycemia Protocol Glucagon (Glucagen Diagnostic Kit) 0 mg IM STAT PRN; Protocol PRN Reason: Hypoglycemia Protocol Heparin Sodium (Porcine) (Heparin) 5,000 units SC Q12 [facility] PRN Reason: Protocol Last Admin: 04/10/18 08:43 Dose: 5,000 units Piperacillin Sod/Tazobactam (Sod 2.25 gm/ Sodium Chloride) 100 mls @ 100 mls/ hr IVPB Q8 [facility] PRN Reason: Protocol Last Admin: 04/10/18 17:55 Dose: 100 mls/hr Insulin Human Regular (Humulin R) 0 units SC ACHS [facility] PRN Reason: Protocol Last Admin: 04/10/18 17:59 Dose: 1 units Levothyroxine Sodium (Synthroid) 100 mcg PO DAILY@0630 [facility] Last Admin: 04/10/18 06:06 Dose: 100 mcg Ondansetron HCl (Zofran Inj) 4 mg IVP Q4 PRN PRN Reason: Nausea/Vomiting Last Admin: 04/08/18 21:27 Dose: 4 mg Sevelamer Carbonate (Renvela) 1,600 mg PO ACTID [facility] Last Admin: 04/10/18 17:56 Dose: 1,600 mg Vitamin B Complex/Vit C/Folic Acid (Nephro-Rod) 1 tab PO DAILY [facility] Last Admin: 04/10/18 08:43 Dose: 1 tab - Labs Labs: 04/09/18 05:30 04/09/18 05:30 - Constitutional Appears: No Acute Distress - Head Exam Head Exam: NORMAL INSPECTION - Eye Exam Eye Exam: PERRL - ENT Exam ENT Exam: Normal Exam - Neck Exam Neck Exam: Normal Inspection - Respiratory Exam Respiratory Exam: Clear to Ausculation Bilateral - Cardiovascular Exam Cardiovascular Exam: REGULAR RHYTHM - GI/Abdominal Exam GI & Abdominal Exam: Soft, Normal Bowel Sounds - Extremities Exam Extremities Exam: Tenderness (tenderness R ankle, dressing in place) Additional comments: LBKA - Back Exam Back Exam: NORMAL INSPECTION - Neurological Exam Neurological Exam: Alert, CN II-XII Intact, Oriented x3 Additional comments: no focal motor deficit - Psychiatric Exam Psychiatric exam: Anxious - Skin Skin Exam: Warm Assessment and Plan (1) Sepsis Status: Acute (2) Pressure ulcer of right foot Assessment & Plan: Staph Aureus Status: Acute (3) Status post incision and drainage Status: Acute (4) Pain in right ankle and joints of right foot Status: Acute (5) ESRD (end stage renal disease) on dialysis Status: Chronic (6) Hypotension Status: Acute (7) IDDM (insulin dependent diabetes mellitus) Status: Chronic (8) Hypothyroidism Status: Chronic - Assessment and Plan (Free Text) Plan: Staph Aureus ankle, blood, continue [facility] HD TTS, and rest of treatment , f/ u bone Scan, Podiatric, ID f/u, Cardiology
[2018-04-11] MEDS: Levothyroxine 100 MCG TAB PO SCH (06:39)
[2018-04-11] MEDS: Insulin Regular 100 units/ml SC SCH ×4 (06:42→23:00)
--- NOTE | 2018-04-11 06:54 | CP.PCM.PN ---
Subjective - Date & Time of Evaluation Date of Evaluation: 04/11/18 Time of Evaluation: 06:52 - Subjective Subjective: Podiatry progress note for Dr. Turner: 57 yo patient seen at bedside for right ankle infected wound. Patient states that he is still having fever and nausea. Patient states he is in no pain today. Denies SOB or CP. Has no other pedal complaints at this time. Objective - Vital Signs/Intake and Output Vital Signs (last 24 hours): Temp Pulse Resp BP Pulse Ox 99.1 F 81 18 144/70 97 04/11/18 05:48 04/11/18 05:48 04/11/18 05:48 04/11/18 05:48 04/11/18 05:48 - Medications Medications: Current Medications Acetaminophen (Tylenol 325mg Tab) 650 mg PO Q4 PRN PRN Reason: Fever >100.4 F Last Admin: 04/08/18 05:20 Dose: 650 mg Acetaminophen (Tylenol 325mg Tab) 650 mg PO Q4 PRN PRN Reason: Pain, Mild (1-3) Last Admin: 04/10/18 18:08 Dose: 650 mg Atorvastatin Calcium (Lipitor) 40 mg PO HS JASON Last Admin: 04/10/18 21:16 Dose: 40 mg Dextrose (Dextrose 50% Inj) 0 ml IV STAT PRN; Protocol PRN Reason: Hypoglycemia Protocol Dextrose (Glutose 15) 0 gm PO ONCE PRN; Protocol PRN Reason: Hypoglycemia Protocol Glucagon (Glucagen Diagnostic Kit) 0 mg IM STAT PRN; Protocol PRN Reason: Hypoglycemia Protocol Heparin Sodium (Porcine) (Heparin) 5,000 units SC Q12 JASON PRN Reason: Protocol Last Admin: 04/10/18 21:16 Dose: 5,000 units Piperacillin Sod/Tazobactam (Sod 2.25 gm/ Sodium Chloride) 100 mls @ 100 mls/ hr IVPB Q8 JASON PRN Reason: Protocol Last Admin: 04/11/18 01:15 Dose: Not Given Insulin Human Regular (Humulin R) 0 units SC ACHS JASON PRN Reason: Protocol Last Admin: 04/11/18 06:42 Dose: 1 units Levothyroxine Sodium (Synthroid) 100 mcg PO DAILY@0630 JASON Last Admin: 04/11/18 06:39 Dose: 100 mcg Ondansetron HCl (Zofran Inj) 4 mg IVP Q4 PRN PRN Reason: Nausea/Vomiting Last Admin: 04/08/18 21:27 Dose: 4 mg Sevelamer Carbonate (Renvela) 1,600 mg PO ACTID [facility] Last Admin: 04/10/18 17:56 Dose: 1,600 mg Vitamin B Complex/Vit C/Folic Acid (Nephro-Rod) 1 tab PO DAILY [facility] Last Admin: 04/10/18 08:43 Dose: 1 tab - Labs Labs: 04/09/18 05:30 04/09/18 05:30 - Constitutional Appears: Well, Non-toxic, No Acute Distress - Extremities Exam Additional comments: RLE focused: Vasc: DP and PT pulses nonpalpable; cellulitis and erythema present about the ankle and extending proximally at anterior border of the lower leg; edema present about the lateral ankle Derm: open draining wound at the level of the lateral malleolus; foul odor with serosanguinous drainage appreciated when squeezed out at the previous I and D site, about 5cc of drainage expressed; clinical signs of infection present, probe to bone as bone exposed through wound Ortho: left prevoius BKA; pain at the level of the right lateral ankle wound Neuro: diminished protective and gross sensation - Neurological Exam Neurological Exam: Alert, Awake, Oriented x3 - Psychiatric Exam Psychiatric exam: Normal Affect, Normal Mood Assessment and Plan - Assessment and Plan (Free Text) Assessment: 57 yo seen and evaluated at bedside s/p I and D in the ED for right lateral malleolar infected wound Plan: Patient seen and evaluated Discussed in detail with attending Dr. Turner Expressed 2cc of serous fluid from wound at bedside - bone exposed through open wound Labs reviewed: afebrile and absent leukocytosis Foot and ankle x-ray - chronic fracture of distal tibia and fibula with medial subluxation or dislocation of talus; charcot joint possibility, moderate degeneration of STJ; chronic fracture of distal 5th met with probable chronic healed fracture at base of bone; OM of distal 5th met not excluded; recommend followup MRI or CT MRI not ordered as patient has pacemaker - bone scan ordered - pending Wound culture collected and received from lateral right ankle - Staph. aureus Blood culture: Staph. aureus ID consult - severe sepsis, may need OR/debridement, may need BKA, IV rx started empirically - continue IV abx as per ID Has been patient in the past with Dr. Abbott on board, will discuss vascular status and plan Podiatry plans OR debridement at this time - need medical clearance Podiatry to continue to follow while in house
[2018-04-11] MEDS: Multivitamin Vitamin B Complex (Nephro-Vite) Tab PO SCH (09:18)
--- NOTE | 2018-04-11 09:18 | CARD ---
APPROVED REPORT Date of service: 04/08/2018 EKG Measurement Heart [id number] <Conclusion> Normal sinus rhythm Low voltage QRS IVCD Abnormal ECG
--- NOTE | 2018-04-11 10:02 | CP.PCM.PN ---
Subjective - Date & Time of Evaluation Date of Evaluation: 04/11/18 Time of Evaluation: 10:02 - Subjective Subjective: patient is awake and conscious not in acute distress appears to be comfortable no fever or chills Objective - Vital Signs/Intake and Output Vital Signs (last 24 hours): Temp Pulse Resp BP Pulse Ox 98.5 F 82 18 133/76 98 04/11/18 07:51 04/11/18 07:51 04/11/18 07:51 04/11/18 07:51 04/11/18 07:51 - Medications Medications: Current Medications Acetaminophen (Tylenol 325mg Tab) 650 mg PO Q4 PRN PRN Reason: Fever >100.4 F Last Admin: 04/08/18 05:20 Dose: 650 mg Acetaminophen (Tylenol 325mg Tab) 650 mg PO Q4 PRN PRN Reason: Pain, Mild (1-3) Last Admin: 04/10/18 18:08 Dose: 650 mg Atorvastatin Calcium (Lipitor) 40 mg PO HS JASON Last Admin: 04/10/18 21:16 Dose: 40 mg Dextrose (Dextrose 50% Inj) 0 ml IV STAT PRN; Protocol PRN Reason: Hypoglycemia Protocol Dextrose (Glutose 15) 0 gm PO ONCE PRN; Protocol PRN Reason: Hypoglycemia Protocol Glucagon (Glucagen Diagnostic Kit) 0 mg IM STAT PRN; Protocol PRN Reason: Hypoglycemia Protocol Heparin Sodium (Porcine) (Heparin) 5,000 units SC Q12 JASON PRN Reason: Protocol Last Admin: 04/11/18 09:17 Dose: 5,000 units Vancomycin HCl 1 gm/ Sodium (Chloride) 250 mls @ 125 mls/hr IVPB TTS JASON PRN Reason: Protocol Insulin Human Regular (Humulin R) 0 units SC ACHS JASON PRN Reason: Protocol Last Admin: 04/11/18 06:42 Dose: 1 units Levothyroxine Sodium (Synthroid) 100 mcg PO DAILY@0630 JASON Last Admin: 04/11/18 06:39 Dose: 100 mcg Ondansetron HCl (Zofran Inj) 4 mg IVP Q4 PRN PRN Reason: Nausea/Vomiting Last Admin: 04/08/18 21:27 Dose: 4 mg Sevelamer Carbonate (Renvela) 1,600 mg PO ACTID JASON Last Admin: 04/11/18 09:18 Dose: 1,600 mg Vitamin B Complex/Vit C/Folic Acid (Nephro-Rod) 1 tab PO DAILY JASON Last Admin: 04/11/18 09:18 Dose: 1 tab - Labs Labs: 04/09/18 05:30 04/09/18 05:30 - Constitutional Appears: No Acute Distress - ENT Exam ENT Exam: absent: Mucous Membranes Moist - Neck Exam Neck Exam: absent: Lymphadenopathy - Respiratory Exam Respiratory Exam: NORMAL BREATHING PATTERN. absent: Chest Wall Tenderness - Cardiovascular Exam Cardiovascular Exam: absent: Gallop, JVD, Rubs - GI/Abdominal Exam GI & Abdominal Exam: Soft. absent: Normal Bowel Sounds - Extremities Exam Extremities Exam: absent: Calf Tenderness, Pedal Edema - Back Exam Back Exam: absent: CVA tenderness (L), CVA tenderness (R) - Neurological Exam Neurological Exam: Alert - Psychiatric Exam Psychiatric exam: Normal Affect - Skin Skin Exam: absent: Cyanosis Assessment and Plan (1) ESRD (end stage renal disease) on dialysis Assessment & Plan: end stage renal disease for hemodialysis TTS. Diabetic kidney disease. Right foot ulcer with cellulitis. Status post left leg below knee amputation Patient admitted because of fever and cellulitis of the right foot The plan Continue hemodialysis TTS as scheduled Antibiotics as per renal doses infectious disease on the case Follow-up serum phosphorus and PTH still pending glycemic control as per primary team Status: Chronic (2) Cellulitis Status: Acute (3) CAD (coronary artery disease) of artery bypass graft Status: Deleted (4) Pressure ulcer of right foot Status: Acute
--- NOTE | 2018-04-11 10:57 | CP.PCM.PN ---
Subjective - Date & Time of Evaluation Date of Evaluation: 04/11/18 Time of Evaluation: 09:00 - Subjective Subjective: weaak afeb NAD fever less Objective - Vital Signs/Intake and Output Vital Signs (last 24 hours): Temp Pulse Resp BP Pulse Ox 98.5 F 82 18 133/76 98 04/11/18 07:51 04/11/18 07:51 04/11/18 07:51 04/11/18 07:51 04/11/18 07:51 - Medications Medications: Current Medications Acetaminophen (Tylenol 325mg Tab) 650 mg PO Q4 PRN PRN Reason: Fever >100.4 F Last Admin: 04/08/18 05:20 Dose: 650 mg Acetaminophen (Tylenol 325mg Tab) 650 mg PO Q4 PRN PRN Reason: Pain, Mild (1-3) Last Admin: 04/10/18 18:08 Dose: 650 mg Atorvastatin Calcium (Lipitor) 40 mg PO HS JASON Last Admin: 04/10/18 21:16 Dose: 40 mg Dextrose (Dextrose 50% Inj) 0 ml IV STAT PRN; Protocol PRN Reason: Hypoglycemia Protocol Dextrose (Glutose 15) 0 gm PO ONCE PRN; Protocol PRN Reason: Hypoglycemia Protocol Glucagon (Glucagen Diagnostic Kit) 0 mg IM STAT PRN; Protocol PRN Reason: Hypoglycemia Protocol Heparin Sodium (Porcine) (Heparin) 5,000 units SC Q12 JASON PRN Reason: Protocol Last Admin: 04/11/18 09:17 Dose: 5,000 units Vancomycin HCl 1 gm/ Sodium (Chloride) 250 mls @ 125 mls/hr IVPB TTS JASON PRN Reason: Protocol Insulin Human Regular (Humulin R) 0 units SC ACHS JASON PRN Reason: Protocol Last Admin: 04/11/18 06:42 Dose: 1 units Levothyroxine Sodium (Synthroid) 100 mcg PO DAILY@0630 JASON Last Admin: 04/11/18 06:39 Dose: 100 mcg Ondansetron HCl (Zofran Inj) 4 mg IVP Q4 PRN PRN Reason: Nausea/Vomiting Last Admin: 04/08/18 21:27 Dose: 4 mg Sevelamer Carbonate (Renvela) 1,600 mg PO ACTID JASON Last Admin: 04/11/18 09:18 Dose: 1,600 mg Vitamin B Complex/Vit C/Folic Acid (Nephro-Rod) 1 tab PO DAILY JASON Last Admin: 04/11/18 09:18 Dose: 1 tab - Labs Labs: 04/09/18 05:30 04/09/18 05:30 - Constitutional Appears: Non-toxic, Cachectic, Chronically Ill - Head Exam Head Exam: ATRAUMATIC, NORMAL INSPECTION, NORMOCEPHALIC - Eye Exam Eye Exam: PERRL. absent: Scleral icterus - ENT Exam ENT Exam: Mucous Membranes Dry - Neck Exam Neck Exam: absent: Lymphadenopathy - Respiratory Exam Respiratory Exam: Decreased Breath Sounds, Clear to Ausculation Bilateral - Cardiovascular Exam Cardiovascular Exam: REGULAR RHYTHM, +S1, +S2 - GI/Abdominal Exam GI & Abdominal Exam: Distended, Soft. absent: Tenderness - Rectal Exam Rectal Exam: Deferred - Exam Exam: NORMAL INSPECTION - Extremities Exam Extremities Exam: Pedal Edema. absent: Calf Tenderness Additional comments: RLE focused: Vasc: DP and PT pulses nonpalpable; cellulitis and erythema present about the ankle and extending proximally at anterior border of the lower leg; edema present about the lateral ankle Derm: open draining wound at the level of the lateral malleolus; foul odor with serosanguinous drainage appreciated when squeezed out at the previous I and D site, about 5cc of drainage expressed; clinical signs of infection present, probe to bone as bone exposed through wound - Back Exam Back Exam: absent: CVA tenderness (L), CVA tenderness (R) - Neurological Exam Neurological Exam: Alert, Awake, Oriented x3 Neuro motor strength exam: Left Upper Extremity: 4, Right Upper Extremity: 4, Left Lower Extremity: 4, Right Lower Extremity: 4 - Psychiatric Exam Psychiatric exam: Depressed - Skin Skin Exam: Dry Assessment and Plan (1) Cellulitis Status: Acute (2) ESRD (end stage renal disease) on dialysis Status: Chronic (3) CAD (coronary artery disease) of artery bypass graft Status: Deleted (4) Chronic kidney disease (CKD) Status: Acute - Assessment and Plan (Free Text) Assessment: blood and wound + MSSA wound probes to bone CARMELO graham await further imaging / vascular eval / podiatry eval for debridement cont IV antibiotics 6-8 weeks
--- NOTE | 2018-04-11 14:09 | NM ---
Date of service: 04/08/2018 PROCEDURE: Three-Phase NUCLEAR BONE SCAN RIGHT ANKLE HISTORY: r/o osteomyelitis right ankle abscess COMPARISON: Right ankle radiographs 04/06/2018. 25.0 TECHNIQUE: Following administration of miCu of Tc MDP model plantar dynamic phase images in a acquired of the right ankle followed by immediate and delayed static images in multiple planes at the right ankle as well. FINDINGS: Extensive uptake is identified at the right ankle in dynamic phase images. Immediate and delayed static images centra on the ankle with a limited local soft tissue edema related. The presence of chronic ununited trimalleolar fractures as seen in current and prior radiographs of the right ankle as well as right ankle MRI 02/19/2018 limits evaluation. Increasing callus formation is seen at the fracture sites which does not bridge the fracture planes. Accordingly, osteomyelitis is not proven or excluded given persistent uptake in all 3 phases at the fracture sites. Other findings: None. IMPRESSION: Indeterminate abnormal uptake in all 3 phases of three-phase nuclear bone scan right ankle due to the presence of trimalleolar fracture and exuberant callus deposition. It is not possible to exclude osteomyelitis due to ongoing increased bone metabolism due to the fractures. Presence of emphysematous changes in the lateral right ankle soft tissue is in prior radiograph 04/06/2018 raises question of potential infectious cellulitis and therefore osteomyelitis as well.
--- NOTE | 2018-04-11 16:01 | CP.PCM.PN ---
Subjective - Date & Time of Evaluation Date of Evaluation: 04/11/18 Time of Evaluation: 12:50 - Subjective Subjective: F/U Ulcer R ankle, s/p I&D No A/D, afebrile, mild pain in R foot now. Objective - Vital Signs/Intake and Output Vital Signs (last 24 hours): Temp Pulse Resp BP Pulse Ox 98.4 F 75 18 115/65 100 04/11/18 15:40 04/11/18 15:40 04/11/18 15:40 04/11/18 15:40 04/11/18 15:40 - Medications Medications: Current Medications Acetaminophen (Tylenol 325mg Tab) 650 mg PO Q4 PRN PRN Reason: Fever >100.4 F Last Admin: 04/08/18 05:20 Dose: 650 mg Acetaminophen (Tylenol 325mg Tab) 650 mg PO Q4 PRN PRN Reason: Pain, Mild (1-3) Last Admin: 04/11/18 13:47 Dose: 650 mg Atorvastatin Calcium (Lipitor) 40 mg PO HS JASON Last Admin: 04/10/18 21:16 Dose: 40 mg Dextrose (Dextrose 50% Inj) 0 ml IV STAT PRN; Protocol PRN Reason: Hypoglycemia Protocol Dextrose (Glutose 15) 0 gm PO ONCE PRN; Protocol PRN Reason: Hypoglycemia Protocol Glucagon (Glucagen Diagnostic Kit) 0 mg IM STAT PRN; Protocol PRN Reason: Hypoglycemia Protocol Heparin Sodium (Porcine) (Heparin) 5,000 units SC Q12 JASON PRN Reason: Protocol Last Admin: 04/11/18 09:17 Dose: 5,000 units Vancomycin HCl 1 gm/ Sodium (Chloride) 250 mls @ 125 mls/hr IVPB TTS JASON PRN Reason: Protocol Insulin Human Regular (Humulin R) 0 units SC ACHS JASON PRN Reason: Protocol Last Admin: 04/11/18 12:50 Dose: Not Given Levothyroxine Sodium (Synthroid) 100 mcg PO DAILY@0630 JASON Last Admin: 04/11/18 06:39 Dose: 100 mcg Ondansetron HCl (Zofran Inj) 4 mg IVP Q4 PRN PRN Reason: Nausea/Vomiting Last Admin: 04/08/18 21:27 Dose: 4 mg Sevelamer Carbonate (Renvela) 1,600 mg PO ACTID [facility] Last Admin: 04/11/18 12:00 Dose: Not Given Vitamin B Complex/Vit C/Folic Acid (Nephro-Rod) 1 tab PO DAILY JASON Last Admin: 04/11/18 09:18 Dose: 1 tab - Labs Labs: 04/09/18 05:30 04/09/18 05:30 - Constitutional Appears: No Acute Distress - Head Exam Head Exam: NORMAL INSPECTION - Eye Exam Eye Exam: PERRL - ENT Exam ENT Exam: Normal Exam - Neck Exam Neck Exam: Normal Inspection - Respiratory Exam Respiratory Exam: Clear to Ausculation Bilateral - Cardiovascular Exam Cardiovascular Exam: REGULAR RHYTHM - GI/Abdominal Exam GI & Abdominal Exam: Soft, Normal Bowel Sounds - Extremities Exam Extremities Exam: Tenderness (R ankle with dressing in place. L BKA) - Back Exam Back Exam: NORMAL INSPECTION - Neurological Exam Neurological Exam: Alert, CN II-XII Intact, Oriented x3 Additional comments: No focal motor deficit. - Psychiatric Exam Psychiatric exam: Anxious - Skin Skin Exam: Warm Assessment and Plan (1) Pressure ulcer of right foot Status: Acute (2) Status post incision and drainage Status: Acute (3) Pain in right ankle and joints of right foot Status: Acute (4) ESRD (end stage renal disease) on dialysis Status: Chronic (5) Hypotension Status: Acute (6) IDDM (insulin dependent diabetes mellitus) Status: Chronic (7) Hypothyroidism Status: Chronic - Assessment and Plan (Free Text) Plan: Seen by ID and Clinical Laboratory Technologist, planning for I&D, continue current abx as per ID, continue rest of Tx.
[2018-04-12] MEDS: Levothyroxine 100 MCG TAB PO SCH (05:59)
--- NOTE | 2018-04-12 07:21 | CP.PCM.PN ---
Subjective - Date & Time of Evaluation Date of Evaluation: 04/12/18 Time of Evaluation: 07:17 - Subjective Subjective: Podiatry progress note for Dr. Turner: 57 yo patient seen at bedside for right ankle infected wound. Patient states that he is feeling physically better with no nausea or fever symptoms. Patient states he is in no pain today. Denies SOB or CP. Has no other pedal complaints at this time. Objective - Vital Signs/Intake and Output Vital Signs (last 24 hours): Temp Pulse Resp BP Pulse Ox 97.6 F 72 18 153/67 H 94 L 04/12/18 05:00 04/12/18 05:00 04/12/18 05:00 04/12/18 05:00 04/12/18 05:00 - Medications Medications: Current Medications Acetaminophen (Tylenol 325mg Tab) 650 mg PO Q4 PRN PRN Reason: Fever >100.4 F Last Admin: 04/08/18 05:20 Dose: 650 mg Acetaminophen (Tylenol 325mg Tab) 650 mg PO Q4 PRN PRN Reason: Pain, Mild (1-3) Last Admin: 04/11/18 13:47 Dose: 650 mg Atorvastatin Calcium (Lipitor) 40 mg PO HS JASON Last Admin: 04/11/18 22:01 Dose: 40 mg Dextrose (Dextrose 50% Inj) 0 ml IV STAT PRN; Protocol PRN Reason: Hypoglycemia Protocol Dextrose (Glutose 15) 0 gm PO ONCE PRN; Protocol PRN Reason: Hypoglycemia Protocol Glucagon (Glucagen Diagnostic Kit) 0 mg IM STAT PRN; Protocol PRN Reason: Hypoglycemia Protocol Heparin Sodium (Porcine) (Heparin) 5,000 units SC Q12 JASON PRN Reason: Protocol Last Admin: 04/11/18 22:00 Dose: 5,000 units Vancomycin HCl 1 gm/ Sodium (Chloride) 250 mls @ 125 mls/hr IVPB TTS JASON PRN Reason: Protocol Insulin Human Regular (Humulin R) 0 units SC ACHS JASON PRN Reason: Protocol Last Admin: 04/11/18 23:00 Dose: Not Given Levothyroxine Sodium (Synthroid) 100 mcg PO DAILY@0630 JASON Last Admin: 04/12/18 05:59 Dose: 100 mcg Ondansetron HCl (Zofran Inj) 4 mg IVP Q4 PRN PRN Reason: Nausea/Vomiting Last Admin: 04/08/18 21:27 Dose: 4 mg Sevelamer Carbonate (Renvela) 1,600 mg PO ACTID [facility] Last Admin: 04/11/18 17:14 Dose: 1,600 mg Vitamin B Complex/Vit C/Folic Acid (Nephro-Rod) 1 tab PO DAILY [facility] Last Admin: 04/11/18 09:18 Dose: 1 tab - Labs Labs: 04/09/18 05:30 04/09/18 05:30 - Constitutional Appears: Well, Non-toxic, No Acute Distress - Head Exam Head Exam: ATRAUMATIC, NORMOCEPHALIC - Extremities Exam Additional comments: RLE focused: Vasc: DP and PT pulses nonpalpable; cellulitis and erythema present about the ankle and extending proximally at anterior border of the lower leg; edema present about the lateral ankle Derm: open draining wound at the level of the lateral malleolus; foul odor with serosanguinous drainage appreciated when squeezed out at the previous I and D site, about 0.5cc of drainage expressed; clinical signs of infection present, probe to bone as bone exposed through wound Ortho: left prevoius BKA; pain at the level of the right lateral ankle wound Neuro: diminished protective and gross sensation - Neurological Exam Neurological Exam: Alert, Awake, Oriented x3 - Psychiatric Exam Psychiatric exam: Normal Affect, Normal Mood Assessment and Plan - Assessment and Plan (Free Text) Assessment: 57 yo seen and evaluated at bedside s/p I and D in the ED for right lateral malleolar infected wound Plan: Patient seen and evaluated Discussed in detail with attending Dr. Turner Expressed 0.5cc of serous fluid from wound at bedside - bone exposed through open wound Labs reviewed: afebrile Foot and ankle x-ray - chronic fracture of distal tibia and fibula with medial subluxation or dislocation of talus; charcot joint possibility, moderate degeneration of STJ; chronic fracture of distal 5th met with probable chronic healed fracture at base of bone; OM of distal 5th met not excluded; recommend followup MRI or CT MRI not ordered as patient has pacemaker - bone scan ordered - abnormal uptake in all 3 phases due to presence of trimall fracture and callus deposition; not possible to exclude osteomyelitis; potential infectious cellulitis and osteomyelitis as well Wound culture collected and received from lateral right ankle - Staph. aureus Blood culture: Staph. aureus ID consult - severe sepsis, may need OR/debridement, may need BKA, IV rx started empirically - continue IV abx as per ID Has been patient in the past with Dr. Abbott on board, will discuss vascular status and plan Podiatry plans OR debridement with Dr. Turner - scheduled for Wednesday 04/18 at 7 :45 AM - please provide medical clearance, greatly appreciated Podiatry to continue to follow while in house
[2018-04-12] MEDS: Insulin Regular 100 units/ml SC SCH ×4 (08:45→21:25)
[2018-04-12] MEDS: Multivitamin Vitamin B Complex (Nephro-Vite) Tab PO SCH (08:46)
--- NOTE | 2018-04-12 11:11 | CP.PCM.PN ---
Subjective - Date & Time of Evaluation Date of Evaluation: 04/12/18 Time of Evaluation: 11:10 - Subjective Subjective: dialysis note patient awake and conscious feeling good no nausea no vomiting Receiving hemodialysis now Objective - Vital Signs/Intake and Output Vital Signs (last 24 hours): Temp Pulse Resp BP Pulse Ox 98.0 F 72 20 129/73 98 04/12/18 08:08 04/12/18 09:00 04/12/18 08:08 04/12/18 08:08 04/12/18 08:08 - Medications Medications: Current Medications Acetaminophen (Tylenol 325mg Tab) 650 mg PO Q4 PRN PRN Reason: Fever >100.4 F Last Admin: 04/08/18 05:20 Dose: 650 mg Acetaminophen (Tylenol 325mg Tab) 650 mg PO Q4 PRN PRN Reason: Pain, Mild (1-3) Last Admin: 04/11/18 13:47 Dose: 650 mg Atorvastatin Calcium (Lipitor) 40 mg PO HS JASON Last Admin: 04/11/18 22:01 Dose: 40 mg Dextrose (Dextrose 50% Inj) 0 ml IV STAT PRN; Protocol PRN Reason: Hypoglycemia Protocol Dextrose (Glutose 15) 0 gm PO ONCE PRN; Protocol PRN Reason: Hypoglycemia Protocol Glucagon (Glucagen Diagnostic Kit) 0 mg IM STAT PRN; Protocol PRN Reason: Hypoglycemia Protocol Heparin Sodium (Porcine) (Heparin) 5,000 units SC Q12 JASON PRN Reason: Protocol Last Admin: 04/12/18 08:47 Dose: 5,000 units Vancomycin HCl 1 gm/ Sodium (Chloride) 250 mls @ 125 mls/hr IVPB TTS JASON PRN Reason: Protocol Insulin Human Regular (Humulin R) 0 units SC ACHS JASON PRN Reason: Protocol Last Admin: 04/12/18 08:45 Dose: 1 units Levothyroxine Sodium (Synthroid) 100 mcg PO DAILY@0630 JASON Last Admin: 04/12/18 05:59 Dose: 100 mcg Ondansetron HCl (Zofran Inj) 4 mg IVP Q4 PRN PRN Reason: Nausea/Vomiting Last Admin: 04/08/18 21:27 Dose: 4 mg Sevelamer Carbonate (Renvela) 1,600 mg PO ACTID JASON Last Admin: 04/12/18 08:46 Dose: 1,600 mg Vitamin B Complex/Vit C/Folic Acid (Nephro-Rod) 1 tab PO DAILY JASON Last Admin: 04/12/18 08:46 Dose: 1 tab - Labs Labs: 04/09/18 05:30 04/09/18 05:30 - Constitutional Appears: No Acute Distress - Eye Exam Eye Exam: Conjunctival injection - ENT Exam ENT Exam: Mucous Membranes Moist - Neck Exam Neck Exam: absent: Lymphadenopathy - Respiratory Exam Respiratory Exam: NORMAL BREATHING PATTERN. absent: Chest Wall Tenderness, Rales, Rhonchi - Cardiovascular Exam Cardiovascular Exam: absent: Gallop, JVD, Rubs - Extremities Exam Extremities Exam: absent: Calf Tenderness - Back Exam Back Exam: absent: CVA tenderness (L), CVA tenderness (R) - Neurological Exam Neurological Exam: Alert - Psychiatric Exam Psychiatric exam: Normal Affect - Skin Skin Exam: absent: Cyanosis Assessment and Plan (1) ESRD (end stage renal disease) on dialysis Assessment & Plan: Assessment & Plan: end stage renal disease for hemodialysis TTS. Diabetic kidney disease. Right foot ulcer with cellulitis. Status post left leg below knee amputation Patient admitted because of fever and cellulitis of the right foot Staphylococcus aureus septicemia The plan Patient receiving hemodialysis now Vital signs stable Discussed the order with the dialysis nurse at the bedside Ultrafiltration about 2000 mL Potassium bath 2 mEq Antibiotics as per ID Status: Chronic (2) Cellulitis Status: Acute (3) CAD (coronary artery disease) of artery bypass graft Status: Deleted (4) Pressure ulcer of right foot Status: Acute
[2018-04-12 11:32] LABS: HEMOGLOBIN 10.8 g/dL (12.0-18.0); MEAN CELL VOLUME 95.7 fl (80.0-94.0); MEAN CORPUSCULAR HEMOGLOBIN 32.6 pg (27.0-31.0); MEAN CORPUSCULAR HGB CONC 34.1 g/dL (33.0-37.0); RBC 3.31 Mil/uL (4.40-5.90); RED CELL DISTRIBUTION WIDTH 17.1 % (11.5-14.5); WHITE BLOOD COUNT 4.6 K/uL (4.8-10.8)
[2018-04-12 11:40] LABS: ALB/GLOB RATIO 0.8 (1.0-2.1); ALBUMIN 2.9 g/dL (3.5-5.0); CALCIUM 8.4 mg/dL (8.4-10.2)
--- NOTE | 2018-04-12 15:02 | CP.PCM.PN ---
Subjective - Date & Time of Evaluation Date of Evaluation: 04/12/18 Time of Evaluation: 13:20 - Subjective Subjective: F/U Ulcer R Ankle, S/P I&D headache, no pain R foot Objective - Vital Signs/Intake and Output Vital Signs (last 24 hours): Temp Pulse Resp BP Pulse Ox 98.2 F 80 20 137/74 100 04/12/18 12:26 04/12/18 12:26 04/12/18 12:26 04/12/18 12:26 04/12/18 12:26 - Medications Medications: Current Medications Acetaminophen (Tylenol 325mg Tab) 650 mg PO Q4 PRN PRN Reason: Fever >100.4 F Last Admin: 04/08/18 05:20 Dose: 650 mg Acetaminophen (Tylenol 325mg Tab) 650 mg PO Q4 PRN PRN Reason: Pain, Mild (1-3) Last Admin: 04/12/18 12:26 Dose: 650 mg Atorvastatin Calcium (Lipitor) 40 mg PO HS [facility] Last Admin: 04/11/18 22:01 Dose: 40 mg Dextrose (Dextrose 50% Inj) 0 ml IV STAT PRN; Protocol PRN Reason: Hypoglycemia Protocol Dextrose (Glutose 15) 0 gm PO ONCE PRN; Protocol PRN Reason: Hypoglycemia Protocol Glucagon (Glucagen Diagnostic Kit) 0 mg IM STAT PRN; Protocol PRN Reason: Hypoglycemia Protocol Heparin Sodium (Porcine) (Heparin) 5,000 units SC Q12 [facility] PRN Reason: Protocol Last Admin: 04/12/18 08:47 Dose: 5,000 units Vancomycin HCl 1 gm/ Sodium (Chloride) 250 mls @ 125 mls/hr IVPB TTS [facility] PRN Reason: Protocol Last Admin: 04/12/18 13:03 Dose: 125 mls/hr Insulin Human Regular (Humulin R) 0 units SC ACHS [facility] PRN Reason: Protocol Last Admin: 04/12/18 11:57 Dose: Not Given Levothyroxine Sodium (Synthroid) 100 mcg PO DAILY@0630 [facility] Last Admin: 04/12/18 05:59 Dose: 100 mcg Ondansetron HCl (Zofran Inj) 4 mg IVP Q4 PRN PRN Reason: Nausea/Vomiting Last Admin: 04/08/18 21:27 Dose: 4 mg Sevelamer Carbonate (Renvela) 1,600 mg PO ACTID [facility] Last Admin: 04/12/18 11:58 Dose: Not Given Vitamin B Complex/Vit C/Folic Acid (Nephro-Rod) 1 tab PO DAILY [facility] Last Admin: 04/12/18 08:46 Dose: 1 tab - Labs Labs: 04/12/18 11:14 04/12/18 11:14 - Constitutional Appears: No Acute Distress - Head Exam Head Exam: NORMAL INSPECTION - Eye Exam Eye Exam: PERRL - ENT Exam ENT Exam: Normal Exam - Neck Exam Neck Exam: Normal Inspection - Respiratory Exam Respiratory Exam: Clear to Ausculation Bilateral - Cardiovascular Exam Cardiovascular Exam: REGULAR RHYTHM - GI/Abdominal Exam GI & Abdominal Exam: Soft, Normal Bowel Sounds - Extremities Exam Extremities Exam: Tenderness (R ankle, dressing in place) Additional comments: open wound R lateral malleolus, foul odor, serosanguineous drainage, L AVF, LBKA - Back Exam Back Exam: NORMAL INSPECTION - Neurological Exam Neurological Exam: Alert, CN II-XII Intact, Oriented x3 Additional comments: o focal motor deficit. - Psychiatric Exam Psychiatric exam: Anxious - Skin Skin Exam: Warm Assessment and Plan (1) Pressure ulcer of right foot Status: Acute (2) Status post incision and drainage Assessment & Plan: Staph Status: Acute (3) Sepsis Assessment & Plan: Staph blood C-S Status: Acute (4) Pain in right ankle and joints of right foot Status: Acute (5) ESRD (end stage renal disease) on dialysis Status: Chronic (6) Hypotension Status: Acute (7) IDDM (insulin dependent diabetes mellitus) Status: Chronic (8) Hypothyroidism Status: Chronic - Assessment and Plan (Free Text) Plan: continue Vanco, HD , and rest of Tx, OR debridement on Wednesday
[2018-04-12] MEDS ORDERED: Oxycodone/Acetaminophen 5/325 mg Tab PO PRN (17:56)
[2018-04-13] MEDS: Levothyroxine 100 MCG TAB PO SCH (05:43)
--- NOTE | 2018-04-13 07:57 | CP.PCM.PN ---
Subjective - Date & Time of Evaluation Date of Evaluation: 04/13/18 Time of Evaluation: 07:51 - Subjective Subjective: Podiatry progress note for Dr. Turner: 57 yo patient seen at bedside for right ankle infected wound. Patient states that he is feeling physically better with no nausea or fever symptoms. Patient states he is in no pain today. Denies SOB or CP. Has no other pedal complaints at this time. Aware of surgery date for Wednesday. Objective - Vital Signs/Intake and Output Vital Signs (last 24 hours): Temp Pulse Resp BP Pulse Ox 99.9 F H 92 H 16 130/62 96 04/13/18 04:48 04/13/18 04:48 04/13/18 04:48 04/13/18 04:48 04/13/18 04:48 - Medications Medications: Current Medications Acetaminophen (Tylenol 325mg Tab) 650 mg PO Q4 PRN PRN Reason: Fever >100.4 F Last Admin: 04/08/18 05:20 Dose: 650 mg Acetaminophen (Tylenol 325mg Tab) 650 mg PO Q4 PRN PRN Reason: Pain, Mild (1-3) Last Admin: 04/12/18 17:30 Dose: 650 mg Atorvastatin Calcium (Lipitor) 40 mg PO HS [facility] Last Admin: 04/12/18 21:21 Dose: 40 mg Dextrose (Dextrose 50% Inj) 0 ml IV STAT PRN; Protocol PRN Reason: Hypoglycemia Protocol Dextrose (Glutose 15) 0 gm PO ONCE PRN; Protocol PRN Reason: Hypoglycemia Protocol Glucagon (Glucagen Diagnostic Kit) 0 mg IM STAT PRN; Protocol PRN Reason: Hypoglycemia Protocol Heparin Sodium (Porcine) (Heparin) 5,000 units SC Q12 [facility] PRN Reason: Protocol Last Admin: 04/12/18 08:47 Dose: 5,000 units Vancomycin HCl 1 gm/ Sodium (Chloride) 250 mls @ 125 mls/hr IVPB TTS [facility] PRN Reason: Protocol Last Admin: 04/12/18 13:03 Dose: 125 mls/hr Insulin Human Regular (Humulin R) 0 units SC ACHS [facility] PRN Reason: Protocol Last Admin: 04/12/18 21:25 Dose: 2 units Levothyroxine Sodium (Synthroid) 100 mcg PO DAILY@0630 [facility] Last Admin: 04/13/18 05:43 Dose: 100 mcg Ondansetron HCl (Zofran Inj) 4 mg IVP Q4 PRN PRN Reason: Nausea/Vomiting Last Admin: 04/08/18 21:27 Dose: 4 mg Oxycodone/Acetaminophen (Percocet 5/325 Mg Tab) 1 tab PO Q6 PRN PRN Reason: Pain, moderate (4-7) Stop: 04/15/18 17:57 Last Admin: 04/12/18 18:00 Dose: 1 tab Sevelamer Carbonate (Renvela) 1,600 mg PO ACTID [facility] Last Admin: 04/12/18 17:30 Dose: 1,600 mg Vitamin B Complex/Vit C/Folic Acid (Nephro-Rod) 1 tab PO DAILY [facility] Last Admin: 04/12/18 08:46 Dose: 1 tab - Labs Labs: 04/12/18 11:14 04/12/18 11:14 - Constitutional Appears: Well, Non-toxic, No Acute Distress - Head Exam Head Exam: ATRAUMATIC, NORMOCEPHALIC - Extremities Exam Additional comments: RLE focused: Vasc: DP and PT pulses nonpalpable; cellulitis and erythema present about the ankle and extending proximally at anterior border of the lower leg; edema present about the lateral ankle Derm: open draining wound at the level of the lateral malleolus; foul odor with serosanguinous drainage appreciated when squeezed out at the previous I and D site, about 0.5cc of drainage expressed; clinical signs of infection present, probe to bone as bone exposed through wound Ortho: left prevoius BKA; pain at the level of the right lateral ankle wound Neuro: diminished protective and gross sensation - Neurological Exam Neurological Exam: Alert, Awake, Oriented x3 - Psychiatric Exam Psychiatric exam: Normal Affect, Normal Mood Assessment and Plan - Assessment and Plan (Free Text) Assessment: 57 yo seen and evaluated at bedside s/p I and D in the ED for right lateral malleolar infected wound Plan: Patient seen and evaluated Discussed in detail with attending Dr. Turner Minimal serous fluid expressed from wound at bedside - bone exposed through open wound Labs reviewed: 99.9 F temperature Foot and ankle x-ray - chronic fracture of distal tibia and fibula with medial subluxation or dislocation of talus; charcot joint possibility, moderate degeneration of STJ; chronic fracture of distal 5th met with probable chronic healed fracture at base of bone; OM of distal 5th met not excluded; recommend followup MRI or CT MRI not ordered as patient has pacemaker - bone scan ordered - abnormal uptake in all 3 phases due to presence of trimall fracture and callus deposition; not possible to exclude osteomyelitis; potential infectious cellulitis and osteomyelitis as well Wound culture collected and received from lateral right ankle - Staph. aureus Blood culture: Staph. aureus ID consult - severe sepsis, may need OR/debridement, may need BKA, IV rx started empirically - continue IV abx as per ID Has been patient in the past with Dr. Abbott on board, will discuss vascular status and plan Podiatry plans OR debridement with Dr. Turner - scheduled for Wednesday 04/18 at 7 :45 AM - medical clearance obtained Dr. Wilde per nursing, state they placed in nursing notes Podiatry to continue to follow while in house
[2018-04-13] MEDS: Insulin Regular 100 units/ml SC SCH ×4 (09:33→22:24)
[2018-04-13] MEDS: Multivitamin Vitamin B Complex (Nephro-Vite) Tab PO SCH (09:34)
--- NOTE | 2018-04-13 13:00 | CP.PCM.PN ---
Subjective - Date & Time of Evaluation Date of Evaluation: 04/13/18 Time of Evaluation: 09:00 - Subjective Subjective: afeb in NAD bacteremic infection right leg - likely OM Podiatry following Objective - Vital Signs/Intake and Output Vital Signs (last 24 hours): Temp Pulse Resp BP Pulse Ox 98.9 F 85 20 105/52 L 96 04/13/18 08:24 04/13/18 08:24 04/13/18 08:24 04/13/18 08:24 04/13/18 08:24 Intake and Output: 04/13/18 04/13/18 06:59 18:59 Intake Total 250 Balance 250 - Medications Medications: Current Medications Acetaminophen (Tylenol 325mg Tab) 650 mg PO Q4 PRN PRN Reason: Fever >100.4 F Last Admin: 04/08/18 05:20 Dose: 650 mg Acetaminophen (Tylenol 325mg Tab) 650 mg PO Q4 PRN PRN Reason: Pain, Mild (1-3) Last Admin: 04/12/18 17:30 Dose: 650 mg Atorvastatin Calcium (Lipitor) 40 mg PO HS [facility] Last Admin: 04/12/18 21:21 Dose: 40 mg Dextrose (Dextrose 50% Inj) 0 ml IV STAT PRN; Protocol PRN Reason: Hypoglycemia Protocol Dextrose (Glutose 15) 0 gm PO ONCE PRN; Protocol PRN Reason: Hypoglycemia Protocol Glucagon (Glucagen Diagnostic Kit) 0 mg IM STAT PRN; Protocol PRN Reason: Hypoglycemia Protocol Heparin Sodium (Porcine) (Heparin) 5,000 units SC Q12 [facility] PRN Reason: Protocol Last Admin: 04/12/18 08:47 Dose: 5,000 units Vancomycin HCl 1 gm/ Sodium (Chloride) 250 mls @ 125 mls/hr IVPB TTS [facility] PRN Reason: Protocol Last Admin: 04/12/18 13:03 Dose: 125 mls/hr Insulin Human Regular (Humulin R) 0 units SC ACHS [facility] PRN Reason: Protocol Last Admin: 04/13/18 12:06 Dose: 2 units Levothyroxine Sodium (Synthroid) 100 mcg PO DAILY@0630 [facility] Last Admin: 04/13/18 05:43 Dose: 100 mcg Ondansetron HCl (Zofran Inj) 4 mg IVP Q4 PRN PRN Reason: Nausea/Vomiting Last Admin: 09/07/18 21:27 Dose: 4 mg Oxycodone/Acetaminophen (Percocet 5/325 Mg Tab) 1 tab PO Q6 PRN PRN Reason: Pain, moderate (4-7) Stop: 04/15/18 17:57 Last Admin: 04/12/18 18:00 Dose: 1 tab Sevelamer Carbonate (Renvela) 1,600 mg PO ACTID [facility] Last Admin: 04/13/18 12:07 Dose: 1,600 mg Vitamin B Complex/Vit C/Folic Acid (Nephro-Rod) 1 tab PO DAILY [facility] Last Admin: 04/13/18 09:34 Dose: 1 tab - Labs Labs: 04/12/18 11:14 04/12/18 11:14 - Constitutional Appears: Non-toxic, Chronically Ill - Head Exam Head Exam: NORMOCEPHALIC - Eye Exam Eye Exam: PERRL - ENT Exam ENT Exam: Mucous Membranes Dry - Neck Exam Neck Exam: absent: Lymphadenopathy - Respiratory Exam Respiratory Exam: Decreased Breath Sounds - Cardiovascular Exam Cardiovascular Exam: REGULAR RHYTHM - GI/Abdominal Exam GI & Abdominal Exam: Distended - Rectal Exam Rectal Exam: Deferred - Exam Exam: NORMAL INSPECTION - Extremities Exam Extremities Exam: Tenderness. absent: Calf Tenderness, Pedal Edema Additional comments: Vasc: DP and PT pulses nonpalpable; cellulitis and erythema present about the ankle and extending proximally at anterior border of the lower leg; edema present about the lateral ankle Derm: open draining wound at the level of the lateral malleolus; foul odor with serosanguinous drainage appreciated when squeezed out at the previous I and D site, about 0.5cc of drainage expressed; clinical signs of infection present, probe to bone as bone exposed through wound Ortho: left prevoius BKA; pain at the level of the right lateral ankle wound Neuro: diminished protective and gross sensation - Back Exam Back Exam: absent: CVA tenderness (L), CVA tenderness (R) - Neurological Exam Neurological Exam: Alert, Awake, Oriented x3 Assessment and Plan (1) Cellulitis Status: Acute (2) ESRD (end stage renal disease) on dialysis Status: Chronic (3) CAD (coronary artery disease) of artery bypass graft Status: Deleted (4) Chronic kidney disease (CKD) Status: Acute - Assessment and Plan (Free Text) Assessment: bone scan + all 3 phases MRI cant be done IV rx in progressmay need OR debridement cont IV rx 6-8 weeks
--- NOTE | 2018-04-13 13:15 | CP.PCM.PN ---
Subjective - Date & Time of Evaluation Date of Evaluation: 04/13/18 Time of Evaluation: 13:14 - Subjective Subjective: patient awake and conscious no nausea and no vomiting. Appetite improving No chest pain Objective - Vital Signs/Intake and Output Vital Signs (last 24 hours): Temp Pulse Resp BP Pulse Ox 98.9 F 85 20 105/52 L 96 04/13/18 08:24 04/13/18 08:24 04/13/18 08:24 04/13/18 08:24 04/13/18 08:24 Intake and Output: 04/13/18 04/13/18 06:59 18:59 Intake Total 250 Balance 250 - Medications Medications: Current Medications Acetaminophen (Tylenol 325mg Tab) 650 mg PO Q4 PRN PRN Reason: Fever >100.4 F Last Admin: 04/08/18 05:20 Dose: 650 mg Acetaminophen (Tylenol 325mg Tab) 650 mg PO Q4 PRN PRN Reason: Pain, Mild (1-3) Last Admin: 04/12/18 17:30 Dose: 650 mg Atorvastatin Calcium (Lipitor) 40 mg PO HS [facility] Last Admin: 04/12/18 21:21 Dose: 40 mg Dextrose (Dextrose 50% Inj) 0 ml IV STAT PRN; Protocol PRN Reason: Hypoglycemia Protocol Dextrose (Glutose 15) 0 gm PO ONCE PRN; Protocol PRN Reason: Hypoglycemia Protocol Glucagon (Glucagen Diagnostic Kit) 0 mg IM STAT PRN; Protocol PRN Reason: Hypoglycemia Protocol Heparin Sodium (Porcine) (Heparin) 5,000 units SC Q12 [facility] PRN Reason: Protocol Last Admin: 04/12/18 08:47 Dose: 5,000 units Vancomycin HCl 1 gm/ Sodium (Chloride) 250 mls @ 125 mls/hr IVPB TTS [facility] PRN Reason: Protocol Last Admin: 04/12/18 13:03 Dose: 125 mls/hr Cefazolin Sodium 2 gm/ Sodium (Chloride) 100 mls @ 100 mls/hr IVPB TTS [facility] PRN Reason: Protocol Insulin Human Regular (Humulin R) 0 units SC ACHS [facility] PRN Reason: Protocol Last Admin: 04/13/18 12:06 Dose: 2 units Levothyroxine Sodium (Synthroid) 100 mcg PO DAILY@0630 [facility] Last Admin: 04/13/18 05:43 Dose: 100 mcg Ondansetron HCl (Zofran Inj) 4 mg IVP Q4 PRN PRN Reason: Nausea/Vomiting Last Admin: 04/08/18 21:27 Dose: 4 mg Oxycodone/Acetaminophen (Percocet 5/325 Mg Tab) 1 tab PO Q6 PRN PRN Reason: Pain, moderate (4-7) Stop: 04/15/18 17:57 Last Admin: 04/12/18 18:00 Dose: 1 tab Sevelamer Carbonate (Renvela) 1,600 mg PO ACTID [facility] Last Admin: 04/13/18 12:07 Dose: 1,600 mg Vitamin B Complex/Vit C/Folic Acid (Nephro-Rod) 1 tab PO DAILY [facility] Last Admin: 04/13/18 09:34 Dose: 1 tab - Labs Labs: 04/12/18 11:14 04/12/18 11:14 - Constitutional Appears: No Acute Distress - Eye Exam Eye Exam: Conjunctival injection - ENT Exam ENT Exam: Mucous Membranes Moist - Neck Exam Neck Exam: absent: Lymphadenopathy - Respiratory Exam Respiratory Exam: NORMAL BREATHING PATTERN. absent: Chest Wall Tenderness - Cardiovascular Exam Cardiovascular Exam: absent: Gallop, JVD, Rubs - GI/Abdominal Exam GI & Abdominal Exam: Soft, Normal Bowel Sounds - Extremities Exam Extremities Exam: absent: Calf Tenderness - Back Exam Back Exam: absent: CVA tenderness (L), CVA tenderness (R) - Neurological Exam Neurological Exam: Alert - Psychiatric Exam Psychiatric exam: Normal Affect - Skin Skin Exam: absent: Cyanosis Assessment and Plan (1) ESRD (end stage renal disease) on dialysis Assessment & Plan: end stage renal disease for hemodialysis TTS. Diabetic kidney disease. Right foot ulcer with cellulitis. Status post left leg below knee amputation Patient admitted because of fever and cellulitis of the right foot Staphylococcus aureus bacteremia likely related to osteomyelitis? The plan hemodialysis as scheduled TTS Patient continued to do better Antibiotics as per renal doses EPO for anemia on hemodialysis Status: Chronic (2) Cellulitis Status: Acute (3) CAD (coronary artery disease) of artery bypass graft Status: Deleted (4) Pressure ulcer of right foot Status: Acute
--- NOTE | 2018-04-13 16:04 | CP.PCM.PN ---
Subjective - Date & Time of Evaluation Date of Evaluation: 04/13/18 Time of Evaluation: 13:00 - Subjective Subjective: S/P R ankle ulcer, S/P I&D. Minimal pain R foot, minimal headache. Objective - Vital Signs/Intake and Output Vital Signs (last 24 hours): Temp Pulse Resp BP Pulse Ox 98.9 F 85 20 105/52 L 96 04/13/18 08:24 04/13/18 08:24 04/13/18 08:24 04/13/18 08:24 04/13/18 08:24 Intake and Output: 04/13/18 04/13/18 06:59 18:59 Intake Total 250 Balance 250 - Medications Medications: Current Medications Acetaminophen (Tylenol 325mg Tab) 650 mg PO Q4 PRN PRN Reason: Fever >100.4 F Last Admin: 04/08/18 05:20 Dose: 650 mg Acetaminophen (Tylenol 325mg Tab) 650 mg PO Q4 PRN PRN Reason: Pain, Mild (1-3) Last Admin: 04/12/18 17:30 Dose: 650 mg Atorvastatin Calcium (Lipitor) 40 mg PO HS [facility] Last Admin: 04/12/18 21:21 Dose: 40 mg Dextrose (Dextrose 50% Inj) 0 ml IV STAT PRN; Protocol PRN Reason: Hypoglycemia Protocol Dextrose (Glutose 15) 0 gm PO ONCE PRN; Protocol PRN Reason: Hypoglycemia Protocol Glucagon (Glucagen Diagnostic Kit) 0 mg IM STAT PRN; Protocol PRN Reason: Hypoglycemia Protocol Heparin Sodium (Porcine) (Heparin) 5,000 units SC Q12 [facility] PRN Reason: Protocol Last Admin: 04/12/18 08:47 Dose: 5,000 units Vancomycin HCl 1 gm/ Sodium (Chloride) 250 mls @ 125 mls/hr IVPB TTS [facility] PRN Reason: Protocol Last Admin: 04/12/18 13:03 Dose: 125 mls/hr Cefazolin Sodium 2 gm/ Sodium (Chloride) 100 mls @ 100 mls/hr IVPB TTS [facility] PRN Reason: Protocol Insulin Human Regular (Humulin R) 0 units SC ACHS [facility] PRN Reason: Protocol Last Admin: 04/13/18 12:06 Dose: 2 units Levothyroxine Sodium (Synthroid) 100 mcg PO DAILY@0630 [facility] Last Admin: 04/13/18 05:43 Dose: 100 mcg Ondansetron HCl (Zofran Inj) 4 mg IVP Q4 PRN PRN Reason: Nausea/Vomiting Last Admin: 04/08/18 21:27 Dose: 4 mg Oxycodone/Acetaminophen (Percocet 5/325 Mg Tab) 1 tab PO Q6 PRN PRN Reason: Pain, moderate (4-7) Stop: 04/15/18 17:57 Last Admin: 04/12/18 18:00 Dose: 1 tab Sevelamer Carbonate (Renvela) 1,600 mg PO ACTID [facility] Last Admin: 04/13/18 12:07 Dose: 1,600 mg Vitamin B Complex/Vit C/Folic Acid (Nephro-Rod) 1 tab PO DAILY [facility] Last Admin: 04/13/18 09:34 Dose: 1 tab - Labs Labs: 04/12/18 11:14 04/12/18 11:14 - Constitutional Appears: No Acute Distress - Head Exam Head Exam: NORMAL INSPECTION - Eye Exam Eye Exam: PERRL - ENT Exam ENT Exam: Normal Exam - Neck Exam Neck Exam: Normal Inspection - Respiratory Exam Respiratory Exam: Clear to Ausculation Bilateral - Cardiovascular Exam Cardiovascular Exam: REGULAR RHYTHM - GI/Abdominal Exam GI & Abdominal Exam: Soft, Normal Bowel Sounds - Extremities Exam Extremities Exam: Tenderness (R ankle, dressing in place) Additional comments: L BKA - Back Exam Back Exam: NORMAL INSPECTION - Neurological Exam Neurological Exam: Alert, CN II-XII Intact, Oriented x3 Additional comments: No focal motor deficit. - Psychiatric Exam Psychiatric exam: Anxious - Skin Skin Exam: Warm Assessment and Plan (1) Pressure ulcer of right foot Status: Acute (2) Status post incision and drainage Status: Acute (3) Sepsis Status: Acute (4) Pain in right ankle and joints of right foot Status: Acute (5) ESRD (end stage renal disease) on dialysis Status: Chronic (6) Hypotension Status: Acute (7) IDDM (insulin dependent diabetes mellitus) Status: Chronic (8) Hypothyroidism Status: Chronic - Assessment and Plan (Free Text) Plan: For OR I&D of R ankle ulcer on Wednesday.
[2018-04-14] MEDS: Levothyroxine 100 MCG TAB PO SCH (06:21)
[2018-04-14 06:34] LABS: HEMOGLOBIN 10.5 g/dL (12.0-18.0); MEAN CELL VOLUME 96.6 fl (80.0-94.0); MEAN CORPUSCULAR HEMOGLOBIN 32.3 pg (27.0-31.0); MEAN CORPUSCULAR HGB CONC 33.5 g/dL (33.0-37.0); RBC 3.24 Mil/uL (4.40-5.90); WHITE BLOOD COUNT 8.7 K/uL (4.8-10.8)
[2018-04-14] MEDS: Insulin Regular 100 units/ml SC SCH ×5 (06:35→21:41)
[2018-04-14 07:00] LABS: ALB/GLOB RATIO 0.9 (1.0-2.1); CALCIUM 8.7 mg/dL (8.4-10.2)
--- NOTE | 2018-04-14 08:59 | CP.PCM.PN ---
Subjective - Date & Time of Evaluation Date of Evaluation: 04/14/18 Time of Evaluation: 08:57 - Subjective Subjective: Podiatry progress note for Dr. Turner: 57 yo patient seen at bedside for right ankle infected wound. Patient states that he is feeling physically better with no nausea or fever symptoms. Patient states he is in no pain today. Denies SOB or CP. Has no other pedal complaints at this time. Aware of surgery date for Wednesday. Objective - Vital Signs/Intake and Output Vital Signs (last 24 hours): Temp Pulse Resp BP Pulse Ox 99 F 77 20 125/65 97 04/14/18 08:49 04/14/18 08:49 04/14/18 08:49 04/14/18 08:49 04/14/18 08:49 - Medications Medications: Current Medications Acetaminophen (Tylenol 325mg Tab) 650 mg PO Q4 PRN PRN Reason: Fever >100.4 F Last Admin: 04/13/18 16:29 Dose: 650 mg Acetaminophen (Tylenol 325mg Tab) 650 mg PO Q4 PRN PRN Reason: Pain, Mild (1-3) Last Admin: 04/12/18 17:30 Dose: 650 mg Atorvastatin Calcium (Lipitor) 40 mg PO HS [facility] Last Admin: 04/13/18 22:24 Dose: 40 mg Dextrose (Dextrose 50% Inj) 0 ml IV STAT PRN; Protocol PRN Reason: Hypoglycemia Protocol Dextrose (Glutose 15) 0 gm PO ONCE PRN; Protocol PRN Reason: Hypoglycemia Protocol Glucagon (Glucagen Diagnostic Kit) 0 mg IM STAT PRN; Protocol PRN Reason: Hypoglycemia Protocol Heparin Sodium (Porcine) (Heparin) 5,000 units SC Q12 [facility] PRN Reason: Protocol Last Admin: 04/12/18 08:47 Dose: 5,000 units Vancomycin HCl 1 gm/ Sodium (Chloride) 250 mls @ 125 mls/hr IVPB TTS [facility] PRN Reason: Protocol Last Admin: 04/12/18 13:03 Dose: 125 mls/hr Cefazolin Sodium 2 gm/ Sodium (Chloride) 100 mls @ 100 mls/hr IVPB TTS [facility] PRN Reason: Protocol Insulin Human Regular (Humulin R) 0 units SC ACHS [facility] PRN Reason: Protocol Last Admin: 04/14/18 06:35 Dose: Not Given Levothyroxine Sodium (Synthroid) 100 mcg PO DAILY@0630 [facility] Last Admin: 04/14/18 06:21 Dose: 100 mcg Ondansetron HCl (Zofran Inj) 4 mg IVP Q4 PRN PRN Reason: Nausea/Vomiting Last Admin: 04/08/18 21:27 Dose: 4 mg Oxycodone/Acetaminophen (Percocet 5/325 Mg Tab) 1 tab PO Q6 PRN PRN Reason: Pain, moderate (4-7) Stop: 04/15/18 17:57 Last Admin: 04/12/18 18:00 Dose: 1 tab Sevelamer Carbonate (Renvela) 1,600 mg PO ACTID [facility] Last Admin: 04/13/18 16:30 Dose: 1,600 mg Vitamin B Complex/Vit C/Folic Acid (Nephro-Rod) 1 tab PO DAILY [facility] Last Admin: 04/13/18 09:34 Dose: 1 tab - Labs Labs: 04/14/18 06:00 04/14/18 06:00 - Constitutional Appears: Well, Non-toxic, No Acute Distress - Head Exam Head Exam: ATRAUMATIC, NORMOCEPHALIC - Extremities Exam Additional comments: RLE focused: Vasc: DP and PT pulses nonpalpable; cellulitis and erythema present about the ankle and extending proximally at anterior border of the lower leg; edema present about the lateral ankle Derm: open draining wound at the level of the lateral malleolus, increasing in size, macerated wound borders; foul odor with serosanguinous drainage appreciated when squeezed out at the previous I and D site, no drainage expressed; clinical signs of infection present, probe to bone as bone exposed through wound Ortho: left prevoius BKA; pain at the level of the right lateral ankle wound Neuro: diminished protective and gross sensation - Neurological Exam Neurological Exam: Alert, Awake, Oriented x3 - Psychiatric Exam Psychiatric exam: Normal Affect, Normal Mood Assessment and Plan - Assessment and Plan (Free Text) Assessment: 57 yo seen and evaluated at bedside for right lateral malleolar infected wound Plan: Patient seen and evaluated Discussed in detail with attending Dr. Turner Minimal serous fluid expressed from wound at bedside - bone exposed through open wound Labs reviewed: 99.9 F temperature Foot and ankle x-ray - chronic fracture of distal tibia and fibula with medial subluxation or dislocation of talus; charcot joint possibility, moderate degeneration of STJ; chronic fracture of distal 5th met with probable chronic healed fracture at base of bone; OM of distal 5th met not excluded; recommend followup MRI or CT MRI not ordered as patient has pacemaker - bone scan ordered - abnormal uptake in all 3 phases due to presence of trimall fracture and callus deposition; not possible to exclude osteomyelitis; potential infectious cellulitis and osteomyelitis as well Wound culture collected and received from lateral right ankle - Staph. aureus Blood culture: Staph. aureus ID consult - severe sepsis, may need OR/debridement, may need BKA, IV rx started empirically - continue IV abx as per ID Has been patient in the past with Dr. Abbott on board, will discuss vascular status and plan Podiatry plans OR debridement with Dr. Turner - scheduled for Wednesday 04/18 at 7 :45 AM - medical clearance obtained Dr. Wilde per nursing, aware of surgery for I and D Wednesday, state they placed in nursing notes Podiatry to continue to follow while in house
[2018-04-14] MEDS: Multivitamin Vitamin B Complex (Nephro-Vite) Tab PO SCH (09:06)
--- NOTE | 2018-04-14 10:46 | CP.PCM.PN ---
Subjective - Date & Time of Evaluation Date of Evaluation: 04/14/18 Time of Evaluation: 10:45 - Subjective Subjective: Dialysis note he was seen on hemodialysis. Patient receiving dialysis from the left upper arm fistula. Patient feeling good no ausea no vomiting. Vital signs reviewed stable Lab reviewed , stable Objective - Vital Signs/Intake and Output Vital Signs (last 24 hours): Temp Pulse Resp BP Pulse Ox 99 F 77 20 125/65 97 04/14/18 08:49 04/14/18 08:49 04/14/18 08:49 04/14/18 08:49 04/14/18 08:49 - Medications Medications: Current Medications Acetaminophen (Tylenol 325mg Tab) 650 mg PO Q4 PRN PRN Reason: Fever >100.4 F Last Admin: 04/13/18 16:29 Dose: 650 mg Acetaminophen (Tylenol 325mg Tab) 650 mg PO Q4 PRN PRN Reason: Pain, Mild (1-3) Last Admin: 04/12/18 17:30 Dose: 650 mg Atorvastatin Calcium (Lipitor) 40 mg PO HS JASON Last Admin: 04/13/18 22:24 Dose: 40 mg Dextrose (Dextrose 50% Inj) 0 ml IV STAT PRN; Protocol PRN Reason: Hypoglycemia Protocol Dextrose (Glutose 15) 0 gm PO ONCE PRN; Protocol PRN Reason: Hypoglycemia Protocol Glucagon (Glucagen Diagnostic Kit) 0 mg IM STAT PRN; Protocol PRN Reason: Hypoglycemia Protocol Heparin Sodium (Porcine) (Heparin) 5,000 units SC Q12 JASON PRN Reason: Protocol Last Admin: 04/12/18 08:47 Dose: 5,000 units Vancomycin HCl 1 gm/ Sodium (Chloride) 250 mls @ 125 mls/hr IVPB TTS JASON PRN Reason: Protocol Last Admin: 04/12/18 13:03 Dose: 125 mls/hr Cefazolin Sodium 2 gm/ Sodium (Chloride) 100 mls @ 100 mls/hr IVPB TTS JASON PRN Reason: Protocol Insulin Human Regular (Humulin R) 0 units SC ACHS JASON PRN Reason: Protocol Last Admin: 04/14/18 06:35 Dose: Not Given Levothyroxine Sodium (Synthroid) 100 mcg PO DAILY@0630 [facility] Last Admin: 04/14/18 06:21 Dose: 100 mcg Ondansetron HCl (Zofran Inj) 4 mg IVP Q4 PRN PRN Reason: Nausea/Vomiting Last Admin: 04/08/18 21:27 Dose: 4 mg Oxycodone/Acetaminophen (Percocet 5/325 Mg Tab) 1 tab PO Q6 PRN PRN Reason: Pain, moderate (4-7) Stop: 04/15/18 17:57 Last Admin: 04/12/18 18:00 Dose: 1 tab Sevelamer Carbonate (Renvela) 1,600 mg PO ACTID [facility] Last Admin: 04/14/18 09:06 Dose: 1,600 mg Vitamin B Complex/Vit C/Folic Acid (Nephro-Rod) 1 tab PO DAILY JASON Last Admin: 04/14/18 09:06 Dose: 1 tab - Labs Labs: 04/14/18 06:00 04/14/18 06:00 - Constitutional Appears: No Acute Distress - Eye Exam Eye Exam: Conjunctival injection - ENT Exam ENT Exam: Mucous Membranes Moist - Neck Exam Neck Exam: absent: Lymphadenopathy - Respiratory Exam Respiratory Exam: NORMAL BREATHING PATTERN. absent: Chest Wall Tenderness - Cardiovascular Exam Cardiovascular Exam: REGULAR RHYTHM. absent: Gallop, Rubs - GI/Abdominal Exam GI & Abdominal Exam: Soft, Normal Bowel Sounds - Extremities Exam Extremities Exam: absent: Calf Tenderness - Back Exam Back Exam: absent: CVA tenderness (L), CVA tenderness (R) - Neurological Exam Neurological Exam: Alert - Psychiatric Exam Psychiatric exam: Normal Affect - Skin Skin Exam: absent: Cyanosis Assessment and Plan (1) ESRD (end stage renal disease) on dialysis Assessment & Plan: end stage renal disease for hemodialysis TTS. Diabetic kidney disease. Right foot ulcer with cellulitis. Status post left leg below knee amputation Patient admitted because of fever and cellulitis of the right foot Staphylococcus aureus bacteremia likely related to osteomyelitis? the plan Patient seen on hemodialysis now and he is tolerating very well. I discussed the dialysis ordelysis nurse at bedside continue phosphos binders Status: Chronic (2) Cellulitis Status: Acute (3) CAD (coronary artery disease) of artery bypass graft Status: Deleted (4) Pressure ulcer of right foot Status: Acute
[2018-04-14] MEDS: ceFAZolin 2 GM in Sodium Chloride 0.9% 100 ML IVPB SCH (14:07)
--- NOTE | 2018-04-14 15:39 | CP.PCM.PN ---
Subjective - Date & Time of Evaluation Date of Evaluation: 04/14/18 Time of Evaluation: 10:00 - Subjective Subjective: F/U Ulcer R ankle, S/P I&D Minimal pain R foot, no headache. Objective - Vital Signs/Intake and Output Vital Signs (last 24 hours): Temp Pulse Resp BP Pulse Ox 98.5 F 98 H 20 155/70 H 97 04/14/18 13:00 04/14/18 13:00 04/14/18 13:00 04/14/18 13:00 04/14/18 13:00 - Medications Medications: Current Medications Acetaminophen (Tylenol 325mg Tab) 650 mg PO Q4 PRN PRN Reason: Fever >100.4 F Last Admin: 04/13/18 16:29 Dose: 650 mg Acetaminophen (Tylenol 325mg Tab) 650 mg PO Q4 PRN PRN Reason: Pain, Mild (1-3) Last Admin: 04/12/18 17:30 Dose: 650 mg Atorvastatin Calcium (Lipitor) 40 mg PO HS JASON Last Admin: 04/13/18 22:24 Dose: 40 mg Dextrose (Dextrose 50% Inj) 0 ml IV STAT PRN; Protocol PRN Reason: Hypoglycemia Protocol Dextrose (Glutose 15) 0 gm PO ONCE PRN; Protocol PRN Reason: Hypoglycemia Protocol Glucagon (Glucagen Diagnostic Kit) 0 mg IM STAT PRN; Protocol PRN Reason: Hypoglycemia Protocol Heparin Sodium (Porcine) (Heparin) 5,000 units SC Q12 JASON PRN Reason: Protocol Last Admin: 04/12/18 08:47 Dose: 5,000 units Vancomycin HCl 1 gm/ Sodium (Chloride) 250 mls @ 125 mls/hr IVPB TTS JASON PRN Reason: Protocol Last Admin: 04/14/18 11:20 Dose: 125 mls/hr Cefazolin Sodium 2 gm/ Sodium (Chloride) 100 mls @ 100 mls/hr IVPB TTS JASON PRN Reason: Protocol Last Admin: 04/14/18 14:07 Dose: 100 mls/hr Insulin Human Regular (Humulin R) 0 units SC ACHS JASON PRN Reason: Protocol Last Admin: 04/14/18 14:06 Dose: 1 units Levothyroxine Sodium (Synthroid) 100 mcg PO DAILY@0630 [facility] Last Admin: 04/14/18 06:21 Dose: 100 mcg Ondansetron HCl (Zofran Inj) 4 mg IVP Q4 PRN PRN Reason: Nausea/Vomiting Last Admin: 04/08/18 21:27 Dose: 4 mg Oxycodone/Acetaminophen (Percocet 5/325 Mg Tab) 1 tab PO Q6 PRN PRN Reason: Pain, moderate (4-7) Stop: 04/15/18 17:57 Last Admin: 04/12/18 18:00 Dose: 1 tab Sevelamer Carbonate (Renvela) 1,600 mg PO ACTID [facility] Last Admin: 04/14/18 14:06 Dose: 1,600 mg Vitamin B Complex/Vit C/Folic Acid (Nephro-Rod) 1 tab PO DAILY [facility] Last Admin: 04/14/18 09:06 Dose: 1 tab - Labs Labs: 04/14/18 06:00 04/14/18 06:00 - Constitutional Appears: No Acute Distress - Head Exam Head Exam: NORMAL INSPECTION - Eye Exam Eye Exam: PERRL - ENT Exam ENT Exam: Normal Exam - Neck Exam Neck Exam: Normal Inspection - Respiratory Exam Respiratory Exam: Clear to Ausculation Bilateral - Cardiovascular Exam Cardiovascular Exam: REGULAR RHYTHM - GI/Abdominal Exam GI & Abdominal Exam: Soft, Normal Bowel Sounds - Extremities Exam Extremities Exam: Tenderness (R ankle, dressing in place, L arm AV shunt + bruit and thrill, L BKA) - Back Exam Back Exam: NORMAL INSPECTION - Neurological Exam Neurological Exam: Alert, CN II-XII Intact, Oriented x3 Additional comments: No focal motor deficit. - Psychiatric Exam Psychiatric exam: Anxious - Skin Skin Exam: Warm Assessment and Plan (1) Pressure ulcer of right foot Status: Acute (2) Status post incision and drainage Status: Acute (3) Sepsis Status: Acute (4) Pain in right ankle and joints of right foot Status: Acute (5) ESRD (end stage renal disease) on dialysis Status: Chronic (6) Hypotension Status: Acute (7) IDDM (insulin dependent diabetes mellitus) Status: Chronic (8) Hypothyroidism Status: Chronic - Assessment and Plan (Free Text) Plan: I&D R ankle for Wednesday, continue Cefazolin, Vanco and rest of Tx.
[2018-04-15] MEDS: Insulin Regular 100 units/ml SC SCH ×4 (06:44→21:13)
[2018-04-15] MEDS: Levothyroxine 100 MCG TAB PO SCH (06:47)
--- NOTE | 2018-04-15 08:19 | CP.PCM.PN ---
Subjective - Date & Time of Evaluation Date of Evaluation: 04/15/18 Time of Evaluation: 08:16 - Subjective Subjective: Podiatry progress note for Dr. Turner: 57 yo patient seen at bedside for right ankle infected wound. Patient states that he is feeling physically better with no nausea or fever symptoms. Patient states his right leg is very painful. Denies SOB or CP. Has no other pedal complaints at this time. Aware of surgery date for Wednesday. Objective - Vital Signs/Intake and Output Vital Signs (last 24 hours): Temp Pulse Resp BP Pulse Ox 98.1 F 101 H 19 150/61 96 04/15/18 00:00 04/15/18 00:00 04/15/18 00:00 04/15/18 00:00 04/15/18 00:00 - Medications Medications: Current Medications Acetaminophen (Tylenol 325mg Tab) 650 mg PO Q4 PRN PRN Reason: Fever >100.4 F Last Admin: 04/14/18 16:05 Dose: 650 mg Acetaminophen (Tylenol 325mg Tab) 650 mg PO Q4 PRN PRN Reason: Pain, Mild (1-3) Last Admin: 04/12/18 17:30 Dose: 650 mg Atorvastatin Calcium (Lipitor) 40 mg PO HS JASON Last Admin: 04/14/18 21:43 Dose: 40 mg Dextrose (Dextrose 50% Inj) 0 ml IV STAT PRN; Protocol PRN Reason: Hypoglycemia Protocol Dextrose (Glutose 15) 0 gm PO ONCE PRN; Protocol PRN Reason: Hypoglycemia Protocol Glucagon (Glucagen Diagnostic Kit) 0 mg IM STAT PRN; Protocol PRN Reason: Hypoglycemia Protocol Heparin Sodium (Porcine) (Heparin) 5,000 units SC Q12 JASON PRN Reason: Protocol Last Admin: 04/12/18 08:47 Dose: 5,000 units Vancomycin HCl 1 gm/ Sodium (Chloride) 250 mls @ 125 mls/hr IVPB TTS JASON PRN Reason: Protocol Last Admin: 04/14/18 11:20 Dose: 125 mls/hr Cefazolin Sodium 2 gm/ Sodium (Chloride) 100 mls @ 100 mls/hr IVPB TTS JASON PRN Reason: Protocol Last Admin: 04/14/18 14:07 Dose: 100 mls/hr Insulin Human Regular (Humulin R) 0 units SC ACHS JASON PRN Reason: Protocol Last Admin: 04/15/18 06:44 Dose: 1 units Levothyroxine Sodium (Synthroid) 100 mcg PO DAILY@0630 [facility] Last Admin: 04/15/18 06:47 Dose: Not Given Ondansetron HCl (Zofran Inj) 4 mg IVP Q4 PRN PRN Reason: Nausea/Vomiting Last Admin: 04/08/18 21:27 Dose: 4 mg Oxycodone/Acetaminophen (Percocet 5/325 Mg Tab) 1 tab PO Q6 PRN PRN Reason: Pain, moderate (4-7) Stop: 04/15/18 17:57 Last Admin: 04/12/18 18:00 Dose: 1 tab Sevelamer Carbonate (Renvela) 1,600 mg PO ACTID [facility] Last Admin: 04/14/18 17:08 Dose: 1,600 mg Vitamin B Complex/Vit C/Folic Acid (Nephro-Rod) 1 tab PO DAILY [facility] Last Admin: 04/14/18 09:06 Dose: 1 tab - Labs Labs: 04/14/18 06:00 04/14/18 06:00 - Constitutional Appears: Well, Non-toxic, No Acute Distress - Head Exam Head Exam: ATRAUMATIC, NORMOCEPHALIC - Extremities Exam Additional comments: RLE focused: Vasc: DP and PT pulses nonpalpable; resolving cellulitis and erythema present about the ankle and extending proximally at anterior border of the lower leg; edema present about the lateral ankle Derm: open draining wound at the level of the lateral malleolus, increasing in size, macerated wound borders; foul odor with serosanguinous drainage appreciated when squeezed out at the previous I and D site, no drainage expressed; clinical signs of infection present, probe to bone as fibula exposed through wound, fluctuance noted on the dorsal aspect of the wound. Ortho: left prevoius BKA; pain at the level of the right lateral ankle wound Neuro: diminished protective and gross sensation - Neurological Exam Neurological Exam: Alert, Awake, Oriented x3 - Psychiatric Exam Psychiatric exam: Normal Affect, Normal Mood - Skin Skin Exam: Normal Color Assessment and Plan - Assessment and Plan (Free Text) Assessment: 57 yo seen and evaluated at bedside for right lateral malleolar infected wound Plan: Patient seen and evaluated Discussed in detail with attending Dr. Turner Chart, labs and vitals reviewed; afebrile and absent leukocytosis Foot and ankle x-ray - chronic fracture of distal tibia and fibula with medial subluxation or dislocation of talus; charcot joint possibility, moderate degeneration of STJ; chronic fracture of distal 5th met with probable chronic healed fracture at base of bone; OM of distal 5th met not excluded; recommend followup MRI or CT MRI not ordered as patient has pacemaker - bone scan ordered - abnormal uptake in all 3 phases due to presence of trimall fracture and callus deposition; not possible to exclude osteomyelitis; potential infectious cellulitis and osteomyelitis as well Wound culture collected and received from lateral right ankle - Staph. aureus Blood culture: Staph. aureus ID consult - severe sepsis, may need OR/debridement, may need BKA, IV rx started empirically - continue IV abx as per ID Has been patient in the past with Dr. Abbott on board, will discuss vascular status and plan Podiatry plans OR debridement with Dr. Turner - scheduled for Wednesday 04/18 at 7 :45 AM - medical clearance obtained Dr. Wilde per nursing, aware of surgery for I&D Wednesday, state they placed in nursing notes Podiatry to continue to follow while in house
--- NOTE | 2018-04-15 09:41 | CP.PCM.PN ---
Subjective - Date & Time of Evaluation Date of Evaluation: 04/15/18 Time of Evaluation: 09:40 - Subjective Subjective: patient awake and conscious not in acute distress. No nausea or vomiting appetite is good no chest pain Objective - Vital Signs/Intake and Output Vital Signs (last 24 hours): Temp Pulse Resp BP Pulse Ox 99.9 F H 84 20 106/61 99 04/15/18 08:33 04/15/18 08:33 04/15/18 08:33 04/15/18 08:33 04/15/18 08:33 - Medications Medications: Current Medications Acetaminophen (Tylenol 325mg Tab) 650 mg PO Q4 PRN PRN Reason: Fever >100.4 F Last Admin: 04/14/18 16:05 Dose: 650 mg Acetaminophen (Tylenol 325mg Tab) 650 mg PO Q4 PRN PRN Reason: Pain, Mild (1-3) Last Admin: 04/12/18 17:30 Dose: 650 mg Atorvastatin Calcium (Lipitor) 40 mg PO HS JASON Last Admin: 04/14/18 21:43 Dose: 40 mg Dextrose (Dextrose 50% Inj) 0 ml IV STAT PRN; Protocol PRN Reason: Hypoglycemia Protocol Dextrose (Glutose 15) 0 gm PO ONCE PRN; Protocol PRN Reason: Hypoglycemia Protocol Glucagon (Glucagen Diagnostic Kit) 0 mg IM STAT PRN; Protocol PRN Reason: Hypoglycemia Protocol Heparin Sodium (Porcine) (Heparin) 5,000 units SC Q12 JASON PRN Reason: Protocol Last Admin: 04/12/18 08:47 Dose: 5,000 units Vancomycin HCl 1 gm/ Sodium (Chloride) 250 mls @ 125 mls/hr IVPB TTS JASON PRN Reason: Protocol Last Admin: 04/14/18 11:20 Dose: 125 mls/hr Cefazolin Sodium 2 gm/ Sodium (Chloride) 100 mls @ 100 mls/hr IVPB TTS JASON PRN Reason: Protocol Last Admin: 04/14/18 14:07 Dose: 100 mls/hr Insulin Human Regular (Humulin R) 0 units SC ACHS JASON PRN Reason: Protocol Last Admin: 04/15/18 06:44 Dose: 1 units Levothyroxine Sodium (Synthroid) 100 mcg PO DAILY@0630 [facility] Last Admin: 04/15/18 06:47 Dose: Not Given Ondansetron HCl (Zofran Inj) 4 mg IVP Q4 PRN PRN Reason: Nausea/Vomiting Last Admin: 04/08/18 21:27 Dose: 4 mg Oxycodone/Acetaminophen (Percocet 5/325 Mg Tab) 1 tab PO Q6 PRN PRN Reason: Pain, moderate (4-7) Stop: 04/15/18 17:57 Last Admin: 04/12/18 18:00 Dose: 1 tab Sevelamer Carbonate (Renvela) 1,600 mg PO ACTID JASON Last Admin: 04/14/18 17:08 Dose: 1,600 mg Vitamin B Complex/Vit C/Folic Acid (Nephro-Rod) 1 tab PO DAILY JASON Last Admin: 04/14/18 09:06 Dose: 1 tab - Labs Labs: 04/14/18 06:00 04/14/18 06:00 - Constitutional Appears: No Acute Distress - Eye Exam Eye Exam: Conjunctival injection - ENT Exam ENT Exam: Mucous Membranes Moist - Neck Exam Neck Exam: absent: Lymphadenopathy - Respiratory Exam Respiratory Exam: Wheezes. absent: Chest Wall Tenderness - Cardiovascular Exam Cardiovascular Exam: absent: Gallop, JVD, Rubs - GI/Abdominal Exam GI & Abdominal Exam: Soft, Normal Bowel Sounds - Extremities Exam Extremities Exam: absent: Calf Tenderness - Back Exam Back Exam: absent: CVA tenderness (L), CVA tenderness (R) - Neurological Exam Neurological Exam: Alert - Psychiatric Exam Psychiatric exam: Normal Affect - Skin Skin Exam: absent: Cyanosis Assessment and Plan (1) ESRD (end stage renal disease) on dialysis Assessment & Plan: end stage renal disease for hemodialysis TTS. Diabetic kidney disease. Right foot ulcer with cellulitis. Status post left leg below knee amputation Patient admitted because of fever and cellulitis of the right foot Staphylococcus aureus bacteremia likely related to osteomyelitis? patient is going for surgery for debridement on Wednesday the plan continue hemodialysis as scheduled TTS Freeman is tolerating well hemodialysis. Antibiotics as per renal dose Podiatry follow-up Status: Chronic (2) Cellulitis Status: Acute (3) CAD (coronary artery disease) of artery bypass graft Status: Deleted (4) Pressure ulcer of right foot Status: Acute
[2018-04-15] MEDS: Multivitamin Vitamin B Complex (Nephro-Vite) Tab PO SCH (09:42)
--- NOTE | 2018-04-15 13:16 | CP.PCM.PN ---
Subjective - Date & Time of Evaluation Date of Evaluation: 04/15/18 Time of Evaluation: 10:00 - Subjective Subjective: Patient states that he is feeling physically better with no nausea or fever symptoms. Patient states his right leg is very painful. Objective - Vital Signs/Intake and Output Vital Signs (last 24 hours): Temp Pulse Resp BP Pulse Ox 99.9 F H 84 20 106/61 99 04/15/18 08:33 04/15/18 08:33 04/15/18 08:33 04/15/18 08:33 04/15/18 08:33 - Medications Medications: Current Medications Acetaminophen (Tylenol 325mg Tab) 650 mg PO Q4 PRN PRN Reason: Fever >100.4 F Last Admin: 04/14/18 16:05 Dose: 650 mg Acetaminophen (Tylenol 325mg Tab) 650 mg PO Q4 PRN PRN Reason: Pain, Mild (1-3) Last Admin: 04/12/18 17:30 Dose: 650 mg Atorvastatin Calcium (Lipitor) 40 mg PO HS JASON Last Admin: 04/14/18 21:43 Dose: 40 mg Dextrose (Dextrose 50% Inj) 0 ml IV STAT PRN; Protocol PRN Reason: Hypoglycemia Protocol Dextrose (Glutose 15) 0 gm PO ONCE PRN; Protocol PRN Reason: Hypoglycemia Protocol Glucagon (Glucagen Diagnostic Kit) 0 mg IM STAT PRN; Protocol PRN Reason: Hypoglycemia Protocol Heparin Sodium (Porcine) (Heparin) 5,000 units SC Q12 JASON PRN Reason: Protocol Last Admin: 04/12/18 08:47 Dose: 5,000 units Vancomycin HCl 1 gm/ Sodium (Chloride) 250 mls @ 125 mls/hr IVPB TTS JASON PRN Reason: Protocol Last Admin: 04/14/18 11:20 Dose: 125 mls/hr Cefazolin Sodium 2 gm/ Sodium (Chloride) 100 mls @ 100 mls/hr IVPB TTS JASON PRN Reason: Protocol Last Admin: 04/14/18 14:07 Dose: 100 mls/hr Insulin Human Regular (Humulin R) 0 units SC ACHS JASON PRN Reason: Protocol Last Admin: 04/15/18 06:44 Dose: 1 units Levothyroxine Sodium (Synthroid) 100 mcg PO DAILY@0630 [facility] Last Admin: 04/15/18 06:47 Dose: Not Given Ondansetron HCl (Zofran Inj) 4 mg IVP Q4 PRN PRN Reason: Nausea/Vomiting Last Admin: 04/08/18 21:27 Dose: 4 mg Oxycodone/Acetaminophen (Percocet 5/325 Mg Tab) 1 tab PO Q6 PRN PRN Reason: Pain, moderate (4-7) Stop: 04/15/18 17:57 Last Admin: 04/12/18 18:00 Dose: 1 tab Sevelamer Carbonate (Renvela) 1,600 mg PO ACTID [facility]ASON Last Admin: 04/15/18 09:42 Dose: 1,600 mg Vitamin B Complex/Vit C/Folic Acid (Nephro-Rod) 1 tab PO DAILY JASON Last Admin: 04/15/18 09:42 Dose: 1 tab - Labs Labs: 04/14/18 06:00 04/14/18 06:00 - Constitutional Appears: Non-toxic, Chronically Ill - Head Exam Head Exam: NORMOCEPHALIC - Eye Exam Eye Exam: PERRL - ENT Exam ENT Exam: Mucous Membranes Dry - Neck Exam Neck Exam: absent: Lymphadenopathy - Respiratory Exam Respiratory Exam: Decreased Breath Sounds - Cardiovascular Exam Cardiovascular Exam: REGULAR RHYTHM - GI/Abdominal Exam GI & Abdominal Exam: Distended, Soft - Rectal Exam Rectal Exam: Deferred - Extremities Exam Extremities Exam: absent: Pedal Edema Additional comments: left bka RIGHT ANKLE WOUND PROBE TO BONE - Back Exam Back Exam: absent: CVA tenderness (L), CVA tenderness (R) - Neurological Exam Neurological Exam: Alert, Awake Assessment and Plan (1) Cellulitis Status: Acute (2) ESRD (end stage renal disease) on dialysis Status: Chronic (3) CAD (coronary artery disease) of artery bypass graft Status: Deleted (4) Chronic kidney disease (CKD) Status: Acute (5) Osteomyelitis Status: Acute - Assessment and Plan (Free Text) Assessment: CONT IV RX FOR om CONSIDER DEBRIDEMENT VASCULAR EVAL ONGOING WILL NEED 8 WEEKS IV RX PROGNOSIS FOR LIMB SALVAGE GUARDED
--- NOTE | 2018-04-15 16:34 | CP.PCM.PN ---
Subjective - Date & Time of Evaluation Date of Evaluation: 04/15/18 Time of Evaluation: 11:20 - Subjective Subjective: F/U Ulcer R ankle. S/P I&D Awake, c/o pain R foot, no fever. Objective - Vital Signs/Intake and Output Vital Signs (last 24 hours): Temp Pulse Resp BP Pulse Ox 99.4 F 86 20 111/57 L 98 04/15/18 16:03 04/15/18 16:03 04/15/18 16:03 04/15/18 16:03 04/15/18 16:03 - Medications Medications: Current Medications Acetaminophen (Tylenol 325mg Tab) 650 mg PO Q4 PRN PRN Reason: Fever >100.4 F Last Admin: 04/14/18 16:05 Dose: 650 mg Acetaminophen (Tylenol 325mg Tab) 650 mg PO Q4 PRN PRN Reason: Pain, Mild (1-3) Last Admin: 04/12/18 17:30 Dose: 650 mg Atorvastatin Calcium (Lipitor) 40 mg PO HS JASON Last Admin: 04/14/18 21:43 Dose: 40 mg Dextrose (Dextrose 50% Inj) 0 ml IV STAT PRN; Protocol PRN Reason: Hypoglycemia Protocol Dextrose (Glutose 15) 0 gm PO ONCE PRN; Protocol PRN Reason: Hypoglycemia Protocol Glucagon (Glucagen Diagnostic Kit) 0 mg IM STAT PRN; Protocol PRN Reason: Hypoglycemia Protocol Heparin Sodium (Porcine) (Heparin) 5,000 units SC Q12 JASON PRN Reason: Protocol Last Admin: 04/12/18 08:47 Dose: 5,000 units Vancomycin HCl 1 gm/ Sodium (Chloride) 250 mls @ 125 mls/hr IVPB TTS JASON PRN Reason: Protocol Last Admin: 04/14/18 11:20 Dose: 125 mls/hr Cefazolin Sodium 2 gm/ Sodium (Chloride) 100 mls @ 100 mls/hr IVPB TTS JASON PRN Reason: Protocol Last Admin: 04/14/18 14:07 Dose: 100 mls/hr Insulin Human Regular (Humulin R) 0 units SC ACHS JASON PRN Reason: Protocol Last Admin: 04/15/18 15:18 Dose: Not Given Levothyroxine Sodium (Synthroid) 100 mcg PO DAILY@0630 [facility] Last Admin: 04/15/18 06:47 Dose: Not Given Ondansetron HCl (Zofran Inj) 4 mg IVP Q4 PRN PRN Reason: Nausea/Vomiting Last Admin: 04/08/18 21:27 Dose: 4 mg Oxycodone/Acetaminophen (Percocet 5/325 Mg Tab) 1 tab PO Q6 PRN PRN Reason: Pain, moderate (4-7) Stop: 04/15/18 17:57 Last Admin: 04/12/18 18:00 Dose: 1 tab Sevelamer Carbonate (Renvela) 1,600 mg PO ACTID [facility] Last Admin: 04/15/18 11:35 Dose: Not Given Vitamin B Complex/Vit C/Folic Acid (Nephro-Rod) 1 tab PO DAILY [facility] Last Admin: 04/15/18 09:42 Dose: 1 tab - Labs Labs: 04/14/18 06:00 04/14/18 06:00 - Constitutional Appears: No Acute Distress - Head Exam Head Exam: NORMAL INSPECTION - Eye Exam Eye Exam: PERRL - ENT Exam ENT Exam: Normal Exam - Neck Exam Neck Exam: Normal Inspection - Respiratory Exam Respiratory Exam: Clear to Ausculation Bilateral - Cardiovascular Exam Cardiovascular Exam: REGULAR RHYTHM - GI/Abdominal Exam GI & Abdominal Exam: Soft, Normal Bowel Sounds - Extremities Exam Additional comments: Tenderness R ankle, dressing in place, L arm AV shunt + Bruit and thrill.. L BKA - Back Exam Back Exam: NORMAL INSPECTION - Neurological Exam Neurological Exam: Alert, CN II-XII Intact, Oriented x3 Additional comments: No focal motor deficit. - Psychiatric Exam Psychiatric exam: Anxious - Skin Skin Exam: Warm Assessment and Plan (1) Pressure ulcer of right foot Status: Acute (2) Status post incision and drainage Status: Acute (3) Sepsis Status: Acute (4) Pain in right ankle and joints of right foot Status: Acute (5) ESRD (end stage renal disease) on dialysis Status: Chronic (6) Hypotension Status: Acute (7) IDDM (insulin dependent diabetes mellitus) Status: Chronic (8) Hypothyroidism Status: Chronic - Assessment and Plan (Free Text) Plan: Continue Cefazolin, Vanco and rest of tx, for I&D on Wednesday.
[2018-04-16] MEDS: Levothyroxine 100 MCG TAB PO SCH (07:31)
[2018-04-16] MEDS: Insulin Regular 100 units/ml SC SCH ×4 (07:31→21:37)
[2018-04-16] MEDS: Multivitamin Vitamin B Complex (Nephro-Vite) Tab PO SCH (08:49)
[2018-04-16] MEDS: ceFAZolin 2 GM in Sodium Chloride 0.9% 100 ML IVPB SCH (08:51)
--- NOTE | 2018-04-16 13:47 | CP.PCM.PN ---
Subjective - Date & Time of Evaluation Date of Evaluation: 04/16/18 Time of Evaluation: 13:46 - Subjective Subjective: S: seen and examined no complaints o: vs as below gen: nad sclera; anicteric op: clear neck: supple cv: +S1 +s2 lungs cta anterioly abdo: soft neuro: follows commands no complaints psych: flat imp: ESRD/htn/ diabetic foot infection/ anemia/ plan: hd today dose meds for ESRD cont phos bidner Objective - Vital Signs/Intake and Output Vital Signs (last 24 hours): Temp Pulse Resp BP Pulse Ox 98.5 F 84 18 136/64 97 04/16/18 08:09 04/16/18 08:09 04/16/18 08:09 04/16/18 08:09 04/16/18 08:09 - Medications Medications: Current Medications Acetaminophen (Tylenol 325mg Tab) 650 mg PO Q4 PRN PRN Reason: Fever >100.4 F Last Admin: 04/14/18 16:05 Dose: 650 mg Acetaminophen (Tylenol 325mg Tab) 650 mg PO Q4 PRN PRN Reason: Pain, Mild (1-3) Last Admin: 04/16/18 13:33 Dose: 650 mg Atorvastatin Calcium (Lipitor) 40 mg PO HS JASON Last Admin: 04/15/18 21:11 Dose: 40 mg Dextrose (Dextrose 50% Inj) 0 ml IV STAT PRN; Protocol PRN Reason: Hypoglycemia Protocol Dextrose (Glutose 15) 0 gm PO ONCE PRN; Protocol PRN Reason: Hypoglycemia Protocol Glucagon (Glucagen Diagnostic Kit) 0 mg IM STAT PRN; Protocol PRN Reason: Hypoglycemia Protocol Heparin Sodium (Porcine) (Heparin) 5,000 units SC Q12 JASON PRN Reason: Protocol Last Admin: 04/12/18 08:47 Dose: 5,000 units Vancomycin HCl 1 gm/ Sodium (Chloride) 250 mls @ 125 mls/hr IVPB TTS JASON PRN Reason: Protocol Last Admin: 04/16/18 12:40 Dose: 125 mls/hr Cefazolin Sodium 2 gm/ Sodium (Chloride) 100 mls @ 100 mls/hr IVPB TTS JASON PRN Reason: Protocol Last Admin: 04/16/18 08:51 Dose: 100 mls/hr Insulin Human Regular (Humulin R) 0 units SC ACHS JASON PRN Reason: Protocol Last Admin: 04/16/18 11:39 Dose: 3 units Levothyroxine Sodium (Synthroid) 100 mcg PO DAILY@0630 [facility] Last Admin: 04/16/18 07:31 Dose: 100 mcg Ondansetron HCl (Zofran Inj) 4 mg IVP Q4 PRN PRN Reason: Nausea/Vomiting Last Admin: 04/08/18 21:27 Dose: 4 mg Sevelamer Carbonate (Renvela) 1,600 mg PO ACTID [facility] Last Admin: 04/16/18 11:39 Dose: 1,600 mg Vitamin B Complex/Vit C/Folic Acid (Nephro-Rod) 1 tab PO DAILY [facility] Last Admin: 04/16/18 08:49 Dose: 1 tab - Labs Labs: 04/14/18 06:00 04/14/18 06:00
--- NOTE | 2018-04-16 14:12 | CP.PCM.PN ---
Subjective - Date & Time of Evaluation Date of Evaluation: 04/16/18 Time of Evaluation: 14:08 - Subjective Subjective: Podiatry progress note for Dr. Turner: 57 yo patient seen at bedside for right ankle infected wound. Patient states that he is feeling physically better with no nausea or fever symptoms. Patient states his right leg is very painful. Denies SOB or CP. Has no other pedal complaints at this time. Aware of surgery date for Wednesday. Objective - Vital Signs/Intake and Output Vital Signs (last 24 hours): Temp Pulse Resp BP Pulse Ox 98.5 F 84 18 136/64 97 04/16/18 08:09 04/16/18 08:09 04/16/18 08:09 04/16/18 08:09 04/16/18 08:09 - Medications Medications: Current Medications Acetaminophen (Tylenol 325mg Tab) 650 mg PO Q4 PRN PRN Reason: Fever >100.4 F Last Admin: 04/14/18 16:05 Dose: 650 mg Acetaminophen (Tylenol 325mg Tab) 650 mg PO Q4 PRN PRN Reason: Pain, Mild (1-3) Last Admin: 04/16/18 13:33 Dose: 650 mg Atorvastatin Calcium (Lipitor) 40 mg PO HS JASON Last Admin: 04/15/18 21:11 Dose: 40 mg Dextrose (Dextrose 50% Inj) 0 ml IV STAT PRN; Protocol PRN Reason: Hypoglycemia Protocol Dextrose (Glutose 15) 0 gm PO ONCE PRN; Protocol PRN Reason: Hypoglycemia Protocol Glucagon (Glucagen Diagnostic Kit) 0 mg IM STAT PRN; Protocol PRN Reason: Hypoglycemia Protocol Heparin Sodium (Porcine) (Heparin) 5,000 units SC Q12 JASON PRN Reason: Protocol Last Admin: 04/12/18 08:47 Dose: 5,000 units Vancomycin HCl 1 gm/ Sodium (Chloride) 250 mls @ 125 mls/hr IVPB TTS JASON PRN Reason: Protocol Last Admin: 04/16/18 12:40 Dose: 125 mls/hr Cefazolin Sodium 2 gm/ Sodium (Chloride) 100 mls @ 100 mls/hr IVPB TTS JASON PRN Reason: Protocol Last Admin: 04/16/18 08:51 Dose: 100 mls/hr Insulin Human Regular (Humulin R) 0 units SC ACHS [facility]ASON PRN Reason: Protocol Last Admin: 04/16/18 11:39 Dose: 3 units Levothyroxine Sodium (Synthroid) 100 mcg PO DAILY@0630 [facility] Last Admin: 04/16/18 07:31 Dose: 100 mcg Ondansetron HCl (Zofran Inj) 4 mg IVP Q4 PRN PRN Reason: Nausea/Vomiting Last Admin: 04/08/18 21:27 Dose: 4 mg Sevelamer Carbonate (Renvela) 1,600 mg PO ACTID [facility] Last Admin: 04/16/18 11:39 Dose: 1,600 mg Vitamin B Complex/Vit C/Folic Acid (Nephro-Rod) 1 tab PO DAILY [facility] Last Admin: 04/16/18 08:49 Dose: 1 tab - Labs Labs: 04/14/18 06:00 04/14/18 06:00 - Constitutional Appears: Well, Non-toxic, No Acute Distress - Head Exam Head Exam: ATRAUMATIC, NORMOCEPHALIC - Extremities Exam Additional comments: RLE focused exam: Vasc: DP/PT pulses are non- palpable; Mild erythema present about the ankle and extending proximally at anterior border of the lower leg; edema present about the lateral ankle Neuro: diminished protective and gross sensation Derm: open draining wound at the level of the lateral malleolus, increasing in size, macerated wound borders; Serosanguinous drainage expressed when squeezed out at the previous I and D site (about 6 ccs); clinical signs of infection present, Positive probe to bone as fibula exposed through wound, fluctuance noted on the dorsal aspect of the wound. MSK: left prevoius BKA; pain at the level of the right lateral ankle wound - Neurological Exam Neurological Exam: Alert, Awake - Psychiatric Exam Psychiatric exam: Normal Affect, Normal Mood Assessment and Plan - Assessment and Plan (Free Text) Assessment: 57 yo seen and evaluated at bedside for right lateral malleolar infected wound Plan: Patient seen and evaluated at the bedside Discussed plan in detail with attending Dr. Turner Chart, labs and vitals reviewed; afebrile and absent leukocytosis Foot and ankle x-ray - chronic fracture of distal tibia and fibula with medial subluxation or dislocation of talus; charcot joint possibility, moderate degeneration of STJ; chronic fracture of distal 5th met with probable chronic healed fracture at base of bone; OM of distal 5th met not excluded; recommend followup MRI or CT MRI not ordered as patient has pacemaker - bone scan ordered - abnormal uptake in all 3 phases due to presence of trimall fracture and callus deposition; not possible to exclude osteomyelitis; potential infectious cellulitis and osteomyelitis as well Wound culture result; Staph. aureus Blood culture result; Staph. aureus. Continue IV abx as per ID Has been patient in the past with Dr. Abbott on board, will discuss vascular status and plan Podiatry plans OR debridement with Dr. Turner - scheduled for Wednesday 04/18 at 7 :45 AM - medical clearance obtained Dr. Wilde per nursing, aware of surgery for I&D Wednesday, state they placed in nursing notes Podiatry to continue to follow up the patient while in house
--- NOTE | 2018-04-16 15:24 | CP.PCM.PN ---
Subjective - Date & Time of Evaluation Date of Evaluation: 04/16/18 Time of Evaluation: 12:50 - Subjective Subjective: F/U Ulcer R Ankle. S/P I&D. Pt afebril, TMAx 98.1 F, shaking, chills, having HD now, c/o of pain in R foot. Objective - Vital Signs/Intake and Output Vital Signs (last 24 hours): Temp Pulse Resp BP Pulse Ox 98.1 F 99 H 21 125/99 H 98 04/16/18 14:14 04/16/18 14:14 04/16/18 14:14 04/16/18 14:14 04/16/18 14:14 - Medications Medications: Current Medications Acetaminophen (Tylenol 325mg Tab) 650 mg PO Q4 PRN PRN Reason: Fever >100.4 F Last Admin: 04/14/18 16:05 Dose: 650 mg Acetaminophen (Tylenol 325mg Tab) 650 mg PO Q4 PRN PRN Reason: Pain, Mild (1-3) Last Admin: 04/16/18 13:33 Dose: 650 mg Atorvastatin Calcium (Lipitor) 40 mg PO HS JASON Last Admin: 04/15/18 21:11 Dose: 40 mg Dextrose (Dextrose 50% Inj) 0 ml IV STAT PRN; Protocol PRN Reason: Hypoglycemia Protocol Dextrose (Glutose 15) 0 gm PO ONCE PRN; Protocol PRN Reason: Hypoglycemia Protocol Glucagon (Glucagen Diagnostic Kit) 0 mg IM STAT PRN; Protocol PRN Reason: Hypoglycemia Protocol Heparin Sodium (Porcine) (Heparin) 5,000 units SC Q12 JASON PRN Reason: Protocol Last Admin: 04/12/18 08:47 Dose: 5,000 units Vancomycin HCl 1 gm/ Sodium (Chloride) 250 mls @ 125 mls/hr IVPB TTS JASON PRN Reason: Protocol Last Admin: 04/16/18 12:40 Dose: 125 mls/hr Cefazolin Sodium 2 gm/ Sodium (Chloride) 100 mls @ 100 mls/hr IVPB TTS JASON PRN Reason: Protocol Last Admin: 04/16/18 08:51 Dose: 100 mls/hr Insulin Human Regular (Humulin R) 0 units SC ACHS JASON PRN Reason: Protocol Last Admin: 04/16/18 11:39 Dose: 3 units Levothyroxine Sodium (Synthroid) 100 mcg PO DAILY@0630 [facility] Last Admin: 04/16/18 07:31 Dose: 100 mcg Ondansetron HCl (Zofran Inj) 4 mg IVP Q4 PRN PRN Reason: Nausea/Vomiting Last Admin: 04/08/18 21:27 Dose: 4 mg Sevelamer Carbonate (Renvela) 1,600 mg PO ACTID [facility] Last Admin: 04/16/18 11:39 Dose: 1,600 mg Vitamin B Complex/Vit C/Folic Acid (Nephro-Rod) 1 tab PO DAILY [facility] Last Admin: 04/16/18 08:49 Dose: 1 tab - Labs Labs: 04/14/18 06:00 04/14/18 06:00 - Constitutional Appears: No Acute Distress - Head Exam Head Exam: NORMAL INSPECTION - Eye Exam Eye Exam: PERRL - ENT Exam ENT Exam: Normal Exam - Neck Exam Neck Exam: Normal Inspection - Respiratory Exam Respiratory Exam: Clear to Ausculation Bilateral - Cardiovascular Exam Cardiovascular Exam: REGULAR RHYTHM - GI/Abdominal Exam GI & Abdominal Exam: Soft, Normal Bowel Sounds - Extremities Exam Extremities Exam: Tenderness (R ankle, dressing in place.) Additional comments: L arm AV shunt + bruit and Thrill. L BKA - Back Exam Back Exam: NORMAL INSPECTION - Neurological Exam Neurological Exam: Alert, CN II-XII Intact, Oriented x3. absent: Motor Sensory Deficit - Psychiatric Exam Psychiatric exam: Anxious - Skin Skin Exam: Warm Assessment and Plan (1) Pressure ulcer of right foot Status: Acute (2) Status post incision and drainage Status: Acute (3) Sepsis Status: Acute (4) Pain in right ankle and joints of right foot Status: Acute (5) ESRD (end stage renal disease) on dialysis Status: Chronic (6) Hypotension Status: Acute (7) IDDM (insulin dependent diabetes mellitus) Status: Chronic (8) Hypothyroidism Status: Chronic - Assessment and Plan (Free Text) Plan: Continue Vanco on HD and rest of Tx.
[2018-04-16 17:55] LABS: BASO # 0.1 K/uL (0.0-0.2); BASO % 0.4 % (0.0-2.0); EOS # 0.1 K/uL (0.0-0.7); EOS % 0.4 % (0.0-4.0); HEMOGLOBIN 9.7 g/dL (12.0-18.0); LYMPH # 0.6 K/uL (1.0-4.3); LYMPH % 4.1 % (20.0-40.0); MEAN CELL VOLUME 94.8 fl (80.0-94.0); MEAN CORPUSCULAR HEMOGLOBIN 31.8 pg (27.0-31.0); MEAN CORPUSCULAR HGB CONC 33.5 g/dL (33.0-37.0); MEAN PLATELET VOLUME 7.2 fl (7.2-11.7); MONO # 0.9 K/uL (0.0-0.8); MONO % 6.2 % (0.0-10.0); NEUT # 13.3 K/uL (1.8-7.0); NEUT % 88.9 % (50.0-75.0); PLATELET COUNT 375 K/uL (130-400); RBC 3.04 Mil/uL (4.40-5.90); RED CELL DISTRIBUTION WIDTH 16.8 % (11.5-14.5); WHITE BLOOD COUNT 14.9 K/uL (4.8-10.8)
[2018-04-16 18:12] LABS: ALB/GLOB RATIO 0.7 (1.0-2.1); ALBUMIN 3.3 g/dL (3.5-5.0); CALCIUM 8.5 mg/dL (8.4-10.2)
[2018-04-16 18:41] LABS: ANISOCYTOSIS SLIGHT; BANDS 2 % (0-2); LARGE PLATELETS PRESENT; LYMPHOCYTE 7 % (20-50); MONOCYTE 3 % (0-10); NEUTROPHIL 88 % (42-75); PLATELET ESTIMATE NORMAL (NORMAL); TOTAL CELLS COUNTED 100
[2018-04-16 18:42] LABS: HYPOCHROMIC SLIGHT
[2018-04-17 06:20] LABS: HEMOGLOBIN 9.6 g/dL (12.0-18.0); MEAN CELL VOLUME 95.8 fl (80.0-94.0); MEAN CORPUSCULAR HEMOGLOBIN 32.4 pg (27.0-31.0); MEAN CORPUSCULAR HGB CONC 33.8 g/dL (33.0-37.0); RBC 2.98 Mil/uL (4.40-5.90); RED CELL DISTRIBUTION WIDTH 17.2 % (11.5-14.5)
[2018-04-17 06:28] LABS: CALCIUM 8.3 mg/dL (8.4-10.2)
[2018-04-17] MEDS: Levothyroxine 100 MCG TAB PO SCH (06:48)
[2018-04-17] MEDS: Insulin Regular 100 units/ml SC SCH ×5 (08:16→22:55)
[2018-04-17] MEDS: Multivitamin Vitamin B Complex (Nephro-Vite) Tab PO SCH (08:16)
[2018-04-17 08:38] LABS: INR 1.3
[2018-04-17 08:39] LABS: PARTIAL THROMBOPLASTIN TIME 32.6 Seconds (25.6-37.1)
--- NOTE | 2018-04-17 12:39 | CP.PCM.PN ---
Subjective - Date & Time of Evaluation Date of Evaluation: 04/17/18 Time of Evaluation: 09:00 - Subjective Subjective: Patient states that he is feeling physically better with no nausea or fever symptoms. Patient states his right leg is very painful. - Constitutional Appears: Non-toxic, Chronically Ill - Head Exam Head Exam: NORMOCEPHALIC - Eye Exam Eye Exam: PERRL - ENT Exam ENT Exam: Mucous Membranes Dry - Neck Exam Neck Exam: absent: Lymphadenopathy - Respiratory Exam Respiratory Exam: Decreased Breath Sounds - Cardiovascular Exam Cardiovascular Exam: REGULAR RHYTHM - GI/Abdominal Exam GI & Abdominal Exam: Distended, Soft - Rectal Exam Rectal Exam: Deferred - Extremities Exam Extremities Exam: absent: Pedal Edema Additional comments: left bka RIGHT ANKLE WOUND PROBE TO BONE - Back Exam Back Exam: absent: CVA tenderness (L), CVA tenderness (R) - Neurological Exam Neurological Exam: Alert, Awake Objective - Vital Signs/Intake and Output Vital Signs (last 24 hours): Temp Pulse Resp BP Pulse Ox 99.6 F 68 17 116/64 97 04/17/18 07:48 04/17/18 08:11 04/17/18 08:11 04/17/18 07:48 04/17/18 08:11 - Medications Medications: Current Medications Acetaminophen (Tylenol 325mg Tab) 650 mg PO Q4 PRN PRN Reason: Fever >100.4 F Last Admin: 04/14/18 16:05 Dose: 650 mg Acetaminophen (Tylenol 325mg Tab) 650 mg PO Q4 PRN PRN Reason: Pain, Mild (1-3) Last Admin: 04/16/18 13:33 Dose: 650 mg Atorvastatin Calcium (Lipitor) 40 mg PO HS JASON Last Admin: 04/16/18 21:48 Dose: Not Given Dextrose (Dextrose 50% Inj) 0 ml IV STAT PRN; Protocol PRN Reason: Hypoglycemia Protocol Dextrose (Glutose 15) 0 gm PO ONCE PRN; Protocol PRN Reason: Hypoglycemia Protocol Glucagon (Glucagen Diagnostic Kit) 0 mg IM STAT PRN; Protocol PRN Reason: Hypoglycemia Protocol Heparin Sodium (Porcine) (Heparin) 5,000 units SC Q12 JASON PRN Reason: Protocol Last Admin: 04/12/18 08:47 Dose: 5,000 units Vancomycin HCl 1 gm/ Sodium (Chloride) 250 mls @ 125 mls/hr IVPB TTS JASON PRN Reason: Protocol Last Admin: 04/16/18 12:40 Dose: 125 mls/hr Cefazolin Sodium 2 gm/ Sodium (Chloride) 100 mls @ 100 mls/hr IVPB TTS JASON PRN Reason: Protocol Last Admin: 04/16/18 08:51 Dose: 100 mls/hr Insulin Human Regular (Humulin R) 0 units SC ACHS JASON PRN Reason: Protocol Last Admin: 04/17/18 11:54 Dose: 2 units Levothyroxine Sodium (Synthroid) 100 mcg PO DAILY@0630 [facility] Last Admin: 04/17/18 06:48 Dose: Not Given Ondansetron HCl (Zofran Inj) 4 mg IVP Q4 PRN PRN Reason: Nausea/Vomiting Last Admin: 04/08/18 21:27 Dose: 4 mg Sevelamer Carbonate (Renvela) 1,600 mg PO ACTID [facility] Last Admin: 04/17/18 11:55 Dose: 1,600 mg Vitamin B Complex/Vit C/Folic Acid (Nephro-Rod) 1 tab PO DAILY [facility] Last Admin: 04/17/18 08:16 Dose: 1 tab - Labs Labs: 04/17/18 05:14 04/17/18 05:14 PT 14.0 Seconds (9.8-13.1) H 04/17/18 07:24 INR 1.3 04/17/18 07:24 APTT 32.6 Seconds (25.6-37.1) 04/17/18 07:24 Assessment and Plan (1) Cellulitis Status: Acute (2) ESRD (end stage renal disease) on dialysis Status: Chronic (3) CAD (coronary artery disease) of artery bypass graft Status: Deleted (4) Chronic kidney disease (CKD) Status: Acute (5) Osteomyelitis Status: Acute - Assessment and Plan (Free Text) Assessment: for OR debridement in am cont iv antibiotics and wound care
--- NOTE | 2018-04-17 14:06 | CP.PCM.PN ---
Subjective - Date & Time of Evaluation Date of Evaluation: 04/17/18 Time of Evaluation: 14:00 - Subjective Subjective: Podiatry progress note for Dr. Turner: 57 yo patient seen at bedside for right ankle infected wound. Patient states that he is feeling better today. Patient states his right leg still painful but the pain decreased since the last visit. Patient denies overnight F/N/V/C or SOB. Patient has no other pedal complaints at this time. Aware of surgery date for tomorrow. RLE focused exam: Vasc: DP/PT pulses are non- palpable; Mild erythema present at the beatriz- ulcerative area; edema present about the lateral ankle. Temp gradient warm to warm from proximal to distal. Neuro: diminished protective and gross sensation Derm: open draining wound at the level of the lateral malleolus, increasing in size, macerated wound borders; Dressing had striking through. minimal serosanguinous drainage expressed when squeezed out the ulcer; clinical signs of infection present, Positive probe to bone as fibula exposed through wound, Mild fluctuance noted on the dorsal aspect of the wound. MSK: left prevoius BKA; pain at the level of the right lateral ankle wound 57 yo seen and evaluated at bedside for right lateral malleolar infected wound Patient seen and evaluated at the bedside Discussed plan in detail with attending Dr. Turner Chart, labs and vitals reviewed; afebrile and absent leukocytosis Foot and ankle x-ray - chronic fracture of distal tibia and fibula with medial subluxation or dislocation of talus; charcot joint possibility, moderate degeneration of STJ; chronic fracture of distal 5th met with probable chronic healed fracture at base of bone; OM of distal 5th met not excluded; recommend followup MRI or CT MRI not ordered as patient has pacemaker - bone scan ordered - abnormal uptake in all 3 phases due to presence of trimall fracture and callus deposition; not possible to exclude osteomyelitis; potential infectious cellulitis and osteomyelitis as well Wound culture result; Staph. aureus Blood culture result; Staph. aureus. Continue IV abx as per ID Podiatry plans OR debridement with Dr. Turner - scheduled for tomorrow Wednesday 04/18 at 7:45 AM - medical clearance obtained Dr. Wilde per nursing, aware of surgery for I&D Wednesday, state they placed in nursing notes Podiatry to continue to follow up the patient while in house Objective - Vital Signs/Intake and Output Vital Signs (last 24 hours): Temp Pulse Resp BP Pulse Ox 99.6 F 68 17 116/64 97 04/17/18 07:48 04/17/18 08:11 04/17/18 08:11 04/17/18 07:48 04/17/18 08:11 - Medications Medications: Current Medications Acetaminophen (Tylenol 325mg Tab) 650 mg PO Q4 PRN PRN Reason: Fever >100.4 F Last Admin: 04/14/18 16:05 Dose: 650 mg Acetaminophen (Tylenol 325mg Tab) 650 mg PO Q4 PRN PRN Reason: Pain, Mild (1-3) Last Admin: 04/16/18 13:33 Dose: 650 mg Atorvastatin Calcium (Lipitor) 40 mg PO HS [facility] Last Admin: 04/16/18 21:48 Dose: Not Given Dextrose (Dextrose 50% Inj) 0 ml IV STAT PRN; Protocol PRN Reason: Hypoglycemia Protocol Dextrose (Glutose 15) 0 gm PO ONCE PRN; Protocol PRN Reason: Hypoglycemia Protocol Glucagon (Glucagen Diagnostic Kit) 0 mg IM STAT PRN; Protocol PRN Reason: Hypoglycemia Protocol Heparin Sodium (Porcine) (Heparin) 5,000 units SC Q12 JASON PRN Reason: Protocol Last Admin: 04/12/18 08:47 Dose: 5,000 units Vancomycin HCl 1 gm/ Sodium (Chloride) 250 mls @ 125 mls/hr IVPB TTS JASON PRN Reason: Protocol Last Admin: 04/16/18 12:40 Dose: 125 mls/hr Cefazolin Sodium 2 gm/ Sodium (Chloride) 100 mls @ 100 mls/hr IVPB TTS JASON PRN Reason: Protocol Last Admin: 04/16/18 08:51 Dose: 100 mls/hr Insulin Human Regular (Humulin R) 0 units SC ACHS JASON PRN Reason: Protocol Last Admin: 04/17/18 11:54 Dose: 2 units Levothyroxine Sodium (Synthroid) 100 mcg PO DAILY@0630 [facility] Last Admin: 04/17/18 06:48 Dose: Not Given Ondansetron HCl (Zofran Inj) 4 mg IVP Q4 PRN PRN Reason: Nausea/Vomiting Last Admin: 04/08/18 21:27 Dose: 4 mg Sevelamer Carbonate (Renvela) 1,600 mg PO ACTID [facility] Last Admin: 04/17/18 11:55 Dose: 1,600 mg Vitamin B Complex/Vit C/Folic Acid (Nephro-Rod) 1 tab PO DAILY [facility] Last Admin: 04/17/18 08:16 Dose: 1 tab - Labs Labs: 04/17/18 05:14 04/17/18 05:14 PT 14.0 Seconds (9.8-13.1) H 04/17/18 07:24 INR 1.3 04/17/18 07:24 APTT 32.6 Seconds (25.6-37.1) 04/17/18 07:24
--- NOTE | 2018-04-17 15:50 | CP.PCM.PN ---
Subjective - Date & Time of Evaluation Date of Evaluation: 04/17/18 Time of Evaluation: 10:10 - Subjective Subjective: F/U Ulcer R ankle. Minimal pain in R foot, c/o of pain in the penis with urine sensation but unable to void. Objective - Vital Signs/Intake and Output Vital Signs (last 24 hours): Temp Pulse Resp BP Pulse Ox 99.6 F 68 17 116/64 97 04/17/18 07:48 04/17/18 08:11 04/17/18 08:11 04/17/18 07:48 04/17/18 08:11 - Medications Medications: Current Medications Acetaminophen (Tylenol 325mg Tab) 650 mg PO Q4 PRN PRN Reason: Fever >100.4 F Last Admin: 04/14/18 16:05 Dose: 650 mg Acetaminophen (Tylenol 325mg Tab) 650 mg PO Q4 PRN PRN Reason: Pain, Mild (1-3) Last Admin: 04/16/18 13:33 Dose: 650 mg Atorvastatin Calcium (Lipitor) 40 mg PO HS [facility]ASON Last Admin: 04/16/18 21:48 Dose: Not Given Dextrose (Dextrose 50% Inj) 0 ml IV STAT PRN; Protocol PRN Reason: Hypoglycemia Protocol Dextrose (Glutose 15) 0 gm PO ONCE PRN; Protocol PRN Reason: Hypoglycemia Protocol Glucagon (Glucagen Diagnostic Kit) 0 mg IM STAT PRN; Protocol PRN Reason: Hypoglycemia Protocol Heparin Sodium (Porcine) (Heparin) 5,000 units SC Q12 JASON PRN Reason: Protocol Last Admin: 04/12/18 08:47 Dose: 5,000 units Cefazolin Sodium 2 gm/ Sodium (Chloride) 100 mls @ 100 mls/hr IVPB TTS JASON PRN Reason: Protocol Last Admin: 04/16/18 08:51 Dose: 100 mls/hr Insulin Human Regular (Humulin R) 0 units SC ACHS JASON PRN Reason: Protocol Last Admin: 04/17/18 11:54 Dose: 2 units Levothyroxine Sodium (Synthroid) 100 mcg PO DAILY@0630 [facility] Last Admin: 04/17/18 06:48 Dose: Not Given Ondansetron HCl (Zofran Inj) 4 mg IVP Q4 PRN PRN Reason: Nausea/Vomiting Last Admin: 04/08/18 21:27 Dose: 4 mg Sevelamer Carbonate (Renvela) 1,600 mg PO ACTID [facility] Last Admin: 04/17/18 11:55 Dose: 1,600 mg Vitamin B Complex/Vit C/Folic Acid (Nephro-Rod) 1 tab PO DAILY [facility] Last Admin: 04/17/18 08:16 Dose: 1 tab - Labs Labs: 04/17/18 05:14 04/17/18 05:14 PT 14.0 Seconds (9.8-13.1) H 04/17/18 07:24 INR 1.3 04/17/18 07:24 APTT 32.6 Seconds (25.6-37.1) 04/17/18 07:24 - Constitutional Appears: No Acute Distress - Head Exam Head Exam: NORMAL INSPECTION - Eye Exam Eye Exam: PERRL - ENT Exam ENT Exam: Normal Exam - Neck Exam Neck Exam: Normal Inspection - Respiratory Exam Respiratory Exam: Clear to Ausculation Bilateral - Cardiovascular Exam Cardiovascular Exam: REGULAR RHYTHM - GI/Abdominal Exam GI & Abdominal Exam: Soft, Normal Bowel Sounds - Exam Additional comments: Mild tenderness penis area - Extremities Exam Extremities Exam: Tenderness (R ankle with dressing in place.) Additional comments: L arm AV shunt, + Bruit and thrill. L BKA - Back Exam Back Exam: NORMAL INSPECTION - Neurological Exam Neurological Exam: Alert, CN II-XII Intact, Oriented x3 Additional comments: No focal motor/sensory deficit. - Psychiatric Exam Psychiatric exam: Anxious - Skin Skin Exam: Warm Assessment and Plan (1) Pressure ulcer of right foot Status: Acute (2) Status post incision and drainage Status: Acute (3) Sepsis Status: Acute (4) Pain in right ankle and joints of right foot Status: Acute (5) ESRD (end stage renal disease) on dialysis Status: Chronic (6) Hypotension Status: Acute (7) IDDM (insulin dependent diabetes mellitus) Status: Chronic (8) Hypothyroidism Status: Chronic - Assessment and Plan (Free Text) Plan: OR tomorrow for I&D, Pelvis U-S, Urology consult.
--- NOTE | 2018-04-17 17:11 | US ---
Date of service: 04/17/2018 PROCEDURE: Ultrasound male pelvis limited HISTORY: r/o obstruction, BPH COMPARISON: No recent studies available for direct comparison. TECHNIQUE: Real-time transabdominal ultrasound examination of the pelvis was performed. FINDINGS: Hypoechoic partially filled bladder is identified. Prevoid volume is 4.3 x 2.2 x 4 centimeters with a volume of 21 milliliters. Patient was unable to void. Enlarged structure posterior to the bladder and inferior to the bladder more than likely representing the prostate gland is identified measuring 5.2 x 4.6 x 4.7 centimeters. No bladder calculus or bladder wall thickening was noted although limited by the small volume. IMPRESSION: Small bladder volume. Patient unable to fill bladder or void for postvoid. Probable enlarged prostate gland.
[2018-04-18] MEDS ORDERED: Lidocaine 1% Inj (20ml) IJ ONE (06:01)
[2018-04-18] MEDS ORDERED: Bupivacaine HCl 0.5% PF (10 ml) Inj IJ ONE (06:01)
[2018-04-18] MEDS ORDERED: Sodium Chloride 0.9% 1,000 ML IV SCH (06:15)
[2018-04-18] MEDS: Levothyroxine 100 MCG TAB PO SCH ×2 (06:30→13:02)
[2018-04-18] MEDS: Insulin Regular 100 units/ml SC SCH ×4 (06:31→23:16)
--- NOTE | 2018-04-18 06:31 | CP.PCM.PN ---
Subjective - Date & Time of Evaluation Date of Evaluation: 04/18/18 Time of Evaluation: 06:29 - Subjective Subjective: Podiatry progress note for Dr. Turner 58 y/o male seen and evaluated this morning for right lateral malleolar wound/ chronic R ankle fracture with cellulitis. Patient will be going to the OR today 04/18/18 at 7:45 AM. Patient was resting comfortably, in no acute distress and denies any acute overnight events. Patient agitated when asked questions. Patient's nurse confirmed NPO status. Patient denies any F/N/V/SOB/CP. Objective - Vital Signs/Intake and Output Vital Signs (last 24 hours): Temp Pulse Resp BP Pulse Ox 98.3 F 72 20 103/66 95 04/18/18 01:08 04/18/18 01:08 04/18/18 01:08 04/18/18 01:08 04/18/18 01:08 - Medications Medications: Current Medications Acetaminophen (Tylenol 325mg Tab) 650 mg PO Q4 PRN PRN Reason: Fever >100.4 F Last Admin: 04/14/18 16:05 Dose: 650 mg Acetaminophen (Tylenol 325mg Tab) 650 mg PO Q4 PRN PRN Reason: Pain, Mild (1-3) Last Admin: 04/17/18 17:43 Dose: 650 mg Atorvastatin Calcium (Lipitor) 40 mg PO HS JASON Last Admin: 04/17/18 22:56 Dose: Not Given Dextrose (Dextrose 50% Inj) 0 ml IV STAT PRN; Protocol PRN Reason: Hypoglycemia Protocol Dextrose (Glutose 15) 0 gm PO ONCE PRN; Protocol PRN Reason: Hypoglycemia Protocol Glucagon (Glucagen Diagnostic Kit) 0 mg IM STAT PRN; Protocol PRN Reason: Hypoglycemia Protocol Heparin Sodium (Porcine) (Heparin) 5,000 units SC Q12 JASON PRN Reason: Protocol Last Admin: 04/12/18 08:47 Dose: 5,000 units Cefazolin Sodium 2 gm/ Sodium (Chloride) 100 mls @ 100 mls/hr IVPB TTS JASON PRN Reason: Protocol Last Admin: 04/16/18 08:51 Dose: 100 mls/hr Sodium Chloride (Sodium Chloride 0.9%) 1,000 mls @ 0 mls/hr IV .Q0M JASON PRN Reason: As Directed Stop: 04/19/18 06:02 Insulin Human Regular (Humulin R) 0 units SC ACHS [facility] PRN Reason: Protocol Last Admin: 04/17/18 22:55 Dose: Not Given Levothyroxine Sodium (Synthroid) 100 mcg PO DAILY@0630 [facility] Last Admin: 04/17/18 06:48 Dose: Not Given Ondansetron HCl (Zofran Inj) 4 mg IVP Q4 PRN PRN Reason: Nausea/Vomiting Last Admin: 04/08/18 21:27 Dose: 4 mg Sevelamer Carbonate (Renvela) 1,600 mg PO ACTID [facility] Last Admin: 04/17/18 17:01 Dose: 1,600 mg Vitamin B Complex/Vit C/Folic Acid (Nephro-Rod) 1 tab PO DAILY [facility] Last Admin: 04/17/18 08:16 Dose: 1 tab - Labs Labs: 04/17/18 05:14 04/17/18 05:14 PT 14.0 Seconds (9.8-13.1) H 04/17/18 07:24 INR 1.3 04/17/18 07:24 APTT 32.6 Seconds (25.6-37.1) 04/17/18 07:24 - Constitutional Appears: Well, Non-toxic, No Acute Distress - Head Exam Head Exam: ATRAUMATIC, NORMOCEPHALIC - Extremities Exam Additional comments: Dressing kept intact- patient going to the OR at 7: 45 AM - Neurological Exam Neurological Exam: Alert, Awake, Oriented x3 - Psychiatric Exam Psychiatric exam: Normal Affect, Normal Mood Assessment and Plan - Assessment and Plan (Free Text) Assessment: 58 yo seen and evaluated at bedside for right lateral malleolar infected wound Plan: Pt was seen and examined bedside Pt NPO status was confirmed Patient medical clearance obtained As per Dr. Abbott, patient is cleared for an incision and drainage Pt has exhausted all conservative treatment at this time and is opting for surgical intervention Pt was explained procedure and post-operative course All pt's questions were answered to satisfaction No guarantees were made Pt understands all risks, benefits and complications of procedure
[2018-04-18 06:33] LABS: BASO % 0.4 % (0.0-2.0); EOS # 0.2 K/uL (0.0-0.7); EOS % 1.8 % (0.0-4.0); HEMOGLOBIN 9.4 g/dL (12.0-18.0); LYMPH # 0.8 K/uL (1.0-4.3); LYMPH % 7.7 % (20.0-40.0); MEAN CELL VOLUME 95.2 fl (80.0-94.0); MEAN CORPUSCULAR HEMOGLOBIN 32.2 pg (27.0-31.0); MEAN CORPUSCULAR HGB CONC 33.8 g/dL (33.0-37.0); MEAN PLATELET VOLUME 7.2 fl (7.2-11.7); MONO # 0.7 K/uL (0.0-0.8); MONO % 6.9 % (0.0-10.0); NEUT # 8.4 K/uL (1.8-7.0); NEUT % 83.2 % (50.0-75.0); RBC 2.92 Mil/uL (4.40-5.90); RED CELL DISTRIBUTION WIDTH 16.9 % (11.5-14.5); WHITE BLOOD COUNT 10.1 K/uL (4.8-10.8)
[2018-04-18 06:43] LABS: ALB/GLOB RATIO 0.7 (1.0-2.1); ALBUMIN 3.1 g/dL (3.5-5.0); CALCIUM 7.8 mg/dL (8.4-10.2)
--- NOTE | 2018-04-18 07:07 | CP.PCM.CON ---
History of Present Illness - History of Present Illness History of Present Illness: Consultation for preoperative cardiovascular risk stratification prior to I&D of ankle abscess HPI: 57 yo male, with PMHx of DM, HTN, HLD, CAD (CABG), ESRD, L BKA being evaluated for preoperative cardiac risk stratification. At baseline has limited activity 2' to L BKA. Pt was admitted on 04/07 for worsening right ankle wound. Patient states that he has been experiencing nausea, vomiting, and fever for the past week; he has been taking Tylenol every four hours consistently over the past week for fever. Today his drained half a coffee cup of pus from his ankle wound and brought him to the ED. Patient states he is in 7/10 pain to his right ankle. Patient is accompanied by his son bedside. Patient admits to N/V/F. PMHx: DM, HTN, HLD, CAD (CABG), ESRD SHx: L BKA, CABG Social: Denies tobacco use and illicit drug use ALL: NKDA Review of Systems - Review of Systems Systems not reviewed;Unavailable: Acuity of Condition - Constitutional Constitutional: As Per HPI - EENT Eyes: As Per HPI Ears: As Per HPI Nose/Mouth/Throat: As Per HPI - Cardiovascular Cardiovascular: As Per HPI - Respiratory Respiratory: As Per HPI - Gastrointestinal Gastrointestinal: As Per HPI - Genitourinary Genitourinary: As Per HPI - Reproductive: Male Reproductive:Male: As Per HPI - Musculoskeletal Musculoskeletal: As Per HPI - Integumentary Integumentary: As Per HPI - Neurological Neurological: As Per HPI - Psychiatric Psychiatric: As Per HPI - Endocrine Endocrine: As Per HPI - Hematologic/Lymphatic Hematologic: As Per HPI Past Patient History - Past Medical History & Family History Past Medical History?: Yes - Past Social History Smoking Status: Never Smoked Alcohol: None Drugs: Denies Home Situation {Lives}: Other - CARDIAC Hx Cardiac Disorders: Yes Hx Hypercholesterolemia: Yes Hx Hypertension: Yes - PULMONARY Hx Respiratory Disorders: No - NEUROLOGICAL Hx Neurological Disorder: No - HEENT Hx HEENT Problems: No - RENAL Hx Chronic Kidney Disease: Yes Hx Dialysis: Yes - ENDOCRINE/METABOLIC Hx Endocrine Disorders: Yes Hx Diabetes Mellitus Type 2: Yes - HEMATOLOGICAL/ONCOLOGICAL Hx Blood Disorders: No - INTEGUMENTARY Hx Dermatological Problems: No - MUSCULOSKELETAL/RHEUMATOLOGICAL Hx Musculoskeletal Disorders: Yes Hx Fractures: Yes - GASTROINTESTINAL Hx Gastrointestinal Disorders: No - GENITOURINARY/GYNECOLOGICAL Hx Genitourinary Disorders: No - PSYCHIATRIC Hx Psychophysiologic Disorder: No Hx Substance Use: No - SURGICAL HISTORY Hx Surgeries: Yes (L BKA) Hx Coronary Artery Bypass Graft: Yes - ANESTHESIA Hx Anesthesia: Yes Hx Anesthesia Reactions: No Hx Malignant Hyperthermia: No Meds Allergies/Adverse Reactions: Allergies Allergy/AdvReac Type Severity Reaction Status Date / Time No Known Allergies Allergy Verified 04/06/18 22:59 - Medications Medications: Current Medications Acetaminophen (Tylenol 325mg Tab) 650 mg PO Q4 PRN PRN Reason: Fever >100.4 F Last Admin: 04/14/18 16:05 Dose: 650 mg Acetaminophen (Tylenol 325mg Tab) 650 mg PO Q4 PRN PRN Reason: Pain, Mild (1-3) Last Admin: 04/17/18 17:43 Dose: 650 mg Atorvastatin Calcium (Lipitor) 40 mg PO HS JASON Last Admin: 04/17/18 22:56 Dose: Not Given Dextrose (Dextrose 50% Inj) 0 ml IV STAT PRN; Protocol PRN Reason: Hypoglycemia Protocol Dextrose (Glutose 15) 0 gm PO ONCE PRN; Protocol PRN Reason: Hypoglycemia Protocol Glucagon (Glucagen Diagnostic Kit) 0 mg IM STAT PRN; Protocol PRN Reason: Hypoglycemia Protocol Heparin Sodium (Porcine) (Heparin) 5,000 units SC Q12 JASON PRN Reason: Protocol Last Admin: 04/12/18 08:47 Dose: 5,000 units Cefazolin Sodium 2 gm/ Sodium (Chloride) 100 mls @ 100 mls/hr IVPB TTS JASON PRN Reason: Protocol Last Admin: 04/16/18 08:51 Dose: 100 mls/hr Sodium Chloride (Sodium Chloride 0.9%) 1,000 mls @ 0 mls/hr IV .Q0M JASON PRN Reason: As Directed Stop: 04/19/18 06:02 Insulin Human Regular (Humulin R) 0 units SC ACHS [facility] PRN Reason: Protocol Last Admin: 04/18/18 06:31 Dose: Not Given Levothyroxine Sodium (Synthroid) 100 mcg PO DAILY@0630 [facility] Last Admin: 04/17/18 06:48 Dose: Not Given Ondansetron HCl (Zofran Inj) 4 mg IVP Q4 PRN PRN Reason: Nausea/Vomiting Last Admin: 04/08/18 21:27 Dose: 4 mg Sevelamer Carbonate (Renvela) 1,600 mg PO ACTID [facility] Last Admin: 04/17/18 17:01 Dose: 1,600 mg Vitamin B Complex/Vit C/Folic Acid (Nephro-Rod) 1 tab PO DAILY [facility] Last Admin: 04/17/18 08:16 Dose: 1 tab Physical Exam - Constitutional Appears: Well - Head Exam Head Exam: ATRAUMATIC, NORMAL INSPECTION, NORMOCEPHALIC - Eye Exam Eye Exam: EOMI, Normal appearance, PERRL Pupil Exam: NORMAL ACCOMODATION, PERRL - ENT Exam ENT Exam: Mucous Membranes Moist, Normal Exam - Neck Exam Neck exam: Positive for: Normal Inspection - Respiratory Exam Respiratory Exam: Clear to Auscultation Bilateral, NORMAL BREATHING PATTERN - Cardiovascular Exam Cardiovascular Exam: REGULAR RHYTHM, +S1, +S2, Systolic Murmur - GI/Abdominal Exam GI & Abdominal Exam: Normal Bowel Sounds, Soft. absent: Tenderness - Extremities Exam Extremities exam: Positive for: normal inspection - Back Exam Back exam: NORMAL INSPECTION - Neurological Exam Neurological exam: Alert, CN II-XII Intact, Normal Gait, Oriented x3, Reflexes Normal - Psychiatric Exam Psychiatric exam: Normal Affect, Normal Mood - Skin Skin Exam: Dry, Intact, Normal Color, Warm Results - Vital Signs Recent Vital Signs: Last Vital Signs Temp 98.3 F 04/18/18 01:08 Pulse 72 04/18/18 01:08 Resp 20 04/18/18 01:08 BP 103/66 04/18/18 01:08 Pulse Ox 95 04/18/18 01:08 - Labs Result Diagrams: 04/18/18 06:00 04/18/18 06:00 Labs: Laboratory Results - last 24 hr 04/17/18 04/17/18 04/17/18 07:24 10:59 17:25 WBC RBC Hgb Hct MCV MCH MCHC RDW Plt Count MPV Neut % (Auto) Lymph % (Auto) Vance % (Auto) Eos % (Auto) Baso % (Auto) Neut # (Auto) Lymph # (Auto) Vance # (Auto) Eos # (Auto) Baso # (Auto) PT 14.0 H INR 1.3 APTT 32.6 Sodium Potassium Chloride Carbon Dioxide Anion Gap BUN Creatinine Est GFR ( Amer) Est GFR (Non-Af Amer) POC Glucose (mg/dL) 209 H 136 H Random Glucose Calcium Total Bilirubin AST ALT Alkaline Phosphatase Total Protein Albumin Globulin Albumin/Globulin Ratio 04/17/18 04/18/18 04/18/18 21:29 05:25 06:00 WBC 10.1 RBC 2.92 L Hgb 9.4 L Hct 27.8 L MCV 95.2 H MCH 32.2 H MCHC 33.8 RDW 16.9 H Plt Count 446 H MPV 7.2 Neut % (Auto) 83.2 H Lymph % (Auto) 7.7 L Vance % (Auto) 6.9 Eos % (Auto) 1.8 Baso % (Auto) 0.4 Neut # (Auto) 8.4 H Lymph # (Auto) 0.8 L Vance # (Auto) 0.7 Eos # (Auto) 0.2 Baso # (Auto) 0.0 PT INR APTT Sodium Potassium Chloride Carbon Dioxide Anion Gap BUN Creatinine Est GFR ( Amer) Est GFR (Non-Af Amer) POC Glucose (mg/dL) 195 H 135 H Random Glucose Calcium Total Bilirubin AST ALT Alkaline Phosphatase Total Protein Albumin Globulin Albumin/Globulin Ratio 04/18/18 06:00 WBC RBC Hgb Hct MCV MCH MCHC RDW Plt Count MPV Neut % (Auto) Lymph % (Auto) Vance % (Auto) Eos % (Auto) Baso % (Auto) Neut # (Auto) Lymph # (Auto) Vance # (Auto) Eos # (Auto) Baso # (Auto) PT INR APTT Sodium 137 Potassium 4.7 Chloride 98 Carbon Dioxide 26 Anion Gap 18 BUN 39 H Creatinine 7.3 H Est GFR ( Amer) 9 Est GFR (Non-Af Amer) 8 POC Glucose (mg/dL) Random Glucose 144 H Calcium 7.8 L Total Bilirubin 0.6 AST 38 ALT 20 L Alkaline Phosphatase 273 H D Total Protein 7.6 Albumin 3.1 L Globulin 4.5 H Albumin/Globulin Ratio 0.7 L Assessment & Plan (1) Preop cardiovascular exam Assessment and Plan: As per ACC/AHA guidelines patient can proceed with planned surgery with moderate risk for perioperative cardiac event Status: Acute (2) Status post incision and drainage Status: Acute (3) ESRD (end stage renal disease) on dialysis Status: Chronic Priority: High (4) Chronic kidney disease (CKD) Status: Acute (5) PVD (peripheral vascular disease) Assessment and Plan: initiate pt on DAPT post I&D Status: Acute (6) Pressure ulcer of right foot Status: Acute Priority: High (7) HTN (hypertension) Status: Chronic Priority: Medium
[2018-04-18] MEDS ORDERED: Phenylephrine 10 mg/ml Inj ONE (07:30)
[2018-04-18] MEDS ORDERED: Midazolam 2 MG/2 ML VIAL ONE (07:30)
[2018-04-18] MEDS ORDERED: ePHEDrine 50 mg/ml Inj ONE (07:30)
[2018-04-18] MEDS ORDERED: Etomidate 20 mg/10ml Inj IV ONE (07:34)
[2018-04-18] MEDS ORDERED: Ropivacaine 0.5% 30ML IV ONE (07:39)
[2018-04-18] MEDS ORDERED: Lidocaine 2% MPF (5 ml) Inj ONE (07:51)
[2018-04-18] MEDS ORDERED: Bupivacaine HCl 0.5% PF (30 ml) Inj ONE (07:51)
[2018-04-18] MEDS ORDERED: Sodium Chloride 0.9% 1,000 ML IV ONE (08:20)
[2018-04-18] MEDS: Multivitamin Vitamin B Complex (Nephro-Vite) Tab PO SCH ×2 (08:22→13:02)
[2018-04-18] MEDS ORDERED: Bupivacaine 0.5% Inj(30mL) IJ ONE (08:30)
[2018-04-18] MEDS ORDERED: Lidocaine 2% Inj (20ml) IJ ONE (08:45)
[2018-04-18] MEDS ORDERED: Oxycodone/Acetaminophen 5/325 mg Tab PO PRN (09:21)
[2018-04-18] MEDS ORDERED: HYDROmorphone 0.5 mg/0.5 ml ISec IVP PRN (09:24)
--- NOTE | 2018-04-18 09:28 | PCM.SURG1 ---
Surgeon's Initial Post Op Note - Surgeon's Notes Surgeon: Dr. Turner DPM [employer] Supervisor: Dr. Bryan PGY1, Dr. Hall PGY2 Type of Anesthesia: IV Sedation, Local Anesthesia Administered By: Kami Pre-Operative Diagnosis: Right ankle infected wound with possible osteomyelitis Operative Findings: see dictation. I:10 cc 1% lidocaine plain intraop, 10 cc 0.5% marcaine plain preop. M: 08/05" iodoform packing Post-Operative Diagnosis: same Operation Performed: Right ankle wound debridement and bone biopsy of right tibia and fibula Specimen/Specimens Removed: right fibula, right tibia x 2 Estimated Blood Loss: EBL {In ML}: 100 Blood Products Given: N/A Drains Used: No Drains Post-Op Condition: Good Date of Surgery/Procedure: 04/18/18 Time of Surgery/Procedure: :
[2018-04-18 10:03] LABS: BASO # 0.1 K/uL (0.0-0.2); BASO % 0.6 % (0.0-2.0); EOS # 0.2 K/uL (0.0-0.7); EOS % 1.8 % (0.0-4.0); LYMPH # 0.7 K/uL (1.0-4.3); LYMPH % 7.8 % (20.0-40.0); MEAN CELL VOLUME 96.3 fl (80.0-94.0); MEAN CORPUSCULAR HEMOGLOBIN 31.7 pg (27.0-31.0); MEAN CORPUSCULAR HGB CONC 32.9 g/dL (33.0-37.0); MEAN PLATELET VOLUME 7.1 fl (7.2-11.7); MONO # 0.6 K/uL (0.0-0.8); MONO % 6.9 % (0.0-10.0); NEUT # 7.7 K/uL (1.8-7.0); NEUT % 82.9 % (50.0-75.0); RBC 2.54 Mil/uL (4.40-5.90); RED CELL DISTRIBUTION WIDTH 16.6 % (11.5-14.5); WHITE BLOOD COUNT 9.3 K/uL (4.8-10.8)
--- NOTE | 2018-04-18 10:44 | CP.PCM.PN ---
Subjective - Date & Time of Evaluation Date of Evaluation: 04/18/18 Time of Evaluation: 10:44 - Subjective Subjective: patient is stable conscious and alert Objective - Vital Signs/Intake and Output Vital Signs (last 24 hours): Temp Pulse Resp BP Pulse Ox 97.8 F 79 19 127/66 98 04/18/18 10:35 04/18/18 10:35 04/18/18 10:35 04/18/18 10:35 04/18/18 10:35 Intake and Output: 04/18/18 04/18/18 06:59 18:59 Intake Total 25 Balance 25 - Medications Medications: Current Medications Acetaminophen (Tylenol 325mg Tab) 650 mg PO Q4 PRN PRN Reason: Fever >100.4 F Last Admin: 04/14/18 16:05 Dose: 650 mg Acetaminophen (Tylenol 325mg Tab) 650 mg PO Q4 PRN PRN Reason: Pain, Mild (1-3) Last Admin: 04/17/18 17:43 Dose: 650 mg Acetaminophen (Tylenol 325mg Tab) 650 mg PO Q4 PRN PRN Reason: Pain, Mild (1-3) Atorvastatin Calcium (Lipitor) 40 mg PO HS JASON Last Admin: 04/17/18 22:56 Dose: Not Given Dextrose (Dextrose 50% Inj) 0 ml IV STAT PRN; Protocol PRN Reason: Hypoglycemia Protocol Dextrose (Glutose 15) 0 gm PO ONCE PRN; Protocol PRN Reason: Hypoglycemia Protocol Glucagon (Glucagen Diagnostic Kit) 0 mg IM STAT PRN; Protocol PRN Reason: Hypoglycemia Protocol Heparin Sodium (Porcine) (Heparin) 5,000 units SC Q12 JASON PRN Reason: Protocol Last Admin: 04/12/18 08:47 Dose: 5,000 units Hydromorphone HCl (Dilaudid) 0.5 mg IVP Q15M PRN PRN Reason: Pain, severe (8-10) Stop: 04/18/18 11:24 Cefazolin Sodium 2 gm/ Sodium (Chloride) 100 mls @ 100 mls/hr IVPB TTS JASON PRN Reason: Protocol Last Admin: 04/16/18 08:51 Dose: 100 mls/hr Sodium Chloride (Sodium Chloride 0.9%) 1,000 mls @ 0 mls/hr IV .Q0M JASON PRN Reason: As Directed Stop: 04/19/18 06:02 Insulin Human Regular (Humulin R) 0 units SC ACHS [facility] PRN Reason: Protocol Last Admin: 04/18/18 06:31 Dose: Not Given Levothyroxine Sodium (Synthroid) 100 mcg PO DAILY@0630 [facility] Last Admin: 04/18/18 06:30 Dose: Not Given Ondansetron HCl (Zofran Inj) 4 mg IVP Q4 PRN PRN Reason: Nausea/Vomiting Last Admin: 04/08/18 21:27 Dose: 4 mg Oxycodone/Acetaminophen (Percocet 5/325 Mg Tab) 1 tab PO Q4 PRN PRN Reason: Pain, moderate (4-7) Stop: 04/21/18 09:22 Oxycodone/Acetaminophen (Percocet 5/325 Mg Tab) 2 tab PO Q4 PRN PRN Reason: Pain, severe (8-10) Stop: 04/21/18 09:22 Sevelamer Carbonate (Renvela) 1,600 mg PO ACTID [facility] Last Admin: 04/18/18 08:22 Dose: Not Given Vitamin B Complex/Vit C/Folic Acid (Nephro-Rod) 1 tab PO DAILY [facility] Last Admin: 04/18/18 08:22 Dose: Not Given - Labs Labs: 04/18/18 09:54 04/18/18 06:00 PT 14.0 Seconds (9.8-13.1) H 04/17/18 07:24 INR 1.3 04/17/18 07:24 APTT 32.6 Seconds (25.6-37.1) 04/17/18 07:24 - Constitutional Appears: No Acute Distress - ENT Exam ENT Exam: Mucous Membranes Moist - Neck Exam Neck Exam: absent: Lymphadenopathy - Respiratory Exam Respiratory Exam: NORMAL BREATHING PATTERN. absent: Chest Wall Tenderness - Cardiovascular Exam Cardiovascular Exam: absent: Gallop, Rubs - Extremities Exam Extremities Exam: absent: Calf Tenderness - Back Exam Back Exam: absent: CVA tenderness (L), CVA tenderness (R) - Neurological Exam Neurological Exam: Alert - Psychiatric Exam Psychiatric exam: Normal Affect - Skin Skin Exam: absent: Cyanosis Assessment and Plan (1) ESRD (end stage renal disease) on dialysis Assessment & Plan: end stage renal disease for hemodialysis TTS. Diabetic kidney disease. Right foot ulcer with cellulitis. Status post left leg below knee amputation Patient admitted because of fever and cellulitis of the right foot Staphylococcus aureus bacteremia likely related to osteomyelitis? the plan continue hemodialysis as scheduled TTS he is tolerating well hemodialysis. Antibiotics as per renal dose status post debridement Status: Chronic (2) Cellulitis Status: Acute (3) CAD (coronary artery disease) of artery bypass graft Status: Deleted (4) Pressure ulcer of right foot Status: Acute
--- NOTE | 2018-04-18 12:55 | CP.PCM.PN ---
Subjective - Date & Time of Evaluation Date of Evaluation: 04/18/18 Time of Evaluation: 12:51 - Subjective Subjective: 58 year old hisp dialysis pt who is complaining of penile pain penile exam is normal Us shows possible enlarged prostate. wbc is normal Suggest get ct psa and urine c&s. further recomendations with results. Penny Objective - Vital Signs/Intake and Output Vital Signs (last 24 hours): Temp Pulse Resp BP Pulse Ox 98.4 F 91 H 18 133/71 98 04/18/18 11:45 04/18/18 11:45 04/18/18 11:45 04/18/18 11:45 04/18/18 11:45 Intake and Output: 04/18/18 04/18/18 06:59 18:59 Intake Total 25 Balance 25 - Medications Medications: Current Medications Acetaminophen (Tylenol 325mg Tab) 650 mg PO Q4 PRN PRN Reason: Fever >100.4 F Last Admin: 04/14/18 16:05 Dose: 650 mg Acetaminophen (Tylenol 325mg Tab) 650 mg PO Q4 PRN PRN Reason: Pain, Mild (1-3) Last Admin: 04/17/18 17:43 Dose: 650 mg Acetaminophen (Tylenol 325mg Tab) 650 mg PO Q4 PRN PRN Reason: Pain, Mild (1-3) Atorvastatin Calcium (Lipitor) 40 mg PO HS [facility] Last Admin: 04/17/18 22:56 Dose: Not Given Dextrose (Dextrose 50% Inj) 0 ml IV STAT PRN; Protocol PRN Reason: Hypoglycemia Protocol Dextrose (Glutose 15) 0 gm PO ONCE PRN; Protocol PRN Reason: Hypoglycemia Protocol Glucagon (Glucagen Diagnostic Kit) 0 mg IM STAT PRN; Protocol PRN Reason: Hypoglycemia Protocol Heparin Sodium (Porcine) (Heparin) 5,000 units SC Q12 JASON PRN Reason: Protocol Last Admin: 04/12/18 08:47 Dose: 5,000 units Cefazolin Sodium 2 gm/ Sodium (Chloride) 100 mls @ 100 mls/hr IVPB TTS J[facility]ON PRN Reason: Protocol Last Admin: 04/16/18 08:51 Dose: 100 mls/hr Sodium Chloride (Sodium Chloride 0.9%) 1,000 mls @ 0 mls/hr IV .Q0M [facility]ASON PRN Reason: As Directed Stop: 04/19/18 06:02 Insulin Human Regular (Humulin R) 0 units SC ACHS [facility] PRN Reason: Protocol Last Admin: 04/18/18 06:31 Dose: Not Given Levothyroxine Sodium (Synthroid) 100 mcg PO DAILY@0630 [facility] Last Admin: 04/18/18 06:30 Dose: Not Given Ondansetron HCl (Zofran Inj) 4 mg IVP Q4 PRN PRN Reason: Nausea/Vomiting Last Admin: 04/08/18 21:27 Dose: 4 mg Oxycodone/Acetaminophen (Percocet 5/325 Mg Tab) 1 tab PO Q4 PRN PRN Reason: Pain, moderate (4-7) Stop: 04/21/18 09:22 Oxycodone/Acetaminophen (Percocet 5/325 Mg Tab) 2 tab PO Q4 PRN PRN Reason: Pain, severe (8-10) Stop: 04/21/18 09:22 Sevelamer Carbonate (Renvela) 1,600 mg PO ACTID [facility] Last Admin: 04/18/18 08:22 Dose: Not Given Vitamin B Complex/Vit C/Folic Acid (Nephro-Rod) 1 tab PO DAILY [facility] Last Admin: 04/18/18 08:22 Dose: Not Given - Labs Labs: 04/18/18 09:54 04/18/18 06:00 PT 14.0 Seconds (9.8-13.1) H 04/17/18 07:24 INR 1.3 04/17/18 07:24 APTT 32.6 Seconds (25.6-37.1) 04/17/18 07:24
--- NOTE | 2018-04-18 15:34 | CT ---
Date of service: 04/18/2018 PROCEDURE: CT Abdomen and Pelvis without intravenous contrast HISTORY: BPH, penile pain COMPARISON: Noncontrast abdomen and pelvis CT 06/12/2008. TECHNIQUE: Helical CT of the abdomen and pelvis was performed without oral or intravenous contrast as per referring physician request. Coronal and sagittal reformats were generated. Contrast dose: None Radiation dose: Total exam DLP = 376.19 mGy-cm. This CT exam was performed using one or more of the following dose reduction techniques: Automated exposure control, adjustment of the mA and/or kV according to patient size, and/or use of iterative reconstruction technique. FINDINGS: LOWER THORAX: Internal and external AICD/pacemaker now identify with increased cardiomegaly. Mild pulmonary vascular congestion not excluded. Bilateral dependent atelectasis identified with trace right pleural effusion. Mildly elevated left hemidiaphragm identified. No pericardial effusion. LIVER: Unremarkable. No gross lesion or ductal dilatation. GALLBLADDER AND BILE DUCTS: Minimal radiodense cholelithiasis identified within the gallbladder lumen which is otherwise unremarkable appearing. CBD poorly identified suggesting normal caliber. No radiodense choledocholithiasis. PANCREAS: Unremarkable. No gross lesion or ductal dilatation. SPLEEN: Unremarkable. ADRENALS: Unremarkable. No mass. KIDNEYS AND URETERS: No obstructive uropathy bilaterally. Multiple lucencies scattered throughout the right greater than left renal parenchyma suggesting small cysts. Lack venous contrast limits full evaluation. VASCULATURE: Extensive pelvic and inguinal arterial calcifications are identified including in the penis suggestive of advanced arteriosclerosis. Abdominal aorta normal in caliber and minimally atherosclerotic. BOWEL: Unremarkable. No obstruction. No gross mural thickening. APPENDIX: Unremarkable. Normal appendix. PERITONEUM: Pericystic reactive changes seen with at least [id number] thickening urinary bladder wall suggested. Urinary bladder is not fully distended however this is suspicious for cystitis nevertheless. LYMPH NODES: Mild right inguinal lymphadenopathy is appreciable solitary enlarged lymph node measuring 1.3 x 3.1 cm with the left inguinal region unremarkable. BLADDER: Suspicious for cystitis as described in perineum section above. REPRODUCTIVE: Enlarged prostate gland up to 5.8 cm. BONES: No acute fracture. OTHER FINDINGS: None. IMPRESSION: 1. Findings suspicious for cystitis. No obstructive uropathy bilaterally. Please see discussion above. 2. Bilateral renal cysts greater the right than left sides with underlying lesions not excluded given this noncontrast CT examination. No obstructive uropathy bilaterally. 3. Mild right inguinal lymphadenopathy. 4. Trace cholelithiasis with gallbladder otherwise unremarkable. 5. Enlarged prostate gland.
[2018-04-18] MEDS: Oxycodone/Acetaminophen 5/325 mg Tab PO PRN (16:51)
--- NOTE | 2018-04-18 20:42 | CP.PCM.PN ---
Subjective - Date & Time of Evaluation Date of Evaluation: 04/18/18 Time of Evaluation: 14:20 - Subjective Subjective: F/U R ankle ulcer, s/p I&D C/O of penis pain, minimal pain R foot, Pt s/p new I&D in OR today. Objective - Vital Signs/Intake and Output Vital Signs (last 24 hours): Temp Pulse Resp BP Pulse Ox 99.5 F 84 18 136/72 99 04/18/18 16:25 04/18/18 16:25 04/18/18 16:25 04/18/18 16:25 04/18/18 16:25 Intake and Output: 04/18/18 04/19/18 18:59 06:59 Intake Total 25 Balance 25 - Medications Medications: Current Medications Acetaminophen (Tylenol 325mg Tab) 650 mg PO Q4 PRN PRN Reason: Fever >100.4 F Last Admin: 04/14/18 16:05 Dose: 650 mg Acetaminophen (Tylenol 325mg Tab) 650 mg PO Q4 PRN PRN Reason: Pain, Mild (1-3) Last Admin: 04/17/18 17:43 Dose: 650 mg Acetaminophen (Tylenol 325mg Tab) 650 mg PO Q4 PRN PRN Reason: Pain, Mild (1-3) Atorvastatin Calcium (Lipitor) 40 mg PO HS [facility] Last Admin: 04/17/18 22:56 Dose: Not Given Dextrose (Dextrose 50% Inj) 0 ml IV STAT PRN; Protocol PRN Reason: Hypoglycemia Protocol Dextrose (Glutose 15) 0 gm PO ONCE PRN; Protocol PRN Reason: Hypoglycemia Protocol Glucagon (Glucagen Diagnostic Kit) 0 mg IM STAT PRN; Protocol PRN Reason: Hypoglycemia Protocol Heparin Sodium (Porcine) (Heparin) 5,000 units SC Q12 [facility]ON PRN Reason: Protocol Last Admin: 04/12/18 08:47 Dose: 5,000 units Cefazolin Sodium 2 gm/ Sodium (Chloride) 100 mls @ 100 mls/hr IVPB TTS JASON PRN Reason: Protocol Last Admin: 04/16/18 08:51 Dose: 100 mls/hr Sodium Chloride (Sodium Chloride 0.9%) 1,000 mls @ 0 mls/hr IV .Q0M JASON PRN Reason: As Directed Stop: 04/19/18 06:02 Insulin Human Regular (Humulin R) 0 units SC ACHS JASON PRN Reason: Protocol Last Admin: 04/18/18 16:51 Dose: 2 units Levothyroxine Sodium (Synthroid) 100 mcg PO DAILY@0630 [facility] Last Admin: 04/18/18 13:02 Dose: 100 mcg Ondansetron HCl (Zofran Inj) 4 mg IVP Q4 PRN PRN Reason: Nausea/Vomiting Last Admin: 04/08/18 21:27 Dose: 4 mg Oxycodone/Acetaminophen (Percocet 5/325 Mg Tab) 1 tab PO Q4 PRN PRN Reason: Pain, moderate (4-7) Stop: 04/21/18 09:22 Oxycodone/Acetaminophen (Percocet 5/325 Mg Tab) 2 tab PO Q4 PRN PRN Reason: Pain, severe (8-10) Stop: 04/21/18 09:22 Last Admin: 04/18/18 16:51 Dose: 2 tab Sevelamer Carbonate (Renvela) 1,600 mg PO ACTID [facility] Last Admin: 04/18/18 16:51 Dose: 1,600 mg Vitamin B Complex/Vit C/Folic Acid (Nephro-Rod) 1 tab PO DAILY [facility] Last Admin: 04/18/18 13:02 Dose: 1 tab - Labs Labs: 04/18/18 09:54 04/18/18 06:00 PT 14.0 Seconds (9.8-13.1) H 04/17/18 07:24 INR 1.3 04/17/18 07:24 APTT 32.6 Seconds (25.6-37.1) 04/17/18 07:24 - Constitutional Appears: No Acute Distress - Head Exam Head Exam: NORMAL INSPECTION - Eye Exam Eye Exam: PERRL - ENT Exam ENT Exam: Normal Exam - Neck Exam Neck Exam: Normal Inspection - Respiratory Exam Respiratory Exam: Clear to Ausculation Bilateral - Cardiovascular Exam Cardiovascular Exam: REGULAR RHYTHM - GI/Abdominal Exam GI & Abdominal Exam: Soft, Normal Bowel Sounds - Extremities Exam Extremities Exam: Tenderness (R ankle, dressing in place.) Additional comments: Left BKA, L arm AV shunt + for bruit and thrill. - Back Exam Back Exam: NORMAL INSPECTION - Neurological Exam Neurological Exam: Alert, CN II-XII Intact, Oriented x3. absent: Motor Sensory Deficit - Psychiatric Exam Psychiatric exam: Anxious - Skin Skin Exam: Warm Assessment and Plan (1) Pressure ulcer of right foot Status: Acute (2) Status post incision and drainage Status: Acute (3) Sepsis Status: Acute (4) Pain in right ankle and joints of right foot Status: Acute (5) ESRD (end stage renal disease) on dialysis Status: Chronic (6) Hypotension Status: Acute (7) IDDM (insulin dependent diabetes mellitus) Status: Chronic (8) Hypothyroidism Status: Chronic - Assessment and Plan (Free Text) Plan: F/U Abd/Pelv CT, continue Cefalozin, Renvela, Percocet and rest of Tx. Urology consult appreciated
[2018-04-19 06:57] LABS: MEAN CORPUSCULAR HEMOGLOBIN 31.8 pg (27.0-31.0); MEAN CORPUSCULAR HGB CONC 33.1 g/dL (33.0-37.0); RBC 2.52 Mil/uL (4.40-5.90); RED CELL DISTRIBUTION WIDTH 17.2 % (11.5-14.5); WHITE BLOOD COUNT 7.8 K/uL (4.8-10.8)
[2018-04-19] MEDS: Levothyroxine 100 MCG TAB PO SCH (06:57)
[2018-04-19] MEDS: Insulin Regular 100 units/ml SC SCH ×4 (07:52→22:25)
[2018-04-19 07:53] LABS: ALB/GLOB RATIO 0.7 (1.0-2.1); CALCIUM 7.5 mg/dL (8.4-10.2)
--- NOTE | 2018-04-19 08:28 | CP.PCM.PN ---
Subjective - Date & Time of Evaluation Date of Evaluation: 04/19/18 Time of Evaluation: 08:22 - Subjective Subjective: Podiatry progress note for attending Dr. Turner 58 y/o male s/p 1 day right lateral malleolar incision and drainage. Patient was resting when seen at bedside. Patient denies any acute overnight events. Patient complains of pain to the incision site. Patient denies any F/N/V/SOB/ CP. No other pedal complaints at this time. Objective - Vital Signs/Intake and Output Vital Signs (last 24 hours): Temp Pulse Resp BP Pulse Ox 97.3 F L 73 20 101/65 100 04/19/18 00:03 04/19/18 00:03 04/19/18 00:03 04/19/18 00:03 04/19/18 00:03 - Medications Medications: Current Medications Acetaminophen (Tylenol 325mg Tab) 650 mg PO Q4 PRN PRN Reason: Fever >100.4 F Last Admin: 04/14/18 16:05 Dose: 650 mg Acetaminophen (Tylenol 325mg Tab) 650 mg PO Q4 PRN PRN Reason: Pain, Mild (1-3) Last Admin: 04/17/18 17:43 Dose: 650 mg Acetaminophen (Tylenol 325mg Tab) 650 mg PO Q4 PRN PRN Reason: Pain, Mild (1-3) Atorvastatin Calcium (Lipitor) 40 mg PO HS [facility] Last Admin: 04/18/18 21:39 Dose: Not Given Dextrose (Dextrose 50% Inj) 0 ml IV STAT PRN; Protocol PRN Reason: Hypoglycemia Protocol Dextrose (Glutose 15) 0 gm PO ONCE PRN; Protocol PRN Reason: Hypoglycemia Protocol Glucagon (Glucagen Diagnostic Kit) 0 mg IM STAT PRN; Protocol PRN Reason: Hypoglycemia Protocol Heparin Sodium (Porcine) (Heparin) 5,000 units SC Q12 JASON PRN Reason: Protocol Last Admin: 04/12/18 08:47 Dose: 5,000 units Cefazolin Sodium 2 gm/ Sodium (Chloride) 100 mls @ 100 mls/hr IVPB TTS JASON PRN Reason: Protocol Last Admin: 04/16/18 08:51 Dose: 100 mls/hr Insulin Human Regular (Humulin R) 0 units SC ACHS JASON PRN Reason: Protocol Last Admin: 04/19/18 07:52 Dose: Not Given Levothyroxine Sodium (Synthroid) 100 mcg PO DAILY@0630 [facility] Last Admin: 04/19/18 06:57 Dose: 100 mcg Ondansetron HCl (Zofran Inj) 4 mg IVP Q4 PRN PRN Reason: Nausea/Vomiting Last Admin: 04/08/18 21:27 Dose: 4 mg Oxycodone/Acetaminophen (Percocet 5/325 Mg Tab) 1 tab PO Q4 PRN PRN Reason: Pain, moderate (4-7) Stop: 04/21/18 09:22 Oxycodone/Acetaminophen (Percocet 5/325 Mg Tab) 2 tab PO Q4 PRN PRN Reason: Pain, severe (8-10) Stop: 04/21/18 09:22 Last Admin: 04/18/18 16:51 Dose: 2 tab Sevelamer Carbonate (Renvela) 1,600 mg PO ACTID [facility] Last Admin: 04/18/18 16:51 Dose: 1,600 mg Vitamin B Complex/Vit C/Folic Acid (Nephro-Rod) 1 tab PO DAILY [facility] Last Admin: 04/18/18 13:02 Dose: 1 tab - Labs Labs: 04/19/18 06:20 04/19/18 06:20 PT 14.0 Seconds (9.8-13.1) H 04/17/18 07:24 INR 1.3 04/17/18 07:24 APTT 32.6 Seconds (25.6-37.1) 04/17/18 07:24 - Constitutional Appears: Well, Non-toxic, No Acute Distress - Head Exam Head Exam: ATRAUMATIC, NORMOCEPHALIC - Extremities Exam Additional comments: Right Lower Extremity Exam Dressing soaked in sanguinous drainage. Vasc: DP/PT pulses are non-palpable; edema present at the lateral ankle, Temp gradient warm to warm from proximal to distal. Neuro: diminished protective and gross sensation Derm: open draining wound measuring 4 cm X 4 cm at the level of the lateral malleolus, macerated wound borders with moderate serosanguinous drainage expressed when squeezed, Positive probe to bone as fibula exposed through wound MSK: left previous BKA; pain at the level of the right lateral ankle wound - Neurological Exam Neurological Exam: Alert, Awake, Oriented x3 - Psychiatric Exam Psychiatric exam: Normal Affect, Normal Mood Assessment and Plan - Assessment and Plan (Free Text) Assessment: 58 y/o male s/p 1 day right lateral malleolar incision and drainage Plan: Patient seen and evaluated at bedside Chart, labs and vitals reviewed- absent leukocytosis, afebrile Patient H&H low at 8.0/24.2- medicine will consider transfusing patient if unstable Foot and ankle x-ray (04/07)- chronic fracture of distal tibia and fibula with medial subluxation or dislocation of talus; charcot joint possibility, moderate degeneration of STJ; chronic fracture of distal 5th met with probable chronic healed fracture at base of bone; OM of distal 5th met not excluded; recommend followup MRI or CT MRI not ordered as patient has pacemaker - bone scan ordered - abnormal uptake in all 3 phases due to presence of trimall fracture and callus deposition; not possible to exclude osteomyelitis; potential infectious cellulitis and osteomyelitis as well Wound culture result (04/07): Staph. aureus Blood culture result (04/07): Staph. aureus. Continue IV abx as per ID OR Wound Cx 04/18/18- Pending OR Pathology 04/18/18- Pending Patient dressing and packing removed Patient wound cleansed with saline flush, 1/4 inch plain packing, betadine soaked adaptic, ABD and DSD/WILLAM In length conversation with medicine team regarding patient's length of stay. Patient to stay in house until patient able to perform dressing changes Podiatry will continue to follow patient while in house
[2018-04-19] MEDS: Multivitamin Vitamin B Complex (Nephro-Vite) Tab PO SCH (09:22)
[2018-04-19] MEDS: ceFAZolin 2 GM in Sodium Chloride 0.9% 100 ML IVPB SCH (09:22)
--- NOTE | 2018-04-19 09:25 | CP.PCM.PN ---
Subjective - Date & Time of Evaluation Date of Evaluation: 04/19/18 Time of Evaluation: 09:25 - Subjective Subjective: dialysis note he was seen on hemodialysis now. Patient awake and conscious feeling good Vital signs stable Chest pain no shortness of breath Objective - Vital Signs/Intake and Output Vital Signs (last 24 hours): Temp Pulse Resp BP Pulse Ox 97.3 F L 73 20 101/65 100 04/19/18 00:03 04/19/18 00:03 04/19/18 00:03 04/19/18 00:03 04/19/18 00:03 - Medications Medications: Current Medications Acetaminophen (Tylenol 325mg Tab) 650 mg PO Q4 PRN PRN Reason: Fever >100.4 F Last Admin: 04/14/18 16:05 Dose: 650 mg Acetaminophen (Tylenol 325mg Tab) 650 mg PO Q4 PRN PRN Reason: Pain, Mild (1-3) Last Admin: 04/17/18 17:43 Dose: 650 mg Acetaminophen (Tylenol 325mg Tab) 650 mg PO Q4 PRN PRN Reason: Pain, Mild (1-3) Atorvastatin Calcium (Lipitor) 40 mg PO HS [facility] Last Admin: 04/18/18 21:39 Dose: Not Given Dextrose (Dextrose 50% Inj) 0 ml IV STAT PRN; Protocol PRN Reason: Hypoglycemia Protocol Dextrose (Glutose 15) 0 gm PO ONCE PRN; Protocol PRN Reason: Hypoglycemia Protocol Glucagon (Glucagen Diagnostic Kit) 0 mg IM STAT PRN; Protocol PRN Reason: Hypoglycemia Protocol Heparin Sodium (Porcine) (Heparin) 5,000 units SC Q12 JASON PRN Reason: Protocol Last Admin: 04/12/18 08:47 Dose: 5,000 units Cefazolin Sodium 2 gm/ Sodium (Chloride) 100 mls @ 100 mls/hr IVPB TTS JASON PRN Reason: Protocol Last Admin: 04/19/18 09:22 Dose: 100 mls/hr Insulin Human Regular (Humulin R) 0 units SC ACHS JASON PRN Reason: Protocol Last Admin: 04/19/18 07:52 Dose: Not Given Levothyroxine Sodium (Synthroid) 100 mcg PO DAILY@0630 [facility] Last Admin: 04/19/18 06:57 Dose: 100 mcg Ondansetron HCl (Zofran Inj) 4 mg IVP Q4 PRN PRN Reason: Nausea/Vomiting Last Admin: 04/08/18 21:27 Dose: 4 mg Oxycodone/Acetaminophen (Percocet 5/325 Mg Tab) 1 tab PO Q4 PRN PRN Reason: Pain, moderate (4-7) Stop: 04/21/18 09:22 Oxycodone/Acetaminophen (Percocet 5/325 Mg Tab) 2 tab PO Q4 PRN PRN Reason: Pain, severe (8-10) Stop: 04/21/18 09:22 Last Admin: 04/18/18 16:51 Dose: 2 tab Sevelamer Carbonate (Renvela) 1,600 mg PO ACTID [facility] Last Admin: 04/19/18 09:22 Dose: 1,600 mg Vitamin B Complex/Vit C/Folic Acid (Nephro-Rod) 1 tab PO DAILY [facility] Last Admin: 04/19/18 09:22 Dose: 1 tab - Labs Labs: 04/19/18 06:20 04/19/18 06:20 PT 14.0 Seconds (9.8-13.1) H 04/17/18 07:24 INR 1.3 04/17/18 07:24 APTT 32.6 Seconds (25.6-37.1) 04/17/18 07:24 - Constitutional Appears: No Acute Distress - Eye Exam Eye Exam: Conjunctival injection - ENT Exam ENT Exam: Mucous Membranes Moist - Neck Exam Neck Exam: absent: Lymphadenopathy - Respiratory Exam Respiratory Exam: NORMAL BREATHING PATTERN. absent: Chest Wall Tenderness - Cardiovascular Exam Cardiovascular Exam: absent: Gallop, JVD, Rubs - GI/Abdominal Exam GI & Abdominal Exam: Soft, Normal Bowel Sounds - Extremities Exam Extremities Exam: absent: Calf Tenderness - Back Exam Back Exam: absent: CVA tenderness (L), CVA tenderness (R) - Neurological Exam Neurological Exam: Alert - Psychiatric Exam Psychiatric exam: Normal Affect - Skin Skin Exam: absent: Cyanosis Assessment and Plan (1) ESRD (end stage renal disease) on dialysis Assessment & Plan: end stage renal disease for hemodialysis TTS. hemodialysis up and running now Diabetic kidney disease. Right foot ulcer with cellulitis. Status post left leg below knee amputation Patient admitted because of fever and cellulitis of the right foot the plan He was seen on hemodialysis now Discussed with the dialysis nurse at the bedside Potassium bath 2 mEq because serum potassium 5.2 Bicarbonate bath 34 Sodium bath 138 ultrafiltration about 2500 mL as tolerated Status post debridement Antibiotics as per renal dose Status: Chronic (2) Cellulitis Status: Acute (3) Pressure ulcer of right foot Status: Acute
[2018-04-19] MEDS: Oxycodone/Acetaminophen 5/325 mg Tab PO PRN (15:39)
--- NOTE | 2018-04-19 18:45 | CP.PCM.PN ---
Subjective - Date & Time of Evaluation Date of Evaluation: 04/19/18 Time of Evaluation: 13:10 - Subjective Subjective: F/U R ankle Ulcer, S/P I&D Minimal pain in R foot,c/o of intermittent penile pain. Objective - Vital Signs/Intake and Output Vital Signs (last 24 hours): Temp Pulse Resp BP Pulse Ox 98 F 87 18 128/65 99 04/19/18 16:25 04/19/18 16:25 04/19/18 16:25 04/19/18 16:25 04/19/18 16:25 - Medications Medications: Current Medications Acetaminophen (Tylenol 325mg Tab) 650 mg PO Q4 PRN PRN Reason: Fever >100.4 F Last Admin: 04/14/18 16:05 Dose: 650 mg Acetaminophen (Tylenol 325mg Tab) 650 mg PO Q4 PRN PRN Reason: Pain, Mild (1-3) Last Admin: 04/17/18 17:43 Dose: 650 mg Acetaminophen (Tylenol 325mg Tab) 650 mg PO Q4 PRN PRN Reason: Pain, Mild (1-3) Atorvastatin Calcium (Lipitor) 40 mg PO HS [facility] Last Admin: 04/18/18 21:39 Dose: Not Given Dextrose (Dextrose 50% Inj) 0 ml IV STAT PRN; Protocol PRN Reason: Hypoglycemia Protocol Dextrose (Glutose 15) 0 gm PO ONCE PRN; Protocol PRN Reason: Hypoglycemia Protocol Glucagon (Glucagen Diagnostic Kit) 0 mg IM STAT PRN; Protocol PRN Reason: Hypoglycemia Protocol Heparin Sodium (Porcine) (Heparin) 5,000 units SC Q12 JASON PRN Reason: Protocol Last Admin: 04/12/18 08:47 Dose: 5,000 units Cefazolin Sodium 2 gm/ Sodium (Chloride) 100 mls @ 100 mls/hr IVPB TTS JASON PRN Reason: Protocol Last Admin: 04/19/18 09:22 Dose: 100 mls/hr Insulin Human Regular (Humulin R) 0 units SC ACHS JASON PRN Reason: Protocol Last Admin: 04/19/18 16:47 Dose: 1 units Levothyroxine Sodium (Synthroid) 100 mcg PO DAILY@0630 [facility] Last Admin: 04/19/18 06:57 Dose: 100 mcg Ondansetron HCl (Zofran Inj) 4 mg IVP Q4 PRN PRN Reason: Nausea/Vomiting Last Admin: 04/08/18 21:27 Dose: 4 mg Oxycodone/Acetaminophen (Percocet 5/325 Mg Tab) 1 tab PO Q4 PRN PRN Reason: Pain, moderate (4-7) Stop: 04/21/18 09:22 Oxycodone/Acetaminophen (Percocet 5/325 Mg Tab) 2 tab PO Q4 PRN PRN Reason: Pain, severe (8-10) Stop: 04/21/18 09:22 Last Admin: 04/19/18 15:39 Dose: 2 tab Sevelamer Carbonate (Renvela) 1,600 mg PO ACTID [facility] Last Admin: 04/19/18 15:45 Dose: Not Given Vitamin B Complex/Vit C/Folic Acid (Nephro-Rod) 1 tab PO DAILY [facility] Last Admin: 04/19/18 09:22 Dose: 1 tab - Labs Labs: 04/19/18 06:20 04/19/18 06:20 PT 14.0 Seconds (9.8-13.1) H 04/17/18 07:24 INR 1.3 04/17/18 07:24 APTT 32.6 Seconds (25.6-37.1) 04/17/18 07:24 - Constitutional Appears: No Acute Distress - Head Exam Head Exam: NORMAL INSPECTION - Eye Exam Eye Exam: PERRL - ENT Exam ENT Exam: Normal Exam - Neck Exam Neck Exam: Normal Inspection - Respiratory Exam Respiratory Exam: Clear to Ausculation Bilateral - Cardiovascular Exam Cardiovascular Exam: REGULAR RHYTHM - GI/Abdominal Exam GI & Abdominal Exam: Soft, Normal Bowel Sounds - Extremities Exam Extremities Exam: Tenderness (R ankle, dressing in place) Additional comments: L arm AV shunt, + bruit and thrill. L BKA - Back Exam Back Exam: NORMAL INSPECTION - Neurological Exam Neurological Exam: Alert, CN II-XII Intact, Oriented x3 Additional comments: No focal motor deficit. - Psychiatric Exam Psychiatric exam: Anxious - Skin Skin Exam: Warm Assessment and Plan (1) Pressure ulcer of right foot Status: Acute (2) Status post incision and drainage Status: Acute (3) Sepsis Status: Acute (4) Pain in right ankle and joints of right foot Status: Acute (5) ESRD (end stage renal disease) on dialysis Status: Chronic (6) Hypotension Status: Acute (7) IDDM (insulin dependent diabetes mellitus) Status: Chronic (8) Hypothyroidism Status: Chronic (9) Penile pain Status: Acute - Assessment and Plan (Free Text) Plan: s/p debridement ankle ulceration with bone Bx yesterday, Abd/Pelv CT showed: Suspicious for Cystitis, no obstructive uropathy, b/l renal cyst with underlining lesions not excluded, enlarge prostate gland. F/U U C-S,etiology of penile pain not clear as per Dr Francis Urologist. Continue Cefazolin, Percocet and rest of Tx,
[2018-04-20] MEDS: Levothyroxine 100 MCG TAB PO SCH (06:19)
--- NOTE | 2018-04-20 07:59 | CP.PCM.PN ---
Subjective - Date & Time of Evaluation Date of Evaluation: 04/20/18 Time of Evaluation: 07:56 - Subjective Subjective: Podiatry progress note for attending Dr. Turner 58 y/o male s/p 2 days right lateral malleolar incision and drainage. Patient was resting when seen at bedside. Patient denies any acute overnight events. Patient complains of minimal pain to the incision site. Patient denies any F/N/V /SOB/CP. No other pedal complaints at this time. Objective - Vital Signs/Intake and Output Vital Signs (last 24 hours): Temp Pulse Resp BP Pulse Ox 98.1 F 80 20 109/65 97 04/20/18 00:40 04/20/18 00:40 04/20/18 00:40 04/20/18 00:40 04/20/18 00:40 - Medications Medications: Current Medications Acetaminophen (Tylenol 325mg Tab) 650 mg PO Q4 PRN PRN Reason: Fever >100.4 F Last Admin: 04/14/18 16:05 Dose: 650 mg Acetaminophen (Tylenol 325mg Tab) 650 mg PO Q4 PRN PRN Reason: Pain, Mild (1-3) Last Admin: 04/17/18 17:43 Dose: 650 mg Acetaminophen (Tylenol 325mg Tab) 650 mg PO Q4 PRN PRN Reason: Pain, Mild (1-3) Atorvastatin Calcium (Lipitor) 40 mg PO HS [facility] Last Admin: 04/19/18 22:25 Dose: Not Given Dextrose (Dextrose 50% Inj) 0 ml IV STAT PRN; Protocol PRN Reason: Hypoglycemia Protocol Dextrose (Glutose 15) 0 gm PO ONCE PRN; Protocol PRN Reason: Hypoglycemia Protocol Glucagon (Glucagen Diagnostic Kit) 0 mg IM STAT PRN; Protocol PRN Reason: Hypoglycemia Protocol Heparin Sodium (Porcine) (Heparin) 5,000 units SC Q12 JASON PRN Reason: Protocol Last Admin: 04/12/18 08:47 Dose: 5,000 units Cefazolin Sodium 2 gm/ Sodium (Chloride) 100 mls @ 100 mls/hr IVPB TTS JASON PRN Reason: Protocol Last Admin: 04/19/18 09:22 Dose: 100 mls/hr Insulin Human Regular (Humulin R) 0 units SC ACHS JASON PRN Reason: Protocol Last Admin: 04/19/18 22:25 Dose: Not Given Levothyroxine Sodium (Synthroid) 100 mcg PO DAILY@0630 [facility] Last Admin: 04/20/18 06:19 Dose: Not Given Ondansetron HCl (Zofran Inj) 4 mg IVP Q4 PRN PRN Reason: Nausea/Vomiting Last Admin: 04/08/18 21:27 Dose: 4 mg Oxycodone/Acetaminophen (Percocet 5/325 Mg Tab) 1 tab PO Q4 PRN PRN Reason: Pain, moderate (4-7) Stop: 04/21/18 09:22 Oxycodone/Acetaminophen (Percocet 5/325 Mg Tab) 2 tab PO Q4 PRN PRN Reason: Pain, severe (8-10) Stop: 04/21/18 09:22 Last Admin: 04/19/18 15:39 Dose: 2 tab Sevelamer Carbonate (Renvela) 1,600 mg PO ACTID [facility] Last Admin: 04/19/18 15:45 Dose: Not Given Vitamin B Complex/Vit C/Folic Acid (Nephro-Rod) 1 tab PO DAILY [facility] Last Admin: 04/19/18 09:22 Dose: 1 tab - Labs Labs: 04/19/18 06:20 04/19/18 06:20 PT 14.0 Seconds (9.8-13.1) H 04/17/18 07:24 INR 1.3 04/17/18 07:24 APTT 32.6 Seconds (25.6-37.1) 04/17/18 07:24 - Constitutional Appears: Well, Non-toxic, No Acute Distress - Head Exam Head Exam: ATRAUMATIC, NORMOCEPHALIC - Extremities Exam Additional comments: Right Lower Extremity Exam Dressing minimal strikethrough noted Vasc: DP/PT pulses are non-palpable; edema present at the lateral ankle, Temp gradient warm to warm from proximal to distal. Neuro: diminished protective and gross sensation Derm: open draining wound measuring 4 cm X 4 cm at the level of the lateral malleolus, granulation noted to the base with minimal area of maceration posterior to wound borders, minimal sanguinous drainage expressed when squeezed , Positive probe to bone as fibula exposed through wound MSK: left previous BKA; pain at the level of the right lateral ankle wound when palpated - Neurological Exam Neurological Exam: Alert, Awake, Oriented x3 - Psychiatric Exam Psychiatric exam: Normal Affect, Normal Mood Assessment and Plan - Assessment and Plan (Free Text) Assessment: 58 y/o male s/p 2 days right lateral malleolar incision and drainage Plan: Patient seen and evaluated at bedside Chart, labs and vitals reviewed- absent leukocytosis, afebrile Patient H&H low at 8.0/24.2- medicine will consider transfusing patient if unstable Foot and ankle x-ray (04/07)- chronic fracture of distal tibia and fibula with medial subluxation or dislocation of talus; charcot joint possibility, moderate degeneration of STJ; chronic fracture of distal 5th met with probable chronic healed fracture at base of bone; OM of distal 5th met not excluded; recommend followup MRI or CT MRI not ordered as patient has pacemaker - bone scan ordered - abnormal uptake in all 3 phases due to presence of trimall fracture and callus deposition; not possible to exclude osteomyelitis; potential infectious cellulitis and osteomyelitis as well Wound culture result (04/07): Staph. aureus Blood culture result (04/07): Staph. aureus. Continue IV abx as per ID OR Wound Cx 04/18/18- Pelim, no growth after 24 hours OR Pathology 04/18/18- Pending Patient dressing and packing removed Patient wound cleansed with saline flush, betadine soaked adaptic, ABD and DSD/ WILLAM, patient R foot in Multipodus boot Physical Therapy order placed for R lower Extremity Podiatry will continue to follow patient while in house
[2018-04-20] MEDS: Multivitamin Vitamin B Complex (Nephro-Vite) Tab PO SCH (10:44)
[2018-04-20] MEDS: Insulin Regular 100 units/ml SC SCH ×4 (10:46→22:29)
--- NOTE | 2018-04-20 11:30 | CP.PCM.PN ---
Subjective - Date & Time of Evaluation Date of Evaluation: 04/20/18 Time of Evaluation: 08:00 Objective - Vital Signs/Intake and Output Vital Signs (last 24 hours): Temp Pulse Resp BP Pulse Ox 98 F 65 18 105/62 97 04/20/18 08:47 04/20/18 08:47 04/20/18 08:47 04/20/18 08:47 04/20/18 08:47 - Medications Medications: Current Medications Acetaminophen (Tylenol 325mg Tab) 650 mg PO Q4 PRN PRN Reason: Fever >100.4 F Last Admin: 04/14/18 16:05 Dose: 650 mg Acetaminophen (Tylenol 325mg Tab) 650 mg PO Q4 PRN PRN Reason: Pain, Mild (1-3) Last Admin: 04/17/18 17:43 Dose: 650 mg Acetaminophen (Tylenol 325mg Tab) 650 mg PO Q4 PRN PRN Reason: Pain, Mild (1-3) Aspirin (Ecotrin) 81 mg PO DAILY [facility] Atorvastatin Calcium (Lipitor) 40 mg PO HS [facility] Last Admin: 04/19/18 22:25 Dose: Not Given Clopidogrel Bisulfate (Plavix) 75 mg PO DAILY [facility] Dextrose (Dextrose 50% Inj) 0 ml IV STAT PRN; Protocol PRN Reason: Hypoglycemia Protocol Dextrose (Glutose 15) 0 gm PO ONCE PRN; Protocol PRN Reason: Hypoglycemia Protocol Epoetin Ryan (Procrit) 10,000 unit SC TTS [facility] Glucagon (Glucagen Diagnostic Kit) 0 mg IM STAT PRN; Protocol PRN Reason: Hypoglycemia Protocol Heparin Sodium (Porcine) (Heparin) 5,000 units SC Q12 [facility] PRN Reason: Protocol Last Admin: 04/12/18 08:47 Dose: 5,000 units Cefazolin Sodium 2 gm/ Sodium (Chloride) 100 mls @ 100 mls/hr IVPB TTS [facility] PRN Reason: Protocol Last Admin: 04/19/18 09:22 Dose: 100 mls/hr Insulin Human Regular (Humulin R) 0 units SC ACHS [facility] PRN Reason: Protocol Last Admin: 04/20/18 10:46 Dose: Not Given Levothyroxine Sodium (Synthroid) 100 mcg PO DAILY@0630 [facility] Last Admin: 04/20/18 06:19 Dose: Not Given Ondansetron HCl (Zofran Inj) 4 mg IVP Q4 PRN PRN Reason: Nausea/Vomiting Last Admin: 04/08/18 21:27 Dose: 4 mg Oxycodone/Acetaminophen (Percocet 5/325 Mg Tab) 1 tab PO Q4 PRN PRN Reason: Pain, moderate (4-7) Stop: 04/21/18 09:22 Oxycodone/Acetaminophen (Percocet 5/325 Mg Tab) 2 tab PO Q4 PRN PRN Reason: Pain, severe (8-10) Stop: 04/21/18 09:22 Last Admin: 04/19/18 15:39 Dose: 2 tab Sevelamer Carbonate (Renvela) 1,600 mg PO ACTID [facility] Last Admin: 04/20/18 10:43 Dose: 1,600 mg Vitamin B Complex/Vit C/Folic Acid (Nephro-Rod) 1 tab PO DAILY [facility] Last Admin: 04/20/18 10:44 Dose: 1 tab - Labs Labs: 04/19/18 06:20 04/19/18 06:20 PT 14.0 Seconds (9.8-13.1) H 04/17/18 07:24 INR 1.3 04/17/18 07:24 APTT 32.6 Seconds (25.6-37.1) 04/17/18 07:24 Assessment and Plan (1) Cellulitis Status: Acute (2) ESRD (end stage renal disease) on dialysis Status: Chronic (3) CAD (coronary artery disease) of artery bypass graft Status: Deleted (4) Chronic kidney disease (CKD) Status: Acute (5) Osteomyelitis Status: Acute
--- NOTE | 2018-04-20 12:19 | CP.PCM.PN ---
Subjective - Date & Time of Evaluation Date of Evaluation: 04/20/18 Time of Evaluation: 13:30 - Subjective Subjective: F/U R ankle ulcer, S/P I&D Penile pain, minimal pain R foot, Objective - Vital Signs/Intake and Output Vital Signs (last 24 hours): Temp Pulse Resp BP Pulse Ox 98 F 65 18 105/62 97 04/20/18 08:47 04/20/18 08:47 04/20/18 08:47 04/20/18 08:47 04/20/18 08:47 - Medications Medications: Current Medications Acetaminophen (Tylenol 325mg Tab) 650 mg PO Q4 PRN PRN Reason: Fever >100.4 F Last Admin: 04/14/18 16:05 Dose: 650 mg Acetaminophen (Tylenol 325mg Tab) 650 mg PO Q4 PRN PRN Reason: Pain, Mild (1-3) Last Admin: 04/17/18 17:43 Dose: 650 mg Acetaminophen (Tylenol 325mg Tab) 650 mg PO Q4 PRN PRN Reason: Pain, Mild (1-3) Aspirin (Ecotrin) 81 mg PO DAILY [facility] Atorvastatin Calcium (Lipitor) 40 mg PO HS [facility] Last Admin: 04/19/18 22:25 Dose: Not Given Clopidogrel Bisulfate (Plavix) 75 mg PO DAILY [facility] Dextrose (Dextrose 50% Inj) 0 ml IV STAT PRN; Protocol PRN Reason: Hypoglycemia Protocol Dextrose (Glutose 15) 0 gm PO ONCE PRN; Protocol PRN Reason: Hypoglycemia Protocol Epoetin Ryan (Procrit) 10,000 unit SC TTS [facility] Glucagon (Glucagen Diagnostic Kit) 0 mg IM STAT PRN; Protocol PRN Reason: Hypoglycemia Protocol Heparin Sodium (Porcine) (Heparin) 5,000 units SC Q12 [facility] PRN Reason: Protocol Last Admin: 04/12/18 08:47 Dose: 5,000 units Cefazolin Sodium 2 gm/ Sodium (Chloride) 100 mls @ 100 mls/hr IVPB TTS [facility] PRN Reason: Protocol Last Admin: 04/19/18 09:22 Dose: 100 mls/hr Insulin Human Regular (Humulin R) 0 units SC ACHS [facility] PRN Reason: Protocol Last Admin: 04/20/18 10:46 Dose: Not Given Levothyroxine Sodium (Synthroid) 100 mcg PO DAILY@0630 [facility] Last Admin: 04/20/18 06:19 Dose: Not Given Ondansetron HCl (Zofran Inj) 4 mg IVP Q4 PRN PRN Reason: Nausea/Vomiting Last Admin: 04/08/18 21:27 Dose: 4 mg Oxycodone/Acetaminophen (Percocet 5/325 Mg Tab) 1 tab PO Q4 PRN PRN Reason: Pain, moderate (4-7) Stop: 04/21/18 09:22 Oxycodone/Acetaminophen (Percocet 5/325 Mg Tab) 2 tab PO Q4 PRN PRN Reason: Pain, severe (8-10) Stop: 04/21/18 09:22 Last Admin: 04/19/18 15:39 Dose: 2 tab Sevelamer Carbonate (Renvela) 1,600 mg PO ACTID [facility] Last Admin: 04/20/18 10:43 Dose: 1,600 mg Vitamin B Complex/Vit C/Folic Acid (Nephro-Rod) 1 tab PO DAILY [facility] Last Admin: 04/20/18 10:44 Dose: 1 tab - Labs Labs: 04/19/18 06:20 04/19/18 06:20 PT 14.0 Seconds (9.8-13.1) H 04/17/18 07:24 INR 1.3 04/17/18 07:24 APTT 32.6 Seconds (25.6-37.1) 04/17/18 07:24 - Constitutional Appears: No Acute Distress - Head Exam Head Exam: NORMAL INSPECTION - Eye Exam Eye Exam: PERRL - ENT Exam ENT Exam: Normal Exam - Neck Exam Neck Exam: Normal Inspection - Respiratory Exam Respiratory Exam: Clear to Ausculation Bilateral - Cardiovascular Exam Cardiovascular Exam: REGULAR RHYTHM - GI/Abdominal Exam GI & Abdominal Exam: Soft, Normal Bowel Sounds - Exam Additional comments: Penile tenderness, minimal testicular tenderness - Extremities Exam Extremities Exam: Tenderness (R ankle with dressing in place) Additional comments: L Arm AV shunt + bruit and thrill.. L BKA - Back Exam Back Exam: NORMAL INSPECTION - Neurological Exam Neurological Exam: Alert, CN II-XII Intact, Oriented x3 Additional comments: No focal motor deficit. - Psychiatric Exam Psychiatric exam: Anxious - Skin Skin Exam: Warm Assessment and Plan (1) Pressure ulcer of right foot Status: Acute (2) Status post incision and drainage Status: Acute (3) Sepsis Status: Acute (4) Pain in right ankle and joints of right foot Status: Acute (5) ESRD (end stage renal disease) on dialysis Status: Chronic (6) Hypotension Status: Acute (7) IDDM (insulin dependent diabetes mellitus) Status: Chronic (8) Hypothyroidism Status: Chronic (9) Osteomyelitis Status: Acute (10) Prostatic enlargement Status: Chronic (11) Penile pain Status: Acute - Assessment and Plan (Free Text) Plan: f/u ID, f/u Bone Bx , C-S report, Vanco HD,Cefazolin IV, HD, Percocet , Plavix , Payroll Benefits Administrator planning Angiogram L/E in [facility]
[2018-04-20] MEDS ORDERED: EPOETIN ALFA 10,000 UNIT/ML ML SC ONE (12:32)
--- NOTE | 2018-04-20 12:34 | CP.PCM.PN ---
Subjective - Date & Time of Evaluation Date of Evaluation: 04/20/18 Time of Evaluation: 12:33 - Subjective Subjective: patient is stable no significant changes no chest pain He completed hemodialysis yesterday Objective - Vital Signs/Intake and Output Vital Signs (last 24 hours): Temp Pulse Resp BP Pulse Ox 98 F 65 18 105/62 97 04/20/18 08:47 04/20/18 08:47 04/20/18 08:47 04/20/18 08:47 04/20/18 08:47 - Medications Medications: Current Medications Acetaminophen (Tylenol 325mg Tab) 650 mg PO Q4 PRN PRN Reason: Fever >100.4 F Last Admin: 04/14/18 16:05 Dose: 650 mg Acetaminophen (Tylenol 325mg Tab) 650 mg PO Q4 PRN PRN Reason: Pain, Mild (1-3) Last Admin: 04/17/18 17:43 Dose: 650 mg Acetaminophen (Tylenol 325mg Tab) 650 mg PO Q4 PRN PRN Reason: Pain, Mild (1-3) Aspirin (Ecotrin) 81 mg PO DAILY [facility] Atorvastatin Calcium (Lipitor) 40 mg PO HS [facility] Last Admin: 04/19/18 22:25 Dose: Not Given Clopidogrel Bisulfate (Plavix) 75 mg PO DAILY [facility] Dextrose (Dextrose 50% Inj) 0 ml IV STAT PRN; Protocol PRN Reason: Hypoglycemia Protocol Dextrose (Glutose 15) 0 gm PO ONCE PRN; Protocol PRN Reason: Hypoglycemia Protocol Epoetin Ryan (Procrit) 10,000 unit SC TTS [facility] Epoetin Ryan (Procrit) 10,000 unit SC ONCE ONE Stop: 04/20/18 12:33 Glucagon (Glucagen Diagnostic Kit) 0 mg IM STAT PRN; Protocol PRN Reason: Hypoglycemia Protocol Heparin Sodium (Porcine) (Heparin) 5,000 units SC Q12 [facility] PRN Reason: Protocol Last Admin: 04/12/18 08:47 Dose: 5,000 units Cefazolin Sodium 2 gm/ Sodium (Chloride) 100 mls @ 100 mls/hr IVPB TTS [facility] PRN Reason: Protocol Last Admin: 04/19/18 09:22 Dose: 100 mls/hr Insulin Human Regular (Humulin R) 0 units SC ACHS [facility] PRN Reason: Protocol Last Admin: 04/20/18 10:46 Dose: Not Given Levothyroxine Sodium (Synthroid) 100 mcg PO DAILY@0630 [facility] Last Admin: 04/20/18 06:19 Dose: Not Given Ondansetron HCl (Zofran Inj) 4 mg IVP Q4 PRN PRN Reason: Nausea/Vomiting Last Admin: 04/08/18 21:27 Dose: 4 mg Oxycodone/Acetaminophen (Percocet 5/325 Mg Tab) 1 tab PO Q4 PRN PRN Reason: Pain, moderate (4-7) Stop: 04/21/18 09:22 Oxycodone/Acetaminophen (Percocet 5/325 Mg Tab) 2 tab PO Q4 PRN PRN Reason: Pain, severe (8-10) Stop: 04/21/18 09:22 Last Admin: 04/19/18 15:39 Dose: 2 tab Sevelamer Carbonate (Renvela) 1,600 mg PO ACTID [facility] Last Admin: 04/20/18 10:43 Dose: 1,600 mg Vitamin B Complex/Vit C/Folic Acid (Nephro-Rod) 1 tab PO DAILY [facility] Last Admin: 04/20/18 10:44 Dose: 1 tab - Labs Labs: 04/19/18 06:20 04/19/18 06:20 PT 14.0 Seconds (9.8-13.1) H 04/17/18 07:24 INR 1.3 04/17/18 07:24 APTT 32.6 Seconds (25.6-37.1) 04/17/18 07:24 - Constitutional Appears: No Acute Distress - ENT Exam ENT Exam: Mucous Membranes Moist - Neck Exam Neck Exam: absent: Lymphadenopathy - Respiratory Exam Respiratory Exam: NORMAL BREATHING PATTERN - Cardiovascular Exam Cardiovascular Exam: absent: Diastolic murmur, Gallop - GI/Abdominal Exam GI & Abdominal Exam: Soft, Normal Bowel Sounds - Extremities Exam Extremities Exam: absent: Calf Tenderness - Back Exam Back Exam: absent: CVA tenderness (L), CVA tenderness (R) - Neurological Exam Neurological Exam: Alert - Psychiatric Exam Psychiatric exam: Normal Affect - Skin Skin Exam: absent: Cyanosis Assessment and Plan (1) ESRD (end stage renal disease) on dialysis Assessment & Plan: end stage renal disease for hemodialysis TTS. hemodialysis up and running now Diabetic kidney disease. Right foot ulcer with cellulitis. Status post left leg below knee amputation Patient admitted because of fever and cellulitis of the right foot anemia noted to be worsening start EPO immediately Status: Chronic (2) Cellulitis Status: Acute (3) Pressure ulcer of right foot Status: Acute
[2018-04-20] MEDS: Oxycodone/Acetaminophen 5/325 mg Tab PO PRN (16:12)
--- NOTE | 2018-04-20 16:15 | CP.PCM.PN ---
Subjective - Date & Time of Evaluation Date of Evaluation: 04/20/18 Time of Evaluation: 10:00 - Subjective Subjective: improving s/o debridement Objective - Vital Signs/Intake and Output Vital Signs (last 24 hours): Temp Pulse Resp BP Pulse Ox 98.2 F 65 18 105/62 97 04/20/18 13:00 04/20/18 08:47 04/20/18 08:47 04/20/18 08:47 04/20/18 08:47 - Medications Medications: Current Medications Acetaminophen (Tylenol 325mg Tab) 650 mg PO Q4 PRN PRN Reason: Fever >100.4 F Last Admin: 04/14/18 16:05 Dose: 650 mg Acetaminophen (Tylenol 325mg Tab) 650 mg PO Q4 PRN PRN Reason: Pain, Mild (1-3) Last Admin: 04/17/18 17:43 Dose: 650 mg Acetaminophen (Tylenol 325mg Tab) 650 mg PO Q4 PRN PRN Reason: Pain, Mild (1-3) Aspirin (Ecotrin) 81 mg PO DAILY [facility] Last Admin: 04/20/18 12:57 Dose: 81 mg Atorvastatin Calcium (Lipitor) 40 mg PO HS [facility] Last Admin: 04/19/18 22:25 Dose: Not Given Clopidogrel Bisulfate (Plavix) 75 mg PO DAILY [facility] Last Admin: 04/20/18 12:57 Dose: 75 mg Dextrose (Dextrose 50% Inj) 0 ml IV STAT PRN; Protocol PRN Reason: Hypoglycemia Protocol Dextrose (Glutose 15) 0 gm PO ONCE PRN; Protocol PRN Reason: Hypoglycemia Protocol Epoetin Ryan (Procrit) 10,000 unit SC TTS [facility] Glucagon (Glucagen Diagnostic Kit) 0 mg IM STAT PRN; Protocol PRN Reason: Hypoglycemia Protocol Heparin Sodium (Porcine) (Heparin) 5,000 units SC Q12 [facility] PRN Reason: Protocol Last Admin: 04/12/18 08:47 Dose: 5,000 units Cefazolin Sodium 2 gm/ Sodium (Chloride) 100 mls @ 100 mls/hr IVPB TTS [facility] PRN Reason: Protocol Last Admin: 04/19/18 09:22 Dose: 100 mls/hr Insulin Human Regular (Humulin R) 0 units SC ACHS [facility] PRN Reason: Protocol Last Admin: 04/20/18 12:57 Dose: Not Given Levothyroxine Sodium (Synthroid) 100 mcg PO DAILY@0630 [facility] Last Admin: 04/20/18 06:19 Dose: Not Given Ondansetron HCl (Zofran Inj) 4 mg IVP Q4 PRN PRN Reason: Nausea/Vomiting Last Admin: 04/08/18 21:27 Dose: 4 mg Oxycodone/Acetaminophen (Percocet 5/325 Mg Tab) 1 tab PO Q4 PRN PRN Reason: Pain, moderate (4-7) Stop: 04/21/18 09:22 Oxycodone/Acetaminophen (Percocet 5/325 Mg Tab) 2 tab PO Q4 PRN PRN Reason: Pain, severe (8-10) Stop: 04/21/18 09:22 Last Admin: 04/20/18 16:12 Dose: 2 tab Sevelamer Carbonate (Renvela) 1,600 mg PO ACTID [facility] Last Admin: 04/20/18 16:13 Dose: 1,600 mg Vitamin B Complex/Vit C/Folic Acid (Nephro-Rod) 1 tab PO DAILY [facility] Last Admin: 04/20/18 10:44 Dose: 1 tab - Labs Labs: 04/19/18 06:20 04/19/18 06:20 PT 14.0 Seconds (9.8-13.1) H 04/17/18 07:24 INR 1.3 04/17/18 07:24 APTT 32.6 Seconds (25.6-37.1) 04/17/18 07:24 - Constitutional Appears: Non-toxic, Chronically Ill - Head Exam Head Exam: NORMOCEPHALIC - Eye Exam Eye Exam: absent: Scleral icterus - ENT Exam ENT Exam: Mucous Membranes Dry - Neck Exam Neck Exam: absent: Lymphadenopathy - Respiratory Exam Respiratory Exam: Decreased Breath Sounds - Cardiovascular Exam Cardiovascular Exam: REGULAR RHYTHM - GI/Abdominal Exam GI & Abdominal Exam: Distended, Soft - Rectal Exam Rectal Exam: Deferred - Exam Exam: NORMAL INSPECTION - Extremities Exam Extremities Exam: absent: Pedal Edema Additional comments: left BKA + - Back Exam Back Exam: absent: CVA tenderness (L), CVA tenderness (R) - Neurological Exam Neurological Exam: Alert, Awake, CN II-XII Intact Assessment and Plan (1) Cellulitis Status: Acute (2) ESRD (end stage renal disease) on dialysis Status: Chronic (3) CAD (coronary artery disease) of artery bypass graft Status: Deleted (4) Chronic kidney disease (CKD) Status: Acute (5) Osteomyelitis Status: Acute - Assessment and Plan (Free Text) Assessment: cont rx for OM x6-8 weeks
[2018-04-21] MEDS: Levothyroxine 100 MCG TAB PO SCH (05:52)
[2018-04-21 07:01] LABS: HEMOGLOBIN 7.9 g/dL (12.0-18.0); MEAN CELL VOLUME 96.8 fl (80.0-94.0); MEAN CORPUSCULAR HEMOGLOBIN 31.8 pg (27.0-31.0); MEAN CORPUSCULAR HGB CONC 32.8 g/dL (33.0-37.0); RBC 2.49 Mil/uL (4.40-5.90); RED CELL DISTRIBUTION WIDTH 17.1 % (11.5-14.5)
[2018-04-21 07:35] LABS: CALCIUM 7.9 mg/dL (8.4-10.2)
[2018-04-21 08:06] VITALS: O2SAT 98
[2018-04-21] MEDS: Insulin Regular 100 units/ml SC SCH ×4 (08:13→22:14)
[2018-04-21] MEDS: Multivitamin Vitamin B Complex (Nephro-Vite) Tab PO SCH (08:15)
[2018-04-21] MEDS ORDERED: EPOETIN ALFA 10,000 UNIT/ML ML SC SCH (09:00)
--- NOTE | 2018-04-21 09:19 | CP.PCM.PN ---
Subjective - Date & Time of Evaluation Date of Evaluation: 04/21/18 Time of Evaluation: 09:17 - Subjective Subjective: Podiatry progress note for attending Dr. Turner 58 y/o male s/p 3 days right lateral malleolar incision and drainage. Patient was resting when seen at bedside. Patient denies any acute overnight events. Patient complains of minimal pain to the incision site, but states he is feeling well. Patient denies any F/N/V/SOB/CP. No other pedal complaints at this time. Objective - Vital Signs/Intake and Output Vital Signs (last 24 hours): Temp Pulse Resp BP Pulse Ox 97.9 F 72 20 101/56 L 98 04/21/18 08:05 04/21/18 08:05 04/21/18 08:05 04/21/18 08:05 04/21/18 08:05 - Medications Medications: Current Medications Acetaminophen (Tylenol 325mg Tab) 650 mg PO Q4 PRN PRN Reason: Fever >100.4 F Last Admin: 04/14/18 16:05 Dose: 650 mg Acetaminophen (Tylenol 325mg Tab) 650 mg PO Q4 PRN PRN Reason: Pain, Mild (1-3) Last Admin: 04/17/18 17:43 Dose: 650 mg Acetaminophen (Tylenol 325mg Tab) 650 mg PO Q4 PRN PRN Reason: Pain, Mild (1-3) Aspirin (Ecotrin) 81 mg PO DAILY [facility] Last Admin: 04/21/18 08:15 Dose: 81 mg Atorvastatin Calcium (Lipitor) 40 mg PO HS [facility] Last Admin: 04/20/18 22:29 Dose: Not Given Clopidogrel Bisulfate (Plavix) 75 mg PO DAILY [facility] Last Admin: 04/21/18 08:15 Dose: 75 mg Dextrose (Dextrose 50% Inj) 0 ml IV STAT PRN; Protocol PRN Reason: Hypoglycemia Protocol Dextrose (Glutose 15) 0 gm PO ONCE PRN; Protocol PRN Reason: Hypoglycemia Protocol Epoetin Ryan (Procrit) 10,000 unit SC TTS [facility] Glucagon (Glucagen Diagnostic Kit) 0 mg IM STAT PRN; Protocol PRN Reason: Hypoglycemia Protocol Heparin Sodium (Porcine) (Heparin) 5,000 units SC Q12 [facility] PRN Reason: Protocol Last Admin: 04/12/18 08:47 Dose: 5,000 units Cefazolin Sodium 2 gm/ Sodium (Chloride) 100 mls @ 100 mls/hr IVPB TTS [facility] PRN Reason: Protocol Last Admin: 04/19/18 09:22 Dose: 100 mls/hr Insulin Human Regular (Humulin R) 0 units SC ACHS [facility] PRN Reason: Protocol Last Admin: 04/21/18 08:13 Dose: Not Given Levothyroxine Sodium (Synthroid) 100 mcg PO DAILY@0630 [facility] Last Admin: 04/21/18 05:52 Dose: Not Given Ondansetron HCl (Zofran Inj) 4 mg IVP Q4 PRN PRN Reason: Nausea/Vomiting Last Admin: 04/08/18 21:27 Dose: 4 mg Oxycodone/Acetaminophen (Percocet 5/325 Mg Tab) 1 tab PO Q4 PRN PRN Reason: Pain, moderate (4-7) Stop: 04/21/18 09:22 Oxycodone/Acetaminophen (Percocet 5/325 Mg Tab) 2 tab PO Q4 PRN PRN Reason: Pain, severe (8-10) Stop: 04/21/18 09:22 Last Admin: 04/20/18 16:12 Dose: 2 tab Sevelamer Carbonate (Renvela) 1,600 mg PO ACTID [facility] Last Admin: 04/21/18 08:14 Dose: 1,600 mg Vitamin B Complex/Vit C/Folic Acid (Nephro-Rod) 1 tab PO DAILY [facility] Last Admin: 04/21/18 08:15 Dose: 1 tab - Labs Labs: 04/21/18 06:35 04/21/18 06:35 PT 14.0 Seconds (9.8-13.1) H 04/17/18 07:24 INR 1.3 04/17/18 07:24 APTT 32.6 Seconds (25.6-37.1) 04/17/18 07:24 - Constitutional Appears: Well, Non-toxic, No Acute Distress - Head Exam Head Exam: ATRAUMATIC, NORMOCEPHALIC - Extremities Exam Additional comments: Right Lower Extremity Exam Dressing minimal strikethrough noted Vasc: DP/PT pulses are non-palpable; edema present at the lateral ankle, Temp gradient warm to warm from proximal to distal. Neuro: diminished protective and gross sensation Derm: open draining wound measuring 4 cm X 4 cm at the level of the lateral malleolus, increasing granulation tissue noted to the base with minimal area, no maceration, no sanguinous drainage expressed when squeezed, Positive probe to bone as fibula exposed through wound MSK: left previous BKA; pain at the level of the right lateral ankle wound when palpated - Neurological Exam Neurological Exam: Alert, Awake, Oriented x3 - Psychiatric Exam Psychiatric exam: Normal Affect, Normal Mood Assessment and Plan - Assessment and Plan (Free Text) Assessment: 58 y/o male s/p 2 days right lateral malleolar incision and drainage Plan: Patient seen and evaluated at bedside Chart, labs and vitals reviewed- absent leukocytosis, afebrile Patient H&H low at 7.9/24.1- medicine will consider transfusing patient if unstable Foot and ankle x-ray (04/07)- chronic fracture of distal tibia and fibula with medial subluxation or dislocation of talus; charcot joint possibility, moderate degeneration of STJ; chronic fracture of distal 5th met with probable chronic healed fracture at base of bone; OM of distal 5th met not excluded; recommend followup MRI or CT MRI not ordered as patient has pacemaker - bone scan ordered - abnormal uptake in all 3 phases due to presence of trimall fracture and callus deposition; not possible to exclude osteomyelitis; potential infectious cellulitis and osteomyelitis as well Wound culture result (04/07): Staph. aureus Blood culture result (04/07): Staph. aureus. Continue IV abx as per ID- As per Dr. Gregg, as the wound probes to bone, patient will be on 6 weeks of 2gm Ancef given during dialysis As per case management, patient has been approved for IV Infusions upon discharge OR Wound Cx 04/18/18- Final, no growth OR Pathology 04/18/18- no acute osteomyelitis Patient dressing and packing removed Patient wound cleansed with saline flush, betadine soaked adaptic, ABD and DSD/ WILLAM, patient R foot in Multipodus boot Physical Therapy order placed for R lower Extremity Podiatry will continue to follow patient while in house
--- NOTE | 2018-04-21 10:18 | CP.PCM.PN ---
Subjective - Date & Time of Evaluation Date of Evaluation: 04/21/18 Time of Evaluation: 10:17 - Subjective Subjective: patient is conscious and alert not in acute distress Objective - Vital Signs/Intake and Output Vital Signs (last 24 hours): Temp Pulse Resp BP Pulse Ox 97.9 F 72 20 101/56 L 98 04/21/18 08:05 04/21/18 08:05 04/21/18 08:05 04/21/18 08:05 04/21/18 08:05 - Medications Medications: Current Medications Acetaminophen (Tylenol 325mg Tab) 650 mg PO Q4 PRN PRN Reason: Fever >100.4 F Last Admin: 04/14/18 16:05 Dose: 650 mg Acetaminophen (Tylenol 325mg Tab) 650 mg PO Q4 PRN PRN Reason: Pain, Mild (1-3) Last Admin: 04/17/18 17:43 Dose: 650 mg Acetaminophen (Tylenol 325mg Tab) 650 mg PO Q4 PRN PRN Reason: Pain, Mild (1-3) Aspirin (Ecotrin) 81 mg PO DAILY [facility] Last Admin: 04/21/18 08:15 Dose: 81 mg Atorvastatin Calcium (Lipitor) 40 mg PO HS [facility] Last Admin: 04/20/18 22:29 Dose: Not Given Clopidogrel Bisulfate (Plavix) 75 mg PO DAILY [facility] Last Admin: 04/21/18 08:15 Dose: 75 mg Dextrose (Dextrose 50% Inj) 0 ml IV STAT PRN; Protocol PRN Reason: Hypoglycemia Protocol Dextrose (Glutose 15) 0 gm PO ONCE PRN; Protocol PRN Reason: Hypoglycemia Protocol Epoetin Ryan (Procrit) 10,000 unit SC TTS [facility] Glucagon (Glucagen Diagnostic Kit) 0 mg IM STAT PRN; Protocol PRN Reason: Hypoglycemia Protocol Heparin Sodium (Porcine) (Heparin) 5,000 units SC Q12 [facility] PRN Reason: Protocol Last Admin: 04/12/18 08:47 Dose: 5,000 units Cefazolin Sodium 2 gm/ Sodium (Chloride) 100 mls @ 100 mls/hr IVPB TTS [facility] PRN Reason: Protocol Last Admin: 04/19/18 09:22 Dose: 100 mls/hr Insulin Human Regular (Humulin R) 0 units SC ACHS [facility] PRN Reason: Protocol Last Admin: 04/21/18 08:13 Dose: Not Given Levothyroxine Sodium (Synthroid) 100 mcg PO DAILY@0630 [facility] Last Admin: 04/21/18 05:52 Dose: Not Given Ondansetron HCl (Zofran Inj) 4 mg IVP Q4 PRN PRN Reason: Nausea/Vomiting Last Admin: 04/08/18 21:27 Dose: 4 mg Sevelamer Carbonate (Renvela) 1,600 mg PO ACTID [facility] Last Admin: 04/21/18 08:14 Dose: 1,600 mg Vitamin B Complex/Vit C/Folic Acid (Nephro-Rod) 1 tab PO DAILY [facility] Last Admin: 04/21/18 08:15 Dose: 1 tab - Labs Labs: 04/21/18 06:35 04/21/18 06:35 PT 14.0 Seconds (9.8-13.1) H 04/17/18 07:24 INR 1.3 04/17/18 07:24 APTT 32.6 Seconds (25.6-37.1) 04/17/18 07:24 - Constitutional Appears: No Acute Distress - ENT Exam ENT Exam: Mucous Membranes Moist - Neck Exam Neck Exam: absent: Lymphadenopathy - Respiratory Exam Respiratory Exam: NORMAL BREATHING PATTERN. absent: Chest Wall Tenderness - Cardiovascular Exam Cardiovascular Exam: REGULAR RHYTHM. absent: Gallop, Rubs - GI/Abdominal Exam GI & Abdominal Exam: Soft, Normal Bowel Sounds - Extremities Exam Extremities Exam: absent: Calf Tenderness - Back Exam Back Exam: absent: CVA tenderness (L), CVA tenderness (R) - Neurological Exam Neurological Exam: Alert - Skin Skin Exam: absent: Cyanosis Assessment and Plan (1) ESRD (end stage renal disease) on dialysis Assessment & Plan: end stage renal disease for hemodialysis TTS. Diabetic kidney disease. Right foot ulcer with cellulitis. Status post left leg below knee amputation Patient admitted because of fever and cellulitis of the right foot anemia noted to be worsening start EPO immediately The plan No dialysis today as scheduled EPO on hemodialysis Status post incision and drainage Antibiotics as per primary team Status: Chronic (2) Cellulitis Status: Acute (3) Pressure ulcer of right foot Status: Acute
--- NOTE | 2018-04-21 10:37 | CP.PCM.PN ---
Subjective - Date & Time of Evaluation Date of Evaluation: 04/21/18 Time of Evaluation: 10:37 - Subjective Subjective: cardiology progress note for Dr. Scar MILLARD#[id number] pt seen and evaluated at bedside. Currently undergoing dialysis. Reports improved pain in the right leg. No new complaints. Afebrile. Objective - Vital Signs/Intake and Output Vital Signs (last 24 hours): Temp Pulse Resp BP Pulse Ox 97.9 F 72 20 101/56 L 98 04/21/18 08:05 04/21/18 08:05 04/21/18 08:05 04/21/18 08:05 04/21/18 08:05 - Medications Medications: Current Medications Acetaminophen (Tylenol 325mg Tab) 650 mg PO Q4 PRN PRN Reason: Fever >100.4 F Last Admin: 04/14/18 16:05 Dose: 650 mg Acetaminophen (Tylenol 325mg Tab) 650 mg PO Q4 PRN PRN Reason: Pain, Mild (1-3) Last Admin: 04/17/18 17:43 Dose: 650 mg Acetaminophen (Tylenol 325mg Tab) 650 mg PO Q4 PRN PRN Reason: Pain, Mild (1-3) Aspirin (Ecotrin) 81 mg PO DAILY [facility] Last Admin: 04/21/18 08:15 Dose: 81 mg Atorvastatin Calcium (Lipitor) 40 mg PO HS [facility] Last Admin: 04/20/18 22:29 Dose: Not Given Clopidogrel Bisulfate (Plavix) 75 mg PO DAILY [facility] Last Admin: 04/21/18 08:15 Dose: 75 mg Dextrose (Dextrose 50% Inj) 0 ml IV STAT PRN; Protocol PRN Reason: Hypoglycemia Protocol Dextrose (Glutose 15) 0 gm PO ONCE PRN; Protocol PRN Reason: Hypoglycemia Protocol Epoetin Ryan (Procrit) 10,000 unit SC TTS [facility] Glucagon (Glucagen Diagnostic Kit) 0 mg IM STAT PRN; Protocol PRN Reason: Hypoglycemia Protocol Heparin Sodium (Porcine) (Heparin) 5,000 units SC Q12 [facility]OSN PRN Reason: Protocol Last Admin: 04/12/18 08:47 Dose: 5,000 units Cefazolin Sodium 2 gm/ Sodium (Chloride) 100 mls @ 100 mls/hr IVPB TTS [facility] PRN Reason: Protocol Last Admin: 04/19/18 09:22 Dose: 100 mls/hr Insulin Human Regular (Humulin R) 0 units SC ACHS [facility] PRN Reason: Protocol Last Admin: 04/21/18 08:13 Dose: Not Given Levothyroxine Sodium (Synthroid) 100 mcg PO DAILY@0630 [facility] Last Admin: 04/21/18 05:52 Dose: Not Given Ondansetron HCl (Zofran Inj) 4 mg IVP Q4 PRN PRN Reason: Nausea/Vomiting Last Admin: 04/08/18 21:27 Dose: 4 mg Sevelamer Carbonate (Renvela) 1,600 mg PO ACTID [facility] Last Admin: 04/21/18 08:14 Dose: 1,600 mg Vitamin B Complex/Vit C/Folic Acid (Nephro-Rod) 1 tab PO DAILY [facility] Last Admin: 04/21/18 08:15 Dose: 1 tab - Labs Labs: 04/21/18 06:35 04/21/18 06:35 PT 14.0 Seconds (9.8-13.1) H 04/17/18 07:24 INR 1.3 04/17/18 07:24 APTT 32.6 Seconds (25.6-37.1) 04/17/18 07:24 - Constitutional Appears: Non-toxic, No Acute Distress - Eye Exam Eye Exam: EOMI Pupil Exam: PERRL - Neck Exam Additional comments: right internal J line - Respiratory Exam Respiratory Exam: Clear to Ausculation Bilateral, NORMAL BREATHING PATTERN. absent: Rales, Rhonchi, Wheezes - Cardiovascular Exam Cardiovascular Exam: REGULAR RHYTHM, RRR, +S1, +S2. absent: JVD, Murmur - Extremities Exam Extremities Exam: absent: Normal Inspection (right foot in brace and bandaged, C /D/I, left left s/p BKA) Additional comments: left AV dialysis fistula - Neurological Exam Neurological Exam: Alert, Awake, Oriented x3 - Psychiatric Exam Psychiatric exam: Normal Affect, Normal Mood Assessment and Plan (1) Cellulitis Status: Acute (2) ESRD (end stage renal disease) on dialysis Status: Chronic (3) PVD (peripheral vascular disease) Status: Acute (4) HTN (hypertension) Status: Chronic (5) IDDM (insulin dependent diabetes mellitus) Status: Chronic
[2018-04-21 14:27] VITALS: RESP 18
--- NOTE | 2018-04-21 15:27 | CP.PCM.PN ---
Subjective - Date & Time of Evaluation Date of Evaluation: 04/21/18 Time of Evaluation: 14:45 - Subjective Subjective: Pt has no fever Had Hemodialysis this am Hgb 7.9 Blood transfusion in progress denies CP no SOB no abd pain Pt would need 6 wks IV antibiotics and Physical therapy as well ( has left BKA and Osteomyelitis of the right foot) Objective - Vital Signs/Intake and Output Vital Signs (last 24 hours): Temp Pulse Resp BP Pulse Ox 98.7 F 78 18 115/54 L 98 04/21/18 14:47 04/21/18 14:47 04/21/18 14:47 04/21/18 14:47 04/21/18 08:05 Intake and Output: 04/21/18 04/21/18 06:59 18:59 Intake Total 0 Balance 0 - Medications Medications: Current Medications Acetaminophen (Tylenol 325mg Tab) 650 mg PO Q4 PRN PRN Reason: Fever >100.4 F Last Admin: 04/14/18 16:05 Dose: 650 mg Acetaminophen (Tylenol 325mg Tab) 650 mg PO Q4 PRN PRN Reason: Pain, Mild (1-3) Last Admin: 04/17/18 17:43 Dose: 650 mg Acetaminophen (Tylenol 325mg Tab) 650 mg PO Q4 PRN PRN Reason: Pain, Mild (1-3) Aspirin (Ecotrin) 81 mg PO DAILY [facility] Last Admin: 04/21/18 08:15 Dose: 81 mg Atorvastatin Calcium (Lipitor) 40 mg PO HS [facility] Last Admin: 04/20/18 22:29 Dose: Not Given Clopidogrel Bisulfate (Plavix) 75 mg PO DAILY [facility] Last Admin: 04/21/18 08:15 Dose: 75 mg Dextrose (Dextrose 50% Inj) 0 ml IV STAT PRN; Protocol PRN Reason: Hypoglycemia Protocol Dextrose (Glutose 15) 0 gm PO ONCE PRN; Protocol PRN Reason: Hypoglycemia Protocol Epoetin Ryan (Procrit) 10,000 unit SC TTS [facility] Last Admin: 04/21/18 13:07 Dose: 10,000 unit Glucagon (Glucagen Diagnostic Kit) 0 mg IM STAT PRN; Protocol PRN Reason: Hypoglycemia Protocol Heparin Sodium (Porcine) (Heparin) 5,000 units SC Q12 [facility]ASON PRN Reason: Protocol Last Admin: 04/12/18 08:47 Dose: 5,000 units Cefazolin Sodium 2 gm/ Sodium (Chloride) 100 mls @ 100 mls/hr IVPB TTS [facility] PRN Reason: Protocol Last Admin: 04/19/18 09:22 Dose: 100 mls/hr Insulin Human Regular (Humulin R) 0 units SC ACHS [facility] PRN Reason: Protocol Last Admin: 04/21/18 12:21 Dose: Not Given Levothyroxine Sodium (Synthroid) 100 mcg PO DAILY@0630 [facility] Last Admin: 04/21/18 05:52 Dose: Not Given Ondansetron HCl (Zofran Inj) 4 mg IVP Q4 PRN PRN Reason: Nausea/Vomiting Last Admin: 04/08/18 21:27 Dose: 4 mg Sevelamer Carbonate (Renvela) 1,600 mg PO ACTID [facility] Last Admin: 04/21/18 12:21 Dose: 1,600 mg Vitamin B Complex/Vit C/Folic Acid (Nephro-Rod) 1 tab PO DAILY [facility] Last Admin: 04/21/18 08:15 Dose: 1 tab - Labs Labs: 04/21/18 06:35 04/21/18 06:35 PT 14.0 Seconds (9.8-13.1) H 04/17/18 07:24 INR 1.3 04/17/18 07:24 APTT 32.6 Seconds (25.6-37.1) 04/17/18 07:24 - Constitutional Appears: No Acute Distress, Chronically Ill - Head Exam Head Exam: NORMAL INSPECTION, NORMOCEPHALIC - Eye Exam Eye Exam: EOMI, Normal appearance Pupil Exam: NORMAL ACCOMODATION - ENT Exam ENT Exam: Mucous Membranes Moist, Normal External Ear Exam - Neck Exam Neck Exam: Full ROM. absent: Meningismus - Respiratory Exam Respiratory Exam: NORMAL BREATHING PATTERN. absent: Respiratory Distress - Cardiovascular Exam Cardiovascular Exam: REGULAR RHYTHM, +S1, +S2 - GI/Abdominal Exam GI & Abdominal Exam: Soft, Normal Bowel Sounds. absent: Tenderness - Extremities Exam Additional comments: Left BKA Right foot with dressing - Back Exam Back Exam: Full ROM. absent: CVA tenderness (L), CVA tenderness (R) - Neurological Exam Neurological Exam: Alert, Awake, Oriented x3 - Psychiatric Exam Psychiatric exam: Flat Affect, Normal Mood - Skin Skin Exam: Dry, Normal Color, Warm Assessment and Plan (1) Cellulitis Assessment & Plan: s/p I and ID Podiatry following pt Status: Acute (2) Osteomyelitis Assessment & Plan: Plan for 6 wks IV antibiotics ID - Dr woodard consulted Wound c/s : MSSA ont IV Cefazolin with HD Status: Acute (3) ESRD (end stage renal disease) on dialysis Assessment & Plan: cont TIW HD Status: Chronic (4) PVD (peripheral vascular disease) Assessment & Plan: cont ASA, Plavix Plan for Angiogram as outpt Dr Abbott consulted Status: Chronic (5) HTN (hypertension) Status: Chronic (6) Hypothyroidism Assessment & Plan: cont Levothyroxine Status: Chronic (7) DM type 2 (diabetes mellitus, type 2) Assessment & Plan: accucheck q ACHS start Levemir 5 units q hs Status: Chronic (8) DVT prophylaxis Assessment & Plan: Heparin SQ Status: Acute (9) Anemia in chronic kidney disease Assessment & Plan: transfuse 1 unit PRBC today cont Epogen Status: Chronic
[2018-04-21] MEDS: ceFAZolin 2 GM in Sodium Chloride 0.9% 100 ML IVPB SCH (17:22)
[2018-04-21 18:28] VITALS: BP 117/62; PULSE 84; TEMP 98.6
--- NOTE | 2018-04-21 21:51 | OP ---
PROCEDURE DATE: 04/07/2018 PATIENT AGE: 57. PATIENT SEX: Male. SURGEON: Pankaj Turner DPM ASSISTANTS: Hermann Bryan, PGY-1 and Elizabeth Hall DPM, PGY-2 REPAIRING CALIBRATOR: Perla Mcclure MD ANESTHESIA: IV sedation with local. PREOPERATIVE DIAGNOSIS: Right ankle infected wound with possible osteomyelitis. POSTOPERATIVE DIAGNOSIS: Right ankle infected wound with possible osteomyelitis. NAME OF PROCEDURE: Right ankle wound debridement and bone biopsy of right tibia and fibula. INDICATION: The patient is a 57-year-old male with the above diagnosis. The patient has exhausted all conservative treatment at this time and now requires surgical intervention. The patient signed the consent after careful explanation of the risks, benefits, complications, and alternatives for surgical procedures. No guarantees were given nor implied. NPO status was confirmed prior to taking the patient to the OR. PREPARATION: The patient was brought into the operating room and placed on the operating room table in supine position. Time-out was performed for identification of the correct patient and procedure. After induction of IV sedation and administration of 10 mL of 0.5% Marcaine plain to the right ankle in a V-block fashion. The right lower extremity was then prepped and draped in normal sterile manner, and the procedure began. No tourniquet was used during the procedure. DESCRIPTION OF PROCEDURE: Attention was then directed to the lateral aspect of the right ankle where a nonhealing wound with bone exposed measuring approximately 3 cm x 3 cm and deep to bone was present. A sterile 15-blade and forceps were used to excise all necrotic tissue in the wound bed and wound margins. Next, using Versajet on setting 6, the ulceration was excisionally debrided of all remaining fibrotic and nonviable tissue until fresh and healthy bleeding and granular tissue appeared. Bone biopsy was then taken from the right tibia and fibula using a Jamshidi needle and sent for pathology. The wound was then packed with 1/4-inch iodoform packing and dressed with Xeroform, 4x4 gauze, ABD, and Aj. POSTOPERATIVE CONDITION: The patient tolerated the anesthesia and procedure well and escorted to the recovery room with vital signs stable and neurovascular status intact to the right ankle and foot. The patient will continue to be followed while in-house. HERMANN ASHLIE Pankaj Turner DPM [facility] # [id number] [facility]ALTH[facility]
[2018-04-21] MEDS ORDERED: Insulin Detemir 100 Units/ml Inj SC SCH (22:00)
--- NOTE | 2018-04-22 06:24 | CP.PCM.PN ---
Subjective - Date & Time of Evaluation Date of Evaluation: 04/22/18 Time of Evaluation: 06:20 - Subjective Subjective: Podiatry progress note for attending Dr. Turner 58 y/o male s/p 4 days right lateral malleolar incision and drainage. Patient was resting when seen at bedside. Patient denies any acute overnight events. Patient complains of minimal pain to the incision site, but states he is feeling well. Patient denies any F/N/V/SOB/CP. No other pedal complaints at this time. Objective - Vital Signs/Intake and Output Vital Signs (last 24 hours): Temp Pulse Resp BP Pulse Ox 98.6 F 84 18 117/62 98 04/21/18 18:21 04/21/18 18:21 04/21/18 18:21 04/21/18 18:21 04/21/18 08:05 Intake and Output: 04/21/18 04/22/18 18:59 06:59 Intake Total 365 Balance 365 - Medications Medications: Current Medications Acetaminophen (Tylenol 325mg Tab) 650 mg PO Q4 PRN PRN Reason: Fever >100.4 F Last Admin: 04/14/18 16:05 Dose: 650 mg Acetaminophen (Tylenol 325mg Tab) 650 mg PO Q4 PRN PRN Reason: Pain, Mild (1-3) Last Admin: 04/17/18 17:43 Dose: 650 mg Acetaminophen (Tylenol 325mg Tab) 650 mg PO Q4 PRN PRN Reason: Pain, Mild (1-3) Aspirin (Ecotrin) 81 mg PO DAILY [facility] Last Admin: 04/21/18 08:15 Dose: 81 mg Atorvastatin Calcium (Lipitor) 40 mg PO HS [facility] Last Admin: 04/21/18 22:15 Dose: Not Given Clopidogrel Bisulfate (Plavix) 75 mg PO DAILY [facility] Last Admin: 04/21/18 08:15 Dose: 75 mg Dextrose (Dextrose 50% Inj) 0 ml IV STAT PRN; Protocol PRN Reason: Hypoglycemia Protocol Dextrose (Glutose 15) 0 gm PO ONCE PRN; Protocol PRN Reason: Hypoglycemia Protocol Epoetin Ryan (Procrit) 10,000 unit SC TTS [facility] Last Admin: 04/21/18 13:07 Dose: 10,000 unit Glucagon (Glucagen Diagnostic Kit) 0 mg IM STAT PRN; Protocol PRN Reason: Hypoglycemia Protocol Heparin Sodium (Porcine) (Heparin) 5,000 units SC Q12 [facility]ASON PRN Reason: Protocol Last Admin: 04/12/18 08:47 Dose: 5,000 units Cefazolin Sodium 2 gm/ Sodium (Chloride) 100 mls @ 100 mls/hr IVPB TTS [facility] PRN Reason: Protocol Last Admin: 04/21/18 17:22 Dose: 100 mls/hr Insulin Detemir (Levemir) 5 units SC HS [facility] Last Admin: 04/21/18 22:11 Dose: 5 units Insulin Human Regular (Humulin R) 0 units SC ACHS [facility] PRN Reason: Protocol Last Admin: 04/21/18 22:14 Dose: Not Given Lactulose (Enulose) 20 gm PO DAILY PRN PRN Reason: Constipation Last Admin: 04/21/18 22:55 Dose: 20 gm Levothyroxine Sodium (Synthroid) 100 mcg PO DAILY@0630 [facility] Last Admin: 04/21/18 05:52 Dose: Not Given Ondansetron HCl (Zofran Inj) 4 mg IVP Q4 PRN PRN Reason: Nausea/Vomiting Last Admin: 04/21/18 18:13 Dose: 4 mg Sevelamer Carbonate (Renvela) 1,600 mg PO ACTID [facility] Last Admin: 04/21/18 17:13 Dose: 1,600 mg Vitamin B Complex/Vit C/Folic Acid (Nephro-Rod) 1 tab PO DAILY [facility] Last Admin: 04/21/18 08:15 Dose: 1 tab - Labs Labs: 04/21/18 06:35 04/21/18 06:35 PT 14.0 Seconds (9.8-13.1) H 04/17/18 07:24 INR 1.3 04/17/18 07:24 APTT 32.6 Seconds (25.6-37.1) 04/17/18 07:24 - Constitutional Appears: Well, Non-toxic, No Acute Distress - Head Exam Head Exam: ATRAUMATIC, NORMOCEPHALIC - Extremities Exam Additional comments: Right Lower Extremity Exam Dressing: minimal strikethrough noted Vasc: DP/PT pulses are non-palpable; edema present at the lateral ankle, Temp gradient warm to warm from proximal to distal. Neuro: diminished protective and gross sensation Derm: open draining wound measuring 4 cm X 4 cm at the level of the lateral malleolus, increasing granulation tissue noted to the base with minimal area, no maceration, no sanguinous drainage expressed when squeezed, Positive probe to bone as fibula exposed through wound MSK: left previous BKA; pain at the level of the right lateral ankle wound when palpated - Neurological Exam Neurological Exam: Alert, Awake, Oriented x3 - Psychiatric Exam Psychiatric exam: Normal Affect - Skin Skin Exam: Normal Color Assessment and Plan - Assessment and Plan (Free Text) Assessment: 58 y/o male s/p 4 days right lateral malleolar wound incision and drainage Plan: Patient seen and evaluated at bedside Chart, labs and vitals reviewed- absent leukocytosis, afebrile Foot and ankle x-ray (04/07)- chronic fracture of distal tibia and fibula with medial subluxation or dislocation of talus; charcot joint possibility, moderate degeneration of STJ; chronic fracture of distal 5th met with probable chronic healed fracture at base of bone; OM of distal 5th met not excluded; recommend followup MRI or CT MRI not ordered as patient has pacemaker - bone scan ordered - abnormal uptake in all 3 phases due to presence of trimall fracture and callus deposition; not possible to exclude osteomyelitis; potential infectious cellulitis and osteomyelitis as well Wound culture result (04/07): Staph. aureus Blood culture result (04/07): Staph. aureus. Continue IV abx as per ID- As per Dr. Gregg, as the wound probes to bone, patient will be on 6 weeks of 2gm Ancef given during dialysis As per case management, patient has been approved for IV Infusions during dialysis upon discharge OR Wound Cx 04/18/18- Final, no growth OR Pathology 04/18/18- no acute osteomyelitis Patient dressing and packing removed Patient wound cleansed with saline flush, betadine soaked adaptic, ABD and DSD/ WILLAM, patient R foot in Multipodus boot Upon discharge: wound care dressing changes at home QOD, podiatric clinic f/u Wednesday Dressing: Bactroban, Adaptic, 4X4, gauze and Kerlix Plan: stable for discharge, will be booked for surgery after 6 weeks of IV antibiotic are finished Patient thoroughly explained the plan for the next 6 weeks as well as the plan for future surgery. Patient demonstrated verbal agreement Podiatry will continue to follow patient while in house
[2018-04-22 06:36] LABS: HEMOGLOBIN 8.6 g/dL (12.0-18.0); MEAN CELL VOLUME 94.8 fl (80.0-94.0); MEAN CORPUSCULAR HEMOGLOBIN 31.8 pg (27.0-31.0); MEAN CORPUSCULAR HGB CONC 33.6 g/dL (33.0-37.0); RBC 2.7 Mil/uL (4.40-5.90); RED CELL DISTRIBUTION WIDTH 17.1 % (11.5-14.5); WHITE BLOOD COUNT 5.7 K/uL (4.8-10.8)
[2018-04-22] MEDS: Insulin Regular 100 units/ml SC SCH ×3 (06:42→16:22)
[2018-04-22] MEDS: Levothyroxine 100 MCG TAB PO SCH (06:43)
[2018-04-22 06:49] LABS: CALCIUM 8.4 mg/dL (8.4-10.2)
[2018-04-22] MEDS: Multivitamin Vitamin B Complex (Nephro-Vite) Tab PO SCH (08:54)
--- NOTE | 2018-04-22 13:23 | CP.PCM.PN ---
Subjective - Date & Time of Evaluation Date of Evaluation: 04/22/18 Time of Evaluation: 15:48 - Subjective Subjective: pt. stable vital stable no nausea eating well Objective - Vital Signs/Intake and Output Vital Signs (last 24 hours): Temp Pulse Resp BP Pulse Ox 98.6 F 84 18 117/62 98 04/21/18 18:21 04/21/18 18:21 04/21/18 18:21 04/21/18 18:21 04/21/18 08:05 - Medications Medications: Current Medications Acetaminophen (Tylenol 325mg Tab) 650 mg PO Q4 PRN PRN Reason: Fever >100.4 F Last Admin: 04/14/18 16:05 Dose: 650 mg Acetaminophen (Tylenol 325mg Tab) 650 mg PO Q4 PRN PRN Reason: Pain, Mild (1-3) Aspirin (Ecotrin) 81 mg PO DAILY [facility] Last Admin: 04/22/18 08:54 Dose: 81 mg Atorvastatin Calcium (Lipitor) 40 mg PO HS [facility] Last Admin: 04/21/18 22:15 Dose: Not Given Clopidogrel Bisulfate (Plavix) 75 mg PO DAILY [facility] Last Admin: 04/22/18 08:54 Dose: 75 mg Dextrose (Dextrose 50% Inj) 0 ml IV STAT PRN; Protocol PRN Reason: Hypoglycemia Protocol Dextrose (Glutose 15) 0 gm PO ONCE PRN; Protocol PRN Reason: Hypoglycemia Protocol Epoetin Rayn (Procrit) 10,000 unit SC TTS [facility] Last Admin: 04/21/18 13:07 Dose: 10,000 unit Glucagon (Glucagen Diagnostic Kit) 0 mg IM STAT PRN; Protocol PRN Reason: Hypoglycemia Protocol Heparin Sodium (Porcine) (Heparin) 5,000 units SC Q12 [facility] PRN Reason: Protocol Last Admin: 04/12/18 08:47 Dose: 5,000 units Cefazolin Sodium/Dextrose (Ancef Iv 2 Gm Duplex) 2 gm in 50 mls @ 50 mls/hr IVPB TTS [facility] PRN Reason: Protocol Insulin Detemir (Levemir) 5 units SC HS [facility] Last Admin: 04/21/18 22:11 Dose: 5 units Insulin Human Regular (Humulin R) 0 units SC ACHS [facility] PRN Reason: Protocol Last Admin: 04/22/18 11:41 Dose: Not Given Lactulose (Enulose) 20 gm PO DAILY PRN PRN Reason: Constipation Last Admin: 04/21/18 22:55 Dose: 20 gm Levothyroxine Sodium (Synthroid) 100 mcg PO DAILY@0630 [facility] Last Admin: 04/22/18 06:43 Dose: Not Given Ondansetron HCl (Zofran Inj) 4 mg IVP Q4 PRN PRN Reason: Nausea/Vomiting Last Admin: 04/21/18 18:13 Dose: 4 mg Sevelamer Carbonate (Renvela) 1,600 mg PO ACTID [facility] Last Admin: 04/22/18 11:42 Dose: Not Given Vitamin B Complex/Vit C/Folic Acid (Nephro-Rod) 1 tab PO DAILY [facility] Last Admin: 04/22/18 08:54 Dose: 1 tab - Labs Labs: 04/22/18 05:30 04/22/18 05:30 PT 14.0 Seconds (9.8-13.1) H 04/17/18 07:24 INR 1.3 04/17/18 07:24 APTT 32.6 Seconds (25.6-37.1) 04/17/18 07:24 - Constitutional Appears: No Acute Distress - Eye Exam Eye Exam: Conjunctival injection - ENT Exam ENT Exam: Mucous Membranes Moist - Neck Exam Neck Exam: absent: Lymphadenopathy - Cardiovascular Exam Cardiovascular Exam: absent: Gallop, JVD, Rubs - GI/Abdominal Exam GI & Abdominal Exam: Soft, Normal Bowel Sounds - Extremities Exam Extremities Exam: absent: Calf Tenderness, Pedal Edema - Back Exam Back Exam: absent: CVA tenderness (L), CVA tenderness (R) - Neurological Exam Neurological Exam: Alert - Psychiatric Exam Psychiatric exam: Normal Affect - Skin Skin Exam: absent: Cyanosis Assessment and Plan (1) ESRD (end stage renal disease) on dialysis Assessment & Plan: Assessment & Plan: end stage renal disease for hemodialysis TTS. Diabetic kidney disease. Right foot ulcer with cellulitis. Status post left leg below knee amputation Patient admitted because of fever and cellulitis of the right foot anemia noted to be worsening start EPO immediately The plan dialysis as scheduled EPO on hemodialysis Status post incision and drainage Antibiotics as per primary team Status: Chronic (2) Cellulitis Status: Acute (3) Pressure ulcer of right foot Status: Acute
--- NOTE | 2018-04-22 13:26 | CP.PCM.PN ---
Subjective - Date & Time of Evaluation Date of Evaluation: 04/22/18 Time of Evaluation: 08:00 - Subjective Subjective: discussed on rounds cont ancef 2 g q HD x 6 weeks Objective - Vital Signs/Intake and Output Vital Signs (last 24 hours): Temp Pulse Resp BP Pulse Ox 98.6 F 84 18 117/62 98 04/21/18 18:21 04/21/18 18:21 04/21/18 18:21 04/21/18 18:21 04/21/18 08:05 - Medications Medications: Current Medications Acetaminophen (Tylenol 325mg Tab) 650 mg PO Q4 PRN PRN Reason: Fever >100.4 F Last Admin: 04/14/18 16:05 Dose: 650 mg Acetaminophen (Tylenol 325mg Tab) 650 mg PO Q4 PRN PRN Reason: Pain, Mild (1-3) Aspirin (Ecotrin) 81 mg PO DAILY [facility] Last Admin: 04/22/18 08:54 Dose: 81 mg Atorvastatin Calcium (Lipitor) 40 mg PO HS [facility] Last Admin: 04/21/18 22:15 Dose: Not Given Clopidogrel Bisulfate (Plavix) 75 mg PO DAILY [facility] Last Admin: 04/22/18 08:54 Dose: 75 mg Dextrose (Dextrose 50% Inj) 0 ml IV STAT PRN; Protocol PRN Reason: Hypoglycemia Protocol Dextrose (Glutose 15) 0 gm PO ONCE PRN; Protocol PRN Reason: Hypoglycemia Protocol Epoetin Ryan (Procrit) 10,000 unit SC TTS [facility] Last Admin: 04/21/18 13:07 Dose: 10,000 unit Glucagon (Glucagen Diagnostic Kit) 0 mg IM STAT PRN; Protocol PRN Reason: Hypoglycemia Protocol Heparin Sodium (Porcine) (Heparin) 5,000 units SC Q12 [facility] PRN Reason: Protocol Last Admin: 04/12/18 08:47 Dose: 5,000 units Cefazolin Sodium/Dextrose (Ancef Iv 2 Gm Duplex) 2 gm in 50 mls @ 50 mls/hr IVPB TTS [facility] PRN Reason: Protocol Insulin Detemir (Levemir) 5 units SC HS [facility] Last Admin: 04/21/18 22:11 Dose: 5 units Insulin Human Regular (Humulin R) 0 units SC ACHS [facility] PRN Reason: Protocol Last Admin: 04/22/18 11:41 Dose: Not Given Lactulose (Enulose) 20 gm PO DAILY PRN PRN Reason: Constipation Last Admin: 04/21/18 22:55 Dose: 20 gm Levothyroxine Sodium (Synthroid) 100 mcg PO DAILY@0630 [facility] Last Admin: 04/22/18 06:43 Dose: Not Given Ondansetron HCl (Zofran Inj) 4 mg IVP Q4 PRN PRN Reason: Nausea/Vomiting Last Admin: 04/21/18 18:13 Dose: 4 mg Sevelamer Carbonate (Renvela) 1,600 mg PO ACTID [facility] Last Admin: 04/22/18 11:42 Dose: Not Given Vitamin B Complex/Vit C/Folic Acid (Nephro-Rod) 1 tab PO DAILY [facility] Last Admin: 04/22/18 08:54 Dose: 1 tab - Labs Labs: 04/22/18 05:30 04/22/18 05:30 PT 14.0 Seconds (9.8-13.1) H 04/17/18 07:24 INR 1.3 04/17/18 07:24 APTT 32.6 Seconds (25.6-37.1) 04/17/18 07:24 - Constitutional Appears: Non-toxic, Chronically Ill - Head Exam Head Exam: NORMOCEPHALIC - Eye Exam Eye Exam: PERRL - ENT Exam ENT Exam: Mucous Membranes Dry - Neck Exam Neck Exam: absent: Lymphadenopathy - Respiratory Exam Respiratory Exam: Decreased Breath Sounds - Cardiovascular Exam Cardiovascular Exam: REGULAR RHYTHM - GI/Abdominal Exam GI & Abdominal Exam: Distended - Rectal Exam Rectal Exam: Deferred Assessment and Plan (1) Cellulitis Status: Acute (2) ESRD (end stage renal disease) on dialysis Status: Chronic (3) CAD (coronary artery disease) of artery bypass graft Status: Deleted (4) Chronic kidney disease (CKD) Status: Acute (5) Osteomyelitis Status: Acute
--- NOTE | 2018-04-22 19:06 | CP.PCM.DIS ---
Provider - Provider Date of Admission: 04/07/18 01:04 Attending physician: Kashif Wilde MD Primary care physician: Dr Erika Trejo Consults: Podiatry:Dr Turner Nephro: Dr Salamanca ID: Dr Gregg Cardio: Dr Abbott Time Spent in preparation of Discharge (in minutes): 35 Diagnosis - Discharge Diagnosis (1) Cellulitis Status: Acute (2) Osteomyelitis Status: Acute (3) ESRD (end stage renal disease) on dialysis Status: Chronic Priority: High (4) PVD (peripheral vascular disease) Status: Chronic (5) HTN (hypertension) Status: Chronic Priority: Medium (6) Hypothyroidism Status: Chronic Priority: Medium (7) DM type 2 (diabetes mellitus, type 2) Status: Chronic (8) DVT prophylaxis Status: Acute (9) Anemia in chronic kidney disease Status: Chronic Hospital Course - Lab Results Lab Results: Micro Results 04/18/18 15:00 Ankle - Right Gram Stain - Final 04/18/18 15:00 Ankle - Right Wound Culture - Final No growth. 04/18/18 15:00 Ankle - Right Gram Stain - Final 04/18/18 15:00 Ankle - Right Wound Culture - Final No growth. 04/16/18 14:00 Blood-During Dialysis Blood Culture - Final NO GROWTH AFTER 5 DAYS 04/16/18 14:00 Blood-During Dialysis Gram Stain - Final TEST NOT PERFORMED 04/14/18 16:33 Blood Blood Culture - Final NO GROWTH AFTER 5 DAYS 04/14/18 16:33 Blood Gram Stain - Final TEST NOT PERFORMED 04/14/18 16:23 Blood Blood Culture - Final NO GROWTH AFTER 5 DAYS 04/14/18 16:23 Blood Gram Stain - Final TEST NOT PERFORMED 04/10/18 06:10 Naris MRSA Culture (Admit) - Final MRSA NOT DETECTED 04/07/18 07:53 Ankle - Right Gram Stain - Final 04/07/18 07:53 Ankle - Right Wound Culture - Final Staphylococcus Aureus 04/06/18 23:50 Blood S.aureus & Coag-Neg Staph PNA FISH - Final 04/06/18 23:50 Blood Blood Culture - Final Staphylococcus Aureus 04/06/18 23:50 Blood Gram Stain - Final 04/07/18 07:48 Nose MRSA Culture (Admit) - Final MRSA NOT DETECTED Most Recent Lab Values WBC 5.7 K/uL (4.8-10.8) 04/22/18 05:30 RBC 2.70 Mil/uL (4.40-5.90) L 04/22/18 05:30 Hgb 8.6 g/dL (12.0-18.0) L 04/22/18 05:30 Hct 25.6 % (35.0-51.0) L 04/22/18 05:30 MCV 94.8 fl (80.0-94.0) H D 04/22/18 05:30 MCH 31.8 pg (27.0-31.0) H 04/22/18 05:30 MCHC 33.6 g/dL (33.0-37.0) 04/22/18 05:30 RDW 17.1 % (11.5-14.5) H 04/22/18 05:30 Plt Count 397 K/uL (130-400) 04/22/18 05:30 MPV 7.1 fl (7.2-11.7) L 04/18/18 09:54 Neut % (Auto) 82.9 % (50.0-75.0) H 04/18/18 09:54 Lymph % (Auto) 7.8 % (20.0-40.0) L 04/18/18 09:54 [place] % (Auto) 6.9 % (0.0-10.0) 04/18/18 09:54 Eos % (Auto) 1.8 % (0.0-4.0) 04/18/18 09:54 Baso % (Auto) 0.6 % (0.0-2.0) 04/18/18 09:54 Neut # (Auto) 7.7 K/uL (1.8-7.0) H 04/18/18 09:54 Lymph # (Auto) 0.7 K/uL (1.0-4.3) L 04/18/18 09:54 [place] # (Auto) 0.6 K/uL (0.0-0.8) 04/18/18 09:54 Eos # (Auto) 0.2 K/uL (0.0-0.7) 04/18/18 09:54 Baso # (Auto) 0.1 K/uL (0.0-0.2) 04/18/18 09:54 Neutrophils % (Manual) 88 % (42-75) H 04/16/18 17:45 Band Neutrophils % 2 % (0-2) 04/16/18 17:45 Lymphocytes % (Manual) 7 % (20-50) L 04/16/18 17:45 Monocytes % (Manual) 3 % (0-10) 04/16/18 17:45 Platelet Estimate Normal (NORMAL) 04/16/18 17:45 Large Platelets Present 04/16/18 17:45 Hypochromasia (manual) Slight 04/16/18 17:45 Anisocytosis (manual) Slight 04/16/18 17:45 PT 14.0 Seconds (9.8-13.1) H 04/17/18 07:24 INR 1.3 04/17/18 07:24 APTT 32.6 Seconds (25.6-37.1) 04/17/18 07:24 Sodium 137 mmol/l (132-148) 04/22/18 05:30 Potassium 5.1 MMOL/L (3.6-5.0) H 04/22/18 05:30 Chloride 97 mmol/L (98-107) L 04/22/18 05:30 Carbon Dioxide 31 mmol/L (22-30) H 04/22/18 05:30 Anion Gap 14 (10-20) 04/22/18 05:30 BUN 30 mg/dl (9-20) H 04/22/18 05:30 Creatinine 4.9 mg/dl (0.8-1.5) H 04/22/18 05:30 Est GFR ( Amer) 15 04/22/18 05:30 Est GFR (Non-Af Amer) 12 04/22/18 05:30 POC Glucose (mg/dL) 143 mg/dL (65-110) H 04/22/18 05:24 Random Glucose 129 mg/dL (75-110) H 04/22/18 05:30 Lactic Acid 0.6 MMOL/L (0.7-2.1) L 04/07/18 16:33 Calcium 8.4 mg/dL (8.4-10.2) 04/22/18 05:30 Phosphorus 6.9 mg/dl (2.5-4.5) H 04/19/18 06:20 Magnesium 2.3 MG/DL (1.6-2.3) 04/19/18 06:20 Total Bilirubin 0.4 mg/dl (0.2-1.3) 04/19/18 06:20 AST 31 U/L (17-59) 04/19/18 06:20 ALT 9 U/L (21-72) L D 04/19/18 06:20 Alkaline Phosphatase 211 U/L (38-126) H D 04/19/18 06:20 Total Protein 7.2 G/DL (6.3-8.2) 04/19/18 06:20 Albumin 3.0 g/dL (3.5-5.0) L 04/19/18 06:20 Globulin 4.1 gm/dL (2.2-3.9) H 04/19/18 06:20 Albumin/Globulin Ratio 0.7 (1.0-2.1) L 04/19/18 06:20 Prostate Specific Ag 12.0 ng/ML (0.00-4.0) H 04/18/18 14:23 Procalcitonin 17.65 NG/ML (0.19-0.49) H 04/07/18 16:33 PTH Intact Whole Molec 64 pg/mL (14-64) 04/11/18 11:21 Vancomycin Trough 20.0 ug/mL (5.0-10.0) H 04/19/18 07:30 C. difficile Ag & Toxin Negative (NEGATIVE) 04/08/18 18:20 Blood Type A POSITIVE 04/21/18 12:07 Antibody Screen Negative 04/21/18 12:07 Crossmatch See Detail 04/21/18 12:07 BBK History Checked Patient has bt 04/21/18 12:07 - Hospital Course Hospital Course: 57 y/o M, Hx of CABG, HTN, ESRD on HD TTS for 6 yrs, presented to the ED for evaluation of R foot/ankle chronic pain, and presence of draining wound. Pt was admitted , started on IV antibiotics. Underwent Incision and Drainage by Podiatry. Found to have Osteomyelitis . Plan for outpatient IV antibiotics x 6 wks and outpt Vascular evaluation. (1) Cellulitis s/p I and ID MSSA on Wound c/s- pt on IV Ancef Podiatry following pt Status: Acute (2) Osteomyelitis Plan for 6 wks IV antibiotics ID - Dr gregg consulted, case discussed Wound c/s : MSSA on IV Cefazolin with HD TTS Wound Care Pt to ff up with Podiatry as outpt Status: Acute (3) ESRD (end stage renal disease) on dialysis Assessment & Plan: cont TIW HD Status: Chronic (4) PVD (peripheral vascular disease) cont ASA, Plavix Plan for Angiogram as outpt Dr Abbott consulted Status: Chronic (5) HTN (hypertension) Status: Chronic (6) Hypothyroidism cont Levothyroxine Status: Chronic (7) DM type 2 (diabetes mellitus, type 2) accucheck q ACHS cont Levemir 5 units q hs Status: Chronic (8) DVT prophylaxis Heparin SQ Status: Acute (9) Anemia in chronic kidney disease transfused 1 unit PRBC cont Epogen Status: Chronic Discharge Exam - Head Exam Head Exam: NORMAL INSPECTION, NORMOCEPHALIC - Eye Exam Eye Exam: EOMI, Normal appearance Pupil Exam: NORMAL ACCOMODATION - ENT Exam ENT Exam: Normal External Ear Exam - Neck Exam Neck exam: Full Rom - Respiratory Exam Respiratory Exam: NORMAL BREATHING PATTERN. absent: Respiratory Distress - Cardiovascular Exam Cardiovascular Exam: REGULAR RHYTHM, +S1, +S2 - GI/Abdominal Exam GI & Abdominal Exam: Normal Bowel Sounds, Soft. absent: Tenderness - Extremities Exam Additional comments: left BKA Right foot with dressing - Back Exam Back exam: absent: CVA tenderness (L), CVA tenderness (R) - Neurological Exam Neurological exam: Alert, CN II-XII Intact, Oriented x3 - Psychiatric Exam Psychiatric exam: Normal Affect, Normal Mood - Skin Skin Exam: Dry, Normal Color, Warm Discharge Plan - Discharge Medications Prescriptions: Cefazolin Sodium in 0.9 % NaCl [Cefazolin 2 G/100 ml-0.9% NaCl] 2 gm IV TTS 40 Days plast..bag - Follow Up Plan Condition: STABLE Disposition: TRANSF TO SNF Instructions: Debridement of a Wound or Burn (DC), End Stage Kidney Disease (DC ) Additional Instructions: wound care dressing changes QOD, podiatric clinic f/u 05/02/18Wednesday Dressing: Bactroban, Adaptic, 4X4, gauze and Kerlix cont IV antibiotics to complete 6 wks Referrals: Erika Trejo [Family Provider] - Chance Francis Jr., MD [Staff Provider] - Hector Savage MD [Staff Provider] -
[2018-04-23] MEDS ORDERED: ceFAZolin IV 2 gm in Dextrose 2 GM/50 ML BAG IVPB SCH (09:00)
--- NOTE | 2018-04-25 08:33 | CON ---
DATE: REASON FOR CONSULTATION: I was asked to see this patient by Dr. Kashif Wilde because of penile pain. HISTORY OF PRESENT ILLNESS: The patient was admitted with cellulitis and ESRD and has been complaining of penile pain. The patient is a 57-year-old male, admitted to the [facility] from the emergency room. He has a history of diabetes and end-stage renal disease, and he is on dialysis. He makes very little urine. He is complaining of penile pain. He has no history of penile instrumentation or trauma. REVIEW OF SYSTEMS: RESPIRATORY: The patient is complaining of no respiratory complaints. GASTROINTESTINAL: The patient has no bowel complaints. He is known diabetic. GENITOURINARY: The patient denies making any significant amount of urine since he cannot remember the last time he has urinated. EXTREMITIES: The patient has history of cellulitis and purulent discharge in the right ankle. NEUROLOGIC: Noncontributory. SOCIAL HISTORY: Noncontributory. FAMILY HISTORY: Noncontributory. PHYSICAL EXAMINATION: HEAD, EARS, EYES, NOSE AND THROAT: Within normal limits. NECK: Supple. There are no bruits, nodes, or masses. CHEST: Clear bilaterally. There are no rales or rhonchi. HEART: Normal sinus rhythm. ABDOMEN: There is no CVA tenderness or renal enlargement. Abdomen is soft. There is no palpable bladder distention. GENITALIA: Testicles, epididymis, cord and penile are normal to exam. Meatus is adequate. IMPRESSION: My impression is penile pain of unknown etiology. PLAN: I suggest that the patient to have a catheterized urine specimen to determine if there is a urinary tract infection. Since he is already on antibiotics, this may be limited CAT scan of the abdomen and pelvis to rule out stone or other pathology. The recommendations were communicated with Dr. Wilde personally. Chance Francis MD
--- NOTE | 2018-05-02 16:03 | PQF ---
PROVIDER RESPONSE TEXT: Acute Osteomyelitis : Confirmed and current, clinically bone was probed and went thru bone, Triple ph ase bone scan showe emphysematous change w/c likely is due to cellulitis and osteomyelitis REVIEWER QUERY TEXT: Conflicting Documentation Clarification A single mention or documentation of multiple diagnoses for the same clinical presentation appears in the record. Please clarify the diagnosis/diagnoses: acute osteomyelitis Please also document if the condition is: -- Confirmed and current -- Confirmed, treated and resolved -- Ruled out -- Other, please specify The patient's Clinical Indicators include: Pathology report documented no acute osteomyelitis Query created by: Windy Godinez on 04/24/2018 1:40 PM Electronically signed by: Gris Weaver MD 05/02/2018 3:59 PM
== END 2018-04-22 19:40 | DRG 853 ==
LOC: H.ER 22:54 → H.ERHOLD 04-07 00:37 → OBSVTOIN 04-07 01:04 → H.ICU/CCU 04-07 05:56 → H.TEL 04-09 16:40 → H.MEDSURG1 04-13 00:09
PROVIDERS: ADMIT Internal Medicine Pulmonary Disease; ATTEND Internal Medicine Pulmonary Disease
PROC: 0Y9K0ZZ Drainage of Right Ankle Region, Open Approach (ICD-10-PCS; 2018-04-07)
PROC: 05HM33Z Insertion of Infusion Device into Right Internal Jugular Vein, Percutaneous Approach (ICD-10-PCS; 2018-04-07)
PROC: 0QBG0ZX Excision of Right Tibia, Open Approach, Diagnostic (ICD-10-PCS; 2018-04-18)
PROC: 0JBQ0ZZ Excision of Right Foot Subcutaneous Tissue and Fascia, Open Approach (ICD-10-PCS; 2018-04-18)
PROC: 0QBJ0ZX Excision of Right Fibula, Open Approach, Diagnostic (ICD-10-PCS; principal; 2018-04-18 07:45)
PROC: 5A1D70Z Performance of Urinary Filtration, Intermittent, Less than 6 Hours Per Day (ICD-10-PCS; 2018-04-19)
PROC: 30233N1 Transfusion of Nonautologous Red Blood Cells into Peripheral Vein, Percutaneous Approach (ICD-10-PCS; 2018-04-21)
DX: A41.01 Sepsis due to Methicillin susceptible Staphylococcus aureus (principal); N18.6 End stage renal disease; L03.115 Cellulitis of right lower limb; I25.810 Atherosclerosis of coronary artery bypass graft(s) without angina pectoris; N25.81 Secondary hyperparathyroidism of renal origin; I12.0 Hypertensive chronic kidney disease with stage 5 chronic kidney disease or end stage renal disease; M86.171 Other acute osteomyelitis, right ankle and foot; R65.20 Severe sepsis without septic shock; L89.899 Pressure ulcer of other site, unspecified stage; G89.29 Other chronic pain; E11.22 Type 2 diabetes mellitus with diabetic chronic kidney disease; Z99.2 Dependence on renal dialysis; Z89.512 Acquired absence of left leg below knee; Z79.4 Long term (current) use of insulin; I25.10 Atherosclerotic heart disease of native coronary artery without angina pectoris; E03.9 Hypothyroidism, unspecified; E78.5 Hyperlipidemia, unspecified; E78.00 Pure hypercholesterolemia, unspecified; M84.469D Pathological fracture, unspecified tibia and fibula, subsequent encounter for fracture with routine healing; F32.9 Major depressive disorder, single episode, unspecified; E83.39 Other disorders of phosphorus metabolism; N48.89 Other specified disorders of penis; E11.51 Type 2 diabetes mellitus with diabetic peripheral angiopathy without gangrene; D63.1 Anemia in chronic kidney disease; N40.0 Benign prostatic hyperplasia without lower urinary tract symptoms; E11.69 Type 2 diabetes mellitus with other specified complication; B95.61 Methicillin susceptible Staphylococcus aureus infection as the cause of diseases classified elsewhere